=== PATIENT | female | born 1960 | race Caucasian/White ===

== ENCOUNTER → 2020-08-01 15:11 | Outpatient (BNVA) | payer OTHER, SELFPAY | PROVIDERS: PCP Internal Medicine; Visit Provider Internal Medicine Cardiovascular Disease | DX: I50.30 Unspecified diastolic (congestive) heart failure (principal); I48.0 Paroxysmal atrial fibrillation; I10 Essential (primary) hypertension | CPT/HCPCS: 93005 ==

== ENCOUNTER → 2021-01-30 15:12 | Outpatient (BNVA) | payer OTHER, SELFPAY | PROVIDERS: PCP Internal Medicine; Visit Provider Internal Medicine Cardiovascular Disease | DX: I50.30 Unspecified diastolic (congestive) heart failure (principal); I48.0 Paroxysmal atrial fibrillation; G47.30 Sleep apnea, unspecified; Z79.899 Other long term (current) drug therapy | CPT/HCPCS: 93005 ==

== ENCOUNTER → 2021-08-01 14:58 | Outpatient (REF) | payer OTHER, SELFPAY ==
--- NOTE | 2021-08-01 15:01 | CA_ITS ---
Transthoracic Echocardiogram Patient (Last, First, Middle): Maria Dolores Marin Gender: Female Date of : 1960 Age: 61 Procedure Date: 08/01/2021 Procedure Type: Transthoracic Echocardiogram Location: OP Height: 162.56 cm Weight: 88.91 kg BSA: 1.94 m2 Heart Rate: bpm BP: 116 / 60 mmHg Online Content Coordinator: Referring MD: Daryl Rich MD Warp Tier: Daryl Rich MD Symptoms: I50.30 - Unspecified diastolic (congestive) heart failure Study Quality: Fair ECG Rhythm: Sinus Conclusions: - 1. Normal LV systolic function with normal diastolic filling pattern 2. Moderately dilated left atrium 3. Mild mitral regurgitation 4. Normal RV systolic pressure 5. No pericardial effusion Findings Left Ventricle Normal left ventricular size, thickness, and systolic function. The visually estimated ejection fraction is between 60-65%. Spectral Doppler is indicative of a normal filling pattern. Right Ventricle Normal right ventricular cavity size and systolic function. Atria The left atrium is moderately dilated. There is lipomatous hypertrophy of the interatrial septum. There is no evidence of interatrial shunt. The right atrium is normal in size. Aortic Valve Normal aortic valve structure and function. There is no aortic valve stenosis. There is no aortic valve regurgitation. Mitral Valve Normal mitral valve structure and function. There is mild mitral annular calcification. There is mild mitral valve regurgitation. There is no mitral valve stenosis. Pulmonic Valve The pulmonic valve was not well visualized. Tricuspid Valve There is trace tricuspid valve regurgitation. The right ventricular systolic pressure is 29 mmHg. There is no evidence of pulmonary hypertension. Great Vessels All visible segments of the aorta are normal in size. The pulmonary artery was not well visualized. Venous The inferior vena cava is normal in size and collapses greater than 50% with inspiration. Pericardium/Pleural There is no evidence of pericardial effusion. Prior Study Comparison Changes noted compared to prior study dated: 02/18/2020. Left atrium is further enlarged Measurements 2D Linear Measurements IVSd: 1.09 0.6-0.9/0.6-1.0 cm LVIDd: 4.28 3.9-5.3/4.2-5.9 cm LVIDd Index: 2.21 2.4-3.2/2.2-3.1 cm/m2 LVIDs: 2.38 2.0-3.6 cm LVPWd: 1.06 0.7-1.1 cm Ao Root: 3.00 2.1-3.5 cm LA Diam: 4.20 2.7-3.8/3.0-4.0 cm LAIDs Index: 2.16 1.5-2.3 cm/m2 LV Mass: 194.94 67-162/88-224 g LV Mass Index: 100.49 43-95/49-115 g/m2 LVOT Diam: 1.90 3.0+(-)1.3 cm Mitral Valve MV Pk E: 0.81 MV PK A: 0.67 MV Decel Time: 147.00 E/A: 1.20 E'Lateral: 12.20 E'Medial: 8.59 E/E' Med: 9.40 E/E' Lat: 6.60 PHT: 43.00 MVA PHT: 5.12 Decel [place]: 5.49 Aortic Valve AoV Pk Dmitry: 1.84 AoV Mn Dmitry: 1.21 AoV VTI: 0.42 AoV Pk Grad: 14.00 Aov Mn Grad: 7.00 ALEX Cont.VTI: 1.88 LVOT LVOT Pk Mditry: 1.27 LVOT Mn Dmitry: 0.86 LVOT VTI: 0.28 LVOT Pk Grad: 6.00 LVOT Mn Grad: 3.00 LVOT Diam: 1.90 LVOT Area: 2.84 Diastolic Function MV Pk E: 0.81 MV Pk A: 0.67 E/A: 1.20 E'Medial: 8.59 E/E' Med: 9.40 E' Laterial: 12.20 E/E' Lat: 6.60 Right Ventricle TAPSE (mm): 35.00 Tricuspid Valve TR Pk Dmitry: 2.56 TR Pk Grad: 26.00 RA Press: 3.00 RVSP: 29.00 Great Vessels Aorta Ao Root-2D: 3.00 2.0-3.7 cm Pulmonary Valve PV Pk Dmitry: 1.00 Peak PV Grad: 4.00 Updated in Other Vendor System with Status of Final Daryl Rich MD electronically signed on 08/01/2021 4:23:22 PM with status of Final
== END ==
LOC: HO.CARD 14:58
PROVIDERS: PCP Internal Medicine; Visit Provider Internal Medicine Cardiovascular Disease
DX: I50.30 Unspecified diastolic (congestive) heart failure (principal)
CPT/HCPCS: 93306

== ENCOUNTER → 2021-08-28 14:39 | Outpatient (BNVA) | payer OTHER, SELFPAY | PROVIDERS: PCP Internal Medicine; Visit Provider Internal Medicine Cardiovascular Disease | DX: I48.0 Paroxysmal atrial fibrillation (principal); I50.30 Unspecified diastolic (congestive) heart failure; G47.33 Obstructive sleep apnea (adult) (pediatric) | CPT/HCPCS: 93005 ==

== ENCOUNTER → 2021-11-15 16:01 | Outpatient (REF) | payer OTHER, SELFPAY | LOC: HO.SL 16:01 | PROVIDERS: PCP Internal Medicine; Visit Provider Internal Medicine Cardiovascular Disease | DX: Z13.89 Encounter for screening for other disorder (principal) ==

== ENCOUNTER → 2022-03-06 08:45 | Outpatient (BNVA) | payer OTHER, SELFPAY | PROVIDERS: PCP Internal Medicine; Visit Provider Internal Medicine Cardiovascular Disease | DX: I48.0 Paroxysmal atrial fibrillation (principal); I50.30 Unspecified diastolic (congestive) heart failure | CPT/HCPCS: 93005 ==

== ENCOUNTER → 2022-08-02 15:16 | Outpatient (BNVA) | payer OTHER, SELFPAY | PROVIDERS: PCP Internal Medicine; Visit Provider Internal Medicine Cardiovascular Disease | DX: Z79.899 Other long term (current) drug therapy (principal) | CPT/HCPCS: 93005 ==

== ENCOUNTER 2022-09-14 11:11 | Outpatient (REF) | payer OTHER, SELFPAY ==
--- NOTE | ~2022-09-14 | XR_ITS ---
EXAMINATION: XR SHOULDER , RIGHT CLINICAL INFORMATION: Pain COMPARISON: None available at the time of this dictation. TECHNIQUE: AP external rotation, Grashey, scapular Y, and axillary views of the shoulder. FINDINGS: BONES: 2 metallic anchors in the right humeral head likely from rotator cuff repair.. There is no fracture or dislocation, no osteolytic or osteoblastic lesion. JOINTS: Soft tissue calcification around humeral head suggests possible calcific tendinosis. Glenohumeral joint is properly positioned. There is mild degenerative osteoarthritis of the acromioclavicular joint. SOFT TISSUE AND INCLUDED LUNG: Normal. XR/XR shoulder RT min 2V IMPRESSION: * Soft tissue calcification around humeral head suggests calcific tendinosis. * Mild DJD A.C. joint. * 2 metallic anchors in the humeral head likely from rotator cuff repair.
[2022-09-14 12:36] LABS: MANUAL DIFF FLAG NO
[2022-09-14 12:53] LABS: Basophils Absolute Auto 0.1 X10*3/uL (0.0-0.2); Basophils Percent Auto 0.7 % (0-2); Eosinophils Absolute Auto 0.2 X10*3/uL (0.0-0.4); Eosinophils Percent Auto 2.5 % (0-4); Hematocrit 38.5 % (37.0-47.0); Hemoglobin 12.1 g/dl (12.0-16.0); Imm Gran Abs Auto 0.02 X10*3/uL (0.00-0.03); Imm Gran Pct Auto 0.2 % (0.0-0.4); Lymphocytes Absolute Auto 1.3 X10*3/uL (1.2-4.9); Mean Corpuscular HGB Conc 31.4 g/dl (31.0-35.0); Mean Corpuscular Hemoglobin 27.3 pg (27.0-33.0); Mean Corpuscular Volume 86.9 fL (80.0-98.0); Mean Platelet Volume 9.8 fL (9.4-12.3); Monocytes Absolute Auto 0.8 X10*3/uL (0.1-1.2); Monocytes Percent Auto 9.7 % (2-11); Neutrophils Absolute Auto 5.8 x10*3/uL (2.0-8.3); Neutrophils Percent Auto 70.9 % (45-73); Platelet Count 428 X10*3/uL (160-400); Red Blood Count 4.43 X10*6/uL (4.20-5.50); Red Cell Distribution Width 13.8 % (11.0-16.0); White Blood Count 8.1 X10*3/uL (4.8-10.8)
[2022-09-14 13:29] LABS: Erythrocyte Sedimentation Rate 42 MM/HR (0-20)
[2022-09-14 14:19] LABS: Alanine Aminotransferase 16 U/L (0-31); Albumin Level 3.7 g/dL (3.5-5.0); Alkaline Phosphatase 124 U/L (39-117); Anion Gap 14 (12-20); Aspartate Amino Transferase 25 U/L (5-31); Bilirubin Total 0.3 mg/dL (0.0-1.0); Blood Urea Nitrogen 21 mg/dL (9-16); C Reactive Protein 0.73 mg/dL (< or = 0.50); Calcium 9.4 mg/dL (8.4-10.2); Carbon Dioxide 28 mmol/L (22-29); Chloride 99 mmol/L (96-108); Estimated Glomerular Filt Rate 60; Glucose Random 87 mg/dL (60-115); Iron 32 mcg/dL (30-160); Percent Iron Saturation 11 % (15-50); Potassium 4.8 mmol/L (3.3-5.1); Rheumatoid Factor < 13.0 IU/mL (<15.0); Sodium 136 mmol/L (135-145); Total Iron Binding Capacity 297 mcg/dL (228-428); Total Protein 5.7 g/dL (6.5-8.0); Unsaturated Iron Binding 265 ug/dL; Uric Acid 4.8 mg/dL (2.4-5.7)
[2022-09-14 14:28] LABS: Ferritin 14 ng/mL (10-250); TSH reflex Free T4 1.45 uIU/mL (0.32-4.0)
[2022-09-17 04:35] LABS: HBS Num1 3.36 mIU/mL (0-7.99); HBc Num1 0.05 S/CO (0.00-0.79); HBsAGNum1 0.25 S/CO (0.00-0.99); Hepatitis A Antibody IgM 0.31 Index (0-0.79); Hepatitis B Core Antibody Nonreactive (Nonreactive); Hepatitis B Surface Antigen Negative (Negative); ~HepC Num1 0.05 S/CO (0.00-0.79); ~Hepatitis A Antibody IgM Nonreactive (Nonreactive); ~Hepatitis B Surface Antibody NONREACTIVE (Nonreactive); ~Hepatitis C Antibody Nonreactive (Nonreactive)
[2022-09-17 13:23] LABS: Calcium (PTHI) 9.4 mg/dL (8.6-10.4); PTHI 133 pg/mL (16-77)
[2022-09-17 14:09] LABS: Prot Elec - Albumin 3.4 g/dL (3.8-4.8); Prot Elec - Alpha1 0.5 g/dL (0.2-0.3); Prot Elec - Beta 1 0.4 g/dL (0.4-0.6); Prot Elec - Beta 2 0.3 g/dL (0.2-0.5); Prot Elec - Gamma 0.4 g/dL (0.8-1.7); Prot Elec - Total Protein 5.8 g/dL (6.1-8.1)
[2022-09-17 17:03] LABS: Cyclic Citrullinated Peptide <16 UNITS
[2022-09-17 19:29] LABS: Transferrin 261 mg/dL (188-341)
[2022-09-19 15:38] LABS: IgA 79 mg/dL (70-320); IgG 336 mg/dL (600-1540); IgM 51 mg/dL (50-300)
== END 2022-09-14 11:12 | disposition home or self-care (01) ==
LOC: HO.XRAY 11:11
PROVIDERS: PCP Internal Medicine; Visit Provider Student in an Organized Health Care Education/Training Program
DX: L40.50 Arthropathic psoriasis, unspecified (principal); M06.9 Rheumatoid arthritis, unspecified; M25.511 Pain in right shoulder; M11.20 Other chondrocalcinosis, unspecified site; D64.9 Anemia, unspecified; M65.4 Radial styloid tenosynovitis [de Quervain]; M18.11 Unilateral primary osteoarthritis of first carpometacarpal joint, right hand; I48.91 Unspecified atrial fibrillation; Z11.59 Encounter for screening for other viral diseases; Z79.899 Other long term (current) drug therapy
CPT/HCPCS: 36415; 73030; 80053; 82728; 82784; 83540; 83970; 84165; 84443; 84466; 84550; 85025; 85652; 86140; 86200; 86334; 86431; 86704; 86706; 86709; 86803; 87340

== ENCOUNTER → 2022-11-27 08:13 | Outpatient (BNVA) | payer OTHER, SELFPAY | PROVIDERS: PCP Internal Medicine; Visit Provider Student in an Organized Health Care Education/Training Program | DX: Z13.89 Encounter for screening for other disorder (principal) ==

== ENCOUNTER → 2022-12-18 08:20 | Outpatient (REF) | payer OTHER, SELFPAY ==
--- NOTE | 2022-12-18 08:26 | HM_ITS ---
Conclusion: 1. Patient was monitored for total period of 2 days and 23 hours 2. Baseline was normal sinus rhythm with average heart of 81 beats per minute 3. No significant pauses or bradycardia noted 4. Frequent PACs noted with total burden of 3.2% without any episodes of atrial fibrillation 5. Frequent short burst of SVTs longest of 5 beats and fastest 154 beats per minute 6. No patient reported events MTDD
== END ==
LOC: HO.CARD 08:20
PROVIDERS: PCP Internal Medicine; Visit Provider Internal Medicine Cardiovascular Disease
DX: I48.0 Paroxysmal atrial fibrillation (principal)
CPT/HCPCS: 93242

== ENCOUNTER → 2023-02-20 07:57 | Outpatient (REF) | payer OTHER, SELFPAY | LOC: HO.CARD 07:57 | PROVIDERS: PCP Internal Medicine; Visit Provider Internal Medicine Cardiovascular Disease | DX: I50.30 Unspecified diastolic (congestive) heart failure (principal) | CPT/HCPCS: 93306; 93356 ==

== ENCOUNTER 2023-03-05 08:46 | Outpatient (AMB) | payer OTHER, SELFPAY ==
[2023-03-05 08:48] VITALS: BP 120/80; PULSE 160; BMI 32.5
--- NOTE | 2023-03-05 08:48 | MHC.OFFVIS ---
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: No Allergies cefazolin [From ANCEF] Allergy (Unknown, Verified 11/27/22 08:33) UNKNOWN erythromycin base [ERYTHROMYCIN BASE] Allergy (Unknown, Verified 11/27/22 08:33) UNKNOWN Cefazolin Sodium Allergy (Unknown, Uncoded 11/27/22 08:33) itching Erythromycin Allergy (Unknown, Uncoded 11/27/22 08:33) rash Medication List - Last Reconciled 03/05/23 by Daryl Rich MD apixaban 5 mg PO BID 90 days celecoxib 200 mg PO DAILY diltiazem HCl 240 mg PO DAILY flecainide 100 mg PO Q12H 30 days folic acid 1 mg PO DAILY furosemide 20 mg PO DAILY leflunomide 20 mg PO DAILY multivitamin 1 tab PO DAILY omeprazole 40 mg PO BID spironolactone 50 mg PO DAILY [thumb spica apply as much as possible throughout the day] tramadol 100 mg PO DAILY PRN HPI HPI Comments History of Present Illness Details MariaD olores comes for follow-up. She underwent shoulder replacement surgery in on February 13. She started oral anticoagulation on February 06. Had a hematoma and black and blue at the site of surgery postoperatively. Few days ago she started noticing swelling and wound that he since with discolored drainage. She has been started on antibiotic therapy. Since last however she has started noticing there were heart rate was rapid. She had complains of irregular heartbeat or fast heart rate. She took extra flecainide without any effect. She is complaining of lightheadedness and symptoms of exertional shortness of breath with minimal activity. She has been using flecainide religiously along with Cardizem therapy. She has also been on Eliquis and tomorrow will complete 4 weeks. She denies any syncopal episodes. Denies any clear orthopnea, PND. Uses CPAP. Has been losing weight. [facility] Medical History (HFpEF) heart failure with preserved ejection fraction HTN (hypertension) Obesity Obstructive sleep apnea Paroxysmal atrial fibrillation Psoriasis Surgical History History of intestinal surgery History of radiofrequency ablation (RFA) procedure for cardiac arrhythmia Hx of shoulder surgery Family History Father Heart failure Diabetes Mother Dementia HTN (hypertension) Stroke Social History Household Members Other:: Sister Alcohol intake: current Alcohol intake frequency: holidays/special occasions only Patient Tobacco Use Status: Never used Tobacco Review of Systems Const Denies chills, Denies fatigue, Denies fever(s), Denies frequent falls, Denies weakness, Denies weight gain and Denies weight loss ENT Denies dizziness Card Denies chest pain, Denies leg edema, Denies lightheadedness, Denies palpitations, Denies dyspnea, Denies dyspnea on exertion, Denies orthopnea and Denies other (loss of consciousness) Resp Denies cough, Denies dyspnea and Denies dyspnea on exertion GI Denies hematochezia and Denies change in stool character Musc Denies abnormal gait, Denies muscle weakness, Denies numbness, Denies radiating pain into limb and Denies tingling Neuro Denies abnormal gait, Denies dizziness, Denies frequent falls, Denies numbness, Denies tingling and Denies weakness Endo Denies fatigue and Denies palpitations Physical Exam Vital Signs: Last Vital Signs Pulse 160 H 03/05/23 08:48 BP 120/80 03/05/23 08:48 BMI result Body Mass Index 32.5 Const General: cooperative, comfortable, no acute distress, alert, awake and well groomed Nutritional Appearance: overweight Orientation/consciousness: patient oriented x3 Limitations: no limitations Neck Neck: Yes trachea midline, Yes supple and Yes no JVD Resp Effort & Inspection: normal respiratory effort Auscultation: clear to auscultation bilaterally Cardio Jugular venous distension: no JVD Palpation: normal PMI Rate: tachycardic Rhythm: abnormal rhythm irregularly irregular Heart sounds: S1 normal heart sound present, S2 normal heart sound present, no click, no gallops, no murmurs and no rubs GI Inspection: Yes obesity Auscultation: normal bowel sounds Skin General skin exam: no rashes or lesions noted Neuro General: patient oriented x3 and no focal motor deficits Extrem General: No clubbing, No cyanosis, Yes edema (Mild on the left lower extremity below-knee) and Yes other (Bilateral varicosities left greater than right) Psych Appearance: grossly normal Office Procedures EKG Details: EKG shows atrial fibrillation with rapid ventricular response with nonspecific ST T wave changes. [id number], Complete Assessment & Plan Assessment & Plan (1) Atrial fibrillation with rapid ventricular response: Code(s): I48.91 - Unspecified atrial fibrillation Plan: Patient recurrent atrial fibrillation rapid ventricular response, question triggered by the recent infection. Not resolved and symptomatic with symptoms of shortness of breath as well as lightheadedness. Rate is not adequately controlled. She has done very well on dronedarone therapy in the past. Will discontinue flecainide and start on Multaq 400 mg b.i.d. starting today. Continue Eliquis 5 mg b.i.d.. Tomorrow will be 4 weeks. Safe to perform synchronized cardioversion. Discussed with her about the risks, benefits, alternatives to the procedure. She understands and agrees. She has done very well with rhythm control approach in the past and will continue to pursue the same. Continue CPAP therapy. Blood pressure is well optimized. She is advised to seek emergency care if she has sudden worsening of her symptoms. (2) (HFpEF) heart failure with preserved ejection fraction: Code(s): I50.30 - Unspecified diastolic (congestive) heart failure Plan: Prior history of heart failure preserved ejection fraction, clinically euvolemic and well compensated today on low-dose diuretic therapy. Will pursue rhythm control approach as above which has helped her with heart failure symptoms in the past. Continue CPAP therapy. Continue aggressive blood pressure control therapy. Daily weight monitoring avoidance of salt loading was discussed. Will follow up in the clinic in 4 weeks time, sooner p.r.n.. Thank you for allowing me to partake in her care Medications: New dronedarone (Multaq) must administer with a meal/food 400 mg PO Q12H 60 tabs 1RF Discontinued flecainide Discontinued Reason: No Longer Medically Relevant 100 mg PO Q12H 30 days 60 tabs 5RF atrial fibrillation Coding Level of Care Code Est Pt Level 4 (59975) Diagnoses Atrial fibrillation with rapid ventricular response I48.91 (HFpEF) heart failure with preserved ejection fraction I50.30 CPT Codes EKG - CPT: 29717-[id number], Complete ([id number])
== END 2023-03-05 09:13 | disposition home or self-care (01) ==
PROVIDERS: Visit Provider Internal Medicine Cardiovascular Disease
DX: I48.91 Unspecified atrial fibrillation (principal); I50.30 Unspecified diastolic (congestive) heart failure
CPT/HCPCS: 93010; 99214

== ENCOUNTER → 2023-03-05 08:46 | Outpatient (BNVA) | payer OTHER, SELFPAY | PROVIDERS: Visit Provider Internal Medicine Cardiovascular Disease | DX: I48.91 Unspecified atrial fibrillation (principal); I50.30 Unspecified diastolic (congestive) heart failure; Z79.899 Other long term (current) drug therapy; Z79.01 Long term (current) use of anticoagulants | CPT/HCPCS: 93005 ==

== ENCOUNTER → 2023-03-06 13:14 | Day surgery (SDC) | payer OTHER, SELFPAY ==
--- NOTE | 2023-03-06 13:27 | ECG_ITS ---
Test Reason : preop Blood Pressure : / mmHG Vent. Rate : 084 BPM Atrial Rate : 084 BPM P-R Int : 168 ms QRS Dur : 074 ms QT Int : 398 ms P-R-T Axes : 040 054 099 degrees QTc Int : 470 ms Normal sinus rhythm Nonspecific ST and T wave abnormality Abnormal ECG No previous ECGs available Referred By: Daryl Rich Electronically Signed By:Christiano Cortez
[2023-03-06 13:29] VITALS: BMI 32.4
--- NOTE | 2023-03-06 13:45 | PC.NURSE ---
upon arrival patient stated I feel like I converted, I am feeling much better than yesterday . Heart monitor placed and appears NSR. Laurier connect to Dr. Rich, 12 lead EKG obtained, per Dr. Rich patient converted to NSR and cardioversion cancelled today.
== END ==
PROVIDERS: PCP Internal Medicine; Visit Provider Internal Medicine Cardiovascular Disease
DX: I48.0 Paroxysmal atrial fibrillation (principal); I11.0 Hypertensive heart disease with heart failure; I50.30 Unspecified diastolic (congestive) heart failure; Z79.01 Long term (current) use of anticoagulants; Z53.8 Procedure and treatment not carried out for other reasons
CPT/HCPCS: 93005

== ENCOUNTER → 2023-03-06 13:27 | Outpatient (BNV) | payer OTHER, SELFPAY | PROVIDERS: PCP Internal Medicine; Visit Provider Internal Medicine Cardiovascular Disease | DX: I48.91 Unspecified atrial fibrillation (principal) | CPT/HCPCS: 93010 ==

== ENCOUNTER 2023-03-12 13:44 | Outpatient (AMB) | payer OTHER, SELFPAY ==
[2023-03-12 13:54] VITALS: BP 120/82; PULSE 78; BMI 32.2
--- NOTE | 2023-03-12 13:54 | MHC.OFFVIS ---
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 Allergies cefazolin [From ANCEF] Allergy (Unknown, Verified 11/27/22 08:33) UNKNOWN erythromycin base [ERYTHROMYCIN BASE] Allergy (Unknown, Verified 11/27/22 08:33) UNKNOWN Medication List - Last Reconciled 03/12/23 by Daryl Rich MD apixaban 5 mg PO BID 90 days celecoxib 200 mg PO DAILY diltiazem HCl 240 mg PO DAILY dronedarone (Multaq) 400 mg PO Q12H folic acid 1 mg PO DAILY furosemide 20 mg PO DAILY leflunomide 20 mg PO DAILY multivitamin 1 tab PO DAILY omeprazole 40 mg PO BID spironolactone 50 mg PO DAILY [thumb spica apply as much as possible throughout the day] tramadol 100 mg PO DAILY PRN HPI HPI Comments History of Present Illness Details Maria Dolores comes for urgent visit today. Recently as you aware she had been to the office because of recurrent atrial fibrillation rapid ventricular response and we had started on Multaq and schedule her for synchronized cardioversion. However when she present it for cardioversion she was back in normal sinus rhythm. Following day she developed significant bilateral leg swelling and was more short of breath. She did not take extra Lasix of were worried that she could be in congestive heart failure. She comes today and says that her leg swelling is much improved and shortness of breath is improved. She has remained in sinus rhythm. She says she has been diuresing more in the last 2 days. She denies any clear orthopnea, PND. No lightheadedness, syncope. No bleeding issues or neurologic events [facility] Medical History (HFpEF) heart failure with preserved ejection fraction HTN (hypertension) Obesity Obstructive sleep apnea Paroxysmal atrial fibrillation Psoriasis Surgical History History of intestinal surgery History of radiofrequency ablation (RFA) procedure for cardiac arrhythmia Hx of shoulder surgery Family History Father Heart failure Diabetes Mother Dementia HTN (hypertension) Stroke Social History Household Members Other:: Sister Alcohol intake: current Alcohol intake frequency: holidays/special occasions only Patient Tobacco Use Status: Never used Tobacco Review of Systems Const Denies chills, Denies fatigue, Denies fever(s), Denies frequent falls, Denies weakness, Denies weight gain and Denies weight loss ENT Denies dizziness Card Denies chest pain, Denies leg edema, Denies lightheadedness, Denies palpitations, Denies dyspnea, Denies dyspnea on exertion, Denies orthopnea and Denies other (loss of consciousness) Resp Denies cough, Denies dyspnea and Denies dyspnea on exertion GI Denies hematochezia and Denies change in stool character Musc Denies abnormal gait, Denies muscle weakness, Denies numbness, Denies radiating pain into limb and Denies tingling Neuro Denies abnormal gait, Denies dizziness, Denies frequent falls, Denies numbness, Denies tingling and Denies weakness Endo Denies fatigue and Denies palpitations Physical Exam Vital Signs: Last Vital Signs Pulse 78 03/12/23 13:54 BP 120/82 03/12/23 13:54 BMI result Body Mass Index 32.2 Const General: cooperative, comfortable, no acute distress, alert, awake and well groomed Nutritional Appearance: overweight Orientation/consciousness: patient oriented x3 Limitations: no limitations Neck Neck: Yes trachea midline, Yes supple and Yes no JVD Resp Effort & Inspection: normal respiratory effort Auscultation: clear to auscultation bilaterally Cardio Jugular venous distension: no JVD Palpation: normal PMI Rate: regular rate Rhythm: regular rhythm Heart sounds: S1 normal heart sound present, S2 normal heart sound present, no click, no gallops, no murmurs and no rubs GI Inspection: Yes obesity Auscultation: normal bowel sounds Skin General skin exam: no rashes or lesions noted Neuro General: patient oriented x3 and no focal motor deficits Extrem General: No clubbing, No cyanosis, Yes edema (Mild on the left lower extremity below-knee) and Yes other (Bilateral varicosities left greater than right) Psych Appearance: grossly normal Office Procedures EKG Details: EKG shows normal sinus rhythm nonspecific ST T wave [place] [id number], Complete Assessment & Plan Assessment & Plan (1) (HFpEF) heart failure with preserved ejection fraction: Code(s): I50.30 - Unspecified diastolic (congestive) heart failure Plan: patient recent episode bilateral leg edema and shortness of breath which has now resolved. Clinically today appears to be euvolemic and well compensated. This could have been a self-limited episode of heart failure which resolved after she has been in sinus rhythm and could be induced by persistent atrial fibrillation as well as brief atrial stunning post cardioversion. He she is currently doing well from this perspective. Continue current diuretic regimen with Lasix 20 mg daily. Also continue spironolactone therapy. Continue CPAP therapy. Continue rhythm control approach. Advised to call me with worsening symptoms. Maintain activity level and weight loss Program. (2) Paroxysmal atrial fibrillation: Code(s): I48.0 - Paroxysmal atrial fibrillation Plan: Highly symptomatic paroxysmal atrial fibrillation is doing well from rhythm control approach. Converted with Multaq therapy. Has failed flecainide therapy. Continue aggressive rhythm control approach. If she failed rhythm control approach and/ or cannot tolerate Multaq therapy will consider redo ablation therapy. This was discussed with her. She understands and agrees. Continue rhythm control approach. Continue aggressively CPAP therapy. Continue aggressive blood pressure control which is well optimized continue full oral anticoagulation, currently on Eliquis 5 mg b.i.d.. Quarterly renal function test should be pursued. Will follow up in the clinic in 3 months for EKG in 6 months with me. Coding Level of Care Code Est Pt Level 4 (32744) Diagnoses (HFpEF) heart failure with preserved ejection fraction I50.30 Paroxysmal atrial fibrillation I48.0 CPT Codes EKG - CPT: 95837-[id number], Complete ([id number])
== END 2023-03-12 14:28 | disposition home or self-care (01) ==
PROVIDERS: PCP Internal Medicine; Visit Provider Internal Medicine Cardiovascular Disease
DX: R94.31 Abnormal electrocardiogram [ECG] [EKG] (principal)
CPT/HCPCS: 93010; 99214

== ENCOUNTER → 2023-03-12 13:44 | Outpatient (BNVA) | payer OTHER, SELFPAY | PROVIDERS: PCP Internal Medicine; Visit Provider Internal Medicine Cardiovascular Disease | DX: I50.30 Unspecified diastolic (congestive) heart failure (principal); I48.0 Paroxysmal atrial fibrillation; M79.89 Other specified soft tissue disorders | CPT/HCPCS: 93005 ==

== ENCOUNTER 2023-03-15 08:51 | Outpatient (REF) | payer OTHER, SELFPAY ==
[2023-03-15 09:04] LABS: MANUAL DIFF FLAG NO
[2023-03-15 09:45] LABS: Basophils Absolute Auto 0.1 X10*3/uL (0.0-0.2); Basophils Percent Auto 1.2 % (0-2); Eosinophils Absolute Auto 0.3 X10*3/uL (0.0-0.4); Eosinophils Percent Auto 3.3 % (0-4); Hematocrit 34.3 % (37.0-47.0); Hemoglobin 10.3 g/dl (12.0-16.0); Imm Gran Abs Auto 0.03 X10*3/uL (0.00-0.03); Imm Gran Pct Auto 0.4 % (0.0-0.4); Lymphocytes Absolute Auto 0.9 X10*3/uL (1.2-4.9); Lymphocytes Percent Auto 11.2 % (20-40); Mean Corpuscular Hemoglobin 26.5 pg (27.0-33.0); Mean Corpuscular Volume 88.4 fL (80.0-98.0); Mean Platelet Volume 9.9 fL (9.4-12.3); Monocytes Absolute Auto 0.7 X10*3/uL (0.1-1.2); Monocytes Percent Auto 9.5 % (2-11); Neutrophils Absolute Auto 5.7 x10*3/uL (2.0-8.3); Neutrophils Percent Auto 74.4 % (45-73); Platelet Count 401 X10*3/uL (160-400); Red Blood Count 3.88 X10*6/uL (4.20-5.50); Red Cell Distribution Width 14.3 % (11.0-16.0); White Blood Count 7.7 X10*3/uL (4.8-10.8)
[2023-03-15 10:23] LABS: Erythrocyte Sedimentation Rate 62 MM/HR (0-20)
[2023-03-15 10:28] LABS: Alanine Aminotransferase 12 U/L (0-31); Albumin Level 3.9 g/dL (3.5-5.0); Alkaline Phosphatase 97 U/L (39-117); Anion Gap 17 (12-20); Aspartate Amino Transferase 19 U/L (5-31); Bilirubin Total 0.6 mg/dL (0.0-1.0); Blood Urea Nitrogen 15 mg/dL (9-16); C Reactive Protein 2.38 mg/dL (< or = 0.50); Calcium 9.5 mg/dL (8.4-10.2); Carbon Dioxide 22 mmol/L (22-29); Chloride 102 mmol/L (96-108); Estimated Glomerular Filt Rate > 60; Glucose Random 98 mg/dL (60-115); Potassium 4.4 mmol/L (3.3-5.1); Sodium 137 mmol/L (135-145); Total Protein 6.5 g/dL (6.5-8.0)
== END 2023-03-15 08:52 | disposition home or self-care (01) ==
LOC: HO.LAB 08:51
PROVIDERS: Visit Provider Student in an Organized Health Care Education/Training Program
DX: L40.50 Arthropathic psoriasis, unspecified (principal)
CPT/HCPCS: 36415; 80053; 85025; 85652; 86140

== ENCOUNTER 2023-04-11 12:22 | Outpatient (AMB) | payer OTHER, SELFPAY ==
--- NOTE | 2023-04-11 12:59 | AM.OFFVISNUR ---
Intake Intake Visit Reasons: EKG Bacon Slicer Required: No Accompanied by: Self / Same As Patient Allergies cefazolin [From ANCEF] Allergy (Unknown, Verified 04/11/23 12:59) UNKNOWN erythromycin base [ERYTHROMYCIN BASE] Allergy (Unknown, Verified 04/11/23 12:59) UNKNOWN Nursing Note Pt was seen in office for EKG. She reported feeling like she was in a-fib. Pt c/o shortness of breath, fatigue, and left leg swelling. Today's EKG shows a- flutter w/ 2:1 conduction w/ heart rate of 147BPM. EKG reviewed by Dr. Rich and pt was sent to ED for possible cardioversion if IV medications do not break abnormal rhythm. Pt aware and alert she agreed with plan. Pt was placed in wheel chair and brought down to ED. Office Procedures EKG [id number], Complete Coding Diagnoses CPT Codes EKG - CPT: 71296-[id number], Complete ([id number])
== END 2023-04-11 12:55 | disposition home or self-care (01) ==
PROVIDERS: PCP Internal Medicine; Visit Provider Internal Medicine Cardiovascular Disease
DX: I48.92 Unspecified atrial flutter (principal)
CPT/HCPCS: 93010

== ENCOUNTER → 2023-04-11 12:22 | Outpatient (BNVA) | payer OTHER, SELFPAY | PROVIDERS: PCP Internal Medicine; Visit Provider Internal Medicine Cardiovascular Disease ==

== ENCOUNTER 2023-04-11 12:51 | Emergency (ER) | payer OTHER, SELFPAY ==
--- NOTE | 2023-04-11 12:54 | ED_ITS ---
HPI - General Adult General Chief complaint: Arrhythmia/Palpitations Stated complaint: afib Time Seen by Provider: 04/11/23 13:07 Source: patient Mode of arrival: ambulatory Limitations: no limitations History of Present Illness HPI narrative: Patient comes to the emergency room from Dr. Rich office. Patient states that she has previous history of atrial fibrillation. Patient had an ablation in 2019. Patient had been asymptomatic for several years. Recently, patient recently had a shoulder surgery. Since then, patient has been intermittently in and out of AFib. Today, patient started having palpitations, no chest pain, complaining of shortness of breath with exertion. Patient went to the cardiology office, patient was sent here to the emergency room for further evaluation and treatment. Related Data Home Medications Medication Instructions Recorded Confirmed folic acid 1 mg tablet 1 mg PO DAILY 08/01/20 03/12/23 omeprazole 40 mg capsule,delayed 40 mg PO BID 09/14/22 03/12/23 release tramadol 50 mg tablet 100 mg PO DAILY PRN pain 09/14/22 03/12/23 multivitamin 1 tab PO DAILY 03/05/23 03/12/23 Previous Rx's Medication Instructions Recorded diltiazem HCl 240 mg 240 mg PO DAILY #90 caps 06/19/22 capsule,extended release 24 hr thumb spica #1 ea 09/14/22 apixaban 5 mg tablet 5 mg PO BID 90 days #180 tabs 11/12/22 dronedarone 400 mg tablet (Multaq) 400 mg PO Q12H #60 tabs 03/05/23 celecoxib 200 mg capsule 200 mg PO DAILY #30 caps 03/12/23 furosemide 20 mg tablet 20 mg PO DAILY #90 tabs 03/20/23 spironolactone 50 mg tablet 50 mg PO DAILY #90 tabs 03/20/23 diltiazem HCl 300 mg 300 mg PO DAILY #30 caps 04/11/23 capsule,extended release 24 hr (Cardizem CD) leflunomide 20 mg tablet 20 mg PO DAILY #90 tabs 04/11/23 Allergies Allergy/AdvReac Type Severity Reaction Status Date / Time erythromycin base Allergy Unknown UNKNOWN Verified 04/11/23 13:05 [ERYTHROMYCIN BASE] Review of Systems Review of Systems: Constitutional : No Weight loss, No Fever, No Chills, No Night Sweats, No Fatigue, No Malaise ENT/Mouth : No Hearing loss, No Ear Pain, No Nasal Congestion, No Sinus Pain, No Hoarseness, No sore throat, No Rhinorrhea, No Swallowing Difficulty Eyes: No Eye Pain, No Swelling, No Redness, No Foreign Body, No Discharge, No Vision Changes Cardiovascular : No Chest Pain, No SOB, complaining of Dyspnea on Exertion, No Orthopnea, No Edema, complaining of Palpitations Respiratory : No Cough, No Sputum, No Wheezing, No Smoke Exposure, No Dyspnea Gastrointestinal : No Nausea, No Vomiting, No Diarrhea, No Constipation, No abdominal Pain, No Hematochezia, No Melena Genitourinary : no irregular bleeding, No Dysuria, No Urinary Frequency, No Hematuria, No Urinary Incontinence, No Urgency, No Flank Pain, No Urinary Flow Changes, No Hesitancy Musculoskeletal : No joint pain, No Myalgias, No Joint Swelling Skin : No Skin Lesions, No rash Neuro : No Weakness, No Numbness, No Paresthesias, No Loss of Consciousness, No Dizziness, No Headache Psych : No Anxiety/Panic, No Depression, No SI/HI/AH/VH, No Social Issues, Heme/Lymph: No Bruising, No Bleeding,No Lymphadenopathy Endocrine : No Polyuria, No Polydipsia, No Temperature Intolerance PMFSH Past Medical History Medical History (HFpEF) heart failure with preserved ejection fraction HTN (hypertension) Obesity Obstructive sleep apnea Paroxysmal atrial fibrillation Psoriasis Surgical History History of intestinal surgery History of radiofrequency ablation (RFA) procedure for cardiac arrhythmia Hx of shoulder surgery Family History Family History Father Heart failure Diabetes Mother Dementia HTN (hypertension) Stroke Social History Social History Household Members Other:: Sister Alcohol intake: current Alcohol intake frequency: holidays/special occasions only Patient Tobacco Use Status: Never used Tobacco Advance Directives: No Advance Directives Information Provided: Yes Physical Exam ED Vital Signs: Vital Signs - 24 hr 04/11/23 13:06 04/11/23 13:26 Temperature 98 F Pulse Rate 144 H 141 H Respiratory Rate 19 18 Blood Pressure 115/86 119/76 Pulse Oximetry 98 94 Oxygen Delivery Method Room Air Room Air BMI result Body Mass Index 30.8 Const Other: Appearance: Alert. Oriented X3. No acute distress. Eyes: Pupils equal, round and reactive to light. ENT: Pharynx normal. Neck: Normal inspection. Neck supple. No lymph nodes noted. No crepitus CVS: Irregularly regular heart rate in the 150s to 160s, Pulses normal. Normal S1 and S2 Respiratory: No respiratory distress. Breath sounds normal. No Wheezing. No rales Abdomen: Soft and nontender. No rigidity. No distention. Skin: Skin warm and dry. Normal skin color. Normal skin turgor. Extremities: No lower extremity edema. No Lacerations. No Rash Neuro: Oriented X 3. No motor deficit. No sensory deficit. Moving all extremities. No slurred speech. CN 2 through 12 grossly intact Psych: calm, cooperative, normal affect Course Course Course Narrative: RME- 62-year-old female with past medical history significant for atrial fibrillation maintained on Cardizem presents for evaluation from Cardiology office for palpitations. She was found to be in a flutter as high as 150. Plan for labs, EKG, likely IV antiarrhythmics. Patient will be given a room imm ediately Medications Administered Generic Name Dose Route Start Last Admin Trade Name Freq PRN Reason Stop Dose Admin Calcium Gluconate 2 gm in 100 mls @ 50 mls/hr 04/11/23 13:35 04/11/23 13:41 Calcium Gluconate IV 04/11/23 15:34 50 mls/hr ONCE ONE Administration Discontinued Medications Generic Name Dose Route Start Last Admin Trade Name Freq PRN Reason Stop Dose Admin Diltiazem HCl 10 mg 04/11/23 13:35 04/11/23 13:41 Diltiazem Hcl 50 Mg/10 Ml Vial IVPUSH 04/11/23 13:36 10 mg STAT STA Administration Medical Decision Making Medical Decision Making [facility] Narrative: -my interpretation of EKG: Atrial flutter versus atrial fibrillation versus SVT, heart rate 144, no ST segment depression elevation, no T-wave inversion, QTC 452 -on physical exam, patient's auscultation of the heart is irregularly irregular. Likely to be atrial fibrillation. Patient was given 10 mg of Cardizem IV. Also, since patient's blood pressure was on the softer side in case we need more, patient was given calcium gluconate. -my interpretation of labs: Hematology at baseline, chemistry within normal limits, troponin normal less than 2.7, BNP slightly bumped at 166, patient has no respiratory distress -after 10 mg of IV Cardizem, patient converted back into sinus rhythm with a heart rate of 82. Patient asymptomatic. -my interpretation of EKG 2.: Normal sinus rhythm, heart rate 82, no ST segment depression or elevation, no T-wave inversion, QTC 443 -I discussed the patient with Dr. Rich, patient's Cardizem home dose will be increased to 300 mg and then she can be discharged home. Differential Diagnosis Differential Diagnoses: The differential diagnosis associated with the presentation includes (Atrial fibrillation, atrial flutter, SVT) Admission/Observation Consideration of admission/observation: Escalation of care including admission/observation considered (Patient came in with a heart rate 160, symptomatic admission was considered.) Consult Healthcare Provider Management of the patient was discussed with: Router Operator Pin Lab Data MDM Lab Attestation statement: I reviewed the patient's lab results. 04/11/23 13:05 04/11/23 13:05 Labs: Lab Results 04/11/23 04/11/23 04/11/23 Range/Units 13:05 13:05 13:05 WBC 7.6 (4.8-10.8) X10*3/uL RBC 3.97 L (4.20-5.50) X10*6/uL Hgb 10.5 L (12.0-16.0) g/dl Hct 33.7 L (37.0-47.0) % MCV 84.9 (80.0-98.0) fL MCH 26.4 L (27.0-33.0) pg MCHC 31.2 (31.0-35.0) g/dl RDW 15.8 (11.0-16.0) % Plt Count 425 H (160-400) X10*3/uL MPV 10.0 (9.4-12.3) fL Immature Gran % (Auto) 0.3 (0.0-0.4) % Neut % (Auto) 72.3 (45-73) % Lymph % (Auto) 12.3 L (20-40) % Quay % (Auto) 11.5 H (2-11) % Eos % (Auto) 2.7 (0-4) % Baso % (Auto) 0.9 (0-2) % Lymph # (Auto) 0.9 L (1.2-4.9) X10*3/uL Quay # (Auto) 0.9 (0.1-1.2) X10*3/uL Eos # (Auto) 0.2 (0.0-0.4) X10*3/uL Baso # (Auto) 0.1 (0.0-0.2) X10*3/uL Abs Immat Gran (auto) 0.02 (0.00-0.03) X10*3/uL Absolute Neuts (auto) 5.5 (2.0-8.3) x10*3/uL Absolute Nucleated RBC 0.000 (0.0-0.012) X10*3/uL Nucleated RBC % (auto) 0.0 (0.0-0.2) /100WBC PT 14.2 H (11.1-13.3) SEC INR 1.2 H (0.9-1.1) APTT 44.8 H (26.0-36.4) SEC Sodium 136 (135-145) mmol/L Potassium 4.1 (3.3-5.1) mmol/L Chloride 102 (96-108) mmol/L Carbon Dioxide 27 (22-29) mmol/L Anion Gap 11 L (12-20) BUN 14 (9-16) mg/dL Creatinine 0.90 (0.5-1.4) mg/dL Estim Creat Clear Calc 69.4 Estimated GFR > 60 Random Glucose 86 (60-115) mg/dL Calcium 9.2 (8.4-10.2) mg/dL Total Bilirubin 0.3 (0.0-1.0) mg/dL AST 23 (5-31) U/L ALT 16 (0-31) U/L Alkaline Phosphatase 130 H (39-117) U/L Troponin I High Sens (<3.5-17.0) ng/L B-Natriuretic Peptide (<100) pg/mL Total Protein 6.0 L (6.5-8.0) g/dL Albumin 3.5 (3.5-5.0) g/dL Lipase 14 (8-78) U/L 08/24/23 08/24/23 Range/Units 13:05 13:05 WBC (4.8-10.8) X10*3/uL RBC (4.20-5.50) X10*6/uL Hgb (12.0-16.0) g/dl Hct (37.0-47.0) % MCV (80.0-98.0) fL MCH (27.0-33.0) pg MCHC (31.0-35.0) g/dl RDW (11.0-16.0) % Plt Count (160-400) X10*3/uL MPV (9.4-12.3) fL Immature Gran % (Auto) (0.0-0.4) % Neut % (Auto) (45-73) % Lymph % (Auto) (20-40) % Quay % (Auto) (2-11) % Eos % (Auto) (0-4) % Baso % (Auto) (0-2) % Lymph # (Auto) (1.2-4.9) X10*3/uL Quay # (Auto) (0.1-1.2) X10*3/uL Eos # (Auto) (0.0-0.4) X10*3/uL Baso # (Auto) (0.0-0.2) X10*3/uL Abs Immat Gran (auto) (0.00-0.03) X10*3/uL Absolute Neuts (auto) (2.0-8.3) x10*3/uL Absolute Nucleated RBC (0.0-0.012) X10*3/uL Nucleated RBC % (auto) (0.0-0.2) /100WBC PT (11.1-13.3) SEC INR (0.9-1.1) APTT (26.0-36.4) SEC Sodium (135-145) mmol/L Potassium (3.3-5.1) mmol/L Chloride (96-108) mmol/L Carbon Dioxide (22-29) mmol/L Anion Gap (12-20) BUN (9-16) mg/dL Creatinine (0.5-1.4) mg/dL Estim Creat Clear Calc Estimated GFR Random Glucose (60-115) mg/dL Calcium (8.4-10.2) mg/dL Total Bilirubin (0.0-1.0) mg/dL AST (5-31) U/L ALT (0-31) U/L Alkaline Phosphatase (39-117) U/L Troponin I High Sens < 2.7 (<3.5-17.0) ng/L B-Natriuretic Peptide 166 H (<100) pg/mL Total Protein (6.5-8.0) g/dL Albumin (3.5-5.0) g/dL Lipase (8-78) U/L Independent Interpretation I performed an independent interpretation of an: EKG External Record Review External record reviewed: Office record (From cardiology, Dr. Rich) Chronic Conditions Patient?s care impacted by: Other (Atrial fibrillation) Critical Care Time Critical Care Time Critical Care Time: Yes Total Critical Care Time: 60 Attestation: I have personally provided critical care time. Time includes review of lab data, radiology results, discussion with consultants, and monitoring for potential decompensation. Intervention performed as documented. Discharge Plan Discharge Clinical Impression: Atrial fibrillation with RVR Patient Disposition: Home, Self-Care Instructions: A-fib (Atrial Fibrillation) (ED) Additional Instructions: Please follow-up with your primary care physician tomorrow. If you have any worsening or new symptoms, please return to the emergency room or call 911 Prescriptions: New diltiazem HCl [Cardizem CD] 300 mg capsule,extended release 24hr 300 mg PO DAILY Qty: 30 0RF No Action diltiazem HCl 240 mg capsule,extended release 24hr 240 mg PO DAILY Qty: 90 3RF apixaban 5 mg tablet 5 mg PO BID 90 Days Qty: 180 3RF celecoxib 200 mg capsule 200 mg PO DAILY Qty: 30 0RF furosemide 20 mg tablet 20 mg PO DAILY Qty: 90 3RF spironolactone 50 mg tablet 50 mg PO DAILY Qty: 90 3RF leflunomide 20 mg tablet 20 mg PO DAILY Qty: 90 0RF folic acid 1 mg tablet 1 mg PO DAILY tramadol 50 mg tablet 100 mg PO DAILY PRN (Reason: pain) multivitamin Tablet 1 tab PO DAILY Multaq 400 mg tablet 400 mg PO Q12H Qty: 60 1RF Rx Instructions: must administer with a meal/food omeprazole 40 mg capsule,delayed release(DR/EC) 40 mg PO BID (DME) thumb spica See Rx Instructions .Route .MEDSUPPLY Qty: 1 0RF Rx Instructions: apply as much as possible throughout the day Referrals: Daryl Rich MD [Physician] - 04/15/23
--- NOTE | 2023-04-11 12:54 | ECG_ITS ---
Test Reason : PALPITATIONS Blood Pressure : / mmHG Vent. Rate : 144 BPM Atrial Rate : 000 BPM P-R Int : 000 ms QRS Dur : 062 ms QT Int : 292 ms P-R-T Axes : 000 039 050 degrees QTc Int : 452 ms Supraventricular tachycardia Low voltage QRS Nonspecific ST and T wave abnormality Abnormal ECG When compared with ECG of 06-MAR-2023 13:35, Vent. rate has increased BY 60 BPM Nonspecific T wave abnormality now evident in Inferior leads Referred By: Jeovany Triana Electronically Signed By:ALAN COLLINS
[2023-04-11 13:06] VITALS: BP 115/86; PULSE 144; RESP 19; TEMP 36.6; O2SAT 98; BMI 30.8
[2023-04-11 13:10] LABS: MANUAL DIFF FLAG NO
[2023-04-11 13:13] LABS: Basophils Absolute Auto 0.1 X10*3/uL (0.0-0.2); Basophils Percent Auto 0.9 % (0-2); Eosinophils Absolute Auto 0.2 X10*3/uL (0.0-0.4); Eosinophils Percent Auto 2.7 % (0-4); Hematocrit 33.7 % (37.0-47.0); Hemoglobin 10.5 g/dl (12.0-16.0); Imm Gran Abs Auto 0.02 X10*3/uL (0.00-0.03); Imm Gran Pct Auto 0.3 % (0.0-0.4); Lymphocytes Absolute Auto 0.9 X10*3/uL (1.2-4.9); Lymphocytes Percent Auto 12.3 % (20-40); Mean Corpuscular HGB Conc 31.2 g/dl (31.0-35.0); Mean Corpuscular Hemoglobin 26.4 pg (27.0-33.0); Mean Corpuscular Volume 84.9 fL (80.0-98.0); Monocytes Absolute Auto 0.9 X10*3/uL (0.1-1.2); Monocytes Percent Auto 11.5 % (2-11); Neutrophils Absolute Auto 5.5 x10*3/uL (2.0-8.3); Neutrophils Percent Auto 72.3 % (45-73); Platelet Count 425 X10*3/uL (160-400); Red Blood Count 3.97 X10*6/uL (4.20-5.50); Red Cell Distribution Width 15.8 % (11.0-16.0); White Blood Count 7.6 X10*3/uL (4.8-10.8)
[2023-04-11 13:22] LABS: INTERNATIONAL NORM RATIO 1.2 (0.9-1.1); Prothrombin Time 14.2 SEC (11.1-13.3)
[2023-04-11 13:25] LABS: Partial Thromboplastin Time 44.8 SEC (26.0-36.4)
[2023-04-11 13:26] VITALS: BP 119/76; PULSE 141; RESP 18; O2SAT 94
[2023-04-11 13:31] LABS: Alanine Aminotransferase 16 U/L (0-31); Albumin Level 3.5 g/dL (3.5-5.0); Alkaline Phosphatase 130 U/L (39-117); Anion Gap 11 (12-20); Aspartate Amino Transferase 23 U/L (5-31); Bilirubin Total 0.3 mg/dL (0.0-1.0); Blood Urea Nitrogen 14 mg/dL (9-16); Calcium 9.2 mg/dL (8.4-10.2); Carbon Dioxide 27 mmol/L (22-29); Chloride 102 mmol/L (96-108); Creatinine Clr Calc Pharmacy 69.4; Estimated Glomerular Filt Rate > 60; Glucose Random 86 mg/dL (60-115); Lipase 14 U/L (8-78); Potassium 4.1 mmol/L (3.3-5.1); Sodium 136 mmol/L (135-145)
[2023-04-11] MEDS: dilTIAZem HCL 50 MG/10 ML VIAL 10 MG IVPUSH (13:41)
[2023-04-11] MEDS: Calcium Gluconate/NaCl,Iso-Osm 2 GM/100 ML PLAST..BAG IV (13:41)
[2023-04-11 13:50] LABS: Troponin-I High Sensitivity < 2.7 ng/L (<3.5-17.0)
[2023-04-11 13:52] LABS: B Type Natriuretic Peptide 166 pg/mL (<100)
--- NOTE | 2023-04-11 13:53 | ECG_ITS ---
Test Reason : REPEAT Blood Pressure : / mmHG Vent. Rate : 082 BPM Atrial Rate : 082 BPM P-R Int : 152 ms QRS Dur : 070 ms QT Int : 380 ms P-R-T Axes : 070 043 060 degrees QTc Int : 443 ms Sinus rhythm with Premature atrial complexes Otherwise normal ECG When compared with ECG of 11-APR-2023 12:58, Premature atrial complexes are now Present Vent. rate has decreased BY 62 BPM Nonspecific T wave abnormality no longer evident in Inferior leads Referred By: Juliette Gonzalez Electronically Signed By:ALAN COLLINS
[2023-04-11 15:13] VITALS: BP 101/56; PULSE 83; RESP 14; O2SAT 99
== END 2023-04-11 15:21 | disposition home or self-care (01) ==
PROVIDERS: Physician Assistant; Emergency Provider Emergency Medicine; PCP Internal Medicine
DX: I48.0 Paroxysmal atrial fibrillation (principal); R06.02 Shortness of breath; I11.0 Hypertensive heart disease with heart failure; I50.30 Unspecified diastolic (congestive) heart failure; G47.33 Obstructive sleep apnea (adult) (pediatric); Z79.01 Long term (current) use of anticoagulants; Z79.899 Other long term (current) drug therapy
CPT/HCPCS: 36415; 80053; 83690; 83880; 84484; 85025; 85610; 85730; 93005; 96374; 96375; 99284; 99285; J0613

== ENCOUNTER 2023-04-16 09:52 | Outpatient (AMB) | payer OTHER, SELFPAY ==
--- NOTE | 2023-04-16 09:53 | MHC.OFFVIS ---
Intake Vital Signs 04/16/23 09:54 Height 5 ft 5 in Weight 187 lb 6.287 oz BMI 31.2 BP 126/82 Blood Pressure Location Lt brachial Position Sitting Pulse 72 Intake Visit Reasons: [facility] ed Intake Note: Follow-up ED for dx afib feeling better [employer] Required: No Allergies erythromycin base [ERYTHROMYCIN BASE] Allergy (Unknown, Verified 04/11/23 13:05) UNKNOWN Medication List - Last Reconciled 04/16/23 by Daryl Rich MD apixaban 5 mg PO BID 90 days celecoxib 200 mg PO DAILY PRN diltiazem HCl (Cardizem CD) 300 mg PO DAILY dronedarone (Multaq) 400 mg PO Q12H folic acid 1 mg PO DAILY furosemide 20 mg PO DAILY leflunomide 20 mg PO DAILY multivitamin 1 tab PO DAILY omeprazole 40 mg PO BID spironolactone 50 mg PO DAILY [thumb spica apply as much as possible throughout the day] tramadol 100 mg PO DAILY PRN HPI HPI Comments History of Present Illness Details Maria Dolores comes for follow-up after recent presentation to the ED with rapid atrial flutter. She converted after receiving IV Cardizem 10 mg. Since then her Cardizem dose was increased to 300 mg daily. Since then she has had no recurrent symptoms. EKG was suggestive left-sided atrial flutter. I had communicated with electrophysiology service regarding follow-up and consideration for ablation and there on the process of the same. Patient is tolerating medications well. No bleeding issues or neurologic events. she has had no recurrent symptoms since increasing her Cardizem [facility] Medical History (HFpEF) heart failure with preserved ejection fraction HTN (hypertension) Obesity Obstructive sleep apnea Paroxysmal atrial fibrillation Psoriasis Surgical History History of intestinal surgery History of radiofrequency ablation (RFA) procedure for cardiac arrhythmia Hx of shoulder surgery Family History Father Heart failure Diabetes Mother Dementia HTN (hypertension) Stroke Social History Household Members Other:: Sister Alcohol intake: current Alcohol intake frequency: holidays/special occasions only Patient Tobacco Use Status: Never used Tobacco Review of Systems Const Denies chills, Denies fatigue, Denies fever(s), Denies frequent falls, Denies weakness, Denies weight gain and Denies weight loss ENT Denies dizziness Card Denies chest pain, Denies leg edema, Denies lightheadedness, Denies palpitations, Denies dyspnea, Denies dyspnea on exertion, Denies orthopnea and Denies other (loss of consciousness) Resp Denies cough, Denies dyspnea and Denies dyspnea on exertion GI Denies hematochezia and Denies change in stool character Musc Denies abnormal gait, Denies muscle weakness, Denies numbness, Denies radiating pain into limb and Denies tingling Neuro Denies abnormal gait, Denies dizziness, Denies frequent falls, Denies numbness, Denies tingling and Denies weakness Endo Denies fatigue and Denies palpitations Physical Exam Vital Signs: Last Vital Signs Pulse 72 04/16/23 09:54 BP 126/82 04/16/23 09:54 BMI result Body Mass Index 31.2 Const General: cooperative, comfortable, no acute distress, alert, awake and well groomed Nutritional Appearance: overweight Orientation/consciousness: patient oriented x3 Limitations: no limitations Neck Neck: Yes trachea midline, Yes supple and Yes no JVD Resp Effort & Inspection: normal respiratory effort Auscultation: clear to auscultation bilaterally Cardio Jugular venous distension: no JVD Palpation: normal PMI Rate: regular rate Rhythm: regular rhythm Heart sounds: S1 normal heart sound present, S2 normal heart sound present, no click, no gallops, no murmurs and no rubs GI Inspection: Yes obesity Auscultation: normal bowel sounds Skin General skin exam: no rashes or lesions noted Neuro General: patient oriented x3 and no focal motor deficits Extrem General: No clubbing, No cyanosis, Yes edema (Mild on the left lower extremity below-knee) and Yes other (Bilateral varicosities left greater than right) Psych Appearance: grossly normal Office Procedures EKG Details: EKG shows normal sinus rhythm normal EKG [id number], Complete Assessment & Plan Assessment & Plan (1) Atrial flutter: Code(s): I48.92 - Unspecified atrial flutter Plan: patient having recurrent arrhythmias most suggestive of left-sided atrial flutter, most likely scar based since her prior ablations. The findings were discussed with electrophysiology service. She is on dual therapy with Multaq and Cardizem with increased dose of Cardizem recently. Advised to avoid stimulants. I think she require repeat ablated of therapy. This was discussed with her. She is not very excited about it but understands. This to be scheduled with EPS in near future. Have consulted Dr. Plaza who will reach out to the patient. Meanwhile continue current therapy. Continue full oral anticoagulation, currently on apixaban. Continue risk factor modification. She is having GI side effects related to Multaq therapy. Once ablation is completed would switch her back to flecainide therapy which she tolerated well and had good successful long-term with that. (2) (HFpEF) heart failure with preserved ejection fraction: Code(s): I50.30 - Unspecified diastolic (congestive) heart failure Plan: Patient prior history of heart failure preserved ejection fraction setting of atrial fibrillation. Clinically doing well. Continue aggressive rhythm control approach. Continue aggressive blood pressure control which is currently well optimized. Continue current low-dose diuretic therapy with Lasix. Daily weight monitoring avoidance of salt loading was discussed continue neurohormonal modulation with spironolactone. Semi annual renal function test should be pursued. Follow up in the clinic in 3 months for EKG in 6 months with me. Thank you for allowing me to partake in her care Coding Level of Care Code Est Pt Level 4 (15702) Diagnoses Atrial flutter I48.92 (HFpEF) heart failure with preserved ejection fraction I50.30 CPT Codes EKG - CPT: 06405-[id number], Complete ([id number])
[2023-04-16 09:54] VITALS: BP 126/82; PULSE 72; BMI 31.2
== END 2023-04-16 10:13 | disposition home or self-care (01) ==
PROVIDERS: PCP Internal Medicine; Visit Provider Internal Medicine Cardiovascular Disease
DX: I48.92 Unspecified atrial flutter (principal); I50.30 Unspecified diastolic (congestive) heart failure
CPT/HCPCS: 93010; 99214

== ENCOUNTER → 2023-04-16 09:52 | Outpatient (BNVA) | payer OTHER, SELFPAY | PROVIDERS: PCP Internal Medicine; Visit Provider Internal Medicine Cardiovascular Disease | DX: I48.92 Unspecified atrial flutter (principal); I50.30 Unspecified diastolic (congestive) heart failure; I10 Essential (primary) hypertension; Z98.890 Other specified postprocedural states | CPT/HCPCS: 93005 ==

== ENCOUNTER 2023-04-18 11:59 | Outpatient (AMB) | payer OTHER, SELFPAY ==
--- NOTE | 2023-04-18 12:11 | MHC.OFFVIS ---
Intake Vital Signs 04/18/23 12:12 Height 5 ft 4 in Weight 187 lb 6.287 oz BMI 32.2 BP 128/80 Blood Pressure Location Rt brachial Position Sitting Pulse 73 Pulse Source Pulse Oximeter Temp 97.3 F Temp Source Skin Pulse Oximetry (%) 97 Intake Visit Reasons: PsA Intake Note: Pt seen today for PsA follow up. Field Checker Required: No Accompanied by: Self / Same As Patient Allergies erythromycin base [ERYTHROMYCIN BASE] Allergy (Unknown, Verified 04/18/23 12:13) UNKNOWN Medication List - Last Reconciled 04/18/23 by Cierra Isbell MD apixaban 5 mg PO BID 90 days celecoxib 200 mg PO DAILY PRN diltiazem HCl (Cardizem CD) 300 mg PO DAILY dronedarone (Multaq) 400 mg PO Q12H folic acid 1 mg PO DAILY furosemide 20 mg PO DAILY leflunomide 20 mg PO DAILY multivitamin 1 tab PO DAILY omeprazole 40 mg PO BID spironolactone 50 mg PO DAILY [thumb spica apply as much as possible throughout the day] tramadol 100 mg PO DAILY PRN HPI HPI Comments History of Present Illness Details 62-year-old female with psoriatic arthritis returns for follow-up. Back in January patient had reversed total or right shoulder replacement. She is recovering well. Participating in physical therapy and has good range of motion of her right shoulder. Last month patient went to the emergency room with atrial flutter and was found to be in CHF. She was evaluated by her piano assembler and is being referred to an home appliance technician. Patient states that she feels about the same. Continues to have pain in her left toes. GetS intermittent burning pain in her right wrist. She tried tapering the Celebrex off but she could not. She continues to take Celebrex Twice daily. Initial history: This is a 62-year-old female with past medical history of HFpEF, AFib, psoriasis, psoriatic arthritis, who presents for evaluation of psoriatic arthritis. Patient stated she has had psoriasis since her 20s. She was on methotrexate at some point which did not help much, she eventually got laser treatment which cleared her psoriasis. 2013 she started having pain and swelling of her toes. She developed a sausage digit she was evaluated by a privacy officer and diagnosed with psoriatic arthritis. She believes she was on methotrexate briefly and was ineffective. She was then switched to leflunomide 10 mg daily which did not help then increase to 20 mg daily which controlled her symptoms. She has been on leflunomide 20 mg daily until now. She her ran out of leflunomide about 2 months ago. She states that for years she has had bilateral toe pain and morning stiffness lasting 2 hours. Over the last year she has had intermittent right shoulder pain. She has had multiple right shoulder steroid injections over the years without significant relief. She has history of right rotator cuff repair in 2015. Over the last couple of weeks she has developed significant right shoulder pain with any movement. She went to physical therapy without significant improvement. She has right thumb pain that is worse with grabbing objects. States that her psoriasis has not been a problem for many years. There is no history suggestive of uveitis or IBD [facility] Medical History (HFpEF) heart failure with preserved ejection fraction HTN (hypertension) Obesity Obstructive sleep apnea Paroxysmal atrial fibrillation Psoriasis Surgical History History of intestinal surgery History of radiofrequency ablation (RFA) procedure for cardiac arrhythmia Hx of shoulder surgery Family History Father Heart failure Diabetes Mother Dementia HTN (hypertension) Stroke Social History Household Members Other:: Sister Alcohol intake: current Alcohol intake frequency: holidays/special occasions only Patient Tobacco Use Status: Never used Tobacco Review of Systems [facility] [place] Reports arthralgias Physical Exam Vital Signs: Last Vital Signs Temp 97.3 F 04/18/23 12:12 Pulse 73 04/18/23 12:12 BP 128/80 04/18/23 12:12 Pulse Ox 97 04/18/23 12:12 BMI result Body Mass Index 32.2 Const General: cooperative, healthy appearing and comfortable Nutritional Appearance: obese Orientation/consciousness: patient oriented x3 Limitations: no limitations HEENT Head: Yes normocephalic and Yes atraumatic Mouth: moist mucous membranes Resp Effort & Inspection: normal respiratory effort and able to speak in complete sentences Auscultation: clear to auscultation bilaterally Cardio Rate: regular rate Rhythm: regular rhythm Heart sounds: S1 normal heart sound present and S2 normal heart sound present GI Inspection: No distended Palpation (GI): Soft to palpation and nontender Neuro General: patient oriented x3 Extrem Other: Almost normal range of motion of her right shoulder Mild swelling of both wrists and mild tenderness to palpation Left diffuse MTP tenderness Right 1st and 2nd MTP tenderness Results Reviewed Results Reviewed: Labs 12/2021? T spot negative Assessment & Plan Assessment & Plan (1) Psoriatic arthritis: Comment: Diagnosed 2013, initially had sausage toes Leflunomide 10 mg ineffective, advanced to 20 mg daily since 2013 effective Code(s): L40.50 - Arthropathic psoriasis, unspecified Plan: This is a 62-year-old female with seronegative arthritis who returns for follow-up. On leflunomide 20 mg daily. Continues to have pain in her left toes. She has bilateral wrist swelling and tenderness on exam. Recent labs showed high inflammatory markers but this was in the setting of rapid a flutter complicated by CHF. Patient is not interested in changing her DMARDs at this point. She would like to continue with her current medications and re-evaluate next visit. Advised patient that Celebrex should not be combined with Eliquis due to risk of bleeding. Will discontinue Eliquis for now and start prednisone 5 mg daily Labs before next visit in 3 months Plan I spent 30 minutes reviewing patient's chart, evaluating patient, ordering diagnostic workup, counseling patient and documenting in the chart Orders: Orders Complete Blood Count Auto Diff 3 Months L40.50 - Arthropathic psoriasis, unspecified Comprehensive Met. Panel 3 Months L40.50 - Arthropathic psoriasis, unspecified C Reactive Protein 3 Months L40.50 - Arthropathic psoriasis, unspecified Erythrocyte Sedimentation Rate 3 Months L40.50 - Arthropathic psoriasis, unspecified Ferritin 3 Months D64.9 - Anemia, unspecified IRON PROFILE 3 Months D64.9 - Anemia, unspecified Transferrin 3 Months D64.9 - Anemia, unspecified T Spot TB 3 Months Z11.7 - Encounter for testing for latent tuberculosis infection Medications: New prednisone 5 mg PO DAILY 30 tabs 2RF Discontinued celecoxib Discontinued Reason: Doctor's Order 200 mg PO DAILY PRN 30 caps 0RF pain L40.50 - Arthropathic psoriasis, unspecified Coding Level of Care Code Est Pt Level 4 (95411) Diagnoses Psoriatic arthritis L40.50
[2023-04-18 12:12] VITALS: BP 128/80; PULSE 73; TEMP 36.3; O2SAT 97; BMI 32.2
== END 2023-04-18 12:39 | disposition home or self-care (01) ==
PROVIDERS: PCP Internal Medicine; Visit Provider Student in an Organized Health Care Education/Training Program
DX: L40.50 Arthropathic psoriasis, unspecified (principal)
CPT/HCPCS: 99214

== ENCOUNTER → 2023-04-18 11:59 | Outpatient (BNVA) | payer OTHER, SELFPAY | PROVIDERS: PCP Internal Medicine; Visit Provider Student in an Organized Health Care Education/Training Program ==

== ENCOUNTER 2023-06-12 08:15 | Outpatient (AMB) | payer OTHER, SELFPAY ==
--- NOTE | 2023-06-12 08:52 | MHC.OFFVIS ---
Intake Intake Visit Reasons: ekg dx afib Allergies erythromycin base [ERYTHROMYCIN BASE] Allergy (Unknown, Verified 04/18/23 12:13) UNKNOWN PFS Medical History (HFpEF) heart failure with preserved ejection fraction HTN (hypertension) Obesity Obstructive sleep apnea Paroxysmal atrial fibrillation Psoriasis Surgical History History of intestinal surgery History of radiofrequency ablation (RFA) procedure for cardiac arrhythmia Hx of shoulder surgery Family History Father Heart failure Diabetes Mother Dementia HTN (hypertension) Stroke Social History Household Members Other:: Sister Alcohol intake: current Alcohol intake frequency: holidays/special occasions only Patient Tobacco Use Status: Never used Tobacco Assessment & Plan Assessment & Plan (1) Paroxysmal atrial fibrillation: Code(s): I48.0 - Paroxysmal atrial fibrillation Orders: Orders AMB EKG-In Office Today I48.0 - Paroxysmal atrial fibrillation Coding Level of Care Code Procedure Only Diagnoses Paroxysmal atrial fibrillation I48.0
--- NOTE | 2023-06-12 08:55 | AM.OFFVISNUR ---
Intake Intake Visit Reasons: ekg dx afib Intake Note: Ekg dx afib feeling good Allergies erythromycin base [ERYTHROMYCIN BASE] Allergy (Unknown, Verified 04/18/23 12:13) UNKNOWN Coding Assessment & Plan Assessment & Plan Orders: Orders AMB EKG-In Office Today I48.0 - Paroxysmal atrial fibrillation
== END 2023-06-12 08:55 | disposition home or self-care (01) ==
PROVIDERS: PCP Internal Medicine; Visit Provider Internal Medicine Cardiovascular Disease
DX: I49.1 Atrial premature depolarization (principal)
CPT/HCPCS: 93010

== ENCOUNTER → 2023-06-12 08:15 | Outpatient (BNVA) | payer OTHER, SELFPAY | PROVIDERS: PCP Internal Medicine; Visit Provider Internal Medicine Cardiovascular Disease | DX: I48.0 Paroxysmal atrial fibrillation (principal) | CPT/HCPCS: 93005 ==

== ENCOUNTER 2023-07-10 09:00 | Outpatient (REF) | payer OTHER, SELFPAY ==
[2023-07-10 09:13] LABS: MANUAL DIFF FLAG NO
[2023-07-10 09:24] LABS: Basophils Absolute Auto 0.1 X10*3/uL (0.0-0.2); Basophils Percent Auto 0.9 % (0-2); Eosinophils Absolute Auto 0.1 X10*3/uL (0.0-0.4); Eosinophils Percent Auto 0.9 % (0-4); Hematocrit 34.2 % (37.0-47.0); Hemoglobin 10.4 g/dl (12.0-16.0); Imm Gran Abs Auto 0.03 X10*3/uL (0.00-0.03); Imm Gran Pct Auto 0.4 % (0.0-0.4); Lymphocytes Absolute Auto 0.6 X10*3/uL (1.2-4.9); Lymphocytes Percent Auto 7.8 % (20-40); Mean Corpuscular HGB Conc 30.4 g/dl (31.0-35.0); Mean Corpuscular Hemoglobin 26.6 pg (27.0-33.0); Mean Corpuscular Volume 87.5 fL (80.0-98.0); Mean Platelet Volume 9.9 fL (9.4-12.3); Monocytes Absolute Auto 0.6 X10*3/uL (0.1-1.2); Monocytes Percent Auto 7.7 % (2-11); Neutrophils Absolute Auto 6.5 x10*3/uL (2.0-8.3); Neutrophils Percent Auto 82.3 % (45-73); Platelet Count 488 X10*3/uL (160-400); Red Blood Count 3.91 X10*6/uL (4.20-5.50); Red Cell Distribution Width 14.9 % (11.0-16.0); White Blood Count 7.8 X10*3/uL (4.8-10.8)
[2023-07-10 10:11] LABS: Erythrocyte Sedimentation Rate 23 MM/HR (0-20)
[2023-07-10 10:13] LABS: Alanine Aminotransferase 21 U/L (0-31); Albumin Level 3.9 g/dL (3.5-5.0); Alkaline Phosphatase 83 U/L (39-117); Anion Gap 13 (12-20); Aspartate Amino Transferase 23 U/L (5-31); Blood Urea Nitrogen 17 mg/dL (9-16); C Reactive Protein < 0.10 mg/dL (< or = 0.50); Calcium 9.7 mg/dL (8.4-10.2); Carbon Dioxide 30 mmol/L (22-29); Chloride 103 mmol/L (96-108); Estimated Glomerular Filt Rate > 60; Glucose Random 86 mg/dL (60-115); Iron 49 mcg/dL (30-160); Percent Iron Saturation 15 % (15-50); Potassium 5.2 mmol/L (3.3-5.1); Sodium 141 mmol/L (135-145); Total Iron Binding Capacity 327 mcg/dL (228-428); Total Protein 6.4 g/dL (6.5-8.0); Unsaturated Iron Binding 278 ug/dL
[2023-07-10 10:17] LABS: Bilirubin Total 0.6 mg/dL (0.0-1.0)
[2023-07-10 10:29] LABS: Ferritin 13 ng/mL (10-250)
[2023-07-12 12:53] LABS: Transferrin 303 mg/dL (188-341)
== END 2023-07-10 09:01 | disposition home or self-care (01) ==
LOC: HO.LAB 09:00
PROVIDERS: PCP Internal Medicine; Visit Provider Student in an Organized Health Care Education/Training Program
DX: L40.50 Arthropathic psoriasis, unspecified (principal); D64.9 Anemia, unspecified
CPT/HCPCS: 36415; 80053; 82728; 83540; 84466; 85025; 85652; 86140

== ENCOUNTER 2023-07-18 07:36 | Outpatient (AMB) | payer OTHER, SELFPAY ==
--- NOTE | 2023-07-18 07:39 | A.OFFVIS_ITS ---
Intake Vital Signs 07/18/23 07:41 Height 5 ft 4 in Weight 184 lb 1.376 oz BMI 31.6 BP 132/68 Blood Pressure Location Rt brachial Position Sitting Pulse 67 Pulse Source Pulse Oximeter Temp 96.8 F Temp Source Skin Pulse Oximetry (%) 95 Oxygen Delivery Method Room Air Intake Visit Reasons: PsA Intake Note: Pt last seen 04/18/23, presents today for follow up and test results. Leflunomide and prednisone. C/o increased pain Residential Carpet Installer Required: No Accompanied by: Self / Same As Patient Allergies erythromycin base [ERYTHROMYCIN BASE] Allergy (Unknown, Verified 07/18/23 07:48) UNKNOWN Medication List - Last Reconciled 07/18/23 by Cierra Isbell MD apixaban 5 mg PO BID 90 days diltiazem HCl (Cardizem CD) 300 mg PO DAILY dronedarone (Multaq) 400 mg PO Q12H folic acid 1 mg PO DAILY furosemide 20 mg PO DAILY leflunomide 20 mg PO DAILY multivitamin 1 tab PO DAILY omeprazole 40 mg PO BID prednisone 5 mg PO DAILY spironolactone 50 mg PO DAILY [thumb spica apply as much as possible throughout the day] tramadol 100 mg PO DAILY PRN HPI HPI Comments History of Present Illness Details 62-year-old female with psoriatic arthri tis returns for follow-up. She states that she is doing a little bit worse overall. She is having morning stiffness of her hands lasting 1 hour to 90 minutes. She believes that the prednisone 5 mg is not as effective as Celebrex. Last month she developed abrupt onset of right lower back/right buttock pain. She took Celebrex with good results. She states that she has pain at the bottom of her feet with walking especially after a long work day. She states that she was going for another ablation for her atrial flutter soon. Initial history: This is a 62-year-old female with past medical history of HFpEF, AFib, psoriasis, psoriatic arthritis, who presents for evaluation of psoriatic arthritis. Patient stated she has had psoriasis since her 20s. She was on methotrexate at some point which did not help much, she eventually got laser treatment which cleared her psoriasis. 2013 she started having pain and swellin g of her toes. She developed a sausage digit she was evaluated by a tanker truck driver and diagnosed with psoriatic arthritis. She believes she was on methotrexate briefly and was ineffective. She was then switched to leflunomide 10 mg daily which did not help then increase to 20 mg daily which controlled her symptoms. She has been on leflunomide 20 mg daily until now. She her ran out of leflunomide about 2 months ago. She states that for years she has had bilateral toe pain and morning stiffness lasting 2 hours. Over the last year she has had intermittent right shoulder pain. She has had multiple right shoulder steroid injections over the years without significant relief. She has history of right rotator cuff repair in 2015. Over the last couple of weeks she has developed significant right shoulder pain with any movement. She went to physical therapy without significant improvement. She has right thumb pain that is worse with grabbing objects. States that her psoriasis has not been a problem for many years. There is no history suggestive of uveitis or IBD [facility] Medical History Psoriasis (HFpEF) heart failure with preserved ejection fraction Paroxysmal atrial fibrillation HTN (hypertension) Obesity Obstructive sleep apnea Surgical History History of intestinal surgery History of radiofrequency ablation (RFA) procedure for cardiac arrhythmia Hx of shoulder surgery Family History Father Heart failure Diabetes Mother Dementia HTN (hypertension) Stroke Social History Household Members Other:: Sister Alcohol intake: current Alcohol intake frequency: holidays/special occasions only Patient Tobacco Use Status: Never used Tobacco Review of Systems [facility] [place] Reports back pain, Reports arthralgias and Reports stiffness Physical Exam Vital Signs: Last Vital Signs Temp 96.8 F 07/18/23 07:41 Pulse 67 07/18/23 07:41 BP 132/68 07/18/23 07:41 Pulse Ox 95 07/18/23 07:41 Oxygen Delivery Method Room Air 07/18/23 07:41 BMI result Body Mass Index 31.6 Const General: cooperative, healthy appearing and comfortable Nutritional Appearance: obese Orientation/consciousness: patient oriented x3 Limitations: no limitations HEENT Head: Yes normocephalic and Yes atraumatic Resp Effort & Inspection: normal respiratory effort and able to speak in complete sentences Neuro General: patient oriented x3 Extrem Other: Almost normal range of motion of her right shoulder Left wrist pain with full flexion No right wrist pain with range of motion Left diffuse MTP tenderness Right 1st and 2nd MTP tenderness Kennedi test 10-13 cm Negative straight leg raise test bilaterally Right buttock tenderness to palpation HANNAH test on the right produces right hip pain Results Reviewed Results Reviewed: Labs 12/2021? T spot negative Assessment & Plan Assessment & Plan (1) Psoriatic arthritis: Comment: Diagnosed 2013, initially had sausage toes Leflunomide 10 mg ineffective, advanced to 20 mg daily since 2013 effective Code(s): L40.50 - Arthropathic psoriasis, unspecified Plan: This is a 62-year-old female with seronegative arthritis who returns for follow- up. On leflunomide 20 mg daily and prednisone 5 mg daily Recently patient has been having right buttock/right hip pain. Improved with Celebrex. Will check SI joint and L-spine x-ray to evaluate for sacroiliitis and degenerative disc disease. She continues to have stiffness of her hands lasting 1 hour to 90 minutes. These symptoms are generally worse in the colder winter months. Her inflammatory markers are normal Advised patient not to combine Eliquis and Celebrex due to increased risk of bleeding. Continue leflunomide 20 mg daily and prednisone 5 mg daily Labs before next visit in 3 months (2) Anemia: Code(s): D64.9 - Anemia, unspecified Qualifiers: Anemia type: unspecified type Qualified Code(s): D64.9 - Anemia, unspecified Plan: Follow-up with PCP (3) Immunization counseling: Code(s): Z71.85 - Encounter for immunization safety counseling Plan: Patient is up-to-date on her flu shot for this season. She states that she will be getting the Shingrix vaccine soon (4) Encounter for monitoring leflunomide therapy: Code(s): Z51.81 - Encounter for therapeutic drug level monitoring; Z79.899 - Other retirement (current) drug therapy Plan: Monitor safety labs Plan I spent 30 minutes reviewing patient's chart, evaluating patient, ordering diagnostic workup, counseling patient and documenting in the chart Orders: Orders XR sacroiliac joint min 3V Today L40.50 - Arthropathic psoriasis, unspecified Complete Blood Count Auto Diff 3 Months L40.50 - Arthropathic psoriasis, unspecified Comprehensive Met. Panel 3 Months L40.50 - Arthropathic psoriasis, unspecified C Reactive Protein 3 Months L40.50 - Arthropathic psoriasis, unspecified XR lumbar spine 4V min Today L40.50 - Arthropathic psoriasis, unspecified Erythrocyte Sedimentation Rate 3 Months L40.50 - Arthropathic psoriasis, unspecified Coding Level of Care Code Est Pt Level 5 (62470) Diagnoses Psoriatic arthritis L40.50 Anemia, unspecified type D64.9 Anemia type: unspecified type Immunization counseling Z71.85 Encounter for monitoring leflunomide therapy Z51.81; Z79.899
[2023-07-18 07:41] VITALS: BP 132/68; PULSE 67; TEMP 36; O2SAT 95; BMI 31.6
== END 2023-07-18 08:10 | disposition home or self-care (01) ==
PROVIDERS: PCP Internal Medicine; Visit Provider Student in an Organized Health Care Education/Training Program
DX: L40.50 Arthropathic psoriasis, unspecified (principal); D64.9 Anemia, unspecified; Z71.85 Encounter for immunization safety counseling; Z51.81 Encounter for therapeutic drug level monitoring; Z79.899 Other long term (current) drug therapy
CPT/HCPCS: 99214

== ENCOUNTER 2023-07-18 07:36 | Outpatient (REF) | payer OTHER, SELFPAY ==
--- NOTE | ~2023-07-18 | XR_ITS ---
EXAMINATION: XR SACROILIAC JOINTS XR LUMBAR SPINE CLINICAL INFORMATION: Arthropathic psoriasis, unspecified. COMPARISON: None available. TECHNIQUE: Three views of the sacroiliac joints. Six views of the lumbosacral spine including obliques. FINDINGS: SACROILIAC JOINTS: The joints appear normal without arthrosis. No erosions. Partially visualized pelvis unremarkable. LUMBOSACRAL SPINE: Multilevel spondylosis throughout the lumbosacral spine with degenerative disc change manifested by endplate osteophytes and varying degrees of disc space narrowing. Disc space narrowing most evident at the L4-L5 level, overall moderate. Additional multilevel facet arthrosis, most prominent from L3-L4 through L5-S1. There is grade 1 anterolisthesis at L5-S1 and retrolisthesis at L2-L3, likely degenerative in etiology. There is no fracture or bone lesion. Multiple metallic coil-shaped devices overlying the abdomen likely related to prior surgery. XR/XR lumbar spine 4V min IMPRESSION: 1. Normal sacroiliac joints. 2. Multilevel spondylosis of the lumbar sacral spine. No specific radiographic evidence for inflammatory arthropathy.
--- NOTE | ~2023-07-18 | XR_ITS ---
EXAMINATION: XR SACROILIAC JOINTS XR LUMBAR SPINE CLINICAL INFORMATION: Arthropathic psoriasis, unspecified. COMPARISON: None available. TECHNIQUE: Three views of the sacroiliac joints. Six views of the lumbosacral spine including obliques. FINDINGS: SACROILIAC JOINTS: The joints appear normal without arthrosis. No erosions. Partially visualized pelvis unremarkable. LUMBOSACRAL SPINE: Multilevel spondylosis throughout the lumbosacral spine with degenerative disc change manifested by endplate osteophytes and varying degrees of disc space narrowing. Disc space narrowing most evident at the L4-L5 level, overall moderate. Additional multilevel facet arthrosis, most prominent from L3-L4 through L5-S1. There is grade 1 anterolisthesis at L5-S1 and retrolisthesis at L2-L3, likely degenerative in etiology. There is no fracture or bone lesion. Multiple metallic coil-shaped devices overlying the abdomen likely related to prior surgery. XR/XR sacroiliac joint min 3V IMPRESSION: 1. Normal sacroiliac joints. 2. Multilevel spondylosis of the lumbar sacral spine. No specific radiographic evidence for inflammatory arthropathy.
== END 2023-07-18 07:37 | disposition home or self-care (01) ==
LOC: HO.XRAY 07:36
PROVIDERS: PCP Internal Medicine; Visit Provider Student in an Organized Health Care Education/Training Program
DX: L40.50 Arthropathic psoriasis, unspecified (principal); D64.9 Anemia, unspecified; Z79.899 Other long term (current) drug therapy
CPT/HCPCS: 72110; 72202

== ENCOUNTER 2023-09-12 10:16 | Outpatient (AMB) | payer OTHER, SELFPAY ==
[2023-09-12 10:19] VITALS: BP 120/82; PULSE 75; BMI 30.3
--- NOTE | 2023-09-12 10:19 | MHC.OFFVIS ---
Intake Vital Signs 09/12/23 10:19 Height 5 ft 4 in Weight 176 lb 5.917 oz BMI 30.3 BP 120/82 Blood Pressure Location Lt brachial Position Sitting Pulse 75 Intake Visit Reasons: 6 mth f/up Intake Note: 6 month follow-up with ekg feeling ok Underwriting Operations Manager Required: No Allergies erythromycin base [ERYTHROMYCIN BASE] Allergy (Unknown, Verified 07/18/23 07:48) UNKNOWN Medication List - Last Reconciled 09/12/23 by Daryl Rich MD apixaban 5 mg PO BID 90 days diltiazem HCl (Cardizem CD) 300 mg PO DAILY dronedarone (Multaq) 400 mg PO Q12H folic acid 1 mg PO DAILY furosemide 20 mg PO DAILY leflunomide 20 mg PO DAILY multivitamin 1 tab PO DAILY omeprazole 40 mg PO BID spironolactone 50 mg PO DAILY [thumb spica apply as much as possible throughout the day] tramadol 100 mg PO DAILY PRN HPI HPI Comments History of Present Illness Details Maria Dolores comes for follow-up. She had ablation done and during the ablation after waking up she had constant chest pressure/sharp pain. That lasted for about 2 days. She had pain preceding the procedure as well. They did a bedside echocardiogram and there was no abnormalities. Since then she has had no recurrent chest pain including exertion. She also said that they held her Lasix for few days and she gained 10 lb with leg edema. Since then she is started taking Lasix 20 mg every day and is been doing well but today notice that she has weight gain of 4 lb compared to her baseline at 173 lb and notices bilateral leg swelling more on the left. She also says that she has venous insufficiency on the left side. She denies any shortness of breath with exertion and denies any resting shortness of breath, orthopnea, PND. No palpitations. Doing well from that perspective. No bleeding issues or neurologic events. [facility] Medical History Psoriasis (HFpEF) heart failure with preserved ejection fraction Paroxysmal atrial fibrillation HTN (hypertension) Obesity Obstructive sleep apnea Surgical History History of intestinal surgery History of radiofrequency ablation (RFA) procedure for cardiac arrhythmia Hx of shoulder surgery Family History Father Heart failure Diabetes Mother Dementia HTN (hypertension) Stroke Social History Household Members Other:: Sister Alcohol intake: current Alcohol intake frequency: holidays/special occasions only Patient Tobacco Use Status: Never used Tobacco Review of Systems Const Denies chills, Denies fatigue, Denies fever(s), Denies frequent falls, Denies weakness, Denies weight gain and Denies weight loss ENT Denies dizziness Card Denies chest pain, Denies leg edema, Denies lightheadedness, Denies palpitations, Denies dyspnea, Denies dyspnea on exertion, Denies orthopnea and Denies other (loss of consciousness) Resp Denies cough, Denies dyspnea and Denies dyspnea on exertion GI Denies hematochezia and Denies change in stool character Musc Denies abnormal gait, Denies muscle weakness, Denies numbness, Denies radiating pain into limb and Denies tingling Neuro Denies abnormal gait, Denies dizziness, Denies frequent falls, Denies numbness, Denies tingling and Denies weakness Endo Denies fatigue and Denies palpitations Physical Exam Vital Signs: Last Vital Signs Pulse 75 09/12/23 10:19 BP 120/82 09/12/23 10:19 BMI result Body Mass Index 30.3 Const General: cooperative, comfortable, no acute distress, alert, awake and well groomed Nutritional Appearance: overweight Orientation/consciousness: patient oriented x3 Limitations: no limitations Neck Neck: Yes trachea midline, Yes supple and Yes no JVD (+ AJR) Resp Effort & Inspection: normal respiratory effort Auscultation: clear to auscultation bilaterally Cardio Jugular venous distension: no JVD Palpation: normal PMI Rate: regular rate Rhythm: regular rhythm Heart sounds: S1 normal heart sound present, S2 normal heart sound present, no click, no gallops, no murmurs and no rubs GI Inspection: Yes obesity Auscultation: normal bowel sounds Skin General skin exam: no rashes or lesions noted Neuro General: patient oriented x3 and no focal motor deficits Extrem General: No clubbing, No cyanosis, Yes edema (Bilateral, greater on the left lower extremity below-knee) and Yes other (Bilateral varicosities left greater than right) Psych Appearance: grossly normal Office Procedures EKG Details: EKG shows normal sinus rhythm with PACs [place] [id number], Complete Assessment & Plan Assessment & Plan (1) (HFpEF) heart failure with preserved ejection fraction: Code(s): I50.30 - Unspecified diastolic (congestive) heart failure Plan: Heart failure preserved ejection fraction, with mild fluid overload on today's exam. Will suggest BNP and BMP today. Advised to increase her furosemide to 40 mg when she is weight gain and increased leg swelling and target her baseline weight of 173 lb. Continue spironolactone therapy. Will add Jardiance 10 mg daily for neurohormonal modulation as well as to avoid hospitalization. Management of heart failure was discussed in details. Continue aggressively to pursue rhythm which has helped her. Continue aggressive blood pressure control. Continue CPAP therapy if she is still participating in it. Continue daily weight monitoring avoidance of salt loading. Follow-up echocardiogram in 6 months time. (2) Paroxysmal atrial fibrillation: Code(s): I48.0 - Paroxysmal atrial fibrillation Plan: Difficult to control atrial fibrillation status post ablation more recently as well. She would episode of chest pain around the time of ablation question related to ablation and/or acid reflux disease. She does not have any recurrent chest pain since then. Advised to call me with recurrent chest pain may require ischemic workup. Continue Multaq therapy. Rhythm control as helped her significantly will continue pursue aggressive rhythm control approach. Continue risk factor modification with aggressive control blood pressure as well as sleep apnea. Continue full oral anticoagulation, currently on Eliquis 5 mg b.i.d.. At least semi annual renal function test should be pursued. Will follow up in the clinic in 3 months for EKG in 6 months with me. Thank you for allowing me to partake in her care Orders: Orders CA echo transthoracic complete 6 Months I50.30 - Unspecified diastolic (congestive) heart failure Basic Metabolic Panel Today I50.30 - Unspecified diastolic (congestive) heart failure B Type Natriuretic Peptide Today I50.30 - Unspecified diastolic (congestive) heart failure Medications: New empagliflozin (Jardiance) 10 mg PO DAILY 30 tabs 5RF I50.30 - Unspecified diastolic (congestive) heart failure Coding Level of Care Code Est Pt Level 4 (87065) Diagnoses (HFpEF) heart failure with preserved ejection fraction I50.30 Paroxysmal atrial fibrillation I48.0 CPT Codes EKG - CPT: 55584-[id number], Complete ([id number])
== END 2023-09-12 10:53 | disposition home or self-care (01) ==
PROVIDERS: PCP Internal Medicine; Visit Provider Internal Medicine Cardiovascular Disease
DX: I50.30 Unspecified diastolic (congestive) heart failure (principal); I48.0 Paroxysmal atrial fibrillation
CPT/HCPCS: 93010; 99214

== ENCOUNTER 2023-09-12 10:16 | Outpatient (REF) | payer OTHER, SELFPAY ==
[2023-09-12 12:34] LABS: Anion Gap 14 (12-20); Blood Urea Nitrogen 21 mg/dL (9-16); Calcium 9.5 mg/dL (8.4-10.2); Carbon Dioxide 27 mmol/L (22-29); Chloride 99 mmol/L (96-108); Estimated Glomerular Filt Rate 52; Glucose Random 86 mg/dL (60-115); Sodium 135 mmol/L (135-145)
[2023-09-12 12:35] LABS: B Type Natriuretic Peptide 97 pg/mL (<100)
== END 2023-09-12 10:17 | disposition home or self-care (01) ==
LOC: HO.LAB 10:16
PROVIDERS: PCP Internal Medicine; Visit Provider Internal Medicine Cardiovascular Disease
DX: I50.30 Unspecified diastolic (congestive) heart failure (principal); I48.0 Paroxysmal atrial fibrillation
CPT/HCPCS: 36415; 80048; 83880; 93005

== ENCOUNTER 2023-10-21 08:34 | Outpatient (REF) | payer OTHER, SELFPAY ==
[2023-10-21 08:50] LABS: MANUAL DIFF FLAG NO
[2023-10-21 09:23] LABS: Basophils Absolute Auto 0.1 X10*3/uL (0.0-0.2); Basophils Percent Auto 1.1 % (0-2); Eosinophils Absolute Auto 0.2 X10*3/uL (0.0-0.4); Eosinophils Percent Auto 3.5 % (0-4); Hematocrit 37.9 % (37.0-47.0); Hemoglobin 11.9 g/dl (12.0-16.0); Imm Gran Abs Auto 0.03 X10*3/uL (0.00-0.03); Imm Gran Pct Auto 0.5 % (0.0-0.4); Lymphocytes Absolute Auto 0.9 X10*3/uL (1.2-4.9); Lymphocytes Percent Auto 14.4 % (20-40); Mean Corpuscular HGB Conc 31.4 g/dl (31.0-35.0); Mean Corpuscular Hemoglobin 27.3 pg (27.0-33.0); Mean Corpuscular Volume 86.9 fL (80.0-98.0); Mean Platelet Volume 10.5 fL (9.4-12.3); Monocytes Absolute Auto 0.6 X10*3/uL (0.1-1.2); Monocytes Percent Auto 9.7 % (2-11); Neutrophils Absolute Auto 4.5 x10*3/uL (2.0-8.3); Neutrophils Percent Auto 70.8 % (45-73); Platelet Count 397 X10*3/uL (160-400); Red Blood Count 4.36 X10*6/uL (4.20-5.50); Red Cell Distribution Width 20.3 % (11.0-16.0); White Blood Count 6.4 X10*3/uL (4.8-10.8)
[2023-10-21 10:03] LABS: Alanine Aminotransferase 16 U/L (0-31); Alkaline Phosphatase 101 U/L (39-117); Anion Gap 11 (12-20); Aspartate Amino Transferase 23 U/L (5-31); Bilirubin Total 0.6 mg/dL (0.0-1.0); Blood Urea Nitrogen 16 mg/dL (9-16); C Reactive Protein 0.74 mg/dL (< or = 0.50); Calcium 9.7 mg/dL (8.4-10.2); Carbon Dioxide 30 mmol/L (22-29); Chloride 102 mmol/L (96-108); Estimated Glomerular Filt Rate > 60; Glucose Random 76 mg/dL (60-115); Potassium 3.9 mmol/L (3.3-5.1); Sodium 139 mmol/L (135-145); Total Protein 6.5 g/dL (6.5-8.0)
[2023-10-21 10:18] LABS: Erythrocyte Sedimentation Rate 43 MM/HR (0-20)
== END 2023-10-21 08:35 | disposition home or self-care (01) ==
LOC: HO.LAB 08:34
PROVIDERS: PCP Internal Medicine; Visit Provider Student in an Organized Health Care Education/Training Program
DX: L40.50 Arthropathic psoriasis, unspecified (principal)
CPT/HCPCS: 36415; 80053; 85025; 85652; 86140

== ENCOUNTER 2023-10-23 07:51 | Outpatient (AMB) | payer OTHER, SELFPAY ==
[2023-10-23 07:58] VITALS: BP 114/64; PULSE 72; O2SAT 94; BMI 30.7
--- NOTE | 2023-10-23 07:58 | MHC.OFFVIS ---
Intake Vital Signs 10/23/23 07:58 Height 5 ft 4 in Weight 179 lb 0.246 oz BMI 30.7 BP 114/64 Blood Pressure Location Lt brachial Position Sitting Pulse 72 Pulse Source Pulse Oximeter Pulse Oximetry (%) 94 Oxygen Delivery Method Room Air Intake Visit Reasons: PsA Intake Note: Patient last seen 07/18/23 presents today for follow up and test results. Casting Director Required: No Accompanied by: Self / Same As Patient Allergies erythromycin base [ERYTHROMYCIN BASE] Allergy (Unknown, Verified 10/23/23 08:00) UNKNOWN Medication List - Last Reconciled 10/23/23 by Cierra Isbell MD apixaban 5 mg PO BID 90 days diltiazem HCl (Cardizem CD) 300 mg PO DAILY empagliflozin (Jardiance) 10 mg PO DAILY folic acid 1 mg PO DAILY furosemide 40 mg (2 x 20 mg) PO DIRECTED MDD 40mg leflunomide 20 mg PO DAILY multivitamin 1 tab PO DAILY omeprazole 40 mg PO BID spironolactone 50 mg PO DAILY [thumb spica apply as much as possible throughout the day] tramadol 100 mg PO DAILY PRN HPI HPI Comments History of Present Illness Details 63-year-old female with psoriatic arthritis returns for follow-up. She states that last month while she was not physical therapy she had an episode when she had chills GI upset and vomiting associated with chest pain. She was taken to the emergency room and EKG, troponins BNP were unremarkable. She was evaluated by her chicken catcher and coronary angiogram was ordered. She states that she had a similar episode 1 or 2 months prior without the chest pain. She has not had any fevers. She has been having some stomach upset and pain. She was evaluated by her sterilizer machine operator. She states that tested positive for bacterial overgrowth and she had an endoscopy yesterday which according to her sterilizer machine operator was unremarkable but biopsies are pending. She held her leflunomide yesterday. She continues to take Eliquis. She states that she has been having pain in her hands and feet. Has not changed. Continues to have morning stiffness and swelling of her fingers continues to have right buttock pain that radiates down her right lower extremity. She states that she had varicose veins procedure recently and has been wearing compression stockings. Initial history: This is a 62-year-old female with past medical history of HFpEF, AFib, psoriasis, psoriatic arthritis, who presents for evaluation of psoriatic arthritis. Patient stated she has had psoriasis since her 20s. She was on methotrexate at some point which did not help much, she eventually got laser treatment which cleared her psoriasis. 2013 she started having pain and swelling of her toes. She developed a sausage digit she was evaluated by a airport skilled maintenance supervisor and diagnosed with psoriatic arthritis. She believes she was on methotrexate briefly and was ineffective. She was then switched to leflunomide 10 mg daily which did not help then increase to 20 mg daily which controlled her symptoms. She has been on leflunomide 20 mg daily until now. She her ran out of leflunomide about 2 months ago. She states that for years she has had bilateral toe pain and morning stiffness lasting 2 hours. Over the last year she has had intermittent right shoulder pain. She has had multiple right shoulder steroid injections over the years without significant relief. She has history of right rotator cuff repair in 2014. Over the last couple of weeks she has developed significant right shoulder pain with any movement. She went to physical therapy without significant improvement. She has right thumb pain that is worse with grabbing objects. States that her psoriasis has not been a problem for many years. There is no history suggestive of uveitis or IBD [facility] Medical History Psoriasis (HFpEF) heart failure with preserved ejection fraction Paroxysmal atrial fibrillation HTN (hypertension) Obesity Obstructive sleep apnea Surgical History History of intestinal surgery History of radiofrequency ablation (RFA) procedure for cardiac arrhythmia Hx of shoulder surgery Family History Father Heart failure Diabetes Mother Dementia HTN (hypertension) Stroke Social History Household Members Other:: Sister Alcohol intake: current Alcohol intake frequency: holidays/special occasions only Patient Tobacco Use Status: Never used Tobacco Review of Systems GI Reports abdominal pain and Reports change in bowel habits Musc Reports back pain, Reports arthralgias, Reports joint swelling and Reports stiffness Physical Exam Vital Signs: Last Vital Signs Pulse 72 10/23/23 07:58 BP 114/64 10/23/23 07:58 Pulse Ox 94 10/23/23 07:58 Oxygen Delivery Method Room Air 10/23/23 07:58 BMI result Body Mass Index 30.7 Const General: cooperative, healthy appearing and comfortable Nutritional Appearance: obese Orientation/consciousness: patient oriented x3 Limitations: no limitations HEENT Head: Yes normocephalic and Yes atraumatic Resp Effort & Inspection: normal respiratory effort and able to speak in complete sentences Neuro General: patient oriented x3 Extrem Other: Almost normal range of motion of her right shoulder Left wrist pain with full flexion, mild swelling and tenderness to palpation No right wrist pain with range of motion Multiple tender MCPs and PIPs bilaterally Bilateral diffuse MTP tenderness Right buttock tenderness to palpation HANNAH test on the right produces right hip pain Results Reviewed Results Reviewed: Labs 12/2021? T spot negative Assessment & Plan Assessment & Plan (1) Psoriatic arthritis: Comment: Diagnosed 2013, initially had sausage toes Leflunomide 10 mg ineffective, advanced to 20 mg daily since 2013 effective Code(s): L40.50 - Arthropathic psoriasis, unspecified Plan: This is a 63-year-old female with psoriatic arthritis who returns for follow-up. On leflunomide 20 mg daily She continues to have multiple tender joints, few swollen joints on exam, high inflammatory markers. Will need to add DMARDs. Discussed risks and benefits of sulfasalazine. Start sulfasalazine 500 mg Twice daily and uptitrated to 1 g Twice daily. Advised patient not to combine Eliquis and Celebrex due to increased risk of bleeding. Continue leflunomide 20 mg daily Labs before next visit in 2 months (2) Encounter for monitoring leflunomide therapy: Code(s): Z51.81 - Encounter for therapeutic drug level monitoring; Z79.899 - Other remote computer terminal operator (current) drug therapy Plan: Monitor safety labs for sulfasalazine and leflunomide Discussed potential side effects of sulfasalazine such as GI upset, neutropenia, elevated LFTs. Advised patient to call the office if she develops any side effects such as stomach upset fevers or infections. 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 I suggested evaluation by pain management. Patient would like to hold off at this time Plan I spent 30 minutes reviewing patient's chart, evaluating patient, ordering diagnostic workup, counseling patient and documenting in the chart Orders: Orders Complete Blood Count Auto Diff 2 Months L40.50 - Arthropathic psoriasis, unspecified, Z51.81 - Encounter for therapeutic drug level monitoring, Z79.899 - Other remote computer terminal operator (current) drug therapy Comprehensive Met. Panel 2 Months L40.50 - Arthropathic psoriasis, unspecified, Z51.81 - Encounter for therapeutic drug level monitoring, Z79.899 - Other nursing home (current) drug therapy C Reactive Protein 2 Months L40.50 - Arthropathic psoriasis, unspecified, Z51.81 - Encounter for therapeutic drug level monitoring, Z79.899 - Other remote computer terminal operator (current) drug therapy T Spot TB 2 Months Z11.7 - Encounter for testing for latent tuberculosis infection Erythrocyte Sedimentation Rate 2 Months L40.50 - Arthropathic psoriasis, unspecified, Z51.81 - Encounter for therapeutic drug level monitoring, Z79.899 - Other nursing home (current) drug therapy Medications: New sulfasalazine give with food (meal/snack) Take 1 tab twice daily for 1 week then 2 tabs with breakfast 1 tab with dinner for 1 week then 2 tabs Twice daily 240 tabs 0RF Coding Level of Care Code Est Pt Level 4 (29162) Diagnoses Psoriatic arthritis L40.50 Encounter for monitoring leflunomide therapy Z51.81; Z79.899 Sciatica of right side M54.31
== END 2023-10-23 08:27 | disposition home or self-care (01) ==
PROVIDERS: PCP Internal Medicine; Visit Provider Student in an Organized Health Care Education/Training Program
DX: L40.50 Arthropathic psoriasis, unspecified (principal); Z51.81 Encounter for therapeutic drug level monitoring; Z79.899 Other long term (current) drug therapy; M54.31 Sciatica, right side
CPT/HCPCS: 99214

== ENCOUNTER → 2023-10-23 07:51 | Outpatient (BNVA) | payer OTHER, SELFPAY | PROVIDERS: PCP Internal Medicine; Visit Provider Student in an Organized Health Care Education/Training Program ==

== ENCOUNTER → 2023-11-25 08:13 | Outpatient (BNVA) | payer OTHER, SELFPAY | PROVIDERS: PCP Internal Medicine; Visit Provider Internal Medicine Cardiovascular Disease ==

== ENCOUNTER 2023-12-16 10:36 | Outpatient (REF) | payer OTHER, SELFPAY ==
[2023-12-16 10:50] LABS: MANUAL DIFF FLAG NO
[2023-12-16 11:10] LABS: Basophils Absolute Auto 0.1 X10*3/uL (0.0-0.2); Basophils Percent Auto 1.4 % (0-2); Eosinophils Absolute Auto 0.2 X10*3/uL (0.0-0.4); Hematocrit 37.9 % (37.0-47.0); Imm Gran Abs Auto 0.03 X10*3/uL (0.00-0.03); Imm Gran Pct Auto 0.5 % (0.0-0.4); Lymphocytes Absolute Auto 0.8 X10*3/uL (1.2-4.9); Mean Corpuscular HGB Conc 31.7 g/dl (31.0-35.0); Mean Corpuscular Hemoglobin 30.1 pg (27.0-33.0); Mean Platelet Volume 9.5 fL (9.4-12.3); Monocytes Absolute Auto 0.6 X10*3/uL (0.1-1.2); Monocytes Percent Auto 9.6 % (2-11); Neutrophils Absolute Auto 4.3 x10*3/uL (2.0-8.3); Neutrophils Percent Auto 72.5 % (45-73); Platelet Count 332 X10*3/uL (160-400); Red Blood Count 3.99 X10*6/uL (4.20-5.50); Red Cell Distribution Width 13.2 % (11.0-16.0); White Blood Count 5.9 X10*3/uL (4.8-10.8)
[2023-12-16 11:44] LABS: Erythrocyte Sedimentation Rate 33 MM/HR (0-20)
[2023-12-16 11:49] LABS: Anion Gap 13 (12-20)
[2023-12-16 11:55] LABS: Alanine Aminotransferase 14 U/L (0-31); Alkaline Phosphatase 85 U/L (39-117); Aspartate Amino Transferase 24 U/L (5-31); Bilirubin Total 0.4 mg/dL (0.0-1.0); Blood Urea Nitrogen 14 mg/dL (9-16); C Reactive Protein 1.01 mg/dL (< or = 0.50); Calcium 9.5 mg/dL (8.4-10.2); Carbon Dioxide 26 mmol/L (22-29); Chloride 101 mmol/L (96-108); Estimated Glomerular Filt Rate > 60; Glucose Random 120 mg/dL (60-115); Potassium 4.1 mmol/L (3.3-5.1); Sodium 136 mmol/L (135-145); Total Protein 6.4 g/dL (6.5-8.0)
[2023-12-19 08:58] LABS: TS Negative Control Passed; TS Panel A 1; TS Panel B 0; TS Positive Control Passed; TSpotTB Negative (Negative)
== END 2023-12-16 10:37 | disposition home or self-care (01) ==
LOC: HO.LAB 10:36
PROVIDERS: PCP Internal Medicine; Visit Provider Student in an Organized Health Care Education/Training Program
DX: L40.50 Arthropathic psoriasis, unspecified (principal); Z51.81 Encounter for therapeutic drug level monitoring; Z79.899 Other long term (current) drug therapy; Z11.7 Encounter for testing for latent tuberculosis infection
CPT/HCPCS: 36415; 80053; 85025; 85652; 86140; 86481

== ENCOUNTER 2024-01-27 10:57 | Outpatient (AMB) | payer OTHER, SELFPAY ==
[2024-01-27 10:59] VITALS: BP 128/66; PULSE 75; O2SAT 95; BMI 31.2
--- NOTE | 2024-01-27 10:59 | A.OFFVIS_ITS ---
Vital Signs 01/27/24 10:59 Height 5 ft 4 in Weight 181 lb 10.574 oz BMI 31.2 BP 128/66 Blood Pressure Location Rt brachial Position Sitting Pulse 75 Pulse Source Pulse Oximeter Pulse Oximetry (%) 95 Oxygen Delivery Method Room Air Intake Visit Reasons: PSA/lvm Intake Note: Pt presents today for follow up. Reports she was seen at [facility] ED for bowel blockage. Bag Maker Required: No Accompanied by: Self / Same As Patient Allergies erythromycin base [ERYTHROMYCIN BASE] Allergy (Unknown, Verified 01/27/24 11:07) UNKNOWN Medication List - Last Reconciled 01/27/24 by Cierra Isbell MD apixaban (Eliquis) 5 mg PO BID diltiazem HCl CD (Cardizem CD) 300 mg PO DAILY empagliflozin (Jardiance) 10 mg PO DAILY furosemide 40 mg (2 x 20 mg) PO DIRECTED MDD 40mg leflunomide 20 mg PO DAILY multivitamin 1 tab PO DAILY omeprazole 40 mg PO BID spironolactone 50 mg PO DAILY [thumb spica apply as much as possible throughout the day] tramadol 100 mg PO DAILY PRN HPI Comments Details: 63-year-old female with psoriatic arthritis returns for follow-up. Last week she was admitted to the hospital with small-bowel obstruction, she had an NG tube placed. She was discharged in 3-4 days. She does not believe that the sulfasalazine helped her much. She is getting nausea with the night dose. She continues to have multiple joint pain especially both feet, worse on the left. She has been having significant right hip pain as well as a creaking sounds. She wonders whether she broke something. Initial history: This is a 62-year-old female with past medical history of HFpEF, AFib, psoriasis, psoriatic arthritis, who presents for evaluation of psoriatic arthritis. Patient stated she has had psoriasis since her 20s. She was on methotrexate at some point which did not help much, she eventually got laser treatment which cleared her psoriasis. 2013 she started having pain and swelling of her toes. She developed a sausage digit she was evaluated by a cafe or restaurant manager and diagnosed with psoriatic arthritis. She believes she was on methotrexate briefly and was ineffective. She was then switched to leflunomide 10 mg daily which did not help then increase to 20 mg daily which controlled her symptoms. She has been on leflunomide 20 mg daily until now. She her ran out of leflunomide about 2 months ago. She states that for years she has had bilateral toe pain and morning stiffness lasting 2 hours. Over the last year she has had intermittent right shoulder pain. She has had multiple right shoulder steroid injections over the years without significant relief. She has history of right rotator cuff repair in 2015. Over the last couple of weeks she has developed significant right shoulder pain with any movement. She went to physical therapy without significant improvement. She has right thumb pain that is worse with grabbing objects. States that her psoriasis has not been a problem for many years. There is no history suggestive of uveitis or IBD [facility] Medical History (Updated 01/27/24 @ 11:35 by Cierra Isbell MD) Sciatica of right side Psoriasis (HFpEF) heart failure with preserved ejection fraction Paroxysmal atrial fibrillation HTN (hypertension) Obesity Obstructive sleep apnea Surgical History History of intestinal surgery History of radiofrequency ablation (RFA) procedure for cardiac arrhythmia Hx of shoulder surgery Family History Father Heart failure Diabetes Mother Dementia HTN (hypertension) Stroke Social History Household Members Other:: Sister Alcohol intake: current Alcohol intake frequency: holidays/special occasions only Patient Tobacco Use Status: Never used Tobacco Review of Systems [facility] Reports back pain, Reports arthralgias, Reports joint swelling and Reports stiffness Physical Exam Vital Signs: Last Vital Signs Pulse 75 01/27/24 10:59 BP 128/66 01/27/24 10:59 Pulse Ox 95 01/27/24 10:59 Oxygen Delivery Method Room Air 01/27/24 10:59 BMI result Body Mass Index 31.2 Const General: cooperative, healthy appearing and comfortable Nutritional Appearance: obese Orientation/consciousness: patient oriented x3 Limitations: no limitations HEENT Head: Yes normocephalic and Yes atraumatic Resp Effort & Inspection: normal respiratory effort and able to speak in complete sentences Neuro General: patient oriented x3 Extrem Other: 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 T spot negative Assessment & Plan Assessment & Plan (1) Psoriatic arthritis: Comment: Diagnosed 2013, initially had sausage toes Leflunomide 10 mg ineffective, advanced to 20 mg daily since 2013 effective SSZ 10/2023 DC 01/2024 ineffective & caused nausea with night dose Code(s): L40.50 - Arthropathic psoriasis, unspecified Category: Medical Plan: This is a 63-year-old female with psoriatic arthritis who returns for follow-up. On leflunomide 20 mg daily. Sulfasalazine was added last visit. It was not effective. Caused nausea with the night dose. On exam patient continues to have multiple tender joints. Inflammatory markers remain elevated. Will need to add DMARDs. Will avoid TNF inhibitors due to patient's history of heart failure. Test risks and benefits of TNF inhibitors. Patient agreed to proceed. Will start prior authorization for Taltz Continue leflunomide 20 mg daily Labs before next visit in 3 months (2) Encounter for monitoring leflunomide therapy: Code(s): Z51.81 - Encounter for therapeutic drug level monitoring; Z79.899 - Other assisted (current) drug therapy Category: Medical Plan: Monitor safety labs (3) Right buttock pain: Code(s): M79.18 - Myalgia, other site Category: Medical Plan: Likely gluteus tendonitis, patient not interested in PT. will check x-rays to rule out any bony changes. Plan I spent 30 minutes reviewing patient's chart, evaluating patient, ordering diagnostic workup, counseling patient and documenting in the chart Orders: Orders Complete Blood Count Auto Diff 3 Months L40.50 - Arthropathic psoriasis, unspecified, Z51.81 - Encounter for therapeutic drug level monitoring, Z79.899 - Other assisted (current) drug therapy Comprehensive Met. Panel 3 Months L40.50 - Arthropathic psoriasis, unspecified, Z51.81 - Encounter for therapeutic drug level monitoring, Z79.899 - Other assisted (current) drug therapy XR hip LT min 2V Today M54.31 - Sciatica, right side XR hip RT min 2V Today M54.31 - Sciatica, right side C Reactive Protein 3 Months L40.50 - Arthropathic psoriasis, unspecified, Z51.81 - Encounter for therapeutic drug level monitoring, Z79.899 - Other assisted (current) drug therapy Erythrocyte Sedimentation Rate 3 Months L40.50 - Arthropathic psoriasis, unspecified, Z51.81 - Encounter for therapeutic drug level monitoring, Z79.899 - Other intermediate designer (current) drug therapy XR lumbar spine 4V min Today M54.31 - Sciatica, right side Coding Level of Care Code Est Pt Level 4 (20131) Complex EM visit Add On G2211 Diagnoses Psoriatic arthritis L40.50 Encounter for monitoring leflunomide therapy Z51.81; Z79.899 Right buttock pain M79.18
== END 2024-01-27 11:32 | disposition home or self-care (01) ==
PROVIDERS: PCP Internal Medicine; Visit Provider Student in an Organized Health Care Education/Training Program
DX: L40.50 Arthropathic psoriasis, unspecified (principal); Z51.81 Encounter for therapeutic drug level monitoring; Z79.899 Other long term (current) drug therapy; M79.18 Myalgia, other site
CPT/HCPCS: 99214; G2211

== ENCOUNTER → 2024-01-27 10:57 | Outpatient (BNVA) | payer OTHER, SELFPAY | PROVIDERS: PCP Internal Medicine; Visit Provider Student in an Organized Health Care Education/Training Program ==

== ENCOUNTER → 2024-02-18 07:52 | Outpatient (REF) | payer OTHER, SELFPAY ==
--- NOTE | 2024-02-18 07:54 | CA_ITS ---
Transthoracic Echocardiogram Patient (Last, First, Middle): Maria Dolores Marin Gender: Female Date of : 1960 Age: 63 Procedure Date: 02/18/2024 Procedure Type: Transthoracic Echocardiogram Location: OP Height: 165.1 cm Weight: 78.47 kg BSA: 1.86 m2 Heart Rate: bpm BP: 118 / 76 mmHg Bank Credit Card Collection Clerk: TO Referring MD: Daryl Rich MD Symptoms: I50.30 - Unspecified diastolic (congestive) heart failure Study Quality: Adequate ECG Rhythm: Sinus Conclusions: - There is normal left ventricular wall thickness. The left ventricular systolic function is low normal. The visually estimated ejection fraction is between 50-55%. - The inferolateral wall and basal inferior segment are hypokinetic. - The left atrium is moderately dilated. - No obvious valvular pathology seen on this study. Findings Left Ventricle Normal left ventricular cavity size. There is normal left ventricular wall thickness. The left ventricular systolic function is low normal. The visually estimated ejection fraction is between 50-55%. Diastolic function is normal for age. LV peak GLS -17.1%. Wall Motion Rest Echo Findings The inferolateral wall and basal inferior segment are hypokinetic. Right Ventricle Normal right ventricular cavity size and systolic function. Atria The left atrium is moderately dilated. The right atrium is normal in size. Aortic Valve There is a normal trileaflet aortic valve. There is no aortic valve stenosis. There is no aortic valve regurgitation. Mitral Valve There is mild mitral annular calcification. There is mild mitral valve regurgitation. There is no mitral valve stenosis. Pulmonic Valve The pulmonic valve is likely normal. Tricuspid Valve There is trace tricuspid valve regurgitation. There is no evidence of pulmonary hypertension. Great Vessels The asc aorta and aortic arch are normal in size. Venous The inferior vena cava is normal in size and collapses greater than 50% with inspiration. Pericardium/Pleural There is no evidence of pericardial effusion. Prior Study Comparison Changes noted compared to prior study dated: 02/20/2023. see comment on wall motion. Recommendations, Care & Conclusions No obvious valvular pathology seen on this study. Measurements 2D Linear Measurements IVSd: 0.92 0.6-0.9/0.6-1.0 cm LVIDd: 5.34 3.9-5.3/4.2-5.9 cm LVIDd Index: 2.87 2.4-3.2/2.2-3.1 cm/m2 LVIDs: 4.01 2.0-3.6 cm LVPWd: 0.79 0.7-1.1 cm LA Diam: 4.00 2.7-3.8/3.0-4.0 cm LAIDs Index: 2.15 1.5-2.3 cm/m2 LV Mass: 206.68 67-162/88-224 g LV Mass Index: 111.12 43-95/49-115 g/m2 LVOT Diam: 2.00 3.0+(-)1.3 cm 2D Systolic Function EF 4C: 52.00 >55% EF 2C: 55.40 >55% EF BiP: 54.60 >55% Mitral Valve MV VTI: 0.25 MV Pk Dmitry: 0.90 MV Mn Dmitry: 0.63 MV Pk Grad: 3.00 MV Mn Grad: 2.00 MV Pk E: 0.79 MV PK A: 0.48 MV Decel Time: 184.00 E/A: 1.70 E'Lateral: 10.80 E'Medial: 7.62 E/E' Med: 10.30 E/E' Lat: 7.30 PHT: 54.00 MVA PHT: 4.07 MVA Continuity: 3.16 Decel Galax: 4.29 Aortic Valve AoV Pk Dmitry: 1.52 AoV Mn Dmitry: 1.05 AoV VTI: 0.34 AoV Pk Grad: 9.00 Aov Mn Grad: 5.00 ALEX Cont.VTI: 2.35 LVOT LVOT Pk Dmitry: 1.17 LVOT Mn Dmitry: 0.86 LVOT VTI: 0.25 LVOT Pk Grad: 5.00 LVOT Mn Grad: 3.00 LVOT Diam: 2.00 LVOT Area: 3.14 Diastolic Function MV Pk E: 0.79 MV Pk A: 0.48 E/A: 1.70 E'Medial: 7.62 E/E' Med: 10.30 E' Laterial: 10.80 E/E' Lat: 7.30 Right Ventricle TAPSE (mm): 29.20 TVS' Dmitry: 13.50 Tricuspid Valve TR Pk Dmitry: 2.22 TR Pk Grad: 20.00 RA Press: 3.00 RVSP: 23.00 Great Vessels Aorta Sinus of Valsalva: 3.23 2.0-3.[address] Ridge: 2.51 1.7-3.4 cm Ao Asc: 3.30 2.1-3.4 cm Ao Arch: 2.90 Updated in Other Vendor System with Status of Final Rich Jimenez MD electronically signed on 02/19/2024 12:04:11 PM with status of Final
== END ==
LOC: HO.CARD 07:52
PROVIDERS: PCP Internal Medicine; Visit Provider Internal Medicine Cardiovascular Disease
DX: I50.30 Unspecified diastolic (congestive) heart failure (principal)
CPT/HCPCS: 93306; 93356

== ENCOUNTER → 2024-02-18 07:54 | Outpatient (BNV) | payer OTHER, SELFPAY | PROVIDERS: PCP Internal Medicine; Visit Provider Internal Medicine | DX: I34.81 Nonrheumatic mitral (valve) annulus calcification (principal); I50.30 Unspecified diastolic (congestive) heart failure | CPT/HCPCS: 93306; 93356 ==

== ENCOUNTER 2024-02-26 08:16 | Outpatient (AMB) | payer OTHER, SELFPAY ==
[2024-02-26 08:37] VITALS: BP 120/76; PULSE 74; BMI 29.9
--- NOTE | 2024-02-26 08:37 | MHC.OFFVIS ---
Vital Signs 02/26/24 08:37 Height 5 ft 4 in Weight 174 lb 2.643 oz BMI 29.9 BP 120/76 Blood Pressure Location Lt brachial Position Sitting Pulse 74 Intake Visit Reasons: 6 month fu Intake Note: 6 month follow-up with ekg [employer] Required: No Allergies erythromycin base [ERYTHROMYCIN BASE] Allergy (Unknown, Verified 01/27/24 11:07) UNKNOWN HPI Comments Details: Maria Dolores comes for follow-up. She underwent a coronary CTA in November although unfortunately I do not have the copy of the report, this was done at [facility]. Patient was admitted in January at [facility] again with bowel obstruction related to her abdominal adhesions. This was treated nonsurgically. At that time she was given a lot of IV fluids and following hospital discharge she had developed significant fluid overload and leg edema. She had to take Lasix double the dose for 5 days with response. She has not had any worsening orthopnea, PND, leg edema, no worsening exertional shortness of breath. No prolonged palpitation irregular heartbeat. Denies any lightheadedness, syncope [facility] Medical History Sciatica of right side Psoriasis (HFpEF) heart failure with preserved ejection fraction Paroxysmal atrial fibrillation HTN (hypertension) Obesity Obstructive sleep apnea Surgical History History of intestinal surgery History of radiofrequency ablation (RFA) procedure for cardiac arrhythmia Hx of shoulder surgery Family History Father Heart failure Diabetes Mother Dementia HTN (hypertension) Stroke Social History Household Members Other:: Sister Alcohol intake: current Alcohol intake frequency: holidays/special occasions only Patient Tobacco Use Status: Never used Tobacco Review of Systems Const Denies chills, Denies fatigue, Denies fever(s), Denies frequent falls, Denies weakness, Denies weight gain and Denies weight loss ENT Denies dizziness Card Denies chest pain, Denies leg edema, Denies lightheadedness, Denies palpitations, Denies dyspnea, Denies dyspnea on exertion, Denies orthopnea and Denies other (loss of consciousness) Resp Denies cough, Denies dyspnea and Denies dyspnea on exertion GI Denies hematochezia and Denies change in stool character Musc Denies abnormal gait, Denies muscle weakness, Denies numbness, Denies radiating pain into limb and Denies tingling Neuro Denies abnormal gait, Denies dizziness, Denies frequent falls, Denies numbness, Denies tingling and Denies weakness Endo Denies fatigue and Denies palpitations Physical Exam Vital Signs: Last Vital Signs Pulse 74 02/26/24 08:37 BP 120/76 02/26/24 08:37 BMI result Body Mass Index 29.9 Const General: cooperative, comfortable, no acute distress, alert, awake and well groomed Nutritional Appearance: overweight Orientation/consciousness: patient oriented x3 Limitations: no limitations Neck Neck: Yes trachea midline, Yes supple and Yes no JVD (+ AJR) Resp Effort & Inspection: normal respiratory effort Auscultation: clear to auscultation bilaterally Cardio Jugular venous distension: no JVD Palpation: normal PMI Rate: regular rate Rhythm: regular rhythm Heart sounds: S1 normal heart sound present, S2 normal heart sound present, no click, no gallops, no murmurs and no rubs GI Inspection: Yes obesity Auscultation: normal bowel sounds Skin General skin exam: no rashes or lesions noted Neuro General: patient oriented x3 and no focal motor deficits Extrem General: No clubbing, No cyanosis, Yes edema (Bilateral, greater on the left lower extremity below-knee) and Yes other (Bilateral varicosities left greater than right) Psych Appearance: grossly normal Office Procedures EKG Details: EKG shows normal sinus rhythm normal EKG [id number], Complete Assessment & Plan Assessment & Plan (1) (HFpEF) heart failure with preserved ejection fraction: Code(s): I50.30 - Unspecified diastolic (congestive) heart failure Category: Medical Plan: Heart failure preserved ejection fraction, clinically euvolemic and well compensated current diuretic dose. She is on low-dose furosemide at this point time she understands management of heart failure very well. Continue current spironolactone and Jardiance therapy as neurohormonal modulator as well as blood pressure control. Daily weight monitoring avoidance of salt loading was discussed. She understands need for additional diuretic dose as needed. Continue rhythm control approach. Will need to follow with coronary CTA result as this may impact her future workup especially given that she had significant chest pain in September which was negative for HI at that time but subsequent echocardiogram shows wall motion abnormality. Further treatment based on the findings of coronary CTA. May need invasive angiogram she is significant coronary stenosis. (2) Paroxysmal atrial fibrillation: Code(s): I48.0 - Paroxysmal atrial fibrillation Category: Medical Plan: Paroxysmal atrial fibrillation, has been suppressed since ablation therapy. Continue Cardizem therapy. Continue full oral anticoagulation, currently on Eliquis 5 mg b.i.d.. No indication for antiarrhythmic drug therapy at this point time. Continue aggressive risk factor modification including treatment of blood pressure has sleep apnea. Continue participate in regular physical activity. Will follow up in the clinic in 6 months time, sooner p.r.n.. Thank you for allowing me to partake in her care Coding Level of Care Code Est Pt Level 4 (57611) Diagnoses (HFpEF) heart failure with preserved ejection fraction I50.30 Paroxysmal atrial fibrillation I48.0 CPT Codes EKG - CPT: 22746-[id number], Complete ([id number])
== END 2024-02-26 09:10 | disposition home or self-care (01) ==
PROVIDERS: PCP Internal Medicine; Visit Provider Internal Medicine Cardiovascular Disease
DX: I50.30 Unspecified diastolic (congestive) heart failure (principal); I48.0 Paroxysmal atrial fibrillation
CPT/HCPCS: 93010; 99214

== ENCOUNTER → 2024-02-26 08:16 | Outpatient (BNVA) | payer OTHER, SELFPAY | PROVIDERS: PCP Internal Medicine; Visit Provider Internal Medicine Cardiovascular Disease | DX: I50.30 Unspecified diastolic (congestive) heart failure (principal); I48.0 Paroxysmal atrial fibrillation; Z79.01 Long term (current) use of anticoagulants; Z79.899 Other long term (current) drug therapy | CPT/HCPCS: 93005 ==

== ENCOUNTER 2024-04-23 07:47 | Outpatient (REF) | payer OTHER, SELFPAY ==
--- NOTE | ~2024-04-23 | XR_ITS ---
EXAMINATION: XR LUMBAR SPINE XR HIP, RIGHT XR HIP, LEFT CLINICAL INFORMATION: Pain. Sciatica. COMPARISON: Lumbar spine and sacroiliac joint radiographs dated 07/18/2023. TECHNIQUE: AP, lateral, coned-down, and bilateral oblique views of the lumbar spine. AP and frog-leg lateral views of the right and left hip. FINDINGS: Lumbar spine: Mild levocurvature of the lumbar spine, unchanged. The lumbar lordosis is maintained. No acute fracture or subluxation. No loss of vertebral body height. Multilevel loss of intervertebral disc with endplate osteophytes and facet arthropathy, similar when compared to the prior examination. No concerning lytic or blastic osseous lesion. Right hip: No fracture or dislocation. No significant joint space narrowing. Small marginal osteophytes. No osseous erosion. No evidence of avascular necrosis. Phleboliths within the pelvis. Left hip: No fracture or dislocation. No significant joint space narrowing. Small marginal osteophytes. No osseous erosion. No evidence of avascular necrosis. Surgical suture is partially visualized within the pelvis. XR/XR hip LT min 2V IMPRESSION: LUMBAR SPINE: Multilevel degenerative disc disease and facet arthropathy, unchanged. RIGHT HIP: Mild right hip osteoarthritis. LEFT HIP: Mild left hip osteoarthritis. Electronically signed by: Errol Smith MD 04/29/2024 12:13 PM EDT
--- NOTE | ~2024-04-23 | XR_ITS ---
EXAMINATION: XR LUMBAR SPINE XR HIP, RIGHT XR HIP, LEFT CLINICAL INFORMATION: Pain. Sciatica. COMPARISON: Lumbar spine and sacroiliac joint radiographs dated 07/18/2023. TECHNIQUE: AP, lateral, coned-down, and bilateral oblique views of the lumbar spine. AP and frog-leg lateral views of the right and left hip. FINDINGS: Lumbar spine: Mild levocurvature of the lumbar spine, unchanged. The lumbar lordosis is maintained. No acute fracture or subluxation. No loss of vertebral body height. Multilevel loss of intervertebral disc with endplate osteophytes and facet arthropathy, similar when compared to the prior examination. No concerning lytic or blastic osseous lesion. Right hip: No fracture or dislocation. No significant joint space narrowing. Small marginal osteophytes. No osseous erosion. No evidence of avascular necrosis. Phleboliths within the pelvis. Left hip: No fracture or dislocation. No significant joint space narrowing. Small marginal osteophytes. No osseous erosion. No evidence of avascular necrosis. Surgical suture is partially visualized within the pelvis. XR/XR hip RT min 2V IMPRESSION: LUMBAR SPINE: Multilevel degenerative disc disease and facet arthropathy, unchanged. RIGHT HIP: Mild right hip osteoarthritis. LEFT HIP: Mild left hip osteoarthritis. Electronically signed by: Errol Smith MD 04/29/2024 12:13 PM EDT
--- NOTE | ~2024-04-23 | XR_ITS ---
EXAMINATION: XR LUMBAR SPINE XR HIP, RIGHT XR HIP, LEFT CLINICAL INFORMATION: Pain. Sciatica. COMPARISON: Lumbar spine and sacroiliac joint radiographs dated 07/18/2023. TECHNIQUE: AP, lateral, coned-down, and bilateral oblique views of the lumbar spine. AP and frog-leg lateral views of the right and left hip. FINDINGS: Lumbar spine: Mild levocurvature of the lumbar spine, unchanged. The lumbar lordosis is maintained. No acute fracture or subluxation. No loss of vertebral body height. Multilevel loss of intervertebral disc with endplate osteophytes and facet arthropathy, similar when compared to the prior examination. No concerning lytic or blastic osseous lesion. Right hip: No fracture or dislocation. No significant joint space narrowing. Small marginal osteophytes. No osseous erosion. No evidence of avascular necrosis. Phleboliths within the pelvis. Left hip: No fracture or dislocation. No significant joint space narrowing. Small marginal osteophytes. No osseous erosion. No evidence of avascular necrosis. Surgical suture is partially visualized within the pelvis. XR/XR lumbar spine 4V min IMPRESSION: LUMBAR SPINE: Multilevel degenerative disc disease and facet arthropathy, unchanged. RIGHT HIP: Mild right hip osteoarthritis. LEFT HIP: Mild left hip osteoarthritis. Electronically signed by: Errol Smith MD 04/29/2024 12:13 PM EDT
[2024-04-23 07:57] LABS: MANUAL DIFF FLAG NO
[2024-04-23 08:24] LABS: Basophils Absolute Auto 0.1 X10*3/uL (0.0-0.2); Basophils Percent Auto 1.2 % (0-2); Eosinophils Absolute Auto 0.2 X10*3/uL (0.0-0.4); Hematocrit 39.4 % (37.0-47.0); Hemoglobin 12.2 g/dl (12.0-16.0); Imm Gran Abs Auto 0.02 X10*3/uL (0.00-0.03); Imm Gran Pct Auto 0.3 % (0.0-0.4); Lymphocytes Absolute Auto 0.8 X10*3/uL (1.2-4.9); Lymphocytes Percent Auto 12.9 % (20-40); Mean Corpuscular Hemoglobin 28.2 pg (27.0-33.0); Mean Corpuscular Volume 91.2 fL (80.0-98.0); Mean Platelet Volume 10.2 fL (9.4-12.3); Monocytes Absolute Auto 0.7 X10*3/uL (0.1-1.2); Monocytes Percent Auto 10.7 % (2-11); Neutrophils Absolute Auto 4.3 x10*3/uL (2.0-8.3); Neutrophils Percent Auto 70.9 % (45-73); Platelet Count 334 X10*3/uL (160-400); Red Blood Count 4.32 X10*6/uL (4.20-5.50); Red Cell Distribution Width 14.3 % (11.0-16.0); White Blood Count 6.1 X10*3/uL (4.8-10.8)
[2024-04-23 08:52] LABS: Alanine Aminotransferase 17 U/L (0-31); Albumin Level 4.3 g/dL (3.5-5.0); Alkaline Phosphatase 102 U/L (39-117); Anion Gap 12 (12-20); Aspartate Amino Transferase 26 U/L (5-31); Bilirubin Total 0.6 mg/dL (0.0-1.0); Blood Urea Nitrogen 16 mg/dL (9-16); C Reactive Protein 0.42 mg/dL (< or = 0.50); Calcium 9.8 mg/dL (8.4-10.2); Carbon Dioxide 29 mmol/L (22-29); Chloride 102 mmol/L (96-108); Estimated Glomerular Filt Rate > 60; Glucose Random 78 mg/dL (60-115); Potassium 4.5 mmol/L (3.3-5.1); Sodium 138 mmol/L (135-145); Total Protein 6.7 g/dL (6.5-8.0)
[2024-04-23 09:12] LABS: Erythrocyte Sedimentation Rate 34 MM/HR (0-20)
== END 2024-04-23 07:48 | disposition home or self-care (01) ==
LOC: HO.LAB 07:47
PROVIDERS: PCP Internal Medicine; Visit Provider Student in an Organized Health Care Education/Training Program
DX: M54.31 Sciatica, right side (principal); L40.50 Arthropathic psoriasis, unspecified; Z79.899 Other long term (current) drug therapy; Z51.81 Encounter for therapeutic drug level monitoring
CPT/HCPCS: 36415; 72110; 73502; 80053; 85025; 85652; 86140

== ENCOUNTER 2024-04-29 07:39 | Outpatient (AMB) | payer OTHER, SELFPAY ==
--- NOTE | 2024-04-29 07:41 | A.OFFVIS_ITS ---
Vital Signs 04/29/24 07:46 Height 5 ft 4 in Weight 182 lb 12.211 oz BMI 31.4 BP 120/70 Blood Pressure Location Rt brachial Position Sitting Pulse 76 Pulse Source Pulse Oximeter Pulse Oximetry (%) 100 Oxygen Delivery Method Room Air Intake Visit Reasons: PsA Intake Note: Patient presents for PsA. Allergies erythromycin base [ERYTHROMYCIN BASE] Allergy (Unknown, Verified 04/29/24 07:45) UNKNOWN Medication List - Last Reconciled 04/29/24 by Cierra Isbell MD apixaban (Eliquis) 5 mg PO BID atorvastatin 20 mg PO DAILY diltiazem HCl CD (Cardizem CD) 300 mg PO DAILY empagliflozin (Jardiance) 10 mg PO DAILY furosemide 20 mg PO ONCE leflunomide 20 mg PO DAILY multivitamin 1 tab PO DAILY omeprazole 40 mg PO BID spironolactone 50 mg PO DAILY [thumb spica apply as much as possible throughout the day] tramadol 100 mg PO DAILY PRN Tremfya (guselkumab) 100 mg at weeks 0, 4, and then every 8 weeks thereafter; NS HPI Comments Details: 63-year-old female with psoriatic arthritis returns for follow-up. She has been using the Tremfya for about 10 weeks now. She remains on leflunomide 20 mg daily. She states that after the 2nd dose she felt significant relief of the pain in her feet. Improvement lasted 5-6 weeks then the pain returned. She is not due for her next shot for 2 more weeks. She is quite stress as her father has been going in and outside of the hospital due to GI bleed. Initial history: This is a 62-year-old female with past medical history of HFpEF, AFib, psoriasis, psoriatic arthritis, who presents for evaluation of psoriatic arthritis. Patient stated she has had psoriasis since her 20s. She was on methotrexate at some point which did not help much, she eventually got laser treatment which cleared her psoriasis. 2013 she started having pain and swelling of her toes. She developed a sausage digit she was evaluated by a repairer kiln car and diagnosed with psoriatic arthritis. She believes she was on methotrexate briefly and was ineffective. She was then switched to leflunomide 10 mg daily which did not help then increase to 20 mg daily which controlled her symptoms. She has been on leflunomide 20 mg daily until now. She her ran out of leflunomide about 2 months ago. She states that for years she has had bilateral toe pain and morning stiffness lasting 2 hours. Over the last year she has had intermittent right shoulder pain. She has had multiple right shoulder steroid injections over the years without significant relief. She has history of right rotator cuff repair in 2015. Over the last couple of weeks she has developed significant right shoulder pain with any movement. She went to physical therapy without significant improvement. She has right thumb pain that is worse with grabbing objects. States that her psoriasis has not been a problem for many years. There is no history suggestive of uveitis or IBD [facility] Medical History Sciatica of right side Psoriasis (HFpEF) heart failure with preserved ejection fraction Paroxysmal atrial fibrillation HTN (hypertension) Obesity Obstructive sleep apnea Surgical History History of intestinal surgery History of radiofrequency ablation (RFA) procedure for cardiac arrhythmia Hx of shoulder surgery Family History Father Heart failure Diabetes Mother Dementia HTN (hypertension) Stroke Social History Household Members Other:: Sister Alcohol intake: current Alcohol intake frequency: holidays/special occasions only Patient Tobacco Use Status: Never used Tobacco Female Reproductive History Menstrual Total pregnancies: 0 Review of Systems [facility] [place] Reports back pain, Reports arthralgias, Reports joint swelling and Reports stiffness Physical Exam Vital Signs: Last Vital Signs Pulse 76 04/29/24 07:46 BP 120/70 04/29/24 07:46 Pulse Ox 100 04/29/24 07:46 Oxygen Delivery Method Room Air 04/29/24 07:46 BMI result Body Mass Index 31.4 Const General: cooperative, healthy appearing and comfortable Nutritional Appearance: obese Orientation/consciousness: patient oriented x3 Limitations: no limitations HEENT Head: Yes normocephalic and Yes atraumatic Resp Effort & Inspection: normal respiratory effort and able to speak in complete sentences Auscultation: clear to auscultation bilaterally Cardio Rhythm: abnormal rhythm (Mostly regular, has either dropped or ectopic beats) Skin General skin exam: no rashes or lesions noted Neuro General: patient oriented x3 Extrem Other: 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 No tenderness to palpation Right 1st , 2nd and 3rd MTP tenderness towards the plantar side Left 3rd 4th and 5th MTP tenderness. No swelling noted negative straight leg raise test bilaterally No trochanteric bursa area tenderness with negative Jaja's test Assessment & Plan Assessment & Plan (1) Psoriatic arthritis: Comment: Diagnosed 2013, initially had sausage toes Leflunomide 10 mg ineffective, advanced to 20 mg daily since 2013 effective SSZ added 10/2023 DC 01/2024 ineffective & caused nausea with night dose Tremfya added Code(s): L40.50 - Arthropathic psoriasis, unspecified Category: Medical Plan: This is a 63-year-old female with psoriatic arthritis who returns for follow-up. On leflunomide 20 mg daily. Tremfya was added last visit. Patient states that it provides her good relief for about 5-6 weeks relief then the pain in her feet returns. Inflammatory markers improving Continue leflunomide 10 mg daily and Tremfya 100 mg subcutaneously every 8 weeks Labs before next visit in 3 months (2) Encounter for monitoring leflunomide therapy: Code(s): Z51.81 - Encounter for therapeutic drug level monitoring; Z79.899 - Other snf (current) drug therapy Category: Medical Plan: Monitor safety labs Plan I spent 25 minutes reviewing patient's chart, evaluating patient, ordering diagnostic workup, counseling patient and documenting in the chart Orders: Orders Comprehensive Met. Panel 3 Months L40.50 - Arthropathic psoriasis, unspecified, Z51.81 - Encounter for therapeutic drug level monitoring, Z79.899 - Other snf (current) drug therapy Erythrocyte Sedimentation Rate 3 Months L40.50 - Arthropathic psoriasis, unspecified, Z51.81 - Encounter for therapeutic drug level monitoring, Z79.899 - Other petroleum terminal plant operator (current) drug therapy Complete Blood Count Auto Diff 3 Months L40.50 - Arthropathic psoriasis, unspecified, Z51.81 - Encounter for therapeutic drug level monitoring, Z79.899 - Other snf (current) drug therapy C Reactive Protein 3 Months L40.50 - Arthropathic psoriasis, unspecified, Z51.81 - Encounter for therapeutic drug level monitoring, Z79.899 - Other petroleum terminal plant operator (current) drug therapy Coding Level of Care Code Est Pt Level 4 (60140) Diagnoses Psoriatic arthritis L40.50 Encounter for monitoring leflunomide therapy Z51.81; Z79.899
[2024-04-29 07:46] VITALS: BP 120/70; PULSE 76; O2SAT 100; BMI 31.4
== END 2024-04-29 08:10 | disposition home or self-care (01) ==
PROVIDERS: PCP Internal Medicine; Visit Provider Student in an Organized Health Care Education/Training Program
DX: L40.50 Arthropathic psoriasis, unspecified (principal); Z51.81 Encounter for therapeutic drug level monitoring; Z79.899 Other long term (current) drug therapy
CPT/HCPCS: 99214

== ENCOUNTER → 2024-04-29 07:39 | Outpatient (BNVA) | payer OTHER, SELFPAY | PROVIDERS: PCP Internal Medicine; Visit Provider Student in an Organized Health Care Education/Training Program ==

== ENCOUNTER 2024-08-05 07:46 | Outpatient (REF) | payer OTHER, SELFPAY ==
[2024-08-05 07:59] LABS: MANUAL DIFF FLAG NO
[2024-08-05 08:29] LABS: Basophils Absolute Auto 0.1 X10*3/uL (0.0-0.2); Basophils Percent Auto 1.2 % (0-2); Eosinophils Absolute Auto 0.2 X10*3/uL (0.0-0.4); Eosinophils Percent Auto 3.3 % (0-4); Hematocrit 36.1 % (37.0-47.0); Imm Gran Abs Auto 0.01 X10*3/uL (0.00-0.03); Imm Gran Pct Auto 0.2 % (0.0-0.4); Lymphocytes Absolute Auto 0.9 X10*3/uL (1.2-4.9); Lymphocytes Percent Auto 14.1 % (20-40); Mean Corpuscular HGB Conc 30.5 g/dl (31.0-35.0); Mean Corpuscular Hemoglobin 25.8 pg (27.0-33.0); Mean Corpuscular Volume 84.7 fL (80.0-98.0); Mean Platelet Volume 10.4 fL (9.4-12.3); Monocytes Absolute Auto 0.9 X10*3/uL (0.1-1.2); Monocytes Percent Auto 14.1 % (2-11); Neutrophils Absolute Auto 4.1 x10*3/uL (2.0-8.3); Neutrophils Percent Auto 67.1 % (45-73); Platelet Count 345 X10*3/uL (160-400); Red Blood Count 4.26 X10*6/uL (4.20-5.50); Red Cell Distribution Width 15.5 % (11.0-16.0); White Blood Count 6.1 X10*3/uL (4.8-10.8)
[2024-08-05 08:41] LABS: Alanine Aminotransferase 27 U/L (0-31); Albumin Level 4.2 g/dL (3.5-5.0); Alkaline Phosphatase 107 U/L (39-117); Anion Gap 10 (12-20); Aspartate Amino Transferase 35 U/L (5-31); Bilirubin Total 0.5 mg/dL (0.0-1.0); Blood Urea Nitrogen 15 mg/dL (9-16); C Reactive Protein 0.16 mg/dL (< or = 0.50); Calcium 8.9 mg/dL (8.4-10.2); Carbon Dioxide 30 mmol/L (22-29); Chloride 103 mmol/L (96-108); Estimated Glomerular Filt Rate > 60; Glucose Random 87 mg/dL (60-115); Potassium 4.5 mmol/L (3.3-5.1); Sodium 138 mmol/L (135-145); Total Protein 6.5 g/dL (6.5-8.0)
[2024-08-05 09:08] LABS: Erythrocyte Sedimentation Rate 21 MM/HR (0-20)
== END 2024-08-05 07:47 | disposition home or self-care (01) ==
LOC: HO.LAB 07:46
PROVIDERS: PCP Internal Medicine; Visit Provider Student in an Organized Health Care Education/Training Program
DX: L40.50 Arthropathic psoriasis, unspecified (principal); Z79.899 Other long term (current) drug therapy
CPT/HCPCS: 36415; 80053; 85025; 85652; 86140

== ENCOUNTER 2024-08-06 07:45 | Outpatient (AMB) | payer OTHER, SELFPAY ==
--- NOTE | 2024-08-06 07:46 | MHC.OFFVIS ---
Vital Signs 08/06/24 07:52 Height 5 ft 4 in Weight 191 lb 5.78 oz BMI 32.8 BP 120/70 Blood Pressure Location Rt brachial Position Sitting Pulse 71 Pulse Source Pulse Oximeter Pulse Oximetry (%) 98 Oxygen Delivery Method Room Air Intake Visit Reasons: pSA Intake Note: Patient presents for PsA. Allergies erythromycin base [ERYTHROMYCIN BASE] Allergy (Unknown, Verified 08/06/24 07:50) UNKNOWN Medication List - Last Reconciled 08/06/24 by Cierra Isbell MD apixaban (Eliquis) 5 mg PO BID atorvastatin 20 mg PO DAILY diltiazem HCl CD (Cardizem CD) 300 mg PO DAILY empagliflozin (Jardiance) 10 mg PO DAILY furosemide 20 mg PO ONCE leflunomide 20 mg PO DAILY multivitamin 1 tab PO DAILY omeprazole 40 mg PO BID spironolactone 50 mg PO DAILY [thumb spica apply as much as possible throughout the day] tramadol 100 mg PO DAILY PRN HPI Comments Details: 64-year-old female with psoriatic arthritis returns for follow-up. She remains on leflunomide 20 mg daily. She did not get her Tremfya refills in June as she has a co-pay of 300 dollars. She decided not to take it. Last dose was in April. She stated that in May start June she was having repeated flare-ups, she takes the leflunomide, upset her Tylenol and takes 1 tramadol at night which provides some relief. Her main complaint is her right lower back, right buttock/hip area. She was evaluated by spine surgeon and surgery was suggested but patient did not want to proceed. She does acupuncture about every other week which does provide good relief. Initial history: This is a 62-year-old female with past medical history of HFpEF, AFib, psoriasis, psoriatic arthritis, who presents for evaluation of psoriatic arthritis. Patient stated she has had psoriasis since her 20s. She was on methotrexate at some point which did not help much, she eventually got laser treatment which cleared her psoriasis. 2013 she started having pain and swelling of her toes. She developed a sausage digit she was evaluated by a accounts receivable executive and diagnosed with psoriatic arthritis. She believes she was on methotrexate briefly and was ineffective. She was then switched to leflunomide 10 mg daily which did not help then increase to 20 mg daily which controlled her symptoms. She has been on leflunomide 20 mg daily until now. She her ran out of leflunomide about 2 months ago. She states that for years she has had bilateral toe pain and morning stiffness lasting 2 hours. Over the last year she has had intermittent right shoulder pain. She has had multiple right shoulder steroid injections over the years without significant relief. She has history of right rotator cuff repair in 2015. Over the last couple of weeks she has developed significant right shoulder pain with any movement. She went to physical therapy without significant improvement. She has right thumb pain that is worse with grabbing objects. States that her psoriasis has not been a problem for many years. There is no history suggestive of uveitis or IBD [facility] Medical History Sciatica of right side Psoriasis (HFpEF) heart failure with preserved ejection fraction Paroxysmal atrial fibrillation HTN (hypertension) Obesity Obstructive sleep apnea Surgical History History of intestinal surgery History of radiofrequency ablation (RFA) procedure for cardiac arrhythmia Hx of shoulder surgery Family History Father Heart failure Diabetes Mother Dementia HTN (hypertension) Stroke Social History Household Members Other:: Sister Alcohol intake: current Alcohol intake frequency: holidays/special occasions only Patient Tobacco Use Status: Never used Tobacco Female Reproductive History Menstrual Total pregnancies: 0 Review of Systems [facility] [place] Reports back pain and Reports arthralgias Physical Exam Vital Signs: Last Vital Signs Pulse 71 08/06/24 07:52 BP 120/70 08/06/24 07:52 Pulse Ox 98 08/06/24 07:52 Oxygen Delivery Method Room Air 08/06/24 07:52 BMI result Body Mass Index 32.8 Const General: cooperative, healthy appearing and comfortable Nutritional Appearance: obese Orientation/consciousness: patient oriented x3 Limitations: no limitations HEENT Head: Yes normocephalic and Yes atraumatic Resp Effort & Inspection: normal respiratory effort and able to speak in complete sentences Auscultation: clear to auscultation bilaterally Neuro General: patient oriented x3 Extrem Other: 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 Subtle left wrist swelling but no tenderness or pain with full flexion-extension Mildly tender 2nd through 5th flexor tendons left hand Normal pain-free range of motion of elbows and shoulders negative straight leg raise test bilaterally No trochanteric bursa area tenderness with negative Jaja's test Assessment & Plan Assessment & Plan (1) Psoriatic arthritis: Comment: Diagnosed 2013, initially had sausage toes Leflunomide 10 mg ineffective, advanced to 20 mg daily since 2013 effective SSZ added 10/2023 DC 01/2024 ineffective & caused nausea with night dose Tremfya added 01/2024 not particularly effective per patient and had a high co-pay, DC 06/2024 Code(s): L40.50 - Arthropathic psoriasis, unspecified Category: Medical Plan: This is a 64-year-old female with psoriatic arthritis who returns for follow-up. On leflunomide 20 mg daily. She discontinued Tremfya as she had a very high co-pay. Today she is doing reasonably well, there is no active synovitis. Inflammatory markers are normal. Continue leflunomide 20 mg daily Labs before next visit in 4 months (2) Encounter for monitoring leflunomide therapy: Code(s): Z51.81 - Encounter for therapeutic drug level monitoring; Z79.899 - Other long term care phlebotomist (current) drug therapy Category: Medical Plan: Minimal AST elevation, no recent alcohol use, she states that she has been having GI discomfort with intermittent diarrhea recently. Will continue to monitor her LFTs, if they remain elevated, will consider reducing leflunomide dose Plan I spent 25 minutes reviewing patient's chart, evaluating patient, ordering diagnostic workup, counseling patient and documenting in the chart Orders: Orders Complete Blood Count Auto Diff 4 Months L40.50 - Arthropathic psoriasis, unspecified, Z51.81 - Encounter for therapeutic drug level monitoring, Z79.899 - Other skilled nursing (current) drug therapy Comprehensive Met. Panel 4 Months L40.50 - Arthropathic psoriasis, unspecified, Z51.81 - Encounter for therapeutic drug level monitoring, Z79.899 - Other skilled nursing (current) drug therapy Erythrocyte Sedimentation Rate 4 Months L40.50 - Arthropathic psoriasis, unspecified, Z51.81 - Encounter for therapeutic drug level monitoring, Z79.899 - Other long term care phlebotomist (current) drug therapy C Reactive Protein 4 Months L40.50 - Arthropathic psoriasis, unspecified, Z51.81 - Encounter for therapeutic drug level monitoring, Z79.899 - Other long term care phlebotomist (current) drug therapy Medications: Discontinued Tremfya (guselkumab) Discontinued Reason: Doctor's Order 100 mg at weeks 0, 4, and then every 8 weeks thereafter; 2 mL 2RF NS Coding Level of Care Code Est Pt Level 4 (33341) Diagnoses Psoriatic arthritis L40.50 Encounter for monitoring leflunomide therapy Z51.81; Z79.891
[2024-08-06 07:52] VITALS: BP 120/70; PULSE 71; O2SAT 98; BMI 32.8
== END 2024-08-06 08:16 | disposition home or self-care (01) ==
PROVIDERS: PCP Internal Medicine; Visit Provider Student in an Organized Health Care Education/Training Program
DX: L40.50 Arthropathic psoriasis, unspecified (principal); Z51.81 Encounter for therapeutic drug level monitoring; Z79.899 Other long term (current) drug therapy
CPT/HCPCS: 99214

== ENCOUNTER → 2024-08-06 07:45 | Outpatient (BNVA) | payer OTHER, SELFPAY | PROVIDERS: PCP Internal Medicine; Visit Provider Student in an Organized Health Care Education/Training Program ==

== ENCOUNTER 2024-09-03 08:14 | Outpatient (AMB) | payer OTHER, SELFPAY ==
--- OUTSIDE RECORDS SUMMARY | 2024-09-03 08:17 | XMS_ITS | Continuity of Care Document ---
Author Organization [facility] Address [address] [place] [id number] Phone Care Team Providers Care Demand Planner Name Role Phone Kit ZAVALETA, RVT, RPVI, Joaquin Unavailable U navailable Allergies, Adverse Reactions, Alerts Substance Reaction Status Criticality No Known Allergies Active No Inform ation Medications Medication Instructions Dosage Effective Dates (start - stop) Status Comments ELIQUIS (unknown strength) Not Available - Active MULTAQ (unknown strength) Not Available - Active LASIX (unknown strength) Not Available - A ctive SPIRONOLACTONE (unknown strength) Not Available - Active CELEBREX (unknown strength) Not Available - Active FOLIC ACID (unknown strength) Not Available - Active OMEPRAZOLE (unknown strength) Not Available - Active MAGNESIUM (unknown strength) Not Available - Active MULTIVITAMINS (unknown strength) Not Available - Active Procedures Procedure Date Office/Outpt E&M Established 15 Mins Oct Duplex Scan-extrem Veins; Duplex Scan-extrem Veins; / Inj Scleros Solut; Mx Veins 1 4 Ultrason Guidan Needle Bx-rad 4 Duplex Scan-extrem Veins; / Office/Outpt E&M Established 10 Mins Jun Inj Scleros Solut; Mx Veins 1 3 Ultrason Guidan Needle Bx-rad 3 Duplex Scan-extrem Veins; Endovenous Laser, 1st Vein Offic/outpt E&m Estab 5 Min Trial - Tele medicine Duplex Scan-extrem Veins; Comp Offic Cons New/estab Mod 40 Mi Advance Directives Directive Yes / No Effective Date File Name No Information Encounters Encounter Description Practice Location Reason(s) For Visit Diagnoses Date Provider Providers Copied on Encounter Office/Outpt E&M Established 15 Mins [facility], [address] [place] [address] [address], [id number], [place] tel:[phone] [facility] [place] Localized edemaEssenti al (primary) hypertension Varicose veins of left lower extremity with other complication s 4 Kit ZAVALETA, CHAO, NEEL Nuñez. [address] [place] [address], [place], [place], [id number], [place]. tel:[phone] Referring Provider: Thomas Mtz, [address] [place] [address] Suite [facility], [place], [address]. tel:[phone] [facility], [address] [place] [address] [address]M[place], [id number], [place] tel:[phone] [facility] - [place] Pain in left leg 4 Kit ZAVALETA RVT, NEEL Nuñez. [address] [place] [address], [place], [place], [id number], [place]. tel:[phone] Referring Provider: Thomas Mtz, [address] [place] [address] Suite [facility], [place], [address]. tel:[phone] [facility], [address] [place] [address] Dr Anders [address], [id number], [place] tel:[phone] [facility] [place] Varicose veins of left lower extremity with pain 4 Kit ZAVALETA RVT, NEEL Nuñez. [address] [place] [address], [facility] [place], [id number], [place]. tel:[phone] Referring Provider: Thomas Mtz, [facility] Suite [facility], [place], [address]. tel:[phone] [facility], [address] [place] [address] [address]M[place], [id number], [place] tel:[phone] [facility] [place] Varicose veins of left lower extremity with other complication s 4 Arias Cueto. [address] [place] [address], [address], [place], [place], [id number], [place]. tel:[phone] Referring Provider: Thomas Mtz, [address] [place] [address] Suite [facility], [place], [address]. tel:[phone] [facility], [address] [place] [address] [place] [address], [id number], [place] tel:[phone] [facility] [place] Encounter for follow-up examination after completed treatment for conditions other than malignant neoplasmVari cose veins of left lower extremity with pain 3 Faustino ZAVALETA FACS EMILEET NEEL Ballesteros. [address] [place] [address], [facility] [place], [address], [place]. tel:[phone] Referring Provider: Thomas Mtz, [address] [place] [address] Suite [facility], [place], [address]. tel:[phone] Office/Outpt E&M Established 10 Mins [facility], [address] [place] [address] [facility] [address]M[place], [id number], [place] tel:[phone] [facility] [place] Varicose veins of left lower extremity with other complication sEssential (primary) hypertension Localized edema 3 Faustino ZAVALETA FACS RVT NEEL Ballesteros. [address] [place] [address], [facility] 302, [facility] [place], [address], [place]. tel:[phone] Referring Provider: Thomas Mtz, [address] [place] [address] Suite [facility], [place], [address]. tel:[phone] [facility], [address] [place] [address] [address], [place], [id number], [place] tel:[phone] CVR - [facility] Varicose veins of left lower extremity with other complication s May- 3 Kit ZAVALETA, RVT, NEEL Nuñez. [address] [place] [address], [place], [place], [id number], [place]. tel:[phone] Referring Provider: Thomas Mtz, [address] [place] [address] Suite [facility], [place], [address]. tel:[phone] [place] [facility], [address] [place] [address] Dr Anders [address], [id number], [place] tel:[phone] [facility] Encounter for follow-up examination after completed treatment for conditions other than malignant nePain in left leg May- 3 Faustino ZAVALETA FACS RVT NEEL Ballesteros. [address] [place] [address], [place], [address], [place]. tel:[phone] Referring Provider: Thomas Mtz, [address] [place] [address] Suite [facility], [place], [address]. tel:[phone] [place] [facility], [address] [place] [address] [address], [id number], [place] tel:[phone] [facility] Varicose veins of left lower extremity with other complication s May- 3 Faustino ZAVALETA FACS RVT NEEL Ballesteros. [address] [place] [address], [place], [address], [place]. tel:[phone] Referring Provider: Thomas Mtz, [address] [place] [address] Suite [facility], [place], [address]. tel:[phone] Offic/outpt E&m Estab 5 Min Trial - Telemedicine [facility], [address] [place] [address] Dr Anders [address], [id number], [place] tel:[phone] CVR [facility] Chronic venous hypertension w oth comp of l low extrem Sep-2 6-202 3 Kit ZAVALETA, RVT, NEEL Nuñez. [address] [place] [address], [facility] [place] [place] [id number], [place]. tel:[phone] Referring Provider: Thomas Mtz, [address] [place] [address] Suite [facility], [place], [address]. tel:[phone] [place] [facility], [address] [place] [address] [facility] [address], [place], [id number], [place] tel:[phone] CVR - [facility] Chronic venous htn w oth comp of bilateral low extrm 3 Faustino ZAVALETA FACS RVT NEEL Ballesteros. [address] [place] [address], [place], [address], [place]. tel:[phone] Referring Provider: Thomas Mtz, [address] [place] [address], [place], [address]. tel:[phone] Offic Cons New/estab Mod 40 Mi [facility], [address] [place] [address] [address], [place], [id number], [place] tel:[phone] CVR [facility] Varicose veins of bi low extrem w oth complication Luis Alberto in right lower legPain in left lower legPain in left legRestless legs syndromeEsse ntial (primary) hypertension Pruritus, unspecifiedC ramp and spasmLocaliz ed edema 3 Faustino ZAVALETA FACS T NEEL Ballesteros. [address] [place] [address], [facility] [place], [address], [place]. tel:[phone] Referring Provider: Thomas Mtz, [address] [place] [address] Suite [facility], [place], [address]. tel:[phone] Family History Family Member Type Diagnosis Age At Onset No Information Payers Payer name Insurance type Covered democrat ID Authoranabel cannon(s) [facility] CI [id number] Social History Type Description Quantity Date Captured Comments Alcohol Use Details Unknown Caffeine Use Details Unknown Tobacco Use Status Smoking Status Smoker, current stat us unknown Non-Smoking Tobacco Use Details : No Details Available : No Details Available Sex Female Vital Signs Date / Time: Height Weight BMI Pulse Rate Blood Pressure Temperature Respiratory Rate Body Surface Area Head Circumference Head Circ. Percentile Wt./Charlie. Percentile BMI percentile Pulse Ox Inhaled Ox 82.550 kg (182.00 lbs) 31.3 0 kg/m eter (2) 130/82 mm[Hg] Chief Complaint And Reason For Visit No Information Reason For Referral Reason For Referral No Information Plan Of Treatment Date Type Action Status Goal Diet education completed Goal Tobacco cessation counseling completed Goal Diet education completed Goal Tobacco cessation counseling completed Goal Tobacco cessation counseling completed Goal [...] nt Illness No Information Functional Status Date Functional Assessmen t No Information Instructions Date Instruction Antonino Infor rancho Diet education Related to Body mass index (BMI) 31.0-31.9, adult Giving Encouragement to exercise Related to Body mass index (BMI) 31.0-31.9, adult Lifestyle education Related to B janeen mass index (BMI) 31.0-31.9, adult Compression stocking usage as conservative measure Related to Localized edema Patient education booklet given Related to Localized edema Diet education Related to Body mass index (BMI) 31.0-31.9, adult Giving Encouragement to exercise Related to Body mass index (BMI) 31.0-31.9, adult Lifestyle education Related to B janeen mass index (BMI) 31.0-31.9, adult Patient education booklet given Related to Localized edema Patient education booklet given Related to Chrn [...] complications Assessments Type Assessment Date No Information Patient Care Teams Name Effective Dates (start - stop) Status Members No Information
--- OUTSIDE RECORDS SUMMARY | 2024-09-03 08:17 | XMS_ITS ---
[facility] Name [facility] History of Medication Use Medication Directions Dispensed Refills Start Date End Date Stat iohexol (OMNIPAQUE) 350 mg/mL injection 80 mL 80 mL, Intravenous, Once in imaging, contrast, Starting on Sat12/11/23 at 0855, For 1 dose, Radiology Appointment 12/14/2023 completed Problems Problem Status Onset Date Problem Type Date of Resoluti on Source PAF (paroxysmal atrial fibrillation) (HCC) active EncounterDiagnosisAct [facility] Shortness of breath active EncounterDiagnosisAc t [facility] Chronic diastolic congestive heart failure (HCC) active EncounterDiagnosisAct [facility] Essential hypertension active EncounterDiagnosisAct [facility] Chest pain, unspecified type active EncounterDiagnosisAct HH CCT
[2024-09-03 08:20] VITALS: BP 120/80; PULSE 88; BMI 33.3
--- NOTE | 2024-09-03 08:20 | A.OFFVIS_ITS ---
Vital Signs 09/03/24 08:20 Height 5 ft 4 in Weight 194 lb 0.108 oz BMI 33.3 BP 120/80 Blood Pressure Location Lt brachial Position Sitting Pulse 88 Intake Visit Reasons: 6 mth f/up Intake Note: 6 month follow-up feeling good Occupational Analyst Required: No Allergies erythromycin base [ERYTHROMYCIN BASE] Allergy (Unknown, Verified 08/06/24 07:50) UNKNOWN Medication List - Last Reconciled 09/03/24 by Daryl Rich MD apixaban (Eliquis) 5 mg PO BID atorvastatin 20 mg PO DAILY diltiazem HCl CD (Cardizem CD) 300 mg PO DAILY empagliflozin (Jardiance) 10 mg PO DAILY furosemide 20 mg PO ONCE leflunomide 20 mg PO DAILY multivitamin 1 tab PO DAILY omeprazole 40 mg PO BID spironolactone 50 mg PO DAILY [thumb spica apply as much as possible throughout the day] tramadol 100 mg PO DAILY PRN HPI Comments Details: Maria Dolores comes for follow-up. She has been doing very well in the last 6 months. She has had no recurrent episodes of atrial fibrillation. She has no symptoms of heart failure. Denies orthopnea, PND, leg edema except for in the left lower extremity where she said had a failed vein procedure. She does not use compression stockings. Denies any bleeding issues or neurologic events. Blood pressures been well controlled. No lightheadedness, syncope. No exertional chest pain. [facility] Medical History Sciatica of right side Psoriasis (HFpEF) heart failure with preserved ejection fraction Paroxysmal atrial fibrillation HTN (hypertension) Obesity Obstructive sleep apnea Surgical History History of intestinal surgery History of radiofrequency ablation (RFA) procedure for cardiac arrhythmia Hx of shoulder surgery Family History Father Heart failure Diabetes Mother Dementia HTN (hypertension) Stroke Social History Household Members Other:: Sister Alcohol intake: current Alcohol intake frequency: holidays/special occasions only Patient Tobacco Use Status: Never used Tobacco Review of Systems Const Denies chills, Denies fatigue, Denies fever(s), Denies frequent falls, Denies weakness, Denies weight gain and Denies weight loss ENT Denies dizziness Card Denies chest pain, Denies leg edema, Denies lightheadedness, Denies palpitations, Denies dyspnea, Denies dyspnea on exertion, Denies orthopnea and Denies other (loss of consciousness) Resp Denies cough, Denies dyspnea and Denies dyspnea on exertion GI Denies hematochezia and Denies change in stool character Musc Denies abnormal gait, Denies muscle weakness, Denies numbness, Denies radiating pain into limb and Denies tingling Neuro Denies abnormal gait, Denies dizziness, Denies frequent falls, Denies numbness, Denies tingling and Denies weakness Endo Denies fatigue and Denies palpitations Physical Exam Vital Signs: Last Vital Signs Pulse 88 09/03/24 08:20 BP 120/80 09/03/24 08:20 BMI result Body Mass Index 33.3 Const General: cooperative, comfortable, no acute distress, alert, awake and well groomed Nutritional Appearance: overweight Orientation/consciousness: patient oriented x3 Limitations: no limitations Neck Neck: Yes trachea midline, Yes supple and Yes no JVD (+ AJR) Resp Effort & Inspection: normal respiratory effort Auscultation: clear to auscultation bilaterally Cardio Jugular venous distension: no JVD Palpation: normal PMI Rate: regular rate Rhythm: regular rhythm Heart sounds: S1 normal heart sound present, S2 normal heart sound present, no click, no gallops, no murmurs and no rubs GI Inspection: Yes obesity Auscultation: normal bowel sounds Skin General skin exam: no rashes or lesions noted Neuro General: patient oriented x3 and no focal motor deficits Extrem General: No clubbing, No cyanosis, Yes edema (Bilateral, greater on the left lower extremity below-knee) and Yes other (Bilateral varicosities left greater than right) Psych Appearance: grossly normal Assessment & Plan Assessment & Plan (1) (HFpEF) heart failure with preserved ejection fraction: Code(s): I50.30 - Unspecified diastolic (congestive) heart failure Category: Medical Plan: Heart failure with preserved ejection fraction, clinically euvolemic and well compensated. Continue current low-dose diuretic dose. Continue neurohormonal modulation with spironolactone as well as Jardiance. She is tolerating both therapy well. Semi annual renal function test should be pursued. Continue treatment of blood pressure which is currently well optimized. Most importance of continue rhythm control approach which remained stable at this point time. Continue CPAP therapy. She is encouraged to continue to participate in physical activity and weight loss program. She understands agrees. Advised to call me with any new symptoms. Daily weight monitoring avoidance of salt loading was discussed. (2) Paroxysmal atrial fibrillation: Code(s): I48.0 - Paroxysmal atrial fibrillation Category: Medical Plan: Paroxysmal atrial fibrillation status post ablation. Currently maintaining rhythm without any antiarrhythmic drugs. Continue monitor the same. Currently on Cardizem therapy and this will be continued. Avoidance of stimulants was discussed. Continue participate in weight loss program. Continue aggressive blood pressure control as her risk factor modification. She is encouraged to participate in regular physical activity. Advised to call me with any new symptoms. Continue full oral anticoagulation given her left atrial enlargement with CHADS-VASc score of at least 3. Will follow with her in 1 year's time, sooner p.r.n.. Thank you for allowing me to partake in his care Coding Level of Care Code Est Pt Level 4 (00497) Complex EM visit Add On G2211 Diagnoses (HFpEF) heart failure with preserved ejection fraction I50.30 Paroxysmal atrial fibrillation I48.0
== END 2024-09-03 08:44 | disposition home or self-care (01) ==
PROVIDERS: PCP Internal Medicine; Visit Provider Internal Medicine Cardiovascular Disease
DX: I50.30 Unspecified diastolic (congestive) heart failure (principal); I48.0 Paroxysmal atrial fibrillation
CPT/HCPCS: 99214

== ENCOUNTER → 2024-09-03 08:14 | Outpatient (BNVA) | payer OTHER, SELFPAY | PROVIDERS: PCP Internal Medicine; Visit Provider Internal Medicine Cardiovascular Disease ==

== ENCOUNTER 2024-12-17 07:36 | Outpatient (AMB) | payer OTHER, SELFPAY ==
[2024-12-17 07:37] VITALS: BP 122/70; PULSE 79; O2SAT 97; BMI 32.4
--- NOTE | 2024-12-17 07:37 | MHC.OFFVIS ---
Vital Signs 12/17/24 07:37 Height 5 ft 4 in Weight 188 lb 7.924 oz BMI 32.4 BP 122/70 Blood Pressure Location Lt brachial Position Sitting Pulse 79 Pulse Source Pulse Oximeter Pulse Oximetry (%) 97 Oxygen Delivery Method Room Air Intake Visit Reasons: PsA Intake Note: Patient presents for follow up on PSA and lab review. She was last seen in the office on 07/20/[address] Isbell. Allergies erythromycin base [ERYTHROMYCIN BASE] Allergy (Unknown, Verified 12/17/24 07:40) UNKNOWN Medication List - Last Reconciled 12/17/24 by Josephine Nava MD apixaban (Eliquis) 5 mg PO BID atorvastatin 20 mg PO DAILY diltiazem HCl CD (Cardizem CD) 300 mg PO DAILY empagliflozin (Jardiance) 10 mg PO DAILY furosemide 20 mg PO ONCE leflunomide 20 mg PO DAILY multivitamin 1 tab PO DAILY omeprazole 40 mg PO BID spironolactone 50 mg PO DAILY [thumb spica apply as much as possible throughout the day] tramadol 100 mg PO DAILY PRN HPI Comments Details: Patient is a 64 y.o. female with AYAZ, HLD, Atrial flutter/Afib on AC, HTN c/b HFpEF, polyarticular OA, and PsA here today for follow up Interval History: Patient last seen 08/06/[address] Isbell. At that time she was on leflunomide monotherapy due to high co-pay with Tremfya. She continued to have intermittent flare-ups as well as right lower back pain for which she is delaying any spinal intervention. Despite not being on Tremfya she did not have any evidence of active synovitis and the plan was to continue leflunomide monotherapy Today she states that her PsA pain has been in well controlled with leflunomide monotherapy Her main complaints is her known significant lumbar degenerative disease with radiculopathy. SHe has seen several spinal surgeons and was recommended surgery but since there is a long recovery time (atleast 6 months) and no guarantee of improved pain she prefers to do conservative measures with acupuncture and medications She also complains of right hip pain (known bilateral hip OA) Rheumatologic History: Diagnosed 2013, initially had sausage toes Leflunomide 10 mg ineffective, advanced to 20 mg daily since 2013 effective SSZ added 10/2023 DC 01/2024 ineffective & caused nausea with night dose Tremfya added 01/2024 not particularly effective per patient and had a high co-pay, DC 06/2024 Initial history: This is a 62-year-old female with past medical history of HFpEF, AFib, psoriasis, psoriatic arthritis, who presents for evaluation of psoriatic arthritis. Patient stated she has had psoriasis since her 20s. She was on methotrexate at some point which did not help much, she eventually got laser treatment which cleared her psoriasis. 2013 she started having pain and swelling of her toes. She developed a sausage digit she was evaluated by a [facility] hospitalist and diagnosed with psoriatic arthritis. She believes she was on methotrexate briefly and was ineffective. She was then switched to leflunomide 10 mg daily which did not help then increase to 20 mg daily which controlled her symptoms. She has been on leflunomide 20 mg daily until now. She her ran out of leflunomide about 2 months ago. She states that for years she has had bilateral toe pain and morning stiffness lasting 2 hours. Over the last year she has had intermittent right shoulder pain. She has had multiple right shoulder steroid injections over the years without significant relief. She has history of right rotator cuff repair in 2014. Over the last couple of weeks she has developed significant right shoulder pain with any movement. She went to physical therapy without significant improvement. She has right thumb pain that is worse with grabbing objects. States that her psoriasis has not been a problem for many years. There is no history suggestive of uveitis or IBD Current Rheumatology Medication(s): Leflunomide 20mg daily [facility] Medical History Sciatica of right side Psoriasis (HFpEF) heart failure with preserved ejection fraction Paroxysmal atrial fibrillation HTN (hypertension) Obesity Obstructive sleep apnea Surgical History History of intestinal surgery History of radiofrequency ablation (RFA) procedure for cardiac arrhythmia Hx of shoulder surgery Family History Father Heart failure Diabetes Mother Dementia HTN (hypertension) Stroke Social History Household Members Other:: Sister Alcohol intake: current Alcohol intake frequency: holidays/special occasions only Patient Tobacco Use Status: Never used Tobacco Review of Systems Const Details: Review of Systems Constitutional: Denies fever, chills, weight loss ENT: Denies vision changes, eye pain or eye redness, dental caries, dry mouth GI: Denies nausea, vomiting, diarrhea, abdominal pain, change in BM Pulm: Denies SOB, FRANKLIN, hemoptysis, wheezing Cards: Denies chest pain, palpitations Skin: Denies Raynaud's, rash, nail changes, photosensitivity, SAMPLE CARRIER: Denies headaches, weakness, paresthesias, recurrent falls MSK: as per HPI All other systems reviewed and are unremarkable except noted above Physical Exam Vital Signs: BMI result Body Mass Index 32.4 Vital signs reviewed Physical Examination CONSTITUITIONAL Patient alert and cooperative. Well appearing and in no apparent painful distress HEENT Conjunctiva and sclera clear. ?Pupils equal round and reactive to light. ?No lymphadenopathy. ? CHEST/RESPIRATORY SYSTEM Normal respiratory effort and able to speak in complete sentences. ?Clear to auscultation bilaterally. ?No crackles, rales, rhonchi, wheezes heard. CARDIAC SYSTEM Regular rate and rhythm. ?S1 and S2 heard no murmurs. ?Radial pulses intact bilaterally MSK Hands: ?Able to make a fist. No synovitis noted to the MCPs, PIPs or DIPs. ?No tenderness to palpation of these joints. No deformities noted. ? Wrists: ?Full range of motion at the wrists without pain. ?No tenderness to palpation or synovitis noted to the wrists. Elbows: Full range of motion without pain. No tenderness, weakness, swelling, increased warmth or erythema. Shoulders: Decreased ROM To the right shoulder (s/p recent rotator cuff revision surgeon) Hips: Unable to examine hip as patient in chair Knees: ?Full range of motion. ?No tenderness, swelling, increased warmth or erythema. Bilateral crepitations Ankles: Full range of motion. ?No tenderness, swelling, increased warmth or erythema.? Feet: ?Negative squeeze test. ?No tenderness to palpation or swelling of the MTPs. Has allodynia to the lateral aspect of her bilateral feet Tender points:?No tenderness to palpation of the bilateral trapezius, supraspinatus, greater trochanters, anterior costochondral junctions, bilateral gluteal areas, bilateral suboccipital muscle insertions SKIN Skin intact without rashes. Results Reviewed Results Reviewed: Laboratory Tests 04/23/24 08/05/24 12/11/24 07:55 07:56 [facility] WBC 6.1 6.3 RBC 4.26 4.2 Hgb 11.0 L 10.0 Hct 36.1 L 34.5 Plt Count 345 389 ESR 34 H 21 H 39 H Sodium 138 136 Potassium 4.5 4.8 Chloride 103 103 Carbon Dioxide 30 H 26 BUN 15 16 Creatinine 0.77 0.80 Total Bilirubin 0.5 0.5 AST 35 H 25 ALT 27 24 Alkaline Phosphatase 107 114 C-Reactive Protein 0.42 0.16 Total Protein 6.5 Albumin 4.2 Immunology Labs 09/14/22 12:35 Rheumatoid Factor < 13.0 Cycl Citrul Peptide IgG <16 Infectious serologies 09/14/22 12/16/23 12/11/24 12:35 10:49 [facility] Hepatitis A IgM Ab Nonreactive NR Hep Bs Antigen Negative Neg Hep Bs Antibody NONREACTIVE NR Hep B Core Total Ab Nonreactive NR Hepatitis C Ab (EIA) Nonreactive NR XR Bilateral Hip and L spine 04/2024 FINDINGS: Lumbar spine: Mild levocurvature of the lumbar spine, unchanged. The lumbar lordosis is maintained. No acute fracture or subluxation. No loss of vertebral body height. Multilevel loss of intervertebral disc with endplate osteophytes and facet arthropathy, similar when compared to the prior examination. No concerning lytic or blastic osseous lesion. Right hip: No fracture or dislocation. No significant joint space narrowing. Small marginal osteophytes. No osseous erosion. No evidence of avascular necrosis. Phleboliths within the pelvis. Left hip: No fracture or dislocation. No significant joint space narrowing. Small marginal osteophytes. No osseous erosion. No evidence of avascular necrosis. Surgical suture is partially visualized within the pelvis. Assessment & Plan Assessment & Plan (1) Psoriatic arthritis: Comment: Diagnosed 2013, initially had sausage toes Leflunomide 10 mg ineffective, advanced to 20 mg daily since 2013 effective SSZ added 10/2023 DC 01/2024 ineffective & caused nausea with night dose Tremfya added 01/2024 not particularly effective per patient and had a high co-pay, DC 06/2024 Code(s): L40.50 - Arthropathic psoriasis, unspecified Category: Medical Plan: #PsA Patient is a 64 y.o. female with PsA here today for follow up. Currently in remission. Plan - Leflunomide 20mg daily - RTC 4 months - Labs before visit: CBC, CMP, ESR, CRP (2) Neuropathy: Code(s): G62.9 - Polyneuropathy, unspecified Plan: #Neuropathy and RLS Patient with significant lumbar degenerative disc disease with radiculopathy and associated neuropathy. Did not tolerate gabapentin. We will try low dose pregabalin and alpha lipoic acid Plan - Pregabalin 75mg nightly - Alpha lipoic acid 600mg daily (3) Encounter for monitoring leflunomide therapy: Code(s): Z51.81 - Encounter for therapeutic drug level monitoring; Z79.899 - Other intermediate manager (current) drug therapy Category: Medical Plan: #Long-term leflunomide Discussed with patient the benefits and risks of leflunomide for managing the rheumatic condition Benefits include: - Reduced pain, maintenance of remission and reduction of flares Risks include: - GI upset especially diarrhea, skin rash, cytopenias, hepatotoxicity, weight loss, neuropathy Leflunomide is highly teratogenic. ?Has a very long half-life. ?Needs cholestyramine washout if there is desire for Initiation: ?CBC, BMP, LFTs, hepatitis-B and C serologies every 2-4 weeks for 3 months Monitoring: ?CBC, BMP, LFTs, hepatitis B and C serologies Plan I spent 34 minutes reviewing the record and labs, taking a history, examining the patient, discussing the treatment plan, ordering diagnostic work up and documenting in the medical record Orders: Orders Erythrocyte Sedimentation Rate 4 Months L40.50 - Arthropathic psoriasis, unspecified Complete Blood Count Auto Diff 4 Months L40.50 - Arthropathic psoriasis, unspecified Comprehensive Met. Panel 4 Months L40.50 - Arthropathic psoriasis, unspecified C Reactive Protein 4 Months L40.50 - Arthropathic psoriasis, unspecified Medications: New pregabalin (Lyrica) 25 mg PO BEDTIME 90 caps 1RF G25.81 - Restless legs syndrome alpha lipoic acid 600 mg PO DAILY 90 caps 1RF G62.9 - Polyneuropathy, unspecified Refilled leflunomide 20 mg PO DAILY 90 tabs 1RF L40.50 - Arthropathic psoriasis, unspecified Coding Level of Care Code Est Pt Level 4 (10152) Complex EM visit Add On G2211 Diagnoses Psoriatic arthritis L40.50 Neuropathy G62.9 Encounter for monitoring leflunomide therapy Z51.81; Z79.899
--- OUTSIDE RECORDS SUMMARY | 2024-12-17 07:38 | XMS_ITS | Clinical Summary ---
Author Organization [facility] Address [address] [place] [address] Care Team Providers Care Literacy Coordinator Name Role Phone Thomas Espinoza MD Primary Care Provider [phone] Allergies Active Allergy Reactions Criticality Noted Date Comments Erythromycin 08/20/2023 Medications Medication Sig Dispensed Refills Start Date End Date Status apixaban (ELIQUIS) 5 MG TABS tablet Take by mouth every 12 (twelve) hours. 0 Active celecoxib (CeleBREX) 200 MG capsule Take 1 capsule (200 mg total) by mouth daily. 0 Active dilTIAZem (CARDIZEM CD) 300 MG 24 hr capsule Take 1 capsule (300 mg total) by mouth daily. 0 Active flecainide (TAMBOCOR) 50 MG tablet Take 1 tablet (50 mg total) by mouth 2 (two) times a day. 0 Active folic acid (FOLVITE) tablet 1 mg Take 1 tablet (1 mg total) by mouth daily. 0 Active furosemide (LASIX) 20 MG tablet Take 1 tablet (20 mg total) by mouth 2 (two) times a day. 0 Active leflunomide (ARAVA) 20 MG tablet Take 1 tablet (20 mg total) by mouth daily. 0 Active omeprazole (PriLOSEC) 40 MG capsule Take 1 capsule (40 mg total) by mouth daily. 0 Active spironolactone (ALDACTONE) tablet 50 mg Take 1 tablet (50 mg total) by mouth daily. 0 Active traMADol (ULTRAM) 50 MG tablet Take 50 mg by mouth every 6 (six) hours as needed for pain. 0 Active Active Problems Problem Noted Date Diagnosed Date Other specified anemias 08/20/2023 Social History Tobacco Use Types Packs/Day Years Used Date Smoking Tobacco: Former Cigarettes Smokeless Tobacco: Never Tobacco Cessation:Counseling Given: Not Answered Alcohol Use Standard Drinks/Week Comments Never 0 (1 standard drink = 0.6 oz pur e alcohol) Sex and Gender Information Value Date Recorded Sex Assigned at Female 08/20/2023 11:51 AM EST Gender Identity Not on file Sexual Orientation Not on file Job Start Date Occupation Industry Not on file Not on file Not on file Last Filed Vital Signs Vital Sign Reading Time Taken Comments Blood Pressure 134/64 08/26/2023 2:49 PM EST Pulse 74 08/26/2023 2:49 PM EST Temperature 36.6 ??C (97.9 ??F) 08/26/2023 2:49 PM ES T Respiratory Rate 18 08/26/2023 2:49 PM EST Oxygen Saturation 99% 08/26/2023 2:49 PM EST ROOM AIR Inhaled Oxygen Concentration - - Weight - - Height - - Body Mass Index - - Plan of Treatment Health Maintenance Due Date Last Done Comments Hepatitis C Screening 1960 COVID-19 Vaccine (#1) 01/19/1961 Depression Screening 1972 Preventative Health Evaluation 1978 DTap / Tdap / Td (1 - Tdap) 1979 Cervical Cancer Screening (Pap Smear) 1981 Colon Cancer Screening (Colonoscopy) 2005 Breast Cancer Screening (Mammogram) 2010 Shingrix-Zoster Vaccine (1 o f 2) 2010 Influenza Vaccine (#1) 2024 Pneumococcal Vaccine (2 of 2 - PCV) 2025 10/03/2007 RSV Adult > 60+ Yrs or (1 - 1-dose 75+ series) 2035 Pneumococcal Vaccine Aged Out 10/03/2007 No long er eligible based on patient's age to complete this topic Hepatitis B Vaccines Completed 11/02/2008, 05/20/2008, 04/21/2008 RSV Ped < 20 months Aged Out No longe r eligible based on patient's age to complete this topic Care Teams Literacy Coordinator Relationship Specialty Start Date End Date Thomas Espinoza MD [address] [place] [id number] PCP - General Internal Medicine 08/20/23
--- OUTSIDE RECORDS SUMMARY | 2024-12-17 07:38 | XMS_ITS ---
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 Physical Medications Medication SIG (Take, Route, Fr equency, Duration) Notes Start Date End Date Status Spironolactone 50 MG 1 tablet Orally Once a day Active Leflunomide 20 MG 1 tablet Orally Once a day for 30 day(s) Active traMADol HCl 50 MG 1 tablet as needed O rally Once a day 2 QHS Active Magnesium 300 MG 1 capsule with a mark l Orally Once a day Active Jardiance 10 MG 1 tablet Orally Once a day Active Multivitamins 1 ORAL daily for -3 [facility] 01/30/2012 Active Omeprazole 40 MG Oral for 30 Days Active Eliquis 5 MG 1 tablet Orally Twice a day Active Vitamin D3 1000 IU ORAL daily for -3 [facility] 01/30/2012 Active dilTIAZem HCl 240 320 MG Ac tive Lasix 20 MG 1 tablet Orally Once a day Active Social History Tobacco Use: Social History Observation Description Date Details (start date - stop date) Former Smoker NA - NA Tobacco Use/Smoking Question Answer Notes Are you a former smoker How long has it been since y ou last smoked? > 10 years Additional Findings: Tobacco Non-User Ex -moderate cigarette smoker (10-19/day) Alcohol Screen (Audit-C) Question Answer Notes Did you have a drink contain ing alcohol in the past year? Yes How often did you have a dri nk containing alcohol in the past year? Monthly or less (1 point) How many drinks did you have on a typical day when you were drinking in the past year? 1 or 2 drinks (0 point) How often did you have 6 or more drinks on one occasion in the past year? Never (0 point) Points 1 Interpretation Negative Tobacco use other than smoking: Question Answer Notes Are you an other tobacco user? No Vital Signs Temperature 98.6 degrees Fahrenheit 11/04/19 25 Blood pressure systolic 132 mm Hg 11/04/19 25 Blood pressure diastolic 78 mm Hg 025 Height 65 in 11/03/2024 Weight 184 lbs 11/03/2024 BMI 30.62 kg/m2 11/03/2024 Encounters Encounter Location Date Provider Diagnosis [address] [address] 11/03/2024 MICHELLE BETANCURS Encounter for gynecological examination (general) (routine) without abnormal findings Z01.419 and Encounter for screening mammogram for malignant neoplasm of breast Z12.31 Assessments Encounter Date Diagnosis (ICD Code) Assessment Notes Treatment Notes Treatment Clinical Notes Section Notes 11/03/2024 Encounter for gynecological examination (general) (routine) without abnormal findings (ICD-10 - Z01.419) During the visit, the following areas of concern were addressed: Discussed cervical cancer screening with either cytology alone every 3 years or high risk HPV co-testing every 5 years as per ASCCP guidelines. Advised continued annual pelvic exams. Patient encouraged to increase her level of exercise. SBE technique encouraged/tau ght. Patient reminded when annual mammogram is due. Patient encouraged to keep colon screening up to date. 11/03/2024 Encounter for screening mammogram for malignant neoplasm of breast (ICD-10 - Z12.31) Plan Of Treatment Treatment Notes Assessment Notes Encounter for gynecological examination (general) (routine) without abnormal findings During the visit, the following areas of concern were addressed: Discussed cervical cancer screening with either cytology alone every 3 years or high risk HPV co-testing every 5 years as per ASCCP guidelines. Advised continued annual pelvic exams. Patient encouraged to increase her level of exercise. SBE technique encouraged/taught. Patient reminded when annual mammogram is due. Patient encouraged to keep colon screening up to date. Pending Test Test Name Order Date MM Digital Screening Mammogram 3D 2024 Next Appt Details Follow Up: 1 Year, Reason: Y early Trigonometry Tutor Exam Provider Name:MICHELLE Nogueira, 11/11/2025 08:00:00 AM, [address] [place] [address], [address], [place], [address], Progress Notes * SARIAH LEAVITTOB:1959 (64 yo F)Acc No.[id number]:11/03/2024 PROGRESS NOTES Patient:?ROBERTA LEAVITT Provider:?MICHELLE MUKHERJEE MD :1960???Age:64 Y???Sex:Female D ate:11/03/2024 Address:[address] [place] [address] , [facility] Pcp:Thomas Espinoza MD Subjective: * Chief Complaints: * ???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 ? She has been in state of good health since her last exam. She has the following concerns: none ? She has received the GIGAS Covid-19 vaccine and booster. ? Relationship status: single. She is not sexually active. Sexual partner(s): male. She does not wish to have STI testing. ? She does not report vaginal dryness. She does not have hot flashes/night sweats. ? The patient has never had an abnormal pap smear. Her most recent pap smear was 2013 - NIL. Paps are no longer indicated. ? She has not been diagnosed with breast cancer. She does have a family history of breast cancer - maternal aunt. Her last mammogram was 01/21/23. She plans to schedule. ? She does have a family history of colon cancer - PGM. She a has had a colonoscopy. The last colonoscopy was 10/2022 at [facility]. She is due back in 3 yrs. ? The patient does exercise. She exercises x 3-4 days/week by chair yoga. She had a rough year - her Dad kept having bleeding while on blood thinners, and she almost lost him in January 2024. He is now off blood thinners and doing better. Mom has dementia and is in assisted living at the [facility]. 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 * Medical History:? * Trigonometry Tutor History:?/ Para?0/0.?Sexual activity?not currently sexually active.?Last Pap Smear:?PAPS NO LONGER INDICATED, 01/30 NIL.?Mammogram:?01/21/23 < 50% density, ,01/10/2022 Breast Tissue is Almost Entirely Fatty, 03/26/20 < 50% density, 09/26/2018,09/2017 WNL, scattered density.?Abnormal Pap Smear:?None.?LMP and menses?Hyst.?History of STD's:?None.?Hysterectomy:?Yes because of severely precancerous colonic polyp adjacent to uterus.?Colonoscopy?APPT 11/05/2022, 2019, 11/03/14 Q 5 years.?Bone Density:?2015 or so, states was WNL.?FLARE WORKER HISTORY MISC.?[place] multi panel neg.? * OB History:?Total pregnancies?.? * Surgical History:?hysterecto my, ovaries remain, with partial colectomy 2006gastric bypass with cholecystectomy 2005small bowel resection for obstruction 2008lysis of adhesions, laparoscopic 2007ovarian cystectomies 1980sLeft thumb bone spur 06/2017cardiac ablation for a fib 06/12/19Sm Bowel Resection For Obstruction 1Lt Knee ight shoulder surgery 01/2023 * Hospitalization/Major Diagno stic Procedure:?See Surgical Hx Partial SBO 07/2022 * Family History:?Mother: esa whittington 87 yrs, arthritis. Apocrine cancer, dementia (assisted living at [facility]).?Father: alive 94 yrs, type II diabetes. obesity, non melanoma skin ca, heart disease, was bleeding on blood thinners, so stopped.?Paternal Grand Mother: COLON CA DX age 35.?Maternal Grand Mother: OVARIAN CA DX age 81.?Maternal uncle: uncle Dmitry: prostate ca age 54 other uncle: bladder ca age 50.?Maternal aunt: BREAST CA AGE 53.?M GREAT UNCLE: , panceratic ca. ?colon ca?.? 3 brother(s) 3 sister(s) 2 brother with arrhythmia Brother - Fidel - from prostate cancer at age 62, had arrhythmia as well. * Social History:?Tobacco Use:?Tobacco Use/Smoking?Are you a?former smoker ?How long has it been since you last smoked??> 10 years ?Additional Findings: Tobacco Non-User?Ex-moderate cigarette smoker (10-19/day) ?Tobacco use other than smoking?Are you an other tobacco user??No ???Drugs/Alcohol:?Drugs?Have you used drugs other than those for medical reasons in the past 12 months??No ?Alcohol Screen (Audit-C)?Did you have a drink containing alcohol in the past year??Yes ?How often did you have a drink containing alcohol in the past year??Monthly or less (1 point) ?How many drinks did you have on a typical day when you were drinking in the past year??1 or 2 drinks (0 point) ?How often did you have 6 or more drinks on one occasion in the past year??Never (0 point) ?Points?1 ?Interpretation?Negative ???Miscellaneous:?Children: no. ?Domestic violence: no. ?Exercise: yes, regular weight lifting / resistance exercise, regular cardio. ?Home smoke detector use: yes, smoke detectors, carbon monoxide detector. ?Housing: renting. ?Living with: sister - Rosina. ?Marital status: single. ?Natural support system: yes. 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 ?Pets: dogs: 1 dionna. ?Sexual abuse: no. ?Verbal abuse: no. * Medications:?TakingJardiance 10 MG Tablet 1 tablet Orally Once a day Magnesium 300 MG Capsule 1 capsule with a meal Orally Once a day traMADol HCl 50 MG Tablet 1 tablet as needed Orally Once a day , Notes to Pharmacist: 2 QHSLeflunomide 20 MG Tablet 1 tablet Orally Once a day Spironolactone 50 MG Tablet 1 tablet Orally Once a day Lasix 20 MG Tablet 1 tablet Orally Once a day dilTIAZem HCl 240 mg , Notes to Pharmacist: 320 MGMultivitamins 30 1 ORAL daily , Notes to Pharmacist: Dmoinick-MJVitamin D3 1000 IU 30 ORAL daily , Notes to Pharmacist: Dominick-MJEliquis 5 MG Tablet 1 tablet Orally Twice a day Omeprazole 40 MG Capsule Delayed Release Oral Taking Jardiance 10 MG Tablet 1 tablet Orally Once a day Taking Magnesium 300 MG Capsule 1 capsule with a meal Orally Once a day Taking traMADol HCl 50 MG Tablet 1 tablet as needed Orally Once a day , Notes to Pharmacist: 2 QHSTaking Leflunomide 20 MG Tablet 1 tablet Orally Once a day Taking Spironolactone 50 MG Tablet 1 tablet Orally Once a day Taking Lasix 20 MG Tablet 1 tablet Orally Once a day Taking dilTIAZem HCl 240 mg , Notes to Pharmacist: 320 MGTaking Multivitamins 30 1 ORAL daily , Notes to Pharmacist: Asiya Vitamin D3 1000 IU 30 ORAL daily , Notes to Pharmacist: Asiya Eliquis 5 MG Tablet 1 tablet Orally Twice a day Taking Omeprazole 40 MG Capsule Delayed Release Oral DiscontinuedsulfaSALAzine 500 MG Tablet Oral Medication List reviewed and reconciled with the patientDiscontinued sulfaSALAzine 500 MG Tablet Oral Medication List reviewed and reconciled with the patient * Allergies:?ERYTHROMYCIN: Len sea/Vomiting/Diarrhea - Side Effectsno[Allergies Verified] Objective: * Vitals:?Ht: 65 in, Wt:184lbs , BMI:30.62Index, BP:132/78mm Hg, Temp:98.6F. * Examination: ???General Examination: ?GENERAL APPEARANCE:?in no acute distress, well developed, well nourished, government relations manager present in room.?HEAD:?normocephalic, atraumatic.?NECK/THYROID:?neck supple, full range of motion, thyroid normal.?LYMPH NODES:?no axillary or supraclavicular adenopathy.?SKIN:? normal, good turgor, no rashes, no suspicious lesions.?BREASTS:? normal, no dimpling, no discharge, no drainage, no masses palpable bilaterally, nontender.?ABDOMEN:? soft, non-tender, non distended without masses or hepatosplenomegay.?RECTAL:? normal tone, no masses palpable.?BACK:? no costovertebral angle tenderness.?FEMALE GENITOURINARY:?Vulva without lesions or masses, vagina pink without abnormal discharge, lesions or masses, cervix and uterus are surgically absent, ovaries are not palpable.?NEUROLOGIC:? alert and oriented, gait normal.?PSYCH:? alert, oriented, cognitive function intact, cooperative with exam, good eye contact, mood/affect full range, speech clear.? Assessment: * Assessment: 1.?Encounter for gynecologic al examination (general) (routine) without abnormal findings - Z01.419 (Primary)???2.?Encounter for screening mammogram for malignant neoplasm of breast - Z12.31??? Plan: * Treatment: 2.?Encounter for screening m ammogram for malignant neoplasm of breast?Imaging: MM Digital Screening Mammogram 3D * Procedure Codes:? * Follow Up:?1 Year (Reason: Y early Trigonometry Tutor Exam) * Images: Billing Information: * Visit Code:? 81400 Preventive Care Est Pt. Age 40-64. * Procedure Codes:? 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 She has been in state of good health since her last exam. She has the following concerns: none She has received the GIGAS Covid-19 vaccine and booster. Relationship status: single. She is not sexually active. Sexual partner(s): male. She does not wish to have STI testing. She does not report vaginal dryness. She does not have hot flashes/night sweats. The patient has never had an abnormal pap smear. Her most recent pap smear was 2013 - NIL. Paps are no longer indicated. She has not been diagnosed with breast cancer. She does have a family history of breast cancer - maternal aunt. Her last mammogram was 01/21/23. She plans to schedule. She does have a family history of colon cancer - PGM. She a has had a colonoscopy. The last colonoscopy was 10/2022 at [facility]. She is due back in 3 yrs. The patient does exercise. She exercises x 3-4 days/week by chair yoga. She had a rough year - her Dad kept having bleeding while on blood thinners, and she almost lost him in January 2024. He is now off blood thinners and doing better. Mom has dementia and is in assisted living at the [facility]. Examination Category Sub-Category Detail Notes Category Not es General Examination GENERAL APPEARANCE: in no ac jackson distress, well developed, well nourished, government relations manager present in room HEAD: normocephalic, atrau matic NECK/THYROID: neck supple, full ra nge of motion, thyroid normal ABDOMEN: soft, non-tender, no n distended without masses or hepatosplenomegay NEUROLOGIC: alert and oriented, gait normal SKIN: normal, good turgor, no rashes, no suspicious lesions BACK: no costovertebral an gle tenderness BREASTS: normal, no dimpling, no discharge, no drainage, no masses palpable bilaterally, nontender LYMPH NODES: no axillary or supra clavicular adenopathy RECTAL: normal tone, no mass es palpable PSYCH: alert, oriented, cog nitive function intact, cooperative with exam, good eye contact, mood/affect full range, speech clear FEMALE GENITOURINARY: Vulva without lesi ons or masses, vagina pink without abnormal discharge, lesions or masses, cervix and uterus are surgically absent, ovaries are not palpable
--- OUTSIDE RECORDS SUMMARY | 2024-12-17 07:38 | XMS_ITS | Data Portability ---
Author Organization [facility] Address [address] [place] [address] Care Team Providers Care Contract Graphic Designer Name Role Phone CHRISSY VACA Primary Care Provider Assessment No assessment recorded. Plan of Treatment Reminders Order Date Submit Date Provider Last Modified By Organization Details Last Modified Time Details Appointments None recorded. Lab SARS CoV 2 (COVID-19) Ag, QL, [place], upper respiratory specimen 2022 [email or web address], [address] [place], [address], 17:47:07 Referral None recorded. Procedures None recorded. Surgeries None recorded. Imaging None recorded. Medication Orders None recorded. Patient TargetsNo targets recorded. Patient Instructions Encounter Date Encounter Id Patient Instructions Last Modified By Organization Details Last Modified Time 04/23/2023 [id number] coronavirus (covid-19): care instructions Not available 04/23/2023 17:47:05 Coronavirus (COVID-19) in Children: Care Instructions Not available 04/23/2023 17:47:05 Reason for Referral None Reported. Results Created Date Observation Date Name Description Value Unit Range Abnormal Flag Note LastModifiedBy Organization Detail LastModifiedTime 04/23/2004/23/2023 SARS CoV 2 (COVI D-19) Ag, QL, [place], upper respi rator y speci men Unknown Analyte positi ve Not Available ie [email or web address] [place], [address], 04/23/2023 17:35:49 04/23/20 23 04/23/2023 SARS CoV 2 (COVI D-19) Ag, QL, IA, upper respi rator y speci men Unknown Analyte negati ve Not Available _[email or web address] [place], [address], 04/23/2023 17:35:49 04/23/20 23 04/23/2023 SARS CoV 2 (COVI D-19) Ag, QL, IA, upper respi rator y speci men Unknown Analyte yes Not Available _ [email or web address] [place], [address], 04/23/2023 17:35:49 Result Notes None recorded. Problems Name Problem SNOMED Code Status Onset Date Resolution Date Notes Provider Name and Address Organization Details Recorded Time Psoriatic arthritis 339020286 Active HAM NEWSOME-RIVE RA null, [place] - [facility] 17:21:20 Atrial fibrillation 58601727 Active HAM NEWSOME-RIVE RA null, PA - [facility] 17:21:27 Hypertensive disorder 33402427 Active HAM NEWSOME-RIVE RA null, PA - [facility] 17:21:44 Problem Notes None recorded. Procedures Surgical History Date Name Laterality Status Provider Name and Address Organization Details Recorded Time catheter ablation of arrhythmogenic focus completed HAM NEWSOME-CONLEY PA - [facility] 04/23/2023 17:22:25 procedure on shoulder completed HAM NEWSOME-CONLEY PA - [facility] 04/23/2023 17:22:34 procedure on knee completed HAM NEWSOME-CONLEY PA - [facility] 04/23/2023 17:22:50 Imaging Results None recorded. Procedure Notes None recorded. Medical Equipment None Reported. Allergies Allergen ID Allergen Name Allergen Category Reaction Reaction Severity Criticality Documentation Date Start Date Code Code System Note Provider Name and Address Organization Details Recorded Time 775178 erythromy alessandro medicatio n chest pain Not available Not available 04/23/2023 4053 RxNorm HAM NEWSOME-RIVE RA null, PA - [facility] 17:19:52 Medications Name Sig Start Date Stop Date Status Note LastModified by Organization Details LastModified Time celecoxib 200 mg capsule TAKE 1 CAPSULE BY MOUTH DAILY NEEDED FOR PAIN 04/23 completed Not Available Not Available Not Available amoxicillin 500 mg capsule TAKE 4 CAPSULES BY MOUTH 1 HOUR BEFORE PROCEDURE 04/23 completed Not Available Not Available Not Available prednisone 10 mg tablet TAKE 3 TABLETS BY MOUTH EVERY DAY X 1 WEEK THEN 2 TABLETS DAILY X 1 WEEK THEN 1 TABLET DAILY X 1 WEEK THEN STOP active Not Available Not Available No t Available diltiazem CD 240 mg capsule,ext ended release 24 hr TAKE 1 CAPSULE BY MOUTH DAILY 04/23 completed Not Available Not Available Not Available prednisone 5 mg tablet TAKE 1 TABLET BY MOUTH DAILY active Not Available Not Available No t Available omeprazole 40 mg capsule,del ayed release TAKE 1 CAPSULE BY MOUTH TWICE DAILY active Not Available Not Available No t Available leflunomide 20 mg tablet TAKE 1 TABLET BY MOUTH DAILY active Not Available Not Available No t Available tramadol 50 mg tablet TAKE 1 TABLET BY MOUTH THREE TIMES DAILY active Not Available Not Available No t Available acetaminoph en 500 mg tablet TAKE 2 TABLETS BY MOUTH EVERY 8 HOURS AROUND THE CLOCK FOR PAIN 04/23 completed Not Available Not Available Not Available diltiazem CD 300 mg capsule,ext ended release 24 hr TAKE 1 CAPSULE BY MOUTH DAILY active Not Available Not Available No t Available cephalexin 500 mg capsule 04/23 completed Not Available Not Available Not Available flecainide 50 mg tablet TAKE 1 TABLET BY MOUTH EVERY 12 HOURS FOR ATRIAL FIBRILLAT ION 04/23 completed Not Available Not Available Not Available flecainide 100 mg tablet TAKE 1 TABLET BY MOUTH EVERY 12 HOURS FOR ATRIAL FIBRILLAT ION 04/23 completed Not Available Not Available Not Available docusate sodium 100 mg capsule TAKE 1 CAPSULE BY MOUTH UP TO TWICE DAILY NEEDED FOR CONSTIPAT ION WHILE TAKING NARCOTIC MEDICATIO NS 04/23 completed Not Available Not Available Not Available omeprazole 20 mg capsule,del ayed release TAKE 1 CAPSULE BY MOUTH TWICE DAILY 04/23 completed Not Available Not Available Not Available folic acid 1 mg tablet TAKE 1 TABLET BY MOUTH EVERY DAY active Not Available Not Available No t Available furosemide 20 mg tablet TAKE 1 TABLET BY MOUTH DAILY active Not Available Not Available No t Available lorazepam 1 mg tablet TAKE 1 TABLET BY MOUTH BEFORE PROCEDURE . MAY REPEAT X1 NEEDED 04/23 completed Not Available Not Available Not Available spironolact one 50 mg tablet TAKE 1 TABLET BY MOUTH DAILY active Not Available Not Available No t Available oxycodone 5 mg tablet TAKE 1 TABLET BY MOUTH EVERY 4 HOURS NEEDED FOR PAIN DO NOT DRIVE WHILE ON THIS MED 04/23 completed Not Available Not Available Not Available GaviLyte-G 236 gram-22.74 gram-6.74 gram-5.86 gram oral solution TAKE 8 OUNCES BY MOUTH DIRECTED 04/23 completed Not Available Not Available Not Available Multaq 400 mg tablet TAKE 1 TABLET BY MOUTH EVERY 12 HOURS. MUST ADMINISTE R WITH A MEAL OR FOOD active Not Available Not Available No t Available Eliquis 5 mg tablet TAKE 1 TABLET BY MOUTH TWICE DAILY active Not Available Not Available No t Available BinaxNOW COVID-19 Ag Self Test kit FOLLOW PACKGE DIRECTION S 04/23 completed Not Available Not Available Not Available Vitals Date Recorded Body height Body mass index (BMI) Body weight Respiratory rate Pain severity - 0-10 verbal numeric rating [Score] - Reported Oxygen saturation Oxygen saturation in Arterial blood by Pulse oximetry Heart rate Body temperature Systolic blood pressure Diastolic blood pressure Provider Name and Address Organization Details Last Updated DateTime 162.56 cm 31.4 kg/m2 68228.4 g 18 /min 7 96 % 96 % 90 /min 100.5 [degF] 117 mm[Hg] 70 mm[Hg] HAM NESS RA PA - [facility] 17:26:07 Social History Question Answer Notes LastModified by Organizat ion Details LastModified Time Tobacco Smoking Status Former Smoker HAM kimbrough PA - [facility] 04/23/2023 17:23:20 What Is Your Level Of Alcohol Consumption? None Information not available 04/23/2023 When Did You Quit Smoking? 16+yearssin [place] Information not available 04/23/2023 Do You Use Any Illicit Or Recreational Drugs? No Information not available 04/23/2023 Have You Recently Traveled Abroad? No Information not available 04/23/2023 Do You Or Have You Ever Used Any Other Forms Of Tobacco Or Nicotine? No Information not available 04/23/2023 Sex: Unknown Functional Status None recorded. Mental Status None recorded. Family History Relationship Description Onset Age of this Age Resolved Age Notes LastModified by Organization Details LastModified Time Father Diabetes mellitus Not available 12/2022 17:23:04 Mother Hypertensive disorder Not available 12/2022 17:23:09 Medical History No medical history recorded. Gynecological History Statement/Question Response LMP N/A Obstetrics History GPAL:G 0 P 0 0 0 0 Immunizations Vaccine Type Date Status Note Provider Nam e and Address Organization Details Recorded Time Influenza, split virus, quadrivalent, preservative 9 completed HAM NEWSOME-CONLEY null, PA - [facility] 04/23/2023 17:19:42 Influenza, split virus, quadrivalent, preservative 8 completed HAM NEWSOME-CONLEY null, PA - [facility] 04/23/2023 17:19:42 Influenza, split virus, quadrivalent, preservative 6 completed HAM NEWSOME-CONLEY null, PA - [facility] 04/23/2023 17:19:42 Influenza, MDCK, quadrivalent, preservative 1 completed HAM NEWSOME-CONLEY null, PA - [facility] 04/23/2023 17:19:42 COVID-19, mRNA, LNP-S, PF, 30 mcg/0.3 mL dose 1 completed HAM NEWSOME-CONLEY null, PA - [facility] 04/23/2023 17:19:42 COVID-19, mRNA, LNP-S, PF, 30 mcg/0.3 mL dose 1 completed HAM NEWSOME-CONLEY null, PA - [facility] 04/23/2023 17:19:42 COVID-19, mRNA, LNP-S, PF, 30 mcg/0.3 mL dose 0 completed HAM NEWSOME-CONLEY null, PA - [facility] 04/23/2023 17:19:42 pneumococcal polysaccharide PPV23 8 completed HAM NEWSOME-CONLEY null, PA - [facility] 04/23/2023 17:19:42 pneumococcal polysaccharide PPV23 3 completed HAM NEWSOME-CONLEY null, PA - [facility] 04/23/2023 17:19:42 tetanus toxoid, unspecified formulation 7 completed HAM NEWSOME-CONLEY null, PA - [facility] 04/23/2023 17:19:42 Tdap 3 completed HAM NEWSOME-CONLEY null, PA - [facility] 04/23/2023 17:19:42 Tdap 7 completed HAM NEWSOME-CONLEY null, PA - [facility] 04/23/2023 17:19:42 Hep B, unspecified formulation 9 completed HAM NEWSOME-CONLEY null, PA - [facility] 04/23/2023 17:19:42 Hep B, unspecified formulation 8 completed HAM NEWSOME-CONLEY null, PA - [facility] 04/23/2023 17:19:42 Hep B, unspecified formulation 8 completed HAM NEWSOME-CONLEY null, PA - [facility] 04/23/2023 17:19:42 Influenza, split virus, trivalent, PF 4 completed HAM NEWSOME-CONLEY null, PA - [facility] 04/23/2023 17:19:42 Influenza, split virus, trivalent, PF 5 completed HAM NEWSOME-CONLEY null, PA - [facility] 04/23/2023 17:19:42 influenza, whole 9 completed HAM NEWSOME-CONLEY null, PA - [facility] 04/23/2023 17:19:42 influenza, whole 9 completed HAM NEWSOME-CONLEY null, PA - [facility] 04/23/2023 17:19:42 Td (adult), 2 Lf tetanus toxoid, preservative free, adsorbed 3 completed HAM NEWSOME-CONLEY null, PA - [facility] 04/23/2023 17:19:42 Past Encounters Encounter ID Performer Location Encounter Start Date Encounter Closed Date Diagnosis/Indication Diagnosis SNOMED-CT Code Diagnosis ICD10 Code Diagnosis Note [id number] [facility] [facility] [address] [place] [address] 11/15/2017 11:10:08 11/15/2017 12:30:54 [id number] Trinidad Bates, LEAD MANUFACTURING TECHNICIAN [address] [address] 04/23/2023 16:04:01 04/23/2023 17:48:13 COVID-19 [id number] U07.1 Based on your Presentati on, Exam, and Lab Testing you are being diagnosed with Upper respirator y track infection Your covid test was positive Covid is caused by a virus that is highly contagious . If you have any family member that have been exposed they typically will start to show symptoms in 48-72 hours. You are considered contagious for 5 Days after the start of the fever. You should isolate and not go to work, sports, events during this quarantine period. The following are my recommenda tions to help with your symptoms while your body fights this infection: 1. Take Ibuprofen or Tylenol if you do not have any allergies to these medication s. If you take a blood thinner you should not take NSAIDS like Ibuprofen. These medication will help with the inflammati on in your respirator y tract which should help the cough.2. Do not take any decongesta nts at this time because this will dry out that tract too much. If you have a lot of nasal congestion you can try nasal decongesta nts, but I would not take them more than 5 days.3. Use a humidifier or add a cup of water by your bed. Sometimes if our sleeping environmen t is too dry this can lead to cough4. Salt Water Gargles5. Saline nasal spray is helpful.6. Would recommend taking a antihistam ine to help with the congestion .7. Clean Surfaces regularly and try to stay isolated from family members. I would go immediatel y to the Emergency Room if you develop:1. Chest Pain2. Severe Shortness of breath3. Coughing up Blood. I would be seen again if you develop any of the following symptoms.1 . Fever > 101.02. Stiff neck - where you can't turn your neck3. Trouble swallowing your saliva - drooling4. Swelling of a lymph node in your throat that is painful to touch5. Difficulty breathing6 . Severe Headache Thank you for using [facility] today, please feel free to contact our office if you have any questions or concerns. Health Concerns Section Related Observation LastModified by Organization Detai ls LastModified Time None Recorded Concern Status LastModified by Organization Details LastModified Time None Recorded Advance Directives Directive None Recorded Payers Encounter Date Sequence Insurance Name Policy Number Policy Maynard Covered Member ID Maynard Member ID Guarantor Name 11/15/2017 1 [facility] [id number] Mariellen Counter [id number] Mariellen Counter 04/23/2023 1 [facility] [place] [id number] Mariellen Counter [id number] Mariellen Counter Notes Date Note Type Note Provider Name and Address Organization Details Recorded Time 04/23/2023 text/html COVID-19 SymptomsReported bypatient.COVID-19 Signs and Symptomscough improving/resolved;mus dariela pain worsening Contacts and Exposureclose proximity with person with COVID-19 Severity:moderate Associated Symptoms:no sputum production; no wheezing;runny nose Prior Labs and ImagingCOVID-19 nasopharyngeal swab Suitability of residential settingpatient does have separate bedroom and bathroom for patient Patient presents with nasal congestion, body aches, chest congestion x 2-3 days.. was exposed to covid. did a rapid covid test at home and was negative. Trinidad Bates NP [address] [facility] [place], [address], [place] - [facility] 04/25/2023 17:49:59 OBGyn Episode No OBEpisode recorded.
--- OUTSIDE RECORDS SUMMARY | 2024-12-17 07:38 | XMS_ITS | Encounter Summary ---
Author Organization [facility] Address [address] [place] [address] Care Team Providers Care Vice President Of Talent Acquisition Name Role Phone Daryl Rich Primary Care Provider [phone] Encounter Details Date Type Department Care Team (Late st Contact Info) Description 12/10/2023 Scanned Document [address] [place] [phone] Radiology, Scan Social History Tobacco Use Types Packs/Day Years Used Date Smoking Tobacco: Never Assessed Comments Unknown Sex and Gender Information Value Date Recorded Sex Assigned at Female 12/11/2023 7:09 AM EDT Legal Sex Female 3:49 PM EDT Gender Identity Female 12/11/2023 7:09 AM EDT Sexual Orientation Heterosexual (straight) 12/10 7:09 AM EDT documented as of this encounter Plan of Treatment Not on file documented as of this encounter Procedures Procedure Name Priority Date/Time Associated Diagnosis Comments LAB RESULT 12/11/2023 LAB RESULT 12/10/2023 documented in this encounter Results * LAB RESULT (12/11/2023) us Scan Radiology HX AMB PROCEDURES Final Result * LAB RESULT (12/10/2023) us Scan Radiology HX AMB PROCEDURES Final Result documented in this encounter Visit Diagnoses Not on filedocumented in this encounter Care Teams Vice President Of Talent Acquisition Relationship Specialty Start Date End Date Daryl Rich [address] [place] [address] PCP - General 11/14/23 documented as of this encounter
--- OUTSIDE RECORDS SUMMARY | 2024-12-17 07:38 | XMS_ITS | Clinical Summary ---
Author Organization [facility] Address [address] [place] [address] Care Team Providers Care Appeals Officer Name Role Phone Daryl Rich Primary Care Provider Allergies Active Allergy Reactions Criticality Noted Date Comments Erythromycin GI Intolerance/Nausea/Vomiting Low Social History Tobacco Use Types Packs/Day Years Used Date Smoking Tobacco: Never Assessed Comments Unknown Sex and Gender Information Value Date Recorded Sex Assigned at Female 12/11/2023 7:09 AM EDT Legal Sex Female 3:49 PM EDT Gender Identity Female 12/11/2023 7:09 AM EDT Sexual Orientation Heterosexual (straight) 12/10 7:09 AM EDT Last Filed Vital Signs Vital Sign Reading Time Taken Comments Blood Pressure 114/68 12/11/2023 8:38 AM EDT Pulse 68 12/11/2023 8:38 AM EDT Temperature 36.1 ??C (97 ??F) 12/11/2023 7:25 AM EDT Respiratory Rate 15 12/11/2023 8:38 AM EDT Oxygen Saturation 96% 12/11/2023 8:38 AM EDT Inhaled Oxygen Concentration - - Weight 80.3 kg (177 lb) 12/11/2023 7:25 AM EDT Height 165.1 cm (5' 5 ) 12/11/2023 7:25 AM EDT Body Mass Index 29.45 12/11/2023 7:25 AM EDT Plan of Treatment Health Maintenance Due Date Last Done Comments Hepatitis C Virus Screening 1960 HIV Screening 1973 DTaP/Tdap/Td Vaccines (1 - Tdap) 1979 Pap Smear (Ages 21-65) 1981 Mammogram 2000 Colonoscopy 2005 Pneumococcal Vaccines 50+ (1 of 1 - PCV) 2010 Zoster (Shingles) Vaccine (1 of 2) 2010 Influenza Vaccine 03/19/2024 04/19/2019, , 05/16/2016, Additional history exists COVID-19 Vaccine ( season) 2024 05/26/2021, 09/05/2020, 08/15/2020 RSV Vaccine 60 years and older and Patients (1 - 1-dose 75+ series) 2035 Hepatitis B Vaccines Aged Out No long er eligible based on patient's age to complete this topic Insurance [facility] Care Teams Appeals Officer Relationship Specialty Start Date End Date Daryl Rich [address] [place] [address] [address] [place] [address] PCP - General 11/14/23
--- OUTSIDE RECORDS SUMMARY | 2024-12-17 07:38 | XMS_ITS ---
Author Organization 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 Encounter Location Date Provider Diagnosis [facility] [address] [address] 10/15/2023 MICHELLE MUKHERJEE Encounter for gynecological examination (general) (routine) without abnormal findings Z01.419 ; Encounter for screening mammogram for malignant neoplasm of breast Z12.31 and Encounter for screening for infections with a predominantly sexual mode of transmission Z11.3 Assessments Encounter Date Diagnosis (ICD Code) Assessment Notes Treatment Notes Treatment Clinical Notes Section Notes 10/15/2023 Encounter for gynecological examination (general) (routine) without [...] to keep colon screening up to date. 10/15/2023 Encounter for screening mammogram for malignant neoplasm of breast (ICD-10 - Z12.31) 10/15/2023 Encounter for screening for infections with a predominantly sexual mode of transmission (ICD-10 - Z11.3) Plan Of Treatment Treatment Notes Assessment Notes [...] Order Date MM Digital Screening Mammogram 3D 2023 Next Appt Details Follow Up: 1 Year, Reason: Y early Computer Typesetter Exam Provider Name:MICHELLE Nogueira, 11/11/2025 08:00:00 AM, [employer], [address], [place], [address], Progress Notes * SARIAH LEAVITTOB:1959 (64 yo F)Acc No.[id number]:10/15/2023 PROGRESS NOTES Patient:?ROBERTA LEAVITT Provider:?MICHELLE MUKHERJEE MD :1960???Age:63 Y???Sex:Female D ate:10/15/2023 Address:[address] [place] [address] , [id number] Pcp:Thomas Espinoza MD Subjective: * Chief Complaints: * ???1. 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 * HPI: ???Constitutional:? Roberta is a 63yo G0 s/p hysterectomy who presents for her yearly rn gyn exam. She has been in state of good health since her last exam. She has the following concerns: She had left shoulder arthroscopy in 01/2023 for recurrent rotator cuff tear. She has received the X2IMPACT Covid-19 vaccine and booster. Relationship status: *single. She is not sexually active. Sexual partner(s): male. She does not wish to have STI testing. She does *not report vaginal dryness. She does not have hot flashes/night sweats. The patient has never had an abnormal pap smear. Her most recent pap smear was 2013 - NIL. Paps are no longer indicated. She has not been diagnosed with breast cancer. She does have a family history of breast cancer - maternal aunt. Her last mammogram was 01/21/23. She does have a family history of colon cancer - PGM. She a has had a colonoscopy. The last colonoscopy was 2019. *She had one booked in 10/2022. The patient does* exercise. She exercises x 6-7 days/week by walking. * ROS:?Annual Computer Typesetter Exam ROS:?Bowel habit changes?denies.?Bladder symptoms?denies.?Vaginal discharge, unusual?denies.?Vaginal itch or odor?denies.?weight or appetite changes?denies.?Chest pains, SOB?denies.?depression?denies.?Breast:?Denies?Breast lump.?Denies?Nipple discharge.?Hematology:?Denies?Swollen glands.?Skin:?Patient denies?changing moles.?Psychiatric:?Denies?Anxiety.? * Medical History:? Objective: * Vitals:? * Examination: ???General Examination: ?GENERAL APPEARANCE:?in no acute distress, well developed, well nourished, dinkey operator slate present in room.?HEAD:?normocephalic, atraumatic.?NECK/THYROID:?neck supple, full range [...] without abnormal discharge, lesions or masses, cervix appears normal and is not tender to palpation, uterus is normal size, mobile, nontender and anteverted, ovaries are not palpable.?NEUROLOGIC:? alert and oriented, gait normal.?PSYCH:? alert, oriented, cognitive function intact, cooperative with exam, good eye contact, mood/affect full range, speech clear.? Assessment: * Assessment: 1.?Encounter for gynecologic al examination (general) (routine) without abnormal findings - Z01.419 (Primary)???2.?Encounter for screening mammogram for malignant neoplasm of breast - Z12.31???3.?Encounter for screening for infections with a predominantly sexual mode of transmission - Z11.3??? Plan: * Treatment: 2.?Encounter for screening m ammogram for malignant neoplasm of breast?Imaging: MM Digital Screening Mammogram 3D * Follow Up:?1 Year (Reason: Y early Computer Typesetter Exam) * Images: Billing Information: * Visit Code:? 88367 Preventive Care Est Pt. Age 40-64. * Procedure Codes:? * Electronic signature of MICHELLE MUKHERJEE MD on 12/17/2024 at 07:37 AM EDT Sign off status: Pending * Provider:?MICHELLE MUKHERJEE MD Date:?2023 Generated for Judd akins/Natasha/Andrewitting on:?12/17/2024 07:37 AM EDT History and Physical Notes * HPI (History of Present Illness) Category Sub-Category Detail Notes Category Not es Constitutional Roberta is a 63yo G0 s/p hysterectomy who presents for her yearly rn gyn exam. She has been in state of good health since her last exam. She has the following concerns: She had left shoulder arthroscopy in 01/2023 for recurrent rotator cuff tear. She has received the Pfizer Covid-19 vaccine and booster. Relationship status: *single. She is not sexually active. Sexual partner(s): male. She does not wish to have STI testing. She does *not report vaginal dryness. She does not have hot flashes/night sweats. The patient has never had an abnormal pap smear. Her most recent pap smear was 2013 - NIL. Paps are no longer indicated. She has not been diagnosed with breast cancer. She does have a family history of breast cancer - maternal aunt. Her last mammogram was 01/21/23. She does have a family history of colon cancer - PGM. She a has had a colonoscopy. The last colonoscopy was 2019. *She had one booked in 10/2022. The patient does* exercise. She exercises x 6-7 days/week by walking. Examination Category Sub-Category Detail Notes Category Not es General Examination GENERAL APPEARANCE: in no ac [place] distress, well developed, well nourished, dinkey operator slate present in room HEAD: normocephalic, atrau matic [...] without abnormal discharge, lesions or masses, cervix appears normal and is not tender to palpation, uterus is normal size, mobile, nontender and anteverted, ovaries are not palpable
--- OUTSIDE RECORDS SUMMARY | 2024-12-17 07:38 | XMS_ITS | Clinical Summary ---
Author Organization [facility] Address [address] [place] [address] Phone Care Team Providers Care Cafe Aide Name Role Phone Thomas Espinoza MD Primary Care Provider [phone] Surgical History Surgery Date Site/Laterality Comments CHOLECYSTECTOMY PROCEDURE: CA LAPAROSCOPY SURG CHOLECYSTECTOMY OTHER SURGICAL HISTORY PROCEDURE: CA UNLISTED PX MECKEL'S DIVERTICULUM & MESENTERY TOTAL KNEE ARTHROPLASTY PROCEDURE: CA ARTHRP KNE CONDYLE&PLATU MEDIAL&LAT COMPARTMENTS Medical History Medical History Date Comments Essential hypertension DX:Essent ial hypertension A-fib ([facility] V24, [facility] V28) DX:A-fib ([facility]) Psoriatic arthritis ([facility] V24, [facility] V28) DX:Psoriatic arthritis ([facility]) Social History Tobacco Use Types Packs/Day Years Used Date Smoking Tobacco: Former Smokeless Tobacco: Never Alcohol Use Standard Drinks/Week Comments Never 0 (1 standard drink = 0.6 oz pur e alcohol) Comments Unknown Sex and Gender Information Value Date Recorded Sex Assigned at Not on file Legal Sex Female 2:19 PM EST Gender Identity Not on file Sexual Orientation Not on file Obstetrics History Last Filed Vital Signs Vital Sign Reading Time Taken Comments Blood Pressure 139/75 08/20/2023 1:17 PM EST Sitting Right arm Pulse 89 08/20/2023 1:17 PM EST Temperature - - Respiratory Rate - - Oxygen Saturation - - Inhaled Oxygen Concentration - - Weight 87.5 kg (193 lb) 08/29/2022 2:44 PM EST Height 162.6 cm (5' 4 ) 08/29/2022 2:44 PM EST Body Mass Index 33.13 08/29/2022 2:44 PM EST Plan of Treatment Upcoming Encounters Date Type Department Care Team (Late st Contact Info) Description 12/18/2024 8:00 AM EDT Office Visit Gastroenterology - [address] [place] [id number] Nichol Terry, CERTIFIED MEDICAL CODER [address] [place] [address] Health Maintenance Due Date Last Done Comments Cervical Cancer Screening: Pap Smear 1981 Pneumococcal Vaccine: 50+ Years (2 of 2 - PCV) 02/10/2014 02/10/2013, 10/03/2007 RSV Immunization Adult Patients (1 - Risk 60-74 years 1-dose series) 2020 Cholesterol Screening (Lipid Panel) 07/18/2022 Colorectal Cancer Screening: Colonoscopy 07/18/2022 Depression Screening 07/18/2022 HIV Screening 07/18/2022 Social Influencers of Health Screening 07/18/2022 Breast Cancer Screening 02/08/2023 02/08/2021 Zoster Vaccines (2 of 2) 01/11/2024 11/16/2023 COVID-19 Vaccine ( - season) 2024 05/26/2021, 09/05/2020, 08/15/2020 Influenza Vaccine (Season Ended) 2025 05/05/2021, 04/19/2019, 05/09/2018, Additional history exists Hypertension/CHF/CAD Annual BMP Blood Test 12/11/2025 12/11/2024 DTaP,Tdap,and Td Vaccines (4 - Td or Tdap) 03/21/2033 03/21/2023, 09/07/2012, 04/25/2007 Osteoporosis Screening (Bone Density Screening) 08/10/2034 08/10/2024, 07/19/2015 Hepatitis B Vaccines Completed 11/02/2008, 05/20/2008, 04/21/2008 Pneumococcal Vaccine: Pediatrics (0 to 5 Years) and At-Risk Patients (6 to 64 Years) Aged Out 02/10/2013, 10/03/2007 No longer eligibl e based on patient's age to complete this topic Hepatitis C Screening Completed 12/11/2024 HIB Vaccines Aged Out No longer eligi ble based on patient's age to complete this topic HPV Vaccines Aged Out No longer eligi ble based on patient's age to complete this topic Hepatitis A Vaccines Aged Out No long er eligible based on patient's age to complete this topic IPV Vaccines Aged Out No longer eligi ble based on patient's age to complete this topic MMR Vaccines Aged Out No longer eligi ble based on patient's age to complete this topic Meningococcal ACWY Vaccine Aged Out N o longer eligible based on patient's age to complete this topic Meningococcal B Vaccine Aged Out No l onger eligible based on patient's age to complete this topic RSV Immunization Patients Under 20 months Aged Out No longer eligible based on patient's age to complete this topic Varicella Vaccines Aged Out No longer eligible based on patient's age to complete this topic Procedures Procedure Name Priority Date/Time Associated Diagnosis Comments INTERFERON GAMMA INTERPRETATION Routine 12/11/2024 8:14 AM EDT Psoriatic arthropathy ([facility] V24, [facility] V28) INTERFERON GAMMA ANTIGEN 2 Routine 12/11/2024 8:14 AM EDT Psoriatic arthropathy ([facility] V24, [facility] V28) INTERFERON GAMMA ANTIGEN 1 Routine 12/11/2024 8:14 AM EDT Psoriatic arthropathy ([facility] V24, [facility] V28) INTERFERON GAMMA MITOGEN Routine 12/11/2024 8:14 AM EDT Psoriatic arthropathy ([facility] V24, [facility] V28) INTERFERON GAMMA NIL Routine 12/11/2024 8:14 AM EDT Psoriatic arthropathy ([facility] V24, [facility] V28) INTERFERON GAMMA FOR TB, QUALITATIVE Routine 12/11/2024 8:14 AM EDT Psoriatic arthropathy ([facility] V24, [facility] V28) HEPATITIS PANEL, ACUTE WITH REFLEX TO CONFIRMATION Routine 12/11/2024 8:14 AM EDT Psoriatic arthropathy ([facility] V24, [facility] V28) SEDIMENTATION RATE Routine 12/11/2024 8: 14 AM EDT Psoriatic arthropathy ([facility] V24, [facility] V28) COMPREHENSIVE METABOLIC PANEL Routine 12/11/2024 8:14 AM EDT Psoriatic arthropathy ([facility] V24, [facility] V28) COMPLETE BLOOD COUNT Routine 12/11/2024 8:14 AM EDT Psoriatic arthropathy ([facility] V24, [facility] V28) C REACTIVE PROTEIN, HIGH SENSITIVITY Routine 12/11/2024 8:14 AM EDT Psoriatic arthropathy ([facility] V24, [facility] V28) BD BONE DENSITY DXA AXIAL SKELETON Routine 08/10/2024 7:49 AM EST Other specified disorders of bone density and structure, multiple sites from Last 3 Months or Most Recently Relevant to Health Maintenance Results * Interferon gamma interpretation (12/11/2024 8:14 AM EDT) [facility] Signature Quantiferon Plus Interpretation Negative Negative LAB CHEMISTRY METHOD 12/12/2024 1:02 PM EDT [facility] Blood Venous blood specimen / Unknown Venipuncture / Unknown 12/11/2024 8:14 AM EDT 12/11/2024 11:21 AM EDT Ashli Bailey MD LAB BLOOD ORDERABLES Final R esult [facility] [address] [place] [address], [place] [phone] * Interferon gamma antigen 2 (12/11/2024 8:14 AM EDT) Blood Venous blood specimen / Unknown Venipuncture / Unknown 12/11/2024 8:14 AM EDT 12/11/2024 11:21 AM EDT Ashli Bailey MD LAB BLOOD ORDERABLES Final R esult [facility] [address] [place] [address], [place] [phone] * Inteferon gamma antigen 1 (12/11/2024 8:14 AM EDT) Blood Venous blood specimen / Unknown Venipuncture / Unknown 12/11/2024 8:14 AM EDT 12/11/2024 11:20 AM EDT Ashli Bailey MD LAB BLOOD ORDERABLES Final R esult Performing Organization Address City/[facility]/ZIP Co de Phone Number [facility] [address] [place] [address], [place] [phone] * Interferon gamma mitogen (12/11/2024 8:14 AM EDT) Blood Venous blood specimen / Unknown Venipuncture / Unknown 12/11/2024 8:14 AM EDT 12/11/2024 11:21 AM EDT Ashli Bailey MD LAB BLOOD ORDERABLES Final R esult Performing Organization Address City/[facility]/ZIP Co de Phone Number [facility] [address] [place] [address], [place] [phone] * Interferon gamma NIL (12/11/2024 8:14 AM EDT) Blood Venous blood specimen / Unknown Venipuncture / Unknown 12/11/2024 8:14 AM EDT 12/11/2024 11:21 AM EDT Ashli Bailey MD LAB BLOOD ORDERABLES Final R esult Performing Organization Address City/[facility]/ZIP Co de Phone Number [facility] [address] [place] [address], [place] [phone] * Hepatitis panel, acute with reflex to confirmation (12/11/2024 8:14 AM EDT) Hepatitis B Surface Ag Negative Negative LAB CHEMISTRY METHOD 12/11/2024 2:31 PM EDT [facility] Hepatitis A Antibody IgM Negative Negative LAB CHEMISTRY METHOD 12/11/2024 2:31 PM EDT [facility] Hep B Core IgM Negative Negative LAB CHEMISTRY METHOD 12/11/2024 2:31 PM EDT [facility] Hepatitis C Antibody Negative Negative LAB CHEMISTRY METHOD 12/11/2024 2:31 PM EDT [facility] Blood Venous blood specimen / Unknown Venipuncture / Unknown 12/11/2024 8:14 AM EDT 12/11/2024 11:21 AM EDT us Ashli Bailey MD LAB BLOOD ORDERABLES Final R esult Performing Organization Address [facility]/ZIP Co de Phone Number [facility] [address] [place] [address], [place] [phone] * (ABNORMAL) Sedimentation rate (12/11/2024 8:14 AM EDT) Sed Rate 39(H) 0 - 30 mm/hr LAB HEMETOLOGY METHOD 12/11/2024 11:37 AM EDT [facility] Blood Venous blood specimen / Unknown Venipuncture / Unknown 12/11/2024 8:14 AM EDT 12/11/2024 11:21 AM EDT us Ashli Bailey MD LAB BLOOD ORDERABLES Final R esult [facility] [address] [place] [address], [place] [phone] * (ABNORMAL) Complete blood count (12/11/2024 8:14 AM EDT) WBC 6.3 4.8 - 10.8 K/mcL LAB HEMETOLOGY METHOD 12/11/2024 11:29 AM EDT [facility] RBC 4.20 3.80 - 4.80 M/mcL LAB HEMETOLOGY METHOD 12/11/2024 11:[address] [facility] Hemoglobin 10.0(L) 11.5 - 16.0 g/dL LAB HEMETOLOGY METHOD 12/11/2024 11:[address] [facility] Hematocrit 34.5(L) 35.0 - 47.0 % LAB HEMETOLOGY METHOD 12/11/2024 11:[address] [facility] MCV 81.4 79.0 - 98.0 FL LAB HEMETOLOGY METHOD 12/11/2024 11:[address] [facility] MCH 23.6(L) 27.0 - 32.0 pcg LAB HEMETOLOGY METHOD 12/11/2024 11:[address] [facility] MCHC 29.0(L) 32.0 - 37.0 g/dL LAB HEMETOLOGY METHOD 12/11/2024 11:[address] [facility] RDW 17.4(H) 11.0 - 15.0 % LAB HEMETOLOGY METHOD 12/11/2024 11:[address] [facility] Platelets 389 130 - 400 K/mcL LAB HEMETOLOGY METHOD 12/11/2024 11:[address] [facility] MPV 10.8 7.0 - 11.0 FL LAB HEMETOLOGY METHOD 12/11/2024 11:[address] [facility] NRBC 0.0 <1.0 % LAB HEMETOLOGY METHOD 12/11/2024 11:[address] [facility] NRBC Absolute 0.00 <0.10 K/mcL LAB HEMETOLOGY METHOD 12/11/2024 11:[address] [facility] Blood Venous blood specimen / Unknown Venipuncture / Unknown 12/11/2024 8:14 AM EDT 12/11/2024 11:21 AM EDT us Ashli Bailey MD LAB BLOOD ORDERABLES Final R esult Performing Organization Address [facility]/ZIP Co de Phone Number [facility] [address] [place] [address], [place] [phone] * C reactive protein, high sensitivity (12/11/2024 8:14 AM EDT) [facility] CRP, High Sensitivity 7.78 mg/L LAB CHEMISTRY METHOD 12/11/2024 12:40 PM EDT [facility] Comment: Cardio CRP Relative Risk Categories ?? Low ? <1.0 mg/L ?? Average ?? 1.0 - 3.0 mg/L ?? High ?>3.0 mg/L Levels >10.0 mg/L should be ignored and repeated when the patient is stable and infection or inflammation is ruled out. HRT (estrogens) consistently increase cardio CRP levels. Risk estimates for women on HRT may need to be calibrated downward. Blood Venous blood specimen / Unknown Venipuncture / Unknown 12/11/2024 8:14 AM EDT 12/11/2024 11:21 AM EDT Ashli Bailey MD LAB BLOOD ORDERABLES Final R esult Performing Organization Address City/[facility]/ZIP Co de Phone Number [facility] [address] [place] [address], [place] [phone] * (ABNORMAL) Comprehensive metabolic panel (12/11/2024 8:14 AM EDT) [facility] Sodium 136 133 - 145 mmol/L LAB CHEMISTRY METHOD 12/11/2024 12:40 PM EDT [facility] Potassium 4.8 3.5 - 5.5 mmol/L LAB CHEMISTRY METHOD 12/11/2024 12:40 PM EDT [facility] Chloride 103 96 - 110 mmol/L LAB CHEMISTRY METHOD 12/11/2024 12:[address] [facility] CO2 26 21 - 32 mmol/L LAB CHEMISTRY METHOD 12/11/2024 12:[address] [facility] Anion Gap 7 3 - 11 LAB CHEMISTRY METHOD 12/11/2024 12:[address] [facility] Glucose 131(H) 70 - 100 mg/dL LAB CHEMISTRY METHOD 12/11/2024 12:[address] [facility] BUN 16 5 - 25 mg/dL LAB CHEMISTRY METHOD 12/11/2024 12:[address] [facility] Creatinine 0.80 0.50 - 1.10 mg/dL LAB CHEMISTRY METHOD 12/11/2024 12:[address] [facility] eGFR 82 >=60 mL/min/1. 73m2 LAB CHEMISTRY METHOD 12/11/2024 12:[address] [facility] Comment:Calculation based on the??Chronic Kidney Disease Epidemiology Collaboration (CKD-EPI) equation refit??without adjustment for race. BUN/Creatinine Ratio 20.0 LAB CHEMISTRY METHOD 12/11/2024 12:[address] [facility] Calcium 9.1 8.5 - 10.5 mg/dL LAB CHEMISTRY METHOD 12/11/2024 12:[address] [facility] AST (SGOT) 25 10 - 42 unit/L LAB CHEMISTRY METHOD 12/11/2024 12:[address] [facility] ALT (SGPT) 24 10 - 60 unit/L LAB CHEMISTRY METHOD 12/11/2024 12:[address] [facility] Alkaline Phosphatase 114 42 - 121 unit/L LAB CHEMISTRY METHOD 12/11/2024 12:[address] [facility] Total Protein 6.3 6.0 - 8.0 g/dL LAB CHEMISTRY METHOD 12/11/2024 12:[address] [facility] Albumin 3.4 3.2 - 5.0 g/dL LAB CHEMISTRY METHOD 12/11/2024 12:40 PM EDT [facility] Total Bilirubin 0.5 0.0 - 1.4 mg/dL LAB CHEMISTRY METHOD 12/11/2024 12:40 PM EDT [facility] Blood Venous blood specimen / Unknown Venipuncture / Unknown 12/11/2024 8:14 AM EDT 12/11/2024 11:21 AM EDT us Ashli Bailey MD LAB BLOOD ORDERABLES Final R esult [facility] [address] [place] [address], [place] [phone] * BD Bone Density DXA Axial Skeleton (08/10/2024 7:49 AM EST) Anatomical Region Laterality Modality Wrist, Hip, L-spine Bone Densito metry 08/10/2024 9:09 AM EST Impressions 08/10/2024 9:11 AM EST 1. Osteoporosis. ??There has been a decrease of 10.6% in bone mineral density in the lumbar spine since the prior examination of 07/19/2015. ??There has been a decrease of 33.7% in bone mineral density in the right femur and a decrease of 25.1% in bone mineral density in the left femur. 2. FRAX analysis yields a 10-year probability of major osteoporotic fracture of 21.2% and a 10-year probability of hip fracture of 4.7%. Code 43355 -------- FINAL REPORT -------- Dictated By: Morris Rouse Dictated Date: 08/10/2024 09:09 ET Assigned Physician: Morris Rouse Reviewed and Electronically Signed By: Morris Rouse Signed Date: 08/10/2024 09:11 ET Workstation ID: [id number] Transcribed By: Self Edit Transcribed Date: 08/10/2024 09:09 ET Narrative 08/10/2024 9:11 AM EST HISTORY: ??The patient is a 64-year-old postmenopausal female with clinical concern for metabolic bone disease. FINDINGS: ??Dual energy x-ray absorptiometry of the lumbar spine and femurs is performed. The mean bone mineral density at L1-2 is 1.041 gm/cm2 which is 87% of that of young normals and 94% of that of age matched controls. This yields a T-score of -1.3 and a Z-score of -0.5 which is diagnostic of osteopenia. The mean bone mineral density of the femurs bilaterally is 0.769 gm/cm2 which is 76% of that of young normals and 82% of that of age matched controls. ??This yields a T-score of -1.9 and a Z-score of -1.3 which is diagnostic of osteopenia. However, the T-score of the right femoral neck is -2.6 which is diagnostic of osteoporosis. Procedure Note Morris Rouse MD - 08/10/2024 HISTORY: The patient is a 64-year-old postmenopausal female with clinicalconcern for metabolic bone disease. FINDINGS: Dual energy x-ray absorptiometry of the lumbar spine and femursis performed. The mean bone mineral density at L1-2 is 1.041 gm/cm2 whichis 87% of that of young normals and 94% of that of age matched controls.This yields a T-score of -1.3 and a Z-score of -0.5 which is diagnostic ofosteopenia. The mean bone mineral density of the femurs bilaterally is 0.769 gm/zi0sjyju is 76% of that of young normals and 82% of that of age matchedcontrols. This yields a T-score of -1.9 and a Z-score of -1.3 which isdiagnostic of osteopenia. However, the T-score of the right femoral neckis -2.6 which is diagnostic of osteoporosis. IMPRESSION: 1. Osteoporosis. There has been a decrease of 10.6% in bone mineraldensity in the lumbar spine since the prior examination of 07/19/2015.There has been a decrease of 33.7% in bone mineral density in the rightfemur and a decrease of 25.1% in bone mineral density in the left femur. 2. FRAX analysis yields a 10-year probability of major osteoporoticfracture of 21.2% and a 10-year probability of hip fracture of 4.7%. Code 78586 -------- FINAL REPORT -------- Dictated By: Morris Rouse Dictated Date: 08/10/2024 09:09 ET Assigned Physician: Morris Rouse Reviewed and Electronically Signed By: Morris Rouse Signed Date: 08/10/2024 09:11 ET Workstation ID: [id number] Transcribed By: Self Edit Transcribed Date: 08/10/2024 09:09 ET us Thomas Espinoza MD IMG DXA PROCEDURES Final Re sult from Last 3 Months or Most Recently Relevant to Health Maintenance Insurance [facility] Advance Directives Documents on File Type Date Recorded Patient Waste Picker Expl anation Health Care Decision (hx) 06/10/2021 AD ASHBY DIRECTIVE Health Care Decision (hx) 06/10/2021 AD ASHBY DIRECTIVE Health Care Decision (hx) 06/10/2021 AD ASHBY DIRECTIVE Health Care Decision (hx) 06/10/2021 AD ASHBY DIRECTIVE Health Care Decision (hx) 06/10/2021 AD ASHBY DIRECTIVE Health Care Decision (hx) 06/10/2021 AD ASHBY DIRECTIVE Health Care Decision (hx) 06/10/2021 AD ASHBY DIRECTIVE Health Care Decision (hx) 06/10/2021 AD ASHBY DIRECTIVE Health Care Decision (hx) 06/10/2021 AD ASHBY DIRECTIVE Health Care Decision (hx) 06/10/2021 AD ASHBY DIRECTIVE Health Care Decision (hx) 06/10/2021 AD ASHBY DIRECTIVE Health Care Decision (hx) 06/10/2021 AD ASHBY DIRECTIVE Health Care Decision (hx) 06/10/2021 AD ASHBY DIRECTIVE Health Care Decision (hx) 06/10/2021 AD ASHBY DIRECTIVE Health Care Decision (hx) 06/10/2021 AD ASHBY DIRECTIVE Health Care Decision (hx) 06/10/2021 AD ASHBY DIRECTIVE Health Care Decision (hx) 06/10/2021 AD ASHBY DIRECTIVE Health Care Decision (hx) 06/10/2021 AD ASHBY DIRECTIVE Health Care Decision (hx) 07/05/2015 AD ASHBY DIRECTIVE Health Care Decision (hx) 07/05/2015 AD ASHBY DIRECTIVE Health Care Decision (hx) 07/05/2015 AD ASHBY DIRECTIVE Health Care Decision (hx) 07/05/2015 AD ASHBY DIRECTIVE Health Care Decision (hx) 07/05/2015 AD ASHBY DIRECTIVE Health Care Decision (hx) 07/05/2015 AD ASHBY DIRECTIVE Health Care Decision (hx) 07/05/2015 AD ASHBY DIRECTIVE Health Care Decision (hx) 07/05/2015 AD ASHBY DIRECTIVE Health Care Decision (hx) 07/05/2015 AD ASHBY DIRECTIVE Health Care Decision (hx) 07/05/2015 AD ASHBY DIRECTIVE Health Care Decision (hx) 07/05/2015 AD ASHBY DIRECTIVE Health Care Decision (hx) 07/05/2015 AD ASHBY DIRECTIVE Health Care Decision (hx) 07/05/2015 AD ASHBY DIRECTIVE Health Care Decision (hx) 07/05/2015 AD ASHBY DIRECTIVE Health Care Decision (hx) 07/05/2015 AD ASHBY DIRECTIVE Health Care Decision (hx) 07/05/2015 AD ASHBY DIRECTIVE Health Care Decision (hx) 07/05/2015 AD ASHBY DIRECTIVE Health Care Decision (hx) 07/05/2015 AD ASHBY DIRECTIVE Health Care Decision (hx) 07/05/2015 AD ASHBY DIRECTIVE Health Care Decision (hx) 07/05/2015 AD ASHBY DIRECTIVE Health Care Decision (hx) 07/05/2015 AD ASHBY DIRECTIVE Health Care Decision (hx) 07/05/2015 AD ASHBY DIRECTIVE Health Care Decision (hx) 07/05/2015 AD ASHBY DIRECTIVE Health Care Decision (hx) 07/05/2015 AD ASHBY DIRECTIVE Health Care Decision (hx) 07/05/2015 AD ASHBY DIRECTIVE Health Care Decision (hx) 07/05/2015 AD ASHBY DIRECTIVE Health Care Decision (hx) 07/05/2015 AD ASHBY DIRECTIVE Health Care Decision (hx) 07/05/2015 AD ASHBY DIRECTIVE Health Care Decision (hx) 07/05/2015 AD ASHBY DIRECTIVE Health Care Decision (hx) 07/05/2015 AD ASHBY DIRECTIVE Care Teams Cafe Aide Relationship Specialty Start Date End Date Thomas Espinoza MD [address] [address] PCP - General 08/20/23
--- OUTSIDE RECORDS SUMMARY | 2024-12-17 07:39 | XMS_ITS | Patient Health Record ---
Author Organization [facility] Address [address] [place] [address] Care Team Providers Care Apparatus Engineering Technologist Name Role Phone Alexis ZAVALETA, Thomas Primary Care Provider Unav MICHELLE Olsen Unavailable [phone] Allergies Allergen (clinical drug ingredient) Drug/Non Drug Allergy documented on EMR Reaction Allergy Type Onset Date Status erythromycin ERYTHROMYCIN Nausea/Vomiting /Diarrhea Drug Allergy Active Reason For Referral No Information Medications Medication SIG (Take, Route, Fr equency, Duration) Notes Start Date End Date Status Multivitamins 1 ORAL daily for -3 [facility] [place]- 01/30/2012 Active dilTIAZem HCl 240 320 MG Ac tive Lasix 20 MG 1 tablet Orally Once a day Active Spironolactone 50 MG 1 tablet Orally Once a day Active Leflunomide 20 MG 1 tablet Orally Once a day for 30 day(s) Active traMADol HCl 50 MG 1 tablet as needed O rally Once a day 2 QHS Active Magnesium 300 MG 1 capsule with a mark l Orally Once a day Active Jardiance 10 MG 1 tablet Orally Once a day Active Omeprazole 40 MG Oral for 30 Days Active Eliquis 5 MG 1 tablet Orally Twice a day Active Vitamin D3 1000 IU ORAL daily for -3 [facility] [place]- 01/30/2012 Active Social History Tobacco Use: Social History [...] Are you an other tobacco user? 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 [employer] Nutrition: good diet Exercise: regular weight lifting / resistance exercise, regular cardio Sexual activity: regular condom use, careful partner selection Marital status: single 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 [employer] Nutrition: good diet Exercise: regular weight lifting / resistance exercise, regular cardio Sexual activity: regular condom use, careful partner selection Marital status: single 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 [employer] Nutrition: good diet Exercise: regular weight lifting / resistance exercise, regular cardio Sexual activity: regular condom use, careful partner selection Problems Problem Type SNOMED Code ICD Code Onset Dates Problem Status W/U Status Risk Notes Problem Atrial fibrillation (57317009) Atrial fibrillation (427.31) Active confirmed Problem Essential hypertension (29631495) Essential (primary) hypertension (I10) Active confirmed Problem Atrial fibrillation (05143459) Unspecified atrial fibrillation (I48.91) Active confirmed Problem Heart failure (01721018) Heart failure, unspecified (I50.9) Active confirmed Problem Psoriasis (4062964) Psoriasis, unspecified (L40.9) Active confirmed Problem Obesity (248967609) Obesity, unspecified (278.00) Active confirmed Major Problem Benign essential hypertension (1151215) Essential hypertension, benign (401.1) Active confirmed Major Problem Esophageal reflux (192154639) Esophageal reflux (530.81) Active confirmed Major Problem Menopausal symptom (51198569) Symptomatic menopausal or female climacteric states (627.2) Active confirmed Diag Problem Family history of malignant neoplasm of breast (194140951) Family history of malignant neoplasm of breast (V16.3) Active confirmed Diag Vital Signs Temperature 98.6 degrees Fahrenheit 11/03/2024 Blood pressure diastolic 78 mm Hg 11/03/2024 Height 65 in 11/03/2024 Blood pressure systolic 132 mm Hg 11/03/2024 Weight 184 lbs 11/03/2024 BMI 30.62 kg/m2 11/03/2024 Encounters Encounter Location Date Provider Diagnosis [facility] [address] [place] [address] 11/03/2024 MICHELLE MUKHERJEE Encounter for gynecological examination (general) [...] breast (ICD-10 - Z12.31) Plan Of Treatment Pending Test Test Name Order Date MAMMOGRAM, SCREENING 02/03/2015 Ultrasound : Pelvic 07/25/2016 Ultrasound : Pelvic 08/09/2017 MM Digital Mammo Screening 08/13/2018 MM Digital Mammo Screening 08/09/2017 MM Digital Mammo Screening 07/25/2016 MM Digital Screening Mammogram 3D 2021 MM Digital Screening Mammogram 3D 2022 MM Digital Screening Mammogram 3D 2023 MM Digital Screening Mammogram 3D 2024 Next Appt Details Provider Name:MICHELLE BETANCUR Jero, 11/11/2025 08:00:00 AM, [address], [address], [place], [address], Insurance Providers Payer Name Payer Address Payer Phone Subscriber Number Group Number Insured Name Patient Relationship to Insured Coverage Start Date Coverage End Date [facility] [address] [place] [address] [phone] [id number] COUNTER, SHANTAJAMISON Self - patient is the insured Medical (General) History Medical History History ICD Code Family history of malignant neoplasm of breast Symptomatic menopausal or female climact len states Esophageal reflux Obesity, unspecified precancerous colonic polyps Psoriasis, unspecified Unspecified atrial fibrillation I48.91 Essential (primary) hypertension I10 Surgical History Surgery Date(Month/Year) hysterectomy, ovaries remain, with parti al colectomy 2005 gastric bypass with cholecystectomy 2004 small bowel resection for obstruction 20 08 lysis of adhesions, laparoscopic 2006 ovarian cystectomies 1980s Left thumb bone spur 06/2017 cardiac ablation for a fib 06/12/19 Sm Bowel Resection For Obstruction 06/09 Lt Knee 09/2020 Right shoulder surgery 01/2023 Hospitalization History Reason Date(Month/Year) Partial SBO 07/2022 See Surgical Hx
--- OUTSIDE RECORDS SUMMARY | 2024-12-17 07:39 | XMS_ITS ---
current mgmt. [id number] Chrissy Espinoza MD Main Office [address] [facility] [address] [facility] [place] [address] 08/08/2022 15:41:35 08/08/2022 16:41:18 Essential hypertension 08295401 I10 good control; continue current mgmt. Atrial fibrillation 4943 [address]004 I48.[address] Razo May 2019. Still on eliquis. Had an episode 2 weeks ago and was very symptomati c so her cardiologi st, Dr Calabrese put her on a regular dose of flecainide whereas before she was taking it prn. Pain of hip region 44254 002 M25.552 This is probably bursitis/t endinitis. She has an appointmen t next month with a new rheumatolo gist. [id number] Chrissy [facility]za MD [facility] [address] [address] [place] [address] 09/27/2022 12:51:00 09/27/2022 12:52:00 Pain of shoulder region 06253348 M25.511 she will call [facility] to make her own appointmen t. She understand s that they may refer her to a general surgeon to have this removed since it is an issue which may not be involving her joint. Neck pain 64732508 M54.2 Pain of ri ght shoulder joint [id number] M25.511 She will call [facility] or [facility] for an appointmen t and possible injection. [id number] Chrissy Espinoza MD Main Office [address] [place] [address] 01/29/2023 08:20:05 01/29/2023 09:11:44 Pre-surgery evaluation 226196341 Z01.818 According to [facility] Karen-opera tive Risk Assessment , based on patient's age, creatinine , ASA class and surgical procedure, patient has a 0.6 % risk of karen-opera tive myocardial infarction or cardiac arrest. EKG NSR, labs pending. Given known informatio n patient is low cardiac risk for surgery, may proceed as scheduled. Osteoarthr itis of joint of right shoulder region [id number] 92650 M19.011 Havign right reverse total shoulder replacemen t on 02/05/[address] Plata. Atrial fibrillation 4943 6004 I48.91 Paroxysmal , followed by Dr. Case. Having work-up and f/u appt Essential hypertension 44679833 I10 BP well controlled . Iron defic iency anemia 46108847 D50.9 Psoriatic arthritis 1563 86614 L40.50 Anticoagulant therapy 18 2852782 Z79.01 Urinary tr act infectious disease 61993113 N39.0 Hyperlipidemia 36359274 E78.5 [id number] Chrissy Espinoza MD Main Office [address] [facility] [place] [address] 03/21/2023 09:41:12 03/21/2023 10:55:29 Adult health examination 638525352 Z00.00 UTD with colonoscop y done October 2022 and due again in 2027. UTD with immunizati ons (including COVID) except shingles. She will get a shingles vaccine at the pharmacy. Requires a tetanus booster 190492488 Z23 Essential hypertension 82314838 I10 good control; continue current mgmt. Hyperlipidemia 68606516 E78.5 On meds and LDL at goal. Iron defic iency anemia 84619465 D50.9 She has had problems in the past because of malabsorpt ion secondary to her prior gastric bypass surgery. Atrial fibrillation 4943 6004 I48.[address] Razo May 2019. Still on eliquis. Dr Calabrese changed her flecanide to multaq which she is tolerating better. She rarely feels that she goes into afib. [id number] Chrissy Espinoza MD Main Office [address] [facility] [place] [address] 09/24/2023 15:39:10 09/24/2023 16:26:24 Atrial fibrillation 40902741 I48.[address] Razo May 2019. Still on eliquis. She is followed by cardiology . Her anti-arrhy thmics were just stopped and she continues on anticoagul ation which will be lifelong. She rarely feels that she goes into afib. Essential hypertension 65855501 I10 good control; continue current mgmt. Iron defic iency anemia 56255529 D50.9 She has had problems in the past because of malabsorpt ion secondary to her prior gastric bypass surgery. She recently received IV iron infusion because of symptomati c anemia. [id number] Chrissy Espinoza MD Main Office [address] [facility] [address] [place] [address] 01/27/2024 10:29:07 01/29/2024 10:03:38 [id number] Chrissy Espinoza MD Main Office [address] [facility] [address] [place] [address] 01/29/2024 08:30:52 01/29/2024 08:52:03 Transition of care 7496057941 105 Z75.8 reviewed hospital documentat ion Small yue l obstruction 043837379 K56.609 was evaluated at [facility] for SBO-sympto ms improved conservati vely with g-tube, IV fluids-sig nificant improvemen ts since discharge- has been able to pass stools and gas-has a f/u appt with gen surgery Atrial fibrillation 4943 6004 I48.91 -currently on eliquis-fo llows with cardiology Essential hypertension 70166155 I10 in office bp of 124/82-sta ble on current regimen Preventive dental procedure 70866409 Z01.20 Leukopenia 55594767 D72. 819 mild leukopenia was admitted at [facility]-will repeat CBC w/diff Edema of l ower extremity 256967270 R60.0 onset x2 days ago; currently taking 40mg QD-was advised by cardiology to double her current dosage of furosemide -discussed to wear compressio n stockings and elevate legs-pt notes she typically gets lower extremity edema after a SBO flare up-pt will cotact cardiology if no improvemen ts [id number] Chrissy Espinoza MD Main Office [address] [facility] [address] [place] [address] 03/25/2024 09:10:00 03/25/2024 10:05:02 Adult health examination 427657318 Z00.00 UTD with colonoscop y done October 2022 and due again in 2027. UTD with immunizati ons (including COVID). She had her first shingles vaccine and will be returning to the pharmacy to get her second vaccine. Bone density finding 385 076033 M85.89 She will make her own appointmen t. Atrial fibrillation 4943 6004 I48.[address] Razo May 2019 then back in afib in 2022. Had a repeat ablation last year and back in sinus rhythm. Still on eliquis. She is followed by cardiology . Her anti-arrhy thmics were stopped and she continues on anticoagul ation which will be lifelong. Essential hypertension 30050915 I10 good control; continue current mgmt. Hyperlipidemia 26657235 E78.5 On meds and LDL at goal. Psoriatic arthritis 1563 39469 L40.50 On meds and followed by denisha jolly, Dr Lucero. Heart fail ure with normal ejection fraction 321220442 I50.32 Followed by cardiology . She was prescribed a statin but has not yet started it because she is nervous about muscle pains which are already present with her psoriatic arthritis. She will try it and monitor any changes. [id number] Chrissy Espinoza MD Main Office [address] [facility] [address] [facility] [place] [address] 09/22/2024 08:53:23 09/22/2024 09:28:17 Atrial fibrillation 82279594 I48.[address] Razo May 2019 then back in afib in 2022. Had a repeat ablation last year and back in sinus rhythm. Still on eliquis. She is followed by cardiology . Her anti-arrhy thmics were stopped and she continues on anticoagul ation which will be lifelong. Hyperlipidemia 93257346 E78.5 On meds and LDL at goal. Iron defic iency anemia 72276488 D50.9 She has had problems in the past because of malabsorpt ion secondary to her prior gastric bypass surgery. She recently received IV iron infusion because of symptomati c anemia. Osteoporosis 73857263 M8 1.0 She will discuss treatment with her denisha rivera. Health Concerns Section Related Observation LastModified by Organization Detai ls LastModified Time None Recorded Concern Status LastModified by Organization Details LastModified Time None Recorded Advance Directives Directive N: Payers Encounter Date Sequence Insurance Name Policy Number Policy Maynard Covered Member ID Maynard Member ID Guarantor Name 09/24/2023 1 [employer] LOWELL ([facility]) [id number] Mariellen Counter [id number] Mariellen Counter 01/27/2024 1 [facility] ([facility]) [id number] Mariellen Counter [id number] Mariellen Counter 01/29/2024 1 [facility] ([facility]) [id number] Mariellen Counter [id number] Mariellen Counter 03/25/2024 1 [facility] ([facility]) [id number] Mariellen Counter [id number] Mariellen Counter 09/22/2024 1 [facility] ([facility]) [id number] Mariellen Counter [id number] Mariellen Counter Notes Date Note Type Note Provider Name and Address Organization Details Recorded Time 4 text/html Atrial FibrillationReported bypatient.Notes:Had an episode of afib on 07/25/22 that lasted for hours. She was dizzy and SOB during this episode. On meds and followed by cardiology.Continues with anti-coagulation which will be lifelong.Hypertension F/UReported bypatient.Associated Symptoms:no dizziness; no lightheadedness; no chest pain; no shortness of breath; no palpitations; no edema; no calf pain with exertion Lifestyle:limiting/avoidi ng salt;not exercising regularly Medications:taking medications as directed; no side effects from medication Chrissy Espinoza MD [address], [address], [facility] 09/24/2023 17:23:10 4 text/html Hospitalization Contact RecordReported bypatient.[facility]; admit date: (Please enter in format 'MM/DD/YYYY') (01/21/2024); date of discharge: (Please enter in format 'MM/DD/YYYY') (01/24/2024); date of contact: (Please enter in format 'MM/DD/YYYY') (01/27/2024)Notes:Medicar e covered inpatient stay? no JAKE with in 48 working hours? yes HCP on file? no MOLST on file? no Discharge Summary available? yes 63 year old female with recurrent Small bowel obstructions presented to [facility] on 01/21/2024 complaining of abdominal pain, associated with nausea and vomiting. Scan was completed showing small bowel obstruction with object transition point in the mid anterior abdomen. Patient was admitted G- tube was placed, kept NPO , with IV fluids . Upon 01/23/2024 patient symptoms improved GI tube was removed , patient able to pass bowel movement , clear liquid diet then slowly advance in diet. Vital sign stable monitor for additional 24 hours . Stable for discharge on 01/24/2024 on low fiber diet. Contract Officer JAKE call to patient states doing well, Denies any further abdominal pain , appetite is fair , pushing fluids . Denies fever, nausea, vomiting, chest pain, shortness of breath . Patient denies any issues voiding or passing bowel. Patient complaint with low fiber diet . Reviewed and discuss discharge medications , compliant no questions or concerns. Discussed the importance needs to meño gastro regarding admission and to schedule follow up. Scheduled follow up with Betzy on 01/29/2024 at 8:45 am. PCP Heads UP ; Recheck CBC SHAQUILLE RASHEED [address] [address], [place], [address], [facility] 01/29/2024 10:03:37 4 text/html Hospitalization Contact RecordFor follow up, patient reports hospital: [facility], admit date: (01/21/2024), date of discharge: (01/24/2024), and date of contact: (01/27/2024).Medicare covered inpatient stay? noTOC with in 48 working hours? yes HCP on file? noMOLST on file? noDischarge Summary available? yes 63 year old female with recurrent Small bowel obstructions presented to [facility] on 01/21/2024 complaining of abdominal pain, associated with nausea and vomiting. Scan was completed showing small bowel obstruction with object transition point in the mid anterior abdomen. Patient was admitted G- tube was placed, kept NPO , with IV fluids . Upon 01/23/2024 patient symptoms improved GI tube was removed , patient able to pass bowel movement , clear liquid diet then slowly advance in diet. Vital sign stable monitor for additional 24 hours . Stable for discharge on 01/24/2024 on low fiber diet. Contract Officer JAKE call to patient states doing well, Denies any further abdominal pain , appetite is fair , pushing fluids . Denies fever, nausea, vomiting, chest pain, shortness of breath . Patient denies any issues voiding or passing bowel. Patient complaint with low fiber diet . Reviewed and discuss discharge medications , compliant no questions or concerns. Discussed the importance needs to meño gastro regarding admission and to schedule follow up. Scheduled follow up with Betzy on 01/29/2024 at 8:45 am. PCP Heads UP ; Recheck CBC Laurence kimbrough [facility] 02/07/2024 12:44:05 4 text/html Generic HPI TemplateReported bypatient.Notes:UTD with colonoscopy done by Dr Gaston in 2022 and due again in 2027.Had one shingles vaccine and will return to her pharmacy for the second vaccine.Had the initial COVID vaccines and 1 booster.UTD with mammogram and due for a bone density.UTD with tetanus and encouraged to get a flu vaccine in the next few months. Chrissy Espinoza MD [address], [address], [facility] 03/25/2024 12:33:51 5 text/html Atrial FibrillationReported bypatient.Notes:Had a second ablation in 2023 and has been in sinus rhythm since that time. Her rhythm meds were stopped but she continues on eliquis which will be for life. Followed by cardiology.Hyperlipidemia Reported bypatient.Notes:On meds and LDL at goal.Hypertension F/UReported bypatient.Associated Symptoms:no dizziness; no lightheadedness; no chest pain; no shortness of breath; no palpitations; no edema; no calf pain with exertion Lifestyle:limiting/avoidi ng salt;not exercising regularly Medications:taking medications as directed; no side effects from medication She continues to have pain in her right hip and has an appointment with a new cloth feeder. Takes celebrex which helps. She has been having more fatigue lately. She has a h/o fe-def anemia because of her gastric bypass requiring IV iron infusions. Chrissy Espinoza MD [address], [address], [facility] 09/22/2024 09:32:31 OBGyn Episode No OBEpisode recorded. Data Portability Created on: December 17, 2024 Maria Dolores Marin .[id number] : 1960 Sex: Female Author Organization [facility], Main Office Address [address] [facility] [address] [place] [address] Care Team Providers Care Lift Supervisor Name Role Phone CHRISSY ESPINOZA Primary Care Provider LUIZA GASTON Correspondence Review Clerk PEACE BAEZA Chiropractor [facility] Core Oven Tender HASEEB CALABRESE Internal Medicine [phone] EVELIA BONILLA Internal Medicine [facility] Rehabilitation Coordinator ARAMIS SOTO Referring Provider [phone] ROLAND JEONG Referring Provider [phone] ANISH PERES Security Assessor [phone] Assessment Encounter Date Assessment Date Assessment LastModified by Organization Details LastModified Time 01/29/2024 01/29/2024 Discussed with patient the signs/symptom s warranted for a return to office visit and/or an ER visit. Patient understood and agreed with the plan. [email or web address] Not available 01/28/2024 21:12:38 Plan of Treatment Reminders Order Date Submit Date Provider Last Modified By Organization Details Last Modified Time Details Appointments PE EST 2024 03:45P M Chrissy beltran MD Not available Not available Not available Lab CBC w/ auto diff 2024 025 ES [facility] (Centralized Electronic Ordering - All Locations), Patient Can Go To The Location Of Their Choice, 09/23/2024 06:08:22 ferrit in, serum or plasma 2024 025 ES [facility] (Centralized Electronic Ordering - All Locations), Patient Can Go To The Location Of Their Choice, 09/23/2024 06:08:24 iron + total iron-b inding capaci ty (TIBC) , serum 2024 025 ES [facility] (Centralized Electronic Ordering - All Locations), Patient Can Go To The Location Of Their Choice, 09/23/2024 06:08:23 lipid panel, serum 2023 024 ES [facility] (Centralized Electronic Ordering - All Locations), Patient Can Go To The Location Of Their Choice, 08/09/2024 08:06:36 CMP, serum or plasma 2023 024 ES [facility] (Centralized Electronic Ordering - All Locations), Patient Can Go To The Location Of Their Choice, 08/09/2024 08:06:36 CBC w/ auto diff 2023 024 [email or web address], [address] [facility], [facility] [address], [place], [address], 08/26/2024 09:21:[address] referr al - Psoria tic arthri tis and osteop orosis 2024 025 [facility], [address] [place] [address] Dr, [facility] [address], [place], [address], 09/22/2024 16:40:43 Procedures None record ed. Surgeries None record ed. Imaging bone densit y 2023 024 [email or web address] In-Office Order, Internal Use Only DO Not Attach Compendium DO Not Attach Compendium, Do Not Delete/merge, [id number] 06/23/2024 08:16:07 Medication Orders amoxic illin 500 mg capsul e 2023 024 ES Not available 01/29/2024 08:49:08 Patient TargetsNo targets recorded. Patient Instructions Encounter Date Encounter Id Patient Instructions Last Modified By Organization Details Last Modified Time 09/24/2023 [id number] high blood pressure: care instructions [email or web address] Not available 09/24/2023 17:19:19 learning about high blood pressure [email or web address] Not available 09/24/2023 17:19:19 atrial fibrillation: care instructions [email or web address] Not available 09/24/2023 17:19:19 iron deficiency anemia: care instructions [email or web address] Not available 09/24/2023 17:19:19 01/29/2024 [id number] At [facility] follow up visit, all current and discharge medications (OTC, herbal therapies, supplements) reviewed and reconciled with patient and or caregiver, including potential side effects, drug interactions, instructions, and the consequences of not taking medication. Reviewed potential barriers to medication adherence, such as side effects from medication or cost of medication. Not available 01/29/2024 08:36:23 03/25/2024 [id number] high blood pressure: care instructions acennerazzo Not available 03/25/2024 10:02:06 learning about high blood pressure acennerazzo Not available 03/25/2024 10:02:07 high cholesterol: care instructions [email or web address] Not available 03/25/2024 10:02:06 09/22/2024 [id number] osteoporosis: care instructions [email or web address] Not available 09/22/2024 09:22:54 atrial fibrillation: care instructions acennerazzo Not available 09/22/2024 09:13:41 high cholesterol: care instructions acennerazzo Not available 09/22/2024 09:13:41 iron deficiency anemia: care instructions [email or web address] Not available 09/22/2024 09:13:41 Reason for Referral Crushing Foreman Referral for Osteoporosis Psoriatic arthritis and osteoporosis Referring Physician: Chrissy Espinoza, Family Medicine, Encounter Date: 09/22/2024 Results Created Date Observation Date Name Description Value Unit Range Abnormal Flag Note LastModifiedBy Organization Detail LastModifiedTime 08/08/20 24 08/09/2024 COMP. METAB OLIC PANEL (14) glucose 81 mg/dL 70-99 normal Not Available [facility] ([facility]) [address] [place], [address], 08/09/2024 08:06:36 08/08/20 24 08/09/2024 COMP. METAB OLIC PANEL (14) BUN 17 mg/dL 8-27 normal Not Available [facility] ([facility]) [address] [place], [address], 08/09/2024 08:06:36 08/08/20 24 08/09/2024 COMP. METAB OLIC PANEL (14) creatinine 0.83 mg/dL 0.57-1 .00 normal Not Available [facility] ([facility]) [address] [place], [address], 08/09/2024 08:06:36 08/08/20 24 08/09/2024 COMP. METAB OLIC PANEL (14) eGFR 79 mL/mi n/1.7 3 >59 normal Not Available [facility] ([facility]) [address], [place], [address], 08/09/2024 08:06:36 08/08/20 24 08/09/2024 COMP. METAB OLIC PANEL (14) BUN/creatini ne ratio 20 12-28 normal Not Available [facility] ([facility]) [address] [place], [address], 08/09/2024 08:06:36 08/08/20 24 08/09/2024 COMP. METAB OLIC PANEL (14) sodium 139 mmol/ L 134-14 4 normal Not Available [facility] ([facility]) [address] [place], [address], 08/09/2024 08:06:36 08/08/20 24 08/09/2024 COMP. METAB OLIC PANEL (14) potassium 4.7 mmol/ L 3.5-5. 2 normal Not Available [facility] ([facility]) [address] [place], [address], 08/09/2024 08:06:36 08/08/20 24 08/09/2024 COMP. METAB OLIC PANEL (14) chloride 100 mmol/ L 96-106 normal Not Available [facility] ([facility]) [address] [place], [address], 08/09/2024 08:06:36 08/08/20 24 08/09/2024 COMP. METAB OLIC PANEL (14) carbon dioxide, total 25 mmol/ L 20-29 normal Not Available [facility] ([facility]) [address] [place], [address], 08/09/2024 08:06:36 08/08/20 24 08/09/2024 COMP. METAB OLIC PANEL (14) calcium 9.1 mg/dL 8.7-10 .3 normal Not Available [facility] ([facility]) [address] [place], [address], 08/09/2024 08:06:36 08/08/20 24 08/09/2024 COMP. METAB OLIC PANEL (14) protein, total 6.0 g/dL 6.0-8. 5 normal Not Available [facility] ([facility]) [address] [place], [address], 08/09/2024 08:06:36 08/08/20 24 08/09/2024 COMP. METAB OLIC PANEL (14) albumin 4.2 g/dL 3.9-4. 9 normal Not Available [facility] ([facility]) [address] [place], [address], 08/09/2024 08:06:36 08/08/20 24 08/09/2024 COMP. METAB OLIC PANEL (14) globulin, total 1.8 g/dL 1.5-4. 5 Not Available [facility] ([facility]) [address] [place], [address], 08/09/2024 08:06:36 08/08/20 24 08/09/2024 COMP. METAB OLIC PANEL (14) bilirubin, total 0.5 mg/dL 0.0-1. 2 normal Not Available [facility] ([facility]) [address] [place], [address], 08/09/2024 08:06:36 08/08/20 24 08/09/2024 COMP. METAB OLIC PANEL (14) alkaline phosphatase 123 IU/L 44-121 above high normal Not Available [facility] ([facility]) [address] [place], [address], 08/09/2024 08:06:36 08/08/20 24 08/09/2024 COMP. METAB OLIC PANEL (14) AST (SGOT) 33 IU/L 0-40 normal Not Available [facility] ([facility]) [address] [place], [address], 08/09/2024 08:06:36 08/08/20 24 08/09/2024 COMP. METAB OLIC PANEL (14) ALT (SGPT) 22 IU/L 0-32 normal Not Available [facility] ([facility]) [address] [place], [address], 08/09/2024 08:06:36 08/08/20 24 08/09/2024 LIPID PANEL cholesterol, total 115 mg/dL 100-19 9 normal Not Available [facility] ([facility]) [address] [place], [address], 08/09/2024 08:06:36 08/08/20 24 08/09/2024 LIPID PANEL triglyceride s 84 mg/dL 0-149 normal Not Available [facility] ([facility]) [address] [place], [address], 08/09/2024 08:06:36 08/08/20 24 08/09/2024 LIPID PANEL HDL cholesterol 57 mg/dL >39 normal Not Available [facility] ([facility]) [address], [place], [address], 08/09/2024 08:06:36 08/08/20 24 08/09/2024 LIPID PANEL VLDL cholesterol meño 16 mg/dL 5-40 Not Available [facility] ([facility]) [address] [place], [address], 08/09/2024 08:06:36 08/08/20 24 08/09/2024 LIPID PANEL LDL chol calc ([facility]) 42 mg/dL 0-99 Not Available [facility] ([facility]) [address], [place], [address], 08/09/2024 08:06:36 08/08/20 24 08/09/2024 LIPID PANEL LDL calc comment: PRINCIPAL ARCHITECT Not Available [facility] ([facility]) [address], [place], [address], 08/09/2024 08:06:36 09/22/19 25 09/22/2024 CBC WITH DIFFE RENTI AL/PL ATELE T WBC 6.5 x10e3 /uL 3.4-10 .8 normal Not Available [facility] ([facility]) [address], [place], [address], 09/23/2024 06:08:22 09/22/19 25 09/22/2024 CBC WITH DIFFE RENTI AL/PL ATELE T RBC 4.69 x10e6 /uL 3.77-5 .28 normal Not Available [facility] ([facility]) [address] [place], [address], 09/23/2024 06:08:22 09/22/19 25 09/22/2024 CBC WITH DIFFE RENTI AL/PL ATELE T hemoglobin 11.2 g/dL 11.1-1 5.9 normal Not Available [facility] ([facility]) [address] [place], [address], 09/23/2024 06:08:22 09/22/19 25 09/22/2024 CBC WITH DIFFE RENTI AL/PL ATELE T hematocrit 37.7 % 34.0-4 6.6 normal Not Available [facility] ([facility]) [address] [place], [address], 09/23/2024 06:08:22 09/22/19 25 09/22/2024 CBC WITH DIFFE RENTI AL/PL ATELE T MCV 80 fL 79-97 normal Not Available [facility] ([facility]) [address] [place], [address], 09/23/2024 06:08:22 09/22/19 25 09/22/2024 CBC WITH DIFFE RENTI AL/PL ATELE T MCH 23.9 pg 26.6-3 3.0 below low normal Not Available [facility] ([facility]) [address] [place], [address], 09/23/2024 06:08:22 09/22/19 25 09/22/2024 CBC WITH DIFFE RENTI AL/PL ATELE T MCHC 29.7 g/dL 31.5-3 5.7 below low normal Not Available [facility] ([facility]) [address] [place], [address], 09/23/2024 06:08:22 09/22/19 25 09/22/2024 CBC WITH DIFFE RENTI AL/PL ATELE T RDW 14.4 % 11.7-1 5.4 Not Available [facility] ([facility]) [address] [place], [address], 09/23/2024 06:08:22 09/22/19 25 09/22/2024 CBC WITH DIFFE RENTI AL/PL ATELE T platelets 398 x10e3 /uL 150-45 0 normal Not Available [facility] ([facility]) [address] [place], [address], 09/23/2024 06:08:22 09/22/19 25 09/22/2024 CBC WITH DIFFE RENTI AL/PL ATELE T neutrophils 70 % not estab. normal Not Available [facility] ([facility]) [address], [place], [address], 09/23/2024 06:08:22 09/22/19 25 09/22/2024 CBC WITH DIFFE RENTI AL/PL ATELE T lymphs 13 % not estab. normal Not Available [facility] ([facility]) [address], [place], [address], 09/23/2024 06:08:22 09/22/19 25 09/22/2024 CBC WITH DIFFE RENTI AL/PL ATELE T monocytes 12 % not estab. normal Not Available [facility] ([facility]) [address] [place], [address], 09/23/2024 06:08:22 09/22/19 25 09/22/2024 CBC WITH DIFFE RENTI AL/PL ATELE T eos 3 % not estab. normal Not Available [facility] ([facility]) [address] [place], [address], 09/23/2024 06:08:22 09/22/19 25 09/22/2024 CBC WITH DIFFE RENTI AL/PL ATELE T basos 1 % not estab. normal Not Available [facility] ([facility]) [address], [place], [address], 09/23/2024 06:08:22 09/22/19 25 09/22/2024 CBC WITH DIFFE RENTI AL/PL ATELE T immature cells PRINCIPAL ARCHITECT Not Available [facility] ([facility]) [address] [place], [address], 09/23/2024 06:08:22 09/22/19 25 09/22/2024 CBC WITH DIFFE RENTI AL/PL ATELE T neutrophils (absolute) 4.6 x10e3 /uL 1.4-7. 0 normal Not Available [facility] ([facility]) [address] [place], [address], 09/23/2024 06:08:22 09/22/19 25 09/22/2024 CBC WITH DIFFE RENTI AL/PL ATELE T lymphs (absolute) 0.8 x10e3 /uL 0.7-3. 1 normal Not Available [facility] ([facility]) [address] [place], [address], 09/23/2024 06:08:22 09/22/19 25 09/22/2024 CBC WITH DIFFE RENTI AL/PL ATELE T monocytes(ab solute) 0.8 x10e3 /uL 0.1-0. 9 normal Not Available [facility] ([facility]) [address] [place], [address], 09/23/2024 06:08:22 09/22/19 25 09/22/2024 CBC WITH DIFFE RENTI AL/PL ATELE T eos (absolute) 0.2 x10e3 /uL 0.0-0. 4 normal Not Available [facility] ([facility]) [address] [place], [address], 09/23/2024 06:08:22 09/22/19 25 09/22/2024 CBC WITH DIFFE RENTI AL/PL ATELE T baso (absolute) 0.1 x10e3 /uL 0.0-0. 2 normal Not Available [facility] ([facility]) [address] [place], [address], 09/23/2024 06:08:22 09/22/19 25 09/22/2024 CBC WITH DIFFE RENTI AL/PL ATELE T immature granulocytes 1 % not estab. Not Available [facility] ([facility]) [address] [place], [address], 09/23/2024 06:08:22 09/22/19 25 09/22/2024 CBC WITH DIFFE RENTI AL/PL ATELE T immature grans (abs) 0.0 x10e3 /uL 0.0-0. 1 Not Available [facility] ([facility]) [address], [place], [address], 09/23/2024 06:08:22 09/22/19 25 09/22/2024 CBC WITH DIFFE RENTI AL/PL ATELE T NRBC PRINCIPAL ARCHITECT Not Available [facility] ([facility]) [address], [place], [address], 09/23/2024 06:08:22 09/22/19 25 09/22/2024 CBC WITH DIFFE RENTI AL/PL ATELE T hematology comments: PRINCIPAL ARCHITECT Not Available [facility] ([facility]) [address], [place], [address], 09/23/2024 06:08:22 09/22/19 25 09/23/2024 IRON AND TIBC iron bind.cap.(TI BC) 383 ug/dL 250-45 0 normal Not Available [facility] ([facility]) [address] [place], [address], 09/23/2024 06:08:23 09/22/19 25 09/23/2024 IRON AND TIBC UIBC 351 ug/dL 118-36 9 normal Not Available [facility] ([facility]) [address] [place], [address], 09/23/2024 06:08:23 09/22/19 25 09/23/2024 IRON AND TIBC iron 32 ug/dL 27-139 normal Not Available [facility] ([facility]) [address] [place], [address], 09/23/2024 06:08:23 09/22/19 25 09/23/2024 IRON AND TIBC iron saturation 8 % 15-55 alert low Not Available [facility] ([facility]) [address], [place], [address], 09/23/2024 06:08:23 09/22/1909/23/2024 EDNA TIN ferritin 12 NG/mL 15-150 below low normal Not Available [facility] ([facility]) [address], [place], [address], 09/23/2024 06:08:23 12/12/1912/11/2024 COMPL ETE BLOOD COUNT WBC 6.3 K/mcL 4.8-10 .8 Not Available [address], [address], 12/11/2024 11:32:14 12/12/19 25 12/11/2024 COMPL ETE BLOOD COUNT RBC 4.20 M/mcL 3.80-4 .80 Not Available [address], [address], 12/11/2024 11:32:14 12/12/19 25 12/11/2024 COMPL ETE BLOOD COUNT hemoglobin 10.0 g/dL 11.5-1 6.0 low Not Available [address], [address], 12/11/2024 11:32:14 12/12/19 25 12/11/2024 COMPL ETE BLOOD COUNT hematocrit 34.5 % 35.0-4 7.0 low Not Available [address], [address], 12/11/2024 11:32:14 12/12/19 25 12/11/2024 COMPL ETE BLOOD COUNT MCV 81.4 fL 79.0-9 8.0 Not Available [address], [address], 12/11/2024 11:32:14 12/12/19 25 12/11/2024 COMPL ETE BLOOD COUNT MCH 23.6 pcg 27.0-3 2.0 low Not Available [address], [address], 12/11/2024 11:32:14 12/12/1912/11/2024 COMPL ETE BLOOD COUNT MCHC 29.0 g/dL 32.0-3 7.0 low Not Available [address], [address], 12/11/2024 11:32:14 12/12/19 25 12/11/2024 COMPL ETE BLOOD COUNT RDW 17.4 % 11.0-1 5.0 high Not Available [address], [address], 12/11/2024 11:32:14 12/12/1912/11/2024 COMPL ETE BLOOD COUNT platelets 389 K/mcL 130-40 0 Not Available [address], [address], 12/11/2024 11:32:14 12/12/1912/11/2024 COMPL ETE BLOOD COUNT MPV 10.8 fL 7.0-11 .0 Not Available [address], [address], 12/11/2024 11:32:14 12/12/1912/11/2024 COMPL ETE BLOOD COUNT NRBC 0.0 % <1.0 Not Available [address], [address], 12/11/2024 11:32:14 12/12/1912/11/2024 COMPL ETE BLOOD COUNT NRBC absolute 0.00 K/mcL <0.10 Not Available [address], [address], 12/11/2024 11:32:14 12/12/19 25 12/11/2024 COMPL ETE BLOOD COUNT note See Report [facility], [address] [facility], [place], [place] [address] Not Available [address], [address], 12/11/2024 11:32:14 12/12/1912/11/2024 SEDIM ENTAT ION RATE sed rate 39 mm/HR 0-30 high Not Available [address], [address], 12/11/2024 11:40:00 12/12/1912/11/2024 SEDIM ENTAT ION RATE note See Report high [facility], [address] [facility], [place], [place] Alejandra [facility] [place] [address] Not Available [address], [address], 12/11/2024 11:40:00 12/12/19 25 12/11/2024 C REACT KANDIS PROTE IN, HIGH SENSI TIVIT Y CRP, high sensitivity 7.78 mg/L Cardi o CRP Relat kandis Risk Categ ories Low <1.0 mg/L [place] ge 1.0 - 3.0 mg/L High >3.0 mg/L Level s >10.0 mg/L shoul d be ignor ed and repea otoniel when the patie nt is stabl e and infec tion or infla mmati on is ruled out. HRT (estr ogens ) consi stent ly incre ase cardi o CRP level s. Risk estim ates for women on HRT may need to be calib rated downw carolyn. Not Available [address], [address], 12/11/2024 12:42:55 12/12/1912/11/2024 C REACT KANDIS PROTE IN, HIGH SENSI TIVIT Y note See Report [facility], [address] [facility], [place], [place] [address] Not Available [address], [address], 12/11/2024 12:42:55 12/12/1912/11/2024 COMPR EHENS KANDIS METAB OLIC PANEL sodium 136 mmol/ L 133-14 5 Not Available [address], [address], 12/11/2024 12:43:05 12/12/1912/11/2024 COMPR EHENS KANDIS METAB OLIC PANEL potassium 4.8 mmol/ L 3.5-5. 5 Not Available [address], [address], 12/11/2024 12:43:05 12/12/1912/11/2024 COMPR EHENS KANDIS METAB OLIC PANEL chloride 103 mmol/ L 96-110 Not Available [address], [address], 12/11/2024 12:43:05 12/12/1912/11/2024 COMPR EHENS KANDIS METAB OLIC PANEL CO2 26 mmol/ L 21-32 Not Available [address], [address], 12/11/2024 12:43:05 12/12/1912/11/2024 COMPR EHENS KANDIS METAB OLIC PANEL anion gap 7 3-11 Not Available [address], [address], 12/11/2024 12:43:05 12/12/1912/11/2024 COMPR EHENS KANDIS METAB OLIC PANEL glucose 131 mg/dL 70-100 high Not Available [address], [address], 12/11/2024 12:43:05 12/12/1912/11/2024 COMPR EHENS KANDIS METAB OLIC PANEL BUN 16 mg/dL 5-25 Not Available [address], [address], 12/11/2024 12:43:05 12/12/1912/11/2024 COMPR EHENS KANDIS METAB OLIC PANEL creatinine 0.80 mg/dL 0.50-1 .10 Not Available [address], [address], 12/11/2024 12:43:05 12/12/1912/11/2024 COMPR EHENS KANDIS METAB OLIC PANEL eGFR 82 mL/mi n/1.7 3m2 >=60 Calcu latio n based on the?C hroni c Kidne y Disea se Epide miolo gy Colla borat ion (CKD- EPI) equat ion refit ?with out adjus tment for race. Not Available [address], [address], 12/11/2024 12:43:05 12/12/1912/11/2024 COMPR EHENS KANDIS METAB OLIC PANEL BUN/creatini ne ratio 20.0 Not Available [address], [address], 12/11/2024 12:43:05 12/12/1912/11/2024 COMPR EHENS KANDIS METAB OLIC PANEL calcium 9.1 mg/dL 8.5-10 .5 Not Available [address], [address], 12/11/2024 12:43:05 12/12/1912/11/2024 COMPR EHENS KANDIS METAB OLIC PANEL AST (SGOT) 25 unit/ L 10-42 Not Available [address], [address], 12/11/2024 12:43:05 12/12/1912/11/2024 COMPR EHENS KANDIS METAB OLIC PANEL ALT (SGPT) 24 unit/ L 10-60 Not Available [address], [address], 12/11/2024 12:43:05 12/12/19 25 12/11/2024 COMPR EHENS KANDIS METAB OLIC PANEL alkaline phosphatase 114 unit/ L 42-121 Not Available [address], [address], 12/11/2024 12:43:05 12/12/19 25 12/11/2024 COMPR EHENS KANDIS METAB OLIC PANEL total protein 6.3 g/dL 6.0-8. 0 Not Available [address], [address], 12/11/2024 12:43:05 12/12/1912/11/2024 COMPR EHENS KANDIS METAB OLIC PANEL albumin 3.4 g/dL 3.2-5. 0 Not Available [address], [address], 12/11/2024 12:43:05 12/12/19 25 12/11/2024 COMPR EHENS KANDIS METAB OLIC PANEL total bilirubin 0.5 mg/dL 0.0-1. 4 Not Available [address], [address], 12/11/2024 12:43:05 12/12/19 25 12/11/2024 COMPR EHENS KANDIS METAB OLIC PANEL note See Report [facility], [address] [facility] [address], [place], [facility] [place] [address] Not Available [address], [address], 12/11/2024 12:43:05 12/12/19 25 12/11/2024 HEPAT ITIS PANEL , ACUTE WITH REFLE X TO CONFI RMATI ON hepatitis B surface Ag Negati ve negati ve Not Available [address], [address], 12/11/2024 14:36:21 12/12/19 25 12/11/2024 HEPAT ITIS PANEL , ACUTE WITH REFLE X TO CONFI RMATI ON hepatitis A antibody IgM Negati ve negati ve Not Available [address], [address], 12/11/2024 14:36:21 12/12/19 25 12/11/2024 HEPAT ITIS PANEL , ACUTE WITH REFLE X TO CONFI RMATI ON hep B core IgM Negati ve negati ve Not Available [address], [address], 12/11/2024 14:36:21 12/12/19 25 12/11/2024 HEPAT ITIS PANEL , ACUTE WITH REFLE X TO CONFI RMATI ON hepatitis C antibody Negati ve negati ve Not Available [address], [address], 12/11/2024 14:36:21 12/12/19 25 12/11/2024 HEPAT ITIS PANEL , ACUTE WITH REFLE X TO CONFI RMATI ON note See Report [facility], [address] [facility], [place], [facility] [place] [address] Not Available [address], [address], 12/11/2024 14:36:21 12/12/19 25 12/11/2024 INTER FERON GAMMA INTER PRETA TION quantiferon plus interpretati on Negati ve negati ve Not Available [address], [address], 12/12/2024 13:03:51 12/12/19 25 12/11/2024 INTER FERON GAMMA INTER PRETA TION note See Report [facility], [address] [facility], [place], [facility] tts [address] Not Available [address], [address], 12/12/2024 13:03:51 11/06/19 24 11/05/2023 US, duple x, venou s, extre mity, compl ete No observ ation record ed. [facility] [address] [address], [place], [address], 11/06/2023 16:46:59 01/21/20 24 01/21/2024 XR, chest No observ ation record ed. [address] [facility] [address] [place] [address], [address], 01/22/2024 08:18:21 01/21/20 24 01/21/2024 CT, abdom en + pelvi s, w/ contr ast No observ ation record ed. [address] [facility] [address] [place] [address], [address], 01/22/2024 08:18:28 01/21/20 24 01/21/2024 XR, abdom en + pelvi s No observ ation record ed. [address] [facility] [address] [place] [address], [address], 01/22/2024 08:18:54 01/22/20 24 01/22/2024 XR, abdom en No observ ation record ed. [facility] [address] [place] [address], [address], 01/22/2024 17:19:11 01/23/20 24 01/23/2024 XR, abdom en + pelvi s No observ ation record ed. [address] [facility] [address] [place] [address], [address], 01/23/2024 09:06:52 01/23/20 24 01/22/2024 imagi ng inter preta tion No observ ation record ed. [address] [facility] [address] [place] [address], [address], 01/23/2024 09:07:08 01/23/20 24 01/23/2024 XR, abdom en No observ ation record ed. [facility] [address], [place], [address], 01/23/2024 09:03:21 04/29/20 24 04/23/2024 XR, hip, unila teral , 2 or 3 view No observ ation record ed. [address] (Medical Records) [address] [place] [address], [address], 04/29/2024 13:07:35 04/29/20 24 04/23/2024 XR, lumba r spine No observ ation record ed. [address] (Medical Records) [address] [place] [address], [address], 04/29/2024 13:07:47 04/29/20 24 04/23/2024 XR, hip, unila teral No observ ation record ed. [address] (Medical Records) [address] [place] [address], [address], 04/29/2024 13:07:59 08/10/20 24 08/10/2024 bd bone densi ty dxa axial skele ton See Note [facility] , a member of [employer] [facility] [employer] Vibha epstein Name: SARABJIT Schofield Date of : 1959 Reason for Exam: SPECIF IED DISORD ERS OF BONE OF BONE DENSIT Y&STUC TURE Exam Date: 2023 [id number] EST Report Status : Final Orderi ng Provid er: HCRISSY FLORES PCP: CHRISSY FLORES HISTOR Y: The patikatie epstein is a 64-yea r-old postme nopaus al female with clinic al concer n for metabo lic bone diseas e. FINDIN GS: Dual energy x-ray absorp tiomet ry of the lumbar spine and femurs is perfor med. The mean bone minera l densit y at L1-2 is 1.041 gm/cm2 which is 87% of that of young normal s and 94% of that of age matche d contro ls. This yields a T-scor e of -1.3 and a Z-scor e of -0.5 which is diagno stic of osteop enia. The mean bone minera l densit y of the femurs bilate rally is 0.769 gm/cm2 which is 76% of that of young normal s and 82% of that of age matche d contro ls. This yields a T-scor e of -1.9 and a Z-scor e of -1.3 which is diagno stic of osteop enia. Howeve r, the T-scor e of the right femora l neck is -2.6 which is diagno stic of osteop orosis . IMPRES ALLISON: 1. Osteop orosis . There has been a decrea se of 10.6% in bone minera l densit y in the lumbar spine since the prior examin ation of 015. There has been a decrea se of 33.7% in bone minera l densit y in the right femur and a decrea se of 25.1% in bone minera l densit y in the left femur. 2. FRAX analys is yields a 10-yea r probab ility of major osteop orotic fractu re of 21.2% and a 10-yea r probab ility of hip fractu re of 4.7%. Code 63508 ------ -- FINAL REPORT ------ -- Dictat ed By: Morris Springer Dictat ed Date: 2023 09:09 ET Assign ed Physic ignacio: Morris Springer Review ed and Electr onical ly Signed By: Morris Springer Signed Date: 2023 09:11 ET Workst ation ID[id number] Transc ribed By: Self Edit Transc ribed Date: 2023 09:09 ET [address], [address], 08/10/2024 17:05:21 Result Notes None recorded. Problems Name Problem SNOMED Code Status Onset Date Resolution Date Notes Provider Name and Address Organization Details Recorded Time Abdomina l pain 95943173 Completed 201203/02/2014 IMPRESSI ON: MED HELPS W/BACTER IAL OVERGROW TH; RECORDED 10/13/19 13 12:59PM BY VIRGILIO RAYMUNDO MA, ANNOTATI ON/ADDEN DUM AZAEL Garza, [facility] 9 14:10:09 Acute sinusiti s [id number] Completed 201303/02/2014 RECORDED 08/27/19 14 9:38AM BY LESA RAMSAY I, CELYATI ON/ADDEN DUM AZAEL Garza, [facility] 9 14:10:26 Allergic rhinitis [id number] Completed 201103/02/2014 RECORDED 03/19/20 12 4:07PM BY PEMA KIRK MA, CELYATI ON/ADDEN DUM Alma Marcos, [facility] [address] [facility], [place], [address] , [facility] 6 15:50:23 Tobacco user [id number] Completed 201304/16/2014 RECORDED 02/17/20 14 3:27PM BY AZAEL NEWSOME, OFFICE VISIT Alma Marcos, [facility] [address] [facility], [place], [address] , [facility] 6 15:50:23 History of clinical finding in subject [id number] Completed 201204/16/2014 RECORDED 05/18/20 13 3:16PM BY LESA RAMSAY I, CELYATI ON/ADDEN DUM Alma Marcos, [facility] [address] [facility], [place], [address] , [facility] 6 15:50:23 Backache [id number] Completed 201103/02/2014 IMPRESSI ON: L UPPER BACK PAIN, WITH HX OF SURGERY TO C7 IN 2008, ? RELATED. PLAIN FILMS PENDING. WILL ALSO GET LABS FOR FURTHER EVAL. WILL PHONE PT WITH RESULTS WHEN AVAIL AND FEEL SHE WILL PROBABLY NEED TO CONSULT WITH NEUROSUR TERESA.; RECORDED 03/19/20 12 4:08PM BY PEMA KIRK MA, LIZANDRO ON/ADDEN DUM Alma Marcos, [facility] [address], [place], [address] , [facility] 6 15:50:23 Pain in thoracic spine [id number] Completed 201103/02/2014 IMPRESSI ON: ? C7 RADICULO TERRI VS. MUSCLE SPASM, WILL TX WITH MUSCLE RELAXER AND ORAL STEROID, PATIENT TO CALL DR. JEAN(NEURO SURGEON) IF SYMPTOMS PERSIST OR WORSEN; RECORDED 03/19/20 12 4:08PM BY PEMA KIRK MA, ANNOTATI ON/ADDEN DUM Alma Marcos, [facility] [address], [place], [address] , [facility] 6 15:50:23 Screenin g for malignan t neoplasm of breast Completed 201303/02/2014 RECORDED 12/05/19 14 10:03AM BY ROCIO BATES MA, CELYATI ON/ADDEN DUM Alma Marcos, [facility] [address] [facility], [place], [address] , [facility] 6 15:50:23 Conjunct ivitis [id number] Completed 201303/02/2014 RECORDED 12/05/19 14 10:03AM BY ROCIO BATES MA, CELYATI ON/ADDEN DUM Virgilio wells [facility] 9 14:10:21 Contact dermatit is [id number] Completed 201203/02/2014 RECORDED 10/13/19 13 12:59PM BY VIRGILIO RAYMUNDO MA, LIZANDRO ON/ADDEN DUM Alma Marcos, [facility] [address] [facility] [address], [place], [address] , [facility] 6 15:50:23 Dizzines s and giddines s [id number] Completed 11/12/2018 AZAEL Garza, [facility] 9 14:10:06 Edema [id number] Completed 201103/02/2014 RECORDED 03/19/20 12 4:07PM BY PEMA KIRK MA, CELYATI ON/ADDEN DUM Alma Marcos, [facility] [address] [facility] [address], [place], [address] , [facility] 6 15:50:23 Essentia l hyperten allison [id number] Active Hermelinda Manriquez luis e, [facility] 0 16:20:05 Malaise and fatigue 587460205 Completed 201303/02/2014 RECORDED 12/05/19 14 10:03AM BY ROCIO BATES MA, ANNOTATI ON/ADDEN DUM Alma Marcos, [facility] [address] [facility] [address], [place], [address] , [facility] 6 15:50:23 Tobacco user [id number] Completed 201203/02/2014 RECORDED 05/18/20 13 3:16PM BY LESA RAMSAY I, ANNOTATI ON/ADDEN DUM Alma Marcos, [facility] [address] [address], [place], [address] , [facility] 6 15:50:23 Knee pain Completed 201203/02/2014 IMPRESSI ON: PT WITH ONGOING R KNEE PAIN AND SWELLING , PAINFUL ROM X WEEKS. INITIALL Y STARTED POSTERIO RLY, MINOR FALL FEW WEEKS AGO, SINCE HAS BEEN HAVING MORE ANTERIOR PAIN. HX OF PSORIATI C ARTHRITI S, COMBINED WITH RECENT TRAUMA. ALSO WITH POSTERIO R PAIN WE ? BAKERS CYST. START WITH XRAY OF KNEE, WILL LIKELY NEED F/U WITH ATC AND/OR ORTHO. WILL CONTACT PT WITH RESULTS WHEN AVAIL. FOR TIME BEING SHE WILL CONTINUE WITH CURRENT CARE DURING DAY, PAIN MED FOR NIGHT TIME. AWARE OF SEDATING AND GI S/E.; RECORDED 10/13/19 13 12:59PM BY VIRGILIO RAYMUNDO MA, LIZANDRO ON/JACKIE Marcos, [facility] [address] [facility] [address], [place], [address] , [facility] 6 15:50:23 Laborato ry procedur e performe d [id number] Completed 201304/16/2014 RECORDED 02/17/20 14 3:27PM BY AZAEL NEWSOME, OFFICE VISIT Alma Marcos, MARY [address] [facility] [address], [place], [address] , [facility] 6 15:50:23 Nausea and vomiting [id number] Completed 201103/02/2014 IMPRESSI ON: INTERMIT TENT NIGHT SWEATS AND PERSISTE NT UPPER BACK PAIN WITH SOME MILD CHEST DISCOMFO RT OVER THE PAST WEEK, WHICH IS NOT CURRENTL Y PRESENT. UNCLEAR ETIOLOGY , ALTHOUGH ECG TODAY IS NORMAL AND PT IS IN NO DISTRESS AND HAS NORMAL CARDIAC AND LUNG EXAMS TODAY. PT TO CALL IF SXS WORSEN OR RECUR.; RECORDED 03/19/20 12 4:08PM BY PEMA KIRK MA, LIZANDRO ON/JACKIE Marcos, [facility] [address] [facility] [address], [place], [address] , [facility] 6 15:50:23 Active or passive immuniza tion Completed 201203/02/2014 RECORDED 05/18/20 13 3:15PM BY LIZANDRO CABRERA ON/JACKIE Marcos, [facility] [address] [facility] [address], [place], [address] , [facility] 6 15:50:23 Influenz a vaccine needed [id number] 06 Completed 201103/02/2014 RECORDED 08/21/19 12 4:00PM BY LESA RAMSAY I OFFICE VISIT Alma Marcos, [facility] [address] [facility] [address], [place], [address] , [facility] 6 15:50:23 Infectiv e hepatiti s immuniza tion Completed 200903/02/2014 RECORDED 07/06/20 10 9:41AM BY ELLEN MANRIQUEZ, HISTORIC AL SUMMARY Madhavford Marcos, [facility] [address] [facility] [address], [place], [address] , [facility] 6 15:50:23 Administ ration of tetanus vaccine Completed 201103/02/2014 RECORDED 03/19/20 12 4:07PM BY PEMA KIRK MA, ANNOTATI ON/ADDEN DUM Alma Marcos, [facility] [address] [address], [place], [address] , [facility] 6 15:50:23 Obesity [id number] Active Hermelinda Manriquez null, [facility] 0 16:20:05 Palpitat ions 21843661 Active Hermelindalu Manriquez null, [facility] 0 16:20:05 Psoriasi s [id number] Completed 09/12/2015 Chrissy Espinoza MD [address] [address], [place], [address] , [facility] 2 09:26:06 Psoriasi s with arthropa thy Active 2013 Stable on tremfya. Followed by Dr Akilah Buchanan. Chrissy Espinoza MD [address] [address], [place], [address] , [facility] 4 08:29:49 Eruption [id number] Completed 201103/02/2014 RECORDED 03/19/20 12 4:07PM BY PEMA KIRK MA, ANNOTATI ON/JACKIE Marcos, [facility] [address] [address], [place], [address] , [facility] 6 15:50:23 Aphthous ulcer of mouth [id number] Completed 201203/02/2014 IMPRESSI ON: NO CLEAR ETIOLOGY FOR HER RECURREN T ULCERS BUT WILL CHECK IRON LEVELS AND REPLETE IF THESE ARE RUNNING LOW. SHE WILL TRY THE XIFAXAN BUT UNDERSTA NDS THAT THIS MAY NOT HAVE ACTUALLY BEEN HELPING. SHE WILL MAKE AN ENT APPT IF THE PROBLEM PERSISTS .; RECORDED 06/16/20 13 1:11PM BY LIZANDRO CABRERA ON/JACKIE Marcos, [facility] [address] [address], [place], [address] , [facility] 6 15:50:23 Shoulder joint pain [id number] Completed 201203/02/2014 RECORDED 08/27/19 13 4:03PM BY LIZANDRO CABRERA ON/JACKIE Marcos, [facility] [address] [address], [place], [address] , [facility] 6 15:50:23 Adult health examinat ion Completed 201303/02/2014 RECORDED 12/05/19 14 10:03AM BY ROCIO BATES MA, LIZANDRO ON/JACKIE Marcos, [facility] [address] [address], [place], [address] , [facility] 6 15:50:23 Morbid obesity 246975320 Completed 201303/02/2014 RECORDED 12/05/19 14 10:03AM BY ROCIO BATES MA, LIZANDRO ON/JACKIE Marcos, [facility] [address] [address], [place], [address] , [facility] 6 15:50:23 Screenin g for malignan t neoplasm of colon Completed 201103/02/2014 RECORDED 03/19/20 12 4:08PM BY PEMA KIRK MA, ANNOTATI ON/ADDEN DUM Alma Marcos, [facility] [address] [facility], [place], [address] , [facility] 6 15:50:23 Pain in limb 01518064 Completed 201103/02/2014 RECORDED 03/19/20 12 4:08PM BY PEMA KIRK MA, ANNOTATI ON/ADDEN DUM Alma Marcos, [facility] [address] [address], [place], [address] , [facility] 6 15:50:23 Acute upper respirat ory infectio n [id number] Completed 201203/02/2014 IMPRESSI ON: ENCOURAG E REST AND HYDRATIO N. RTC/CALL BACK IF PERSISTE NT OR WORSENIN G SYMPTOMS .; RECORDED 02/11/20 13 4:32PM BY PEMA KIRK MA, ANNOTATI ON/ADD DUM Alma Marcos, [facility] [address] [address], [place], [address] , [facility] 6 15:50:23 Vitamin B deficien cy 18447543 Completed 201303/02/2014 RECORDED 12/05/19 14 10:03AM BY ROCIO BATES MA, ANNOTATI ON/ADDEN DUM Alma Marcos, [facility] [address] [address], [place], [address] , [facility] 6 15:50:22 Abdomina l pain [id number] Completed 201203/25/2014 IMPRESSI ON: MED HELPS W/BACTER IAL OVERGROW TH; RECORDED 10/13/19 13 12:59PM BY VIRGILIO RAYMUNDO MA, ANNOTATI ON/ADDEN DUM Virgilio wells MA null, [facility] 9 14:10:09 Acute sinusiti s 38576307 Completed 201303/25/2014 RECORDED 08/27/19 14 9:38AM BY CELY CABRERAATI ON/ADDEN DUM [facility] 9 14:10:26 Allergic rhinitis 58729496 Completed 201103/25/2014 RECORDED 03/19/20 12 4:07PM BY PEMA KIRK MA, CELYATI ON/ADDEN DUM Alma Marcos, [facility] [address], [place], [address] , [facility] 6 15:50:23 Backache 710626135 Completed 201103/25/2014 IMPRESSI ON: L UPPER BACK PAIN, WITH HX OF SURGERY TO C7 IN 2008, ? RELATED. PLAIN FILMS PENDING. WILL ALSO GET LABS FOR FURTHER EVAL. WILL PHONE PT WITH RESULTS WHEN AVAIL AND FEEL SHE WILL PROBABLY NEED TO CONSULT WITH NEUROSUR TERESA.; RECORDED 03/19/20 12 4:08PM BY PEMA KIRK MA, LIZANDRO ON/JACKIE DUM Alma Marcos, [facility] [address], [place], [address] , [facility] 6 15:50:23 Pain in thoracic spine [id number] Completed 201103/25/2014 IMPRESSI ON: ? C7 RADICULO TERRI VS. MUSCLE SPASM, WILL TX WITH MUSCLE RELAXER AND ORAL STEROID, PATIENT TO CALL DR. JEAN(NEURO SURGEON) IF SYMPTOMS PERSIST OR WORSEN; RECORDED 03/19/20 12 4:08PM BY PEMA KIRK MA, LIZANDRO ON/JACKIE Marcos, [facility] [address], [place], [address] , [facility] 6 15:50:23 Screenin g for malignan t neoplasm of breast Completed 201303/25/2014 RECORDED 12/05/19 14 10:03AM BY ROCIO BATES MA, ANNOTATI ON/ADDEN DUM Alma Marcos, [facility] [address] [address], [place], [address] , [facility] 6 15:50:23 Conjunct ivitis 4144314 Completed 201303/25/2014 RECORDED 12/05/19 14 10:03AM BY ROCIO BATES MA, ANNOTATI ON/ADDEN DUM Virgilio wells [facility] null[facility] 9 14:10:21 Contact dermatit is [id number] Completed 201203/25/2014 RECORDED 10/13/19 13 12:59PM BY VIRGILIO RAYMUNDO MA, ANNOTATI ON/ADDEN DUM Alma Marcos, [facility] [address] [address], [place], [address] , [facility] 6 15:50:23 Edema 053714541 Completed 201103/25/2014 RECORDED 03/19/20 12 4:07PM BY PEMA KIRK MA, ANNOTATI ON/ADDEN DUM Alma Marcos, [facility] [address] [address], [place], [address] , [facility] 6 15:50:23 Malaise and fatigue 738448859 Completed 201303/25/2014 RECORDED 12/05/19 14 10:03AM BY ROCIO BATES MA, ANNOTATI ON/ADDEN DUM Alma Marcos, [facility] [address]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 hr Take 1 capsule every day by oral route as directed for 30 days. 09/29 completed Not Available Not Available Not Available citalopra m 10 mg tablet Take 2 tablets every day by oral route. 05/14 completed Not Available Not Available Not Available hydrocodo ne 5 mg-acetam inophen 325 mg tablet Take 1 {tbl} by oral route. 11/11 completed Not Available Not Available Not Available diltiazem CD 240 mg capsule,e xtended release 24 hr TAKE 1 CAPSULE BY MOUTH DAILY 09/24 completed Increase d to 300mg 04/11/23 after new episode a=fib Not Available Not Available Not Available sucralfat e 1 gram tablet TAKE 1 TABLET BY MOUTH FOUR TIMES DAILY NEEDED active Not Available Not Available No t Available spironola ctone 25 mg-hydroc hlorothia zide 25 mg tablet Take 1 1 by oral route. 02/01 completed Not Available Not Available Not Available prednison e 20 mg tablet Take 1 tablet twice a day by oral route for 10 days. 02/01 completed Not Available Not Available Not Available estradiol 0.05 mg/24 hr weekly transderm al patch WEEKLY active Not Available Not Available Not Available betametha sone, augmented 0.05 % topical cream active Not Available Not Available Not Available prednison e 5 mg tablet TAKE 1 TABLET BY MOUTH DAILY 09/24 completed Not Available Not Available Not Available Anucort-H C 25 mg supposito ry 10/31 completed Not Available Not Available Not Available atenolol 25 mg tablet active Not Available Not Available Not Available clobetaso l 0.05 % topical cream APPLY TWICE DAILY TP PSORIASI S ON ELBOWS UP TO 2 WEEKS THEN 1 WEEK OFF AND REPEAT NEEDED 10/18 completed Not Available Not Available Not Available Zithromax Z-Sonido 250 mg tablet TAKE 2 TABLETS (500 MG) BY ORAL ROUTE ONCE DAILY FOR 1 DAY THEN 1 TABLET (250 MG) BY ORAL ROUTE ONCE DAILY FOR 4 DAYS 05/15 completed Not Available Not Available Not Available Protonix 20 mg tablet,de layed release Take 20 mg by oral route. 10/18 completed Not Available Not Available Not Available leflunomi de 10 mg tablet DAILY active Not Available Not Available Not Available morphine ER 30 mg tablet,ex tended release active Not Available Not Available Not Available omeprazol e 40 mg capsule,d elayed release TAKE 1 CAPSULE BY MOUTH TWICE DAILY active Not Available Not Available No t Available aspirin 81 mg tablet,de layed release Take 1 tablet every day by oral route as directed for 30 days. 05/14 completed Not Available Not Available Not Available leflunomi de 20 mg tablet TAKE 1 TABLET BY MOUTH DAILY active Not Available Not Available No t Available tramadol 50 mg tablet Take 1 tablet 3 times a day by oral route for 30 days. 2024 active Not Available Not Available Not Avai lable acetamino phen 500 mg tablet TAKE 2 TABLETS BY MOUTH EVERY 8 HOURS AROUND THE CLOCK FOR PAIN active Not Available Not Available No t Available Medrol 4 mg tablet DAILY 07/03 completed RECORDED 07/17/20 11 8:03AM BY NAKIA BENOIT PA-C, MEDICATI ON AUTO-TERA CTIVATIO N; DIRECTED ON PACKAGE Not Available Not Available Not Available oxycodone -acetamin ophen 5 mg-325 mg tablet Take 1 tablet every 8 hours by oral route as needed for 7 days. 11/11 completed Not Available Not Available Not Available Fluticaso ne Propionat e (Inhal) 50 mcg/BLIST inhl powd EACH NOSTRIL DAILY 06/27 completed RECORDED 06/27/20 11 9:06AM BY LUCA HARMAN MA, OFFICE VISIT; Not Available Not Available Not Available amoxicill in 875 mg tablet TWO TIMES DAILY 04/28 completed Not Available Not Available Not Available citalopra m 20 mg tablet Take 20 mg by oral route. 05/14 completed Not Available Not Available Not Available diltiazem 120 mg tablet Take 1 tablet every day by oral route for 30 days. 04/12 completed Not Available Not Available Not Available lorazepam 0.5 mg tablet Take 1 tablet every day by oral route as needed for 4 days. active Not Available Not Available No t Available methotrex ate sodium 2.5 mg tablet WEEKLY active RECORDED 02/17/20 14 3:56PM BY CHRISSY HOOPER MD, ANNOTATI ON/ADDKATIE DUM; Not Available Not Available Not Available diltiazem CD 300 mg capsule,e xtended release 24 hr TAKE 1 CAPSULE BY MOUTH DAILY active Not Available Not Available No t Available benzonata te 100 mg capsule 12/17 completed Not Available Not Available Not Available prednison e 2.5 mg tablet TAKE 1 TABLET BY MOUTH EVERY DAY 07/31 completed Not Available Not Available Not Available cephalexi n 500 mg capsule Take by oral route for 7 days. 03/21 completed Not Available Not Available Not Available pantopraz ole 40 mg tablet,de layed release TAKE 1 TABLET BY MOUTH TWICE DAILY 10/18 completed Not Available Not Available Not Available tazaroten e 0.1 % topical cream 11/11 completed Not Available Not Available Not Available cyanocoba agapito (vit B-12) 1,000 mcg/mL injection solution Inject 1 mL every month by intramus cular route as directed for 30 days. 11/12 completed Not Available Not Available Not Available neomycin- polymyxin -dexameth 3.5 mg/mL-10, 000 unit/mL-0 .1% eye drops INSTILL 1 DROP INTO AFFECTED EYE(S) BY OPHTHALM IC ROUTE EVERY 3-4 HOURS for 1 week. active Not Available Not Available No t Available triamcino lone acetonide 0.1 % topical ointment active Not Available Not Available Not Available calcipotr iene 0.005 % topical cream 2 TIMES A DAY FOR PLAQUE PSORIASI S 11/11 completed Not Available Not Available Not Available halobetas ol propionat e 0.05 % topical ointment 11/11 completed Not Available Not Available Not Available polymyxin B sulfate 10,000 unit-trim ethoprim 1 mg/mL eye drops FOUR TIMES DAILY active Not Available Not Available No t Available flecainid e 50 mg tablet TAKE 1 TABLET BY MOUTH EVERY 12 HOURS FOR ATRIAL FIBRILLA TION 01/29 completed Not Available Not Available Not Available flecainid e 100 mg tablet TAKE 1 TABLET BY MOUTH EVERY 12 HOURS FOR ATRIAL FIBRILLA TION 03/21 completed Not Available Not Available Not Available metoprolo l tartrate 50 mg tablet 01/28 completed Not Available Not Available Not Available docusate sodium 100 mg capsule TAKE 1 CAPSULE BY MOUTH UP TO TWICE DAILY NEEDED FOR CONSTIPA TION WHILE TAKING NARCOTIC MEDICATI ONS 03/21 completed Not Available Not Available Not Available gabapenti n 300 mg capsule TAKE 1 CAPSULE BY MOUTH THREE TIMES DAILY active Not Available Not Available No t Available omeprazol e 20 mg capsule,d elayed release TAKE 1 CAPSULE BY MOUTH TWICE DAILY 08/08 completed Not Available Not Available Not Available aspirin 81 mg chewable tablet Chew 81 mg by oral route. 11/11 completed Not Available Not Available Not Available Protopic 0.03 % topical ointment active Not Available Not Available Not Available folic acid 1 mg tablet TAKE 1 TABLET BY MOUTH EVERY DAY 09/24 completed Not Available Not Available Not Available mupirocin 2 % topical ointment 02/07 completed Not Available Not Available Not Available furosemid e 20 mg tablet TAKE 1 TABLET BY MOUTH EVERY DAY. TAKE ADDITION AL 1 TABLET FOR WEIGHT GAIN DIRECTED TO REACH BASELINE WEIGHT OF 173 LBS active Not Available Not Available No t Available gabapenti n 100 mg capsule Take 3 capsules 3 times a day by oral route for 30 days. 04/28 completed Not Available Not Available Not Available clobetaso l 0.05 % topical ointment 11/11 completed Not Available Not Available Not Available lorazepam 1 mg tablet TAKE 1 TABLET BY MOUTH BEFORE PROCEDUR E. MAY REPEAT X1 NEEDED active Not Available Not Available No t Available doxycycli ne hyclate 100 mg tablet Take 1 tablet twice a day by oral route for 10 days. 09/03 completed Not Available Not Available Not Available spironola ctone 50 mg tablet TAKE 1 TABLET BY MOUTH DAILY active Not Available Not Available No t Available mometason e 0.1 % topical cream TWO TIMES DAILY 02/10 completed RECORDED 02/11/20 13 4:34PM BY PEMA KIRK MA, OFFICE VISIT; Not Available Not Available Not Available amoxicill in 875 mg-potass ium clavulana te 125 mg tablet TWO TIMES DAILY 04/14 completed RECORDED 05/09/20 11 9:55AM BY PRIETO CORBIN MD, MEDICATI ON AUTO-TERA CTIVATIO N;MAY TAKE EVEN THOUGH SHE HAS A PRIOR HISTORY OF CEPHALOS PORIN ALLERGIE S. Not Available Not Available Not Available oxycodone 5 mg tablet TAKE 1 TABLET BY MOUTH EVERY 4 HOURS NEEDED FOR PAIN DO NOT DRIVE WHILE ON THIS MED 03/21 completed Not Available Not Available Not Available diltiazem 90 mg tablet Take 180 mg by oral route. 11/11 completed Not Available Not Available Not Available metaxalon e 800 mg tablet Take 1 tablet 3 times a day by oral route as directed for 30 days. 11/11 completed Not Available Not Available Not Available estradiol 0.0375 mg/24 hr weekly transderm al patch active Not Available Not Available Not Available Calcium + D DAILY active RECORDED 12/05/19 14 10:03AM BY ROCIO BATES MA, OFFICE VISIT; Not Available Not Available Not Available Multivita mins 1 tablet daily by mouth active Not Available Not Available No t Available calcipotr iene-beta methasone 0.005 %-0.064 % topical ointment Apply 2 applicat ions every day by topical route for 30 days. 03/21 completed for psoriasi s Not Available Not Available Not Available magnesium gluconate 27 mg magnesium (500 mg) tablet Take 1 tablet twice a day by oral route. 2013 active Not Available Not Available Not Avai lable fluocinol one acetonide oil 0.01 % ear drops 11/11 completed Not Available Not Available Not Available MoviPrep 100 gram-7.5 gram-2.69 1 gram oral powder packet active Not Available Not Available Not Available cholecalc iferol (vitamin D3) 25 mcg (1,000 unit) tablet Take 1 tablet every day by oral route. 07/31 completed Not Available Not Available Not Available calcium 600 mg (as carbonate )-vitamin D3 10 mcg (400 unit) tablet Take 1 tablet twice a day by oral route as directed for 30 days. active Not Available Not Available No t Available Clobetaso l E TWO TIMES DAILY 03/19 completed RECORDED 03/19/20 12 4:09PM BY PEMA KIRK MA, ANNOTATI ON/ADDEN DUM; Not Available Not Available Not Available GaviLyte- G 236 gram-22.7 4 gram-6.74 gram-5.86 gram oral solution TAKE 8 OUNCES BY MOUTH DIRECTED 08/08 completed Not Available Not Available Not Available Multaq 400 mg tablet TAKE 1 TABLET BY MOUTH EVERY 12 HOURS 03/25 completed Not Available Not Available Not Available rifaximin 550 mg tablet THREE TIMES DAILY 06/01 completed RECORDED 06/16/20 13 1:11PM BY CHRISSY HOOPER MD, MEDICATI ON AUTO-TERA CTIVATIO N; Not Available Not Available Not Available desoximet asone 0.05 % topical ointment 11/11 completed Not Available Not Available Not Available Eliquis 5 mg tablet TAKE 1 TABLET BY MOUTH TWICE DAILY active Not Available Not Available No t Available Stimulant Laxative Plus 8.6 mg-50 mg tablet 02/07 completed Not Available Not Available Not Available Jardiance 10 mg tablet TAKE 1 TABLET BY MOUTH DAILY active Not Available Not Available No t Available Tremfya 100 mg/mL subcutane ous auto-inje ctor 09/22 completed Not Available Not Available Not Available prednison e 25 mg tablet Take 1 tablet every day by oral route for 90 days. 07/31 completed ADALBERTO JIMÉNEZ ON 03/23 CONSULT NOTE PRESCRIB E MED WITH NO REFILL Not Available Not Available Not Available Vitals Date Recorded Body height Body mass index (BMI) Body weight Heart rate Oxygen saturation Oxygen saturation in Arterial blood by Pulse oximetry Body temperature Systolic blood pressure Diastolic blood pressure Provider Name and Address Organization Details Last Updated DateTime 4 165.1 cm 30.3 kg/m2 01765.8 1 g 85 /min 96 % 96 % 98.2 [degF] 120 mm[Hg] 70 mm[Hg] Leyla Stauffer MA [facility] 4 15:50:17 Date Recorded Body height Body mass index (BMI) Body weight Heart rate Oxygen saturation Oxygen saturation in Arterial blood by Pulse oximetry Body temperature Systolic blood pressure Diastolic blood pressure Provider Name and Address Organization Details Last Updated DateTime 4 165.1 cm 29.8 kg/m2 62259.0 3 g 79 /min 97 % 97 % 98.6 [degF] 124 mm[Hg] 82 mm[Hg] Leyla Stauffer MA [facility] 4 08:40:49 Date Recorded Body height Body mass index (BMI) Body weight Heart rate Oxygen saturation Oxygen saturation in Arterial blood by Pulse oximetry Body temperature Systolic blood pressure Diastolic blood pressure Provider Name and Address Organization Details Last Updated DateTime 4 165.1 cm 29.3 kg/m2 72418.2 6 g 88 /min 95 % 95 % 98.3 [degF] 108 mm[Hg] 64 mm[Hg] Leyla Stauffer MA [facility] 4 09:22:19 Date Recorded Body height Body mass index (BMI) Body weight Heart rate Oxygen saturation Oxygen saturation in Arterial blood by Pulse oximetry Body temperature Systolic blood pressure Diastolic blood pressure Provider Name and Address Organization Details Last Updated DateTime 5 165.1 cm 31.8 kg/m2 65806.1 4 g 91 /min 98 % 98 % 98.3 [degF] 125 mm[Hg] 77 mm[Hg] Leyla Stauffer MA [facility] 5 08:59:21 Social History Question Answer Notes LastModified by Organizat ion Details LastModified Time Tobacco Smoking Status Former Smoker quit in 2004 Not Available [facility] 06/21/2020 03:36:36 Do You Have An Advance Directive? No [id number] Information not available 06/21/2020 What Is Your Level Of Alcohol Consumption? Occasional [id number] Information not available 06/21/2020 Is Blood Transfusion Acceptable In An Emergency? Yes [id number] Information not available 06/21/2020 What Is Your Level Of Caffeine Consumption? Moderate 4 Cups Of Coffee Daily [id number] Information not available 06/21/2020 How Much Tobacco Do You Chew? None [id number] Information not available 06/21/2020 Are You Currently Employed? Yes [id number] Information not available 06/21/2020 What Type Of Diet Are You Following? REGULAR [id number] Information not available 06/21/2020 Which Illicit Or Recreational Drugs Have You Used? None [id number] Information not available 06/21/2020 Do You Or Have You Ever Used E-cigarettes Or Vape? 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 16+yearssincel selena Information not available 03/21/2023 Are There Any Guns Present In Your Home? No [id number] Information not available 06/21/2020 Live Alone Or With Others? With Others Sister (Bakari [email or web address] Information not available 03/21/2023 Do You Take Precautions To Prevent Distracted Driving? Yes Information not available 09/12/2015 How Often Do You Need To Have Someone Help You When You Read Instructions, Pamphlets, Or Other Written Material From Your Doctor Or Pharmacy? Never Information not available 09/12/2015 Have You Served In The ? No Information not available 11/08/2016 Have You Or Anyone In Your Household Had Any Of The Following Symptoms In The Last 14 Days: Sore Throat, Cough, Chills, Body Aches For Unknown Reasons, Shortness Of Breath For Unknown Reasons, Loss Of Smell, Loss Of Taste, Fever At Or Greater Than 100 Degrees Fahrenheit? No [email or web address] Information not available 07/28/2020 Are You Or Anyone In Your Household A Health Care Provider Or Emergency Responder? No [email or web address] Information not available 07/28/2020 To The Best Of Your Knowledge Have You Been In Close Proximity To Any Individual Who Tested Positive For COVID-19? No Information not available 07/28/2020 Have You Recently Traveled To A COVID-19 High Risk Area Or Gathering In The Last 10 Days? No [email or web address] Information not available 02/07/2021 What Was The Date Of Your Most Recent Tobacco Screening? 03/25/2024 Information not available 03/25/2024 How Many Children Do You Have? 0 [id number] Information not available 06/21/2020 Seat Belts Used Routinely Yes Information not available 09/12/2015 Are You Sexually Active? No [id number] Information not available 06/21/2020 Smoke Alarm In Home Yes Information not available 09/12/2015 Are You Passively Exposed To Smoke? No Information not available 11/08/2016 Do You Or Have You Ever Used Smokeless Tobacco? Never Used Smokeless Tobacco [id number] Information not available 06/21/2020 Do You Use Any Illicit Or Recreational Drugs? No Information not available 02/08/2022 Do You Use Sunscreen Routinely? Yes [id number] Information not available 06/21/2020 Do You Or Have You Ever Used Any Other Forms Of Tobacco Or Nicotine? No Information not available 02/08/2022 Sex: Unknown Functional Status Question Answer Note LastModified by Organizat ion Details LastModified Time Are you able to walk? YESWOREST Information not available 02/08/2022 Are you able to care for yourself? Yes [id number] Information not available 06/21/2020 What is your exercise level? Moderate stair climber and treadmill at home [id number] Information not available 06/21/2020 Mental Status None recorded. Family History Relationship Description Onset Age of this Age Resolved Age Notes LastModified by Organization Details LastModified Time Mother Rheumatoid arthritis [email or web address] Not available 11/11 15:22:34 Mother Depressive disorder abolcun Not available 2015 15:08:45 Mother Arthritis 45 abolcun Not available 03/02/2016 15:08:45 Mother Transient cerebral ischemia [email or web address] Not available 01/17 16:17:43 Mother Hypothyroidi sm acennerazzo Not available 01/17 16:18:07 Mother Alzheimer's disease [email or web address] Not available 01/18 16:25:43 Father Coronary arterioscler osis ksherrera Not available 11/11 15:22:34 Father Diabetes mellitus abolcun Not available 2015 15:08:45 Brother Malignant neoplasm of prostate 62 [email or web address] Not available 02/2024 09:52:52 Notes:3 brother and 3 sister s (1 brother prostate cancer) Medical History Condition Response Other N Gout N Kidney Stones N Blood Diseases N Hyperthyroidism N Breast Cancer N Hypothyroidism N Lung Disease N COPD N Depression N Defects or Inherited Disease N Anesthesia Complications N Headaches/Migraines N Varicose Veins N Anxiety Disorder N Obesity Y Vision or Eye Problems N Arthritis Y Head Injury/Concussion N Infertility N Polyps N Congenital Anomalies N Acid Reflux (GERD) N Cancer N Stroke N ADHD N Endometriosis N High Cholesterol N Liver Disease N Fibromyalgia N Kidney Disease N Heart Problems Y Ear or Hearing Problems N Hospitalizations N Thyroid Problems N GI Problems Y Acne N Eating Disorder N Skin Problems Y Anemia N Constipation N Bladder Problems N Mental Illness N Ovarian Cancer N Diabetes N Blood Transfusions N Seizures/Epilepsy N Tuberculosis N AIDS/HIV N Congestive Heart Failure (CHF) N Eczema N Diverticulitis N Abuse/Domestic Violence N Asthma N Allergies N Reflux/GERD N Hepatitis N Pulmonary Embolism N Hypertension N Chicken Pox N Autism Spectrum Disorder (ASD) N Osteoporosis Y Gynecological History Statement/Question Response Duration of Flow (days) 0 Most Recent Mammogram 01/21/2023 Current Control Method Hysterectom y Age at Menarche 13 Age at First Child 0 Date of Last Colonoscopy 11/05/2022 Most Recent Bone Density 07/19/2015 Menses Monthly N Date of Last Pap Smear 02/03/2014 LMP Unknown Desired Control Method Hysterectom y Obstetrics History GPAL:G 0 P 0 0 0 0 Type Value Living 0 Total 0 Immunizations Vaccine Type Date Status Note Provider Nam e and Address Organization Details Recorded Time Influenza, split virus, trivalent, PF 4 completed Chrissy Espinoza MD [address], [address], [facility] 07/31/2021 16:03:54 Influenza, split virus, trivalent, PF 5 completed Chrissy Espinoza MD [address], [address], [facility] 07/31/2021 16:03:54 Influenza, split virus, quadrivalent, preservative 6 completed Chrissy Espinoza MD [address], [address], [facility] 07/31/2021 16:03:54 Tdap 3 completed Chrissy Epsinoza MD [address], [address], [facility] 07/31/2021 16:03:54 Influenza, split virus, quadrivalent, preservative 8 completed Chrissy Espinoza MD [address], [address], [facility] 07/31/2021 16:03:54 Influenza, split virus, quadrivalent, preservative 9 completed Chrissy Espinoza MD [address] [facility] [address], [place], [address], [facility] 07/31/2021 16:03:54 influenza, whole 9 completed Hermelinda Manriquez null, [facility] 11/18/2019 14:50:27 Hep B, unspecified formulation 8 completed Hermelinda Manriquez null, [facility] 11/18/2019 14:50:27 influenza, whole 9 completed Hermelinda Manriquez null, [facility] 11/18/2019 14:50:27 Hep B, unspecified formulation 8 completed Hermelinda Manriquez null, [facility] 11/18/2019 14:50:27 tetanus toxoid, unspecified formulation 7 completed Hermelinda Manriquez null, [facility] 11/18/2019 14:50:27 Hep B, unspecified formulation 9 completed Hermelinda Manriquez null, [facility] 11/18/2019 14:50:27 COVID-19, mRNA, LNP-S, PF, 30 mcg/0.3 mL dose 0 completed Sigrid Fall MA null, [facility] 10/18/2021 12:48:03 COVID-19, mRNA, LNP-S, PF, 30 mcg/0.3 mL dose 1 completed Sigrid Fall MA null, [facility] 10/18/2021 12:48:03 COVID-19, mRNA, LNP-S, PF, 30 mcg/0.3 mL dose 1 completed Sigrid Fall MA null, [facility] 10/18/2021 12:48:03 Influenza, MDCK, quadrivalent, preservative 1 completed Virgilio Main MA null, [facility] 09/27/2022 12:52:49 zoster recombinant 4 completed Leyla Stauffer MA null, [facility] 09/22/2024 08:59:41 pneumococcal polysaccharide PPV23 8 completed Virgilio Main MA null, [facility] 09/27/2022 12:52:49 Hep B, adult 8 completed Not Available [facility] 09/24/2023 15:41:03 Hep B, adult 8 completed Not Available [facility] 09/24/2023 15:41:03 Hep B, adult 9 completed Not Available [facility] 09/24/2023 15:41:03 Tdap 7 completed Chrissy Espinoza MD [address], [address], [facility] 07/31/2021 16:03:54 pneumococcal polysaccharide PPV23 3 completed Chrissy Espinoza MD [address] [address], [place], [address], [facility] 07/31/2021 16:03:54 Td (adult), 2 Lf tetanus toxoid, preservative free, adsorbed 3 completed Chrissy Espinoza MD [address], [address], [facility] 03/21/2023 19:20:02 Past Encounters Encounter ID Performer Location Encounter Start Date Encounter Closed Date Diagnosis/Indication Diagnosis SNOMED-CT Code Diagnosis ICD10 Code Diagnosis Note [id number] auto[facility]Comm erce [address] [facility] [place] [address] 07/17/2010 00:00:00 [id number] autoEComm erce [address] [facility] [address] [place] [address] 10/16/2010 00:00:00 [id number] autoEComm erce [address] [facility], [address] [place] [address] 01/18/2011 00:00:00 [id number] [address] [place] [address] 04/04/2011 00:00:00 [id number] auto[facility]Comm erce [address] [place] [address] 06/27/2011 00:00:00 [id number] auto[facility]Comm erce [address] [place] [address] 07/24/2011 00:00:00 [id number] auto[employer]Comm erce [address] [place] [address] 08/21/2011 00:00:00 [id number] auto[facility]Comm erce [address] [place] [address] 03/19/2012 00:00:00 [id number] autoEComm erce [address] [facility] [address] [place] [address] 08/27/2012 00:00:00 [id number] autoEComm erce [address] [facility] [address] [place] [address] 10/03/2012 00:00:00 [id number] autoEComm erce [address] [facility] [address] [place] [address] 10/13/2012 00:00:00 [id number] autoEComm erce [address] [place] [address] 02/10/2013 00:00:00 [id number] autoEComm erce [address] [place] [address] 05/18/2013 00:00:00 [id number] autoEComm erce [address] [place] [address] 06/16/2013 00:00:00 [id number] autoEComm erce [address] [place] [address] 08/27/2013 00:00:00 [id number] autoEComm erce [address] [place], [place] [address] 12/04/2013 00:00:00 [id number] autoEComm erce [address] [facility] [place] [address] 02/16/2014 00:00:00 [id number] Chrissy Espinoza MD Main Office [address] [address] [place] [address] 04/16/2014 13:09:50 04/16/2014 14:05:44 Abdominal pain 68622213 concern for obstructio n given her history; also must consider diverticul itis. Will check labs and get imaging and given a script for pain meds. [id number] Chrissy Espinoza MD Main Office [address] [address] [place] [address] 08/30/2014 10:01:53 08/30/2014 11:12:36 Adult health examination [id number] Atrial fibrillation 76251725 followed by Dr Maria. Has low CHADS score therefore only on aspirin instead of coumadin Menopausal syndrome [id number] followed by Dr. Jamil Psoriasis with arthropathy 95637564 followed by Lakhwinder Muñiz and Dr Jiménez. Conjunctivitis 7653064 [id number] Kari davila MD Main Office [address] [address] [place] [address] 11/12/2014 11:00:00 11/12/2014 11:33:19 Spasm of back muscles 099660745 new problem, will add soma to meds for spasm, pt to use heat, massage, no concern for disc and not related to colonoscop y Atrial fibrillation 76984805 new dx no complaints today Arthritis 5635022 alread y on celebvrex with helps and ultram, can use ultram more often, only taking once at nightmore often for this pain [id number] Chrissy Espinoza MD Main Office [address] [address] [place] [address] 12/20/2014 16:14:15 12/20/2014 16:54:22 Cobalamin deficiency 886156050 Pain of sh oulder region 16292858 she will call [facility] to make her own appointmen t. She understand s that they may refer her to a general surgeon to have this removed since it is an issue which may not be involving her joint. [id number] Chrissy Espinoza MD Main Office [address] [place] [address] 02/17/2015 12:41:35 02/17/2015 13:17:21 Pain in thumb 328350636 possible injury to tendon. [id number] Chrissy Espinoza MD Main Office [address] [place] [address] 03/01/2015 16:13:25 03/01/2015 16:40:43 Essential hypertension 78310409 she will follow her BP at home and will call if her diastolic remains >90 Atrial fibrillation 84007114 followed by Dr Maria. Has low CHADS score therefore only on aspirin instead of coumadin Anemia 579376177 She is taking vitamin B12 injections because of absorption problems with B12 after gastric surgery. She may also have some iron deficiency again because of absorption problems. [id number] Chrissy Espinoza MD Main Office [address] [address] 09/12/2015 15:41:49 09/12/2015 16:45:21 Adult health examination 741601776 Z00.00 Atrial fibrillation [address] Maria. Has low CHADS score therefore only on aspirin instead of coumadin Cobalamin deficiency 190 926711 E53.8 Pain of hip region 52300 002 M25.552 This is probably bursitis/t endinitis. She will call Dr Jimnéez's office to get her November [facility] t moved up. [id number] MARY Patton Main Office [address] [place] [address] 11/01/2015 09:50:44 11/01/2015 10:38:27 Intervertebral disc prolapse 89837379 M51.9 Needs MRI in order to see Dr. Jean again, MRI ordered, patient does need something to help her through the MRI and prefers open MRI. Thoracic back pain 25381 5338 M54.6 Heat 4 times daily, continue celebrex, take skelaxin as needed, gentle stretching as tolerated, massage may be helpful. Neck pain 98580040 M54.2 Heat 4 times daily, continue celebrex, take skelaxin as needed, gentle stretching as tolerated, massage may be helpful. Pain of oulder region 91737652 M25.512 Heat 4 times daily, continue celebrex, take skelaxin as needed, gentle stretching as tolerated, massage may be helpful. [id number] MARY Patton Main Office [address] [address] 03/02/2016 14:54:00 03/02/2016 15:40:03 Pre-surgery evaluation 776998874 Z01.818 According to [facility] Karen-opera tive Risk Assessment , based on patient's age, creatinine , ASA class and surgical procedure, patient has a 0.39% risk of karen-opera tive myocardial infarction or cardiac arrest, EKG was done by Dr. Maria- cardiology 02/16/2016, labs pending, no further work-up necessary, should proceed with scheduled surgery. Anemia 961638569 D64.9 Taking iron daily, will recheck labs Atrial fibrillation 4943 6004 I48.91 Paroxysmal , followed by Dr. Maria, no episodes in a long time. Cobalamin deficiency 190 470570 E53.8 Vitamin D deficiency 347 30038 E55.9 Essential hypertension 28671483 I10 Fair control on current meds, Dr. Maria recently increased her diltiazem to 180mg, continue as prescribed . [id number] Chrissy Espinoza MD Main Office [address] [address] 04/12/2016 13:24:24 04/12/2016 14:12:08 Intervertebral disc prolapse 40747687 M51.9 Essential hypertension 55642145 I10 Good control with increased dose of diltiazem. Anxiety 09254023 F41.9 Psoriasis with arthropathy 38173922 M06.9 followed by Lakhwinder Muñiz and Dr Jiménez. [id number] Fidel bergman MD Main Office [address] [place] [address] 04/21/2016 10:47:32 04/21/2016 11:53:33 Low back pain 313656810 M54.5 [id number] Chrissy Espinoza MD Main Office [address] [address] [place] [address] 05/03/2016 11:21:09 05/09/2016 15:59:30 [id number] Chrissy Espinoza MD Main Office [address] [facility] [address] [place] [address] 05/30/2016 10:08:28 05/30/2016 10:47:25 Atrial fibrillation 31847906 I48.[address] Maria. Has low CHADS score of 1 therefore only on aspirin instead of coumadin [id number] Chrissy Espinoza MD Main Office [address] [facility] [address] [place], [place] [address] 08/28/2016 15:14:56 08/28/2016 15:45:07 [id number] Chrissy Espinoza MD Main Office [address] [address] [place], [place] [address] 08/29/2016 11:00:45 08/29/2016 13:10:53 Sciatica 78636834 M54.32 [id number] Sulaiman Lee PA-C Main Office [address] [address] [place] [address] 11/08/2016 15:32:34 11/08/2016 16:53:22 Adult health examination 594018616 Z00.00 ? pap/hpv utd - ?missing hpv 2016 - advised pt to f/u c [facility] Cobalamin deficiency 190 211066 E53.8 cont b12 shots q month Atrial fibrillation 4943 6004 I48.0 cont f/u c Dr. Maria - next 12/03 Psoriasis with arthropathy 56170246 L40.50 cont f/u c ATC Backache w ith radiating pain 269243268 M54.9 cont f/u c neurosurge on, has pending eval c [facility] pain on 3.28 Essential hypertension 29301956 I10 fairly stable, cont meds as dir Vitamin D deficiency 347 19326 E55.9 Iron defic iency anemia 93734711 D50.9 h/o gastric bypass / iron def Varicose v eins of lower extremity 34589169 I83.893 Aphthous u lcer of mouth 488602918 K12.0 Congestion of nasal sinus 22583240 R09.81 [id number] Chrissy Espinoza MD Main Office [address] [address] [place] [address] 02/28/2017 14:23:15 02/28/2017 15:59:10 Sprain of knee 55017337 S83.92XA She was given exercises to do at home. She will call in a few weeks if the pain persists and we will get imaging studies at that time. [id number] Chrissy Espinoza MD Main Office [address] [address] [place] [address] 05/10/2017 15:45:56 05/10/2017 16:44:59 Atrial fibrillation 05156563 I48.[address] Maria. Has low CHADS score of 1 therefore only on aspirin instead of coumadin Low back pain 886009922 M54.5 chronic and stable; no changes in mgmt. Essential hypertension 29541903 I10 good control; continue current mgmt. [id number] Ayana Lee PA-C Main Office [address] [address] [place] [address] 06/07/2017 16:00:56 06/07/2017 16:27:09 Dizziness 338595825 R42 ? electrolyt e abnormalit y ( pt. is on diuretics , anemia, low magnesium . ? weather symptoms related to chemical imbalance/ anxiety. Pt. is seeing cardiologi and [facility] for f[facility]u in June. Fatigue 28222175 R53.83 [id number] Chrissy Espinoza MD Main Office [address] [address] [place] [address] 11/11/2017 15:06:29 11/11/2017 16:20:23 Adult health examination 638390622 Z00.00 UTD with colonoscop y and due again in 2021. UTD with immunizati ons. Also UTD with [employer] care and mammogram. Atrial fibrillation 4943 6004 I48.91 Followed by cardiology . Psoriasis with arthropathy 29276054 L40.50 followed by Lakhwinder Muñiz and Dr Jiménez. Fear of flying 872752331 F40.243 Essential hypertension 20427998 I10 good control; continue current mgmt. [id number] Chrissy Espinoza MD Main Office [address] [address] [place] [address] 12/11/2017 10:28:42 12/11/2017 11:36:55 [id number] Chrissy Espinoza MD Main Office [address] [address] [place] [address] 12/17/2017 09:23:09 12/17/2017 10:08:48 Atrial fibrillation 72383852 I48.91 Continue with CCB and aspirin. She has not yet started the eliquis and will wait until she sees cardiology (Dr Calabrese) next week. [id number] Chrissy Espinoza MD Main Office [address] [address] [place] [address] 05/14/2018 17:07:16 05/14/2018 17:28:21 Essential hypertension 83959042 I10 good control; continue current mgmt. Atrial fibrillation 4943 6004 I48.91 Continue with CCB and eliquis and flecainide Acute sinusitis 57299557 J01.90 [id number] Kari davila MD Main Office [address] [address] [place] [address] 09/03/2018 10:41:53 09/03/2018 11:37:49 Spinal stenosis of lumbar region 12764212 M48.061 marked stenosis and risk for nerve comporessi on on MRI from 2017 today no weakness or sugical emergency, paresthesi as from underlying stenosis, pt to hold on chiropract ic manipulati on, treat with gabapentin on slow taper, if any weakness or worsening or incontinen ce pt knows to see DR Urban in eval Paresthesia 95329892 R20 .2 see above alos lateral left hand, nl UE strenth, has hx of cervical surgery treat as above [id number] Chrissy Espinoza MD Main Office [address] [address] [place] [address] 11/12/2018 14:08:36 11/12/2018 15:12:04 Adult health examination 037573347 Z00.00 UTD with colonoscop y and due again in 2020. UTD with immunizati ons. Also UTD with [employer] care and mammogram. Essential hypertension 72455345 I10 good control; continue current mgmt. Psoriasis with arthropathy 26565844 L40.50 followed by Lakhwinder Muñiz and Dr Jiménez. Atrial fibrillation 4943 6004 I48.91 Continue with CCB and eliquis and flecainide [id number] Chrissy Espinoza MD Main Office [address] [place] [address] 04/28/2019 16:09:20 04/28/2019 16:45:54 Essential hypertension 95267172 I10 good control; continue current mgmt. Obstructiv e sleep apnea syndrome 57384407 G47.33 Does not notice any difference in her fatigue/en ergy level so doesn't use it all the time. Atrial fibrillation 4943 6004 I48.91 Scheduled for an ablation next month with Dr Razo. [id number] Chrissy Espinoza MD Main Office [address] [place] [address] 09/29/2019 13:30:36 09/29/2019 14:15:27 Low back pain 173302517 M54.5 chronic and stable; no changes in mgmt. [place] nosis of lumbar region 82683791 M48.061 MRI shows worsening stenosis with nerve compressio n. [id number] Chrissy Espinoza MD Main Office [address] [place] [address] 11/18/2019 11:50:05 11/18/2019 16:51:56 Spinal stenosis of lumbar region 31715135 M48.061 MRI shows worsening stenosis with nerve compressio n. Sciatica 27044362 M54.32 Pain of ri ght shoulder joint 1024069473 5256424 M25.511 She will call [facility] or [facility] for an appointmen t and possible injection. [id number] Chrissy Espinoza MD Main Office [address] [place] [address] 02/02/2020 15:45:21 02/03/2020 08:42:32 Adult health examination 136498142 Z00.00 UTD with colonoscop y done Sep 2019 (return in 3 years). UTD with immunizati ons. Also UTD with [employer] care and mammogram. She will get a shingles vaccine at the pharmacy. Atrial fibrillation 4943 [address] I48[address] Razo May 2019. Still on eliquis. Psoriasis with arthropathy 92059015 L40.50 followed by Lakhwinder Muñiz and Dr Jiménez. Essential hypertension 18419420 I10 good control; continue current mgmt. [id number] Chrissy Espinoza MD Main Office [address] [facility] [address] [facility] [address] 07/28/2020 15:15:40 07/28/2020 16:09:52 Essential hypertension 54257369 I10 good control; continue current mgmt. Atrial fibrillation 4943 [address] I48[address] Razo May 2019. Still on eliquis. Multinodular goiter 2375 53900 E04.2 Her last U/S was 2 years ago. We will repeat it next year. [id number] Chrissy Espinoza MD Main Office [address] [facility] [place] [address] 02/07/2021 15:43:15 02/07/2021 16:34:10 Screening for malignant neoplasm of breast 018493906 Z12.39 She will make her own appointmen t. Adult heal th examination 382137117 Z00.00 UTD with colonoscop y done Sep 2019 (return in 3 years). UTD with immunizati ons (including COVID) except shingles. She will get a shingles vaccine at the pharmacy. Fatigue 98621224 R53.83 She has had problems with anemia in the past because of poor absorption since her gastric bypass surgery in 2004. Hyperlipidemia 91640426 E78.5 Anemia 199537744 D64.9 She was taking vitamin B12 injections because of absorption problems with B12 after gastric surgery. These were stopped a while ago because of unclear reasons. She has also had problems with iron absorption in the past and has needed infusions but hasn't had one in a number of years. Essential hypertension 25002335 I10 good control; continue current mgmt. Atrial fibrillation 4943 6[address] I48[address] Razo May 2019. Still on eliquis. Psoriasis with arthropathy 66063601 L40.50 followed by Lakhwinder Muñiz and Dr Jiménez. Multinodular goiter 2375 83488 E04.2 Her last U/S was 3 years ago. We will repeat. [id number] Chrissy Espinoza MD Main Office [address] [facility] [address] [place] [address] 06/13/2021 08:48:26 06/13/2021 10:34:23 [id number] Chrissy Espinoza MD Main Office [address] [facility] [address] [place] [address] 07/31/2021 15:36:25 07/31/2021 16:17:10 Essential hypertension 59420547 I10 good control; continue current mgmt. Atrial fibrillation 4943 6[address] I48[address] Razo May 2019. Still on eliquis. Scheduled for an ECHO tomorrow and seeing Dr Calabrese. Anemia 660073004 D64.9 She was taking vitamin B12 injections because of absorption problems with B12 after gastric surgery. These were stopped a while ago because of unclear reasons. She has also had problems with iron absorption in the past and has needed infusions but hasn't had one in a number of years. Last H/H 6 months ago was normal. We will check it again in 6 months. Small yue l obstruction 084382824 K56.609 Admitted for lysis of adhesions. in May at [facility]. [id number] Chrissy Espinoza MD Main Office [address] [facility] [address] [place] [address] 10/18/2021 12:41:07 10/18/2021 13:34:42 Pain of right thigh 5536295998 21838 M79.651 Possible nerve entrapment . Will treat conservati vely for now and will consider an imaging study if this persists. Pain of ri t shoulder joint 9861966869 8284788 M25.511 She will call [facility] or [facility] for an appointmen t and possible injection. [id number] Chrissy Espinoza MD Main Office [address] [facility] [address] [place] [address] 02/08/2022 10:58:10 02/08/2022 11:46:45 Adult health examination 248770879 Z00.00 UTD with colonoscop y done Sep 2019 (return in 3 years). UTD with immunizati ons (including COVID) except shingles. She will get a shingles vaccine at the pharmacy. Atrial fibrillation [id number] I48.[address] Razo May 2019. Still on eliquis. Has flecainide to take if she has symptoms but hasn't needed it. Psoriasis with arthropathy [id number] L40.50 followed by Lakhwinder Muñiz and Dr Jiménez. This has been stable on leflunomid e. Essential hypertension [id number] I10 good control; continue
== END 2024-12-17 08:20 | disposition home or self-care (01) ==
LOC: HO.RHE 07:36
PROVIDERS: PCP Internal Medicine; Visit Provider Student in an Organized Health Care Education/Training Program
DX: L40.50 Arthropathic psoriasis, unspecified (principal); G62.9 Polyneuropathy, unspecified; Z51.81 Encounter for therapeutic drug level monitoring; Z79.899 Other long term (current) drug therapy
CPT/HCPCS: 99214

== ENCOUNTER → 2024-12-17 07:36 | Outpatient (BNVA) | payer OTHER, SELFPAY | PROVIDERS: PCP Internal Medicine; Visit Provider Student in an Organized Health Care Education/Training Program ==

== ENCOUNTER 2025-05-17 09:01 | Outpatient (REF) | payer OTHER, SELFPAY ==
[2025-05-17 09:10] LABS: MANUAL DIFF FLAG NO
--- OUTSIDE RECORDS SUMMARY | 2025-05-17 09:35 | XMS_ITS | Clinical Summary ---
Author Organization [facility] Address [address] [place] [address] Care Team Providers Care Vegetable Canner Name Role Phone Thomas Espinoza MD Primary Care Provider [phone] Allergies Active Allergy Reactions Criticality Noted Date [...] 74 08/26/2023 2:49 PM EST Temperature 36.6 C (97.9 F) 08/26/2023 2:49 PM EST Respiratory Rate 18 08/26/2023 2:49 PM EST [...] o f 2) 2010 Influenza Vaccine (#1) 2025 Pneumococcal Vaccine (2 of 2 - PCV) [...] age to complete this topic Care Teams Vegetable Canner Relationship Specialty Start Date End Date Thomas Espinoza MD [address] [place] [id number] PCP - General Internal Medicine 08/20/23
--- OUTSIDE RECORDS SUMMARY | 2025-05-17 09:35 | XMS_ITS | Clinical Summary ---
Author Organization [facility] Address [address] [place] [address] Phone Care Team Providers Care Electric Organ Assembler Name Role Phone Thomas Espinoza MD Primary Care Provider Allergies Active Allergy Reactions Criticality Noted Date Comments Erythromycin GI intolerance Medium 12/18/2024 Medications famotidine (PEPCID) 40 mg tabletIndication s:Gastroesophage al reflux disease, unspecified whether esophagitis present Take 1 tablet (40 mg total) by mouth 2 (two) times a day. 180 each 3 5 12/19/19 26 Active omeprazole OTC (PriLOSEC OTC) 20 mg EC tabletIndication s:Gastroesophage al reflux disease, unspecified whether esophagitis present Take 1 tablet (20 mg total) by mouth 1 (one) time each day. Do not crush, chew, or split. 30 tablet 11 5 12/19/19 26 Active Additional Information Patient not taking.Reported on 12/28/2024 dilTIAZem CD (Cardizem CD) 300 mg 24 hr capsule Active Jardiance 10 mg tablet 5 Active spironolactone (ALDACTONE) 50 mg tablet Take 1 tablet (50 mg total) by mouth 1 (one) time each day. Active pregabalin (LYRICA) 25 mg capsule 5 Active Eliquis 5 mg tablet Take 1 tablet (5 mg total) by mouth 2 (two) times a day. 8 Active furosemide (LASIX) 20 mg tablet TAKE 1 TABLET BY MOUTH EVERY DAY. TAKE ADDITIONAL 1 TABLET FOR WEIGHT GAIN DIRECTED TO REACH BASELINE WEIGHT OF 173 LBS 3 Active traMADoL (ULTRAM) 50 mg tablet Take 1 tablet (50 mg total) by mouth 3 (three) times a day. 7 Active multivit-min/zina chanelle fumarate (MULTI VITAMIN ORAL) Take by mouth. 4 Active leflunomide (ARAVA) 20 mg tablet Take 1 tablet (20 mg total) by mouth 1 (one) time each day. 7 Active Active Problems Problem Noted Date Diagnosed Date Iron deficiency anemia 12/18/2024 Encounters Date Type Department Care Team Description 03/01/2025 1:48 PM EDT - 03/01/2025 11:59 PM EDT Hospital Encounter [facility] Ultrasound [address] [place] [address] Hypothyroidism Discharge Disposition: Home or Self Care from Last 3 Months Surgical History Surgery Date Site/Laterality Comments CHOLECYSTECTOMY PROCEDURE: IA LAPAROSCOPY SURG CHOLECYSTECTOMY OTHER SURGICAL HISTORY PROCEDURE: IA UNLISTED PX MECKEL'S DIVERTICULUM & MESENTERY TOTAL KNEE ARTHROPLASTY PROCEDURE: IA ARTHRP KNE CONDYLE&PLATU MEDIAL&LAT COMPARTMENTS Medical History Medical History Date Comments Essential hypertension DX:Essent ial hypertension A-fib (CMS/HCC V24, CMS/HCC V28) DX:A-fib (HCC) Psoriatic arthritis (CMS/HCC V24, CMS/HCC V28) DX:Psoriatic arthritis (HCC) Social History Tobacco Use Types Packs/Day Years Used Date Smoking Tobacco: Former Smokeless Tobacco: Never Alcohol Use Standard Drinks/Week Comments Never 0 (1 standard drink = 0.6 oz pur e alcohol) Comments Unknown Sex and Gender Information Value Date Recorded Sex Assigned at Female 12/22/2024 2:06 PM EDT Legal Sex Female 2:19 PM EST Gender Identity Female 12/22/2024 2:06 PM EDT Sexual Orientation Straight 12/22/2024 2: 06 PM EDT Obstetrics History Last Filed Vital Signs Vital Sign Reading Time Taken Comments Blood Pressure 132/72 01/01/2025 2:08 PM EDT Pulse 82 01/01/2025 2:08 PM EDT Temperature 36.4 C (97.6 F) 01/01/2025 2:08 PM EDT Respiratory Rate 18 01/01/2025 2:08 PM EDT Oxygen Saturation 99% 01/01/2025 2:08 PM EDT Inhaled Oxygen Concentration - - Weight 85.7 kg (189 lb) 12/18/2024 7:59 AM EDT Height 162.6 cm (5' 4 ) 12/18/2024 7:59 AM EDT Body Mass Index 32.44 12/18/2024 7:59 AM EDT Plan of Treatment Health Maintenance Due Date Last Done Comments Cervical Cancer Screening: Pap Smear 1981 Pneumococcal Vaccine: 50+ Years (2 of 2 - PCV) 02/10/2014 02/10/2013, 10/03/2007 RSV Immunization Adult Patients (1 - Risk 60-74 years 1-dose series) 2020 Cholesterol Screening (Lipid Panel) 07/18/2022 HIV Screening 07/18/2022 Social Influencers of Health Screening 07/18/2022 Breast Cancer Screening 02/08/2023 02/08/2021 Zoster Vaccines (2 of 2) 01/11/2024 11/16/2023 Depression Screening 08/19/2024 COVID-19 Vaccine ( - 2024- season) 2025 05/26/2021, 09/05/2020, 08/15/2020 Influenza Vaccine (#1) 2025 , 04/19/2019, 05/09/2018, Additional history exists Hypertension/CHF/CAD Annual BMP Blood Test 12/11/2025 12/11/2024 DTaP,Tdap,and Td Vaccines (4 - Td or Tdap) 03/21/2033 03/21/2023, 09/07/2012, 04/25/2007 Osteoporosis Screening (Bone Density Screening) 08/10/2034 08/10/2024, 07/19/2015 Colorectal Cancer Screening: Colonoscopy 03/18/2035 03/18/2025 Hepatitis B Vaccines Completed 11/02/2008, 05/20/2008, 04/21/2008 Hepatitis C Screening Completed 12/11/2024 HIB Vaccines [...] Procedure Name Priority Date/Time Associated Diagnosis Comments COLONOSCOPY Routine 03/18/2025 3:40 PM EDT US HEAD NECK SOFT TISSUE Routine 03/01/2025 2:06 PM EDT Hypothyroidism HEPATITIS PANEL, ACUTE WITH REFLEX TO CONFIRMATION Routine 12/11/2024 8:14 AM EDT Psoriatic arthropathy (CMS/HCC V24, CMS/[facility] V28) COMPREHENSIVE METABOLIC PANEL Routine 12/11/2024 8:14 AM EDT Psoriatic arthropathy (CMS/HCC V24, CMS/HCC V28) BD BONE DENSITY DXA AXIAL SKELETON Routine 08/10/2024 7:49 AM EST Other specified disorders of bone density and structure, multiple sites from Last 3 Months or Most Recently Relevant to Health Maintenance Results * COLONOSCOPY (03/18/2025 3:40 PM EDT) Anatomical Region Laterality Modality Endoscopy us Historical Provider GI~PROCEDURE ORDERABLES F inal Result * US Head Neck Soft Tissue (03/01/2025 2:06 PM EDT) Anatomical Region Laterality Modality Head and Neck Ultrasound 03/04/2025 3:48 PM EDT Impressions 03/04/2025 3:56 PM EDT Subcentimeter bilateral thyroid nodules. -------- FINAL REPORT -------- Dictated By: Helen Mcdaniel Dictated Date: 03/04/2025 15:48 ET Assigned Physician: Helen Mcdaniel Reviewed and Electronically Signed By: Helen Mcdaniel Signed Date: 03/04/2025 15:56 ET Workstation ID: [id number] Transcribed By: Self Edit Transcribed Date: 03/04/2025 15:52 ET Narrative 03/04/2025 3:56 PM EDT INDICATION: hypothyrodism FINDINGS: Ultrasound of the thyroid gland performed. No prior studies available for comparison. Right lobe measures: 4.9 cm x 1.4 cm x 1.9 cm Left lobe measures: 4.4 cm x 1.2 cm x 1.3 cm Isthmus measures: 2 mm in width. 3 mm solid mid pole nodule on the right side mildly heterogeneous and mildly hypoechoic. Nodule is well-circumscribed without punctate echogenic foci. TR 4 Isoechoic to mildly hyperechoic solid 5 mm nodule in the right lower pole. Nodule is smooth without punctate echogenic foci. TR 3 Left lower pole mainly isoechoic mildly heterogeneous solid nodule is well-circumscribed and measures 9 mm x 7 mm x 5 mm. Nodule is fairly well defined without punctate echogenic foci. TR 3 Procedure Note Helen Mcdaniel MD - 03/04/2025 INDICATION: hypothyrodism FINDINGS: Ultrasound of the thyroid gland performed. No prior studiesavailable for comparison. Right lobe measures: 4.9 cm x 1.4 cm x 1.9 cm Left lobe measures: 4.4 cm x 1.2 cm x 1.3 cm Isthmus measures: 2 mm in width. 3 mm solid mid pole nodule on the right side mildly heterogeneous andmildly hypoechoic. Nodule is well-circumscribed without punctate echogenicfoci. TR 4 Isoechoic to mildly hyperechoic solid 5 mm nodule in the right lower pole.Nodule is smooth without punctate echogenic foci. TR 3 Left lower pole mainly isoechoic mildly heterogeneous solid nodule iswell-circumscribed and measures 9 mm x 7 mm x 5 mm. Nodule is fairly welldefined without punctate echogenic foci. TR 3 IMPRESSION: Subcentimeter bilateral thyroid nodules. -------- FINAL REPORT -------- Dictated By: Helen Mcdaniel Dictated Date: 03/04/2025 15:48 ET Assigned Physician: Helen Mcdaniel Reviewed and Electronically Signed By: Helen Mcdaniel Signed Date: 03/04/2025 15:56 ET Workstation ID: [id number] Transcribed By: Self Edit Transcribed Date: 03/04/2025 15:52 ET us Sonam Fernandez MD IMG US PROCEDURES Fi nal Result * Hepatitis panel, acute with reflex to confirmation (12/11/2024 8:14 AM EDT) [facility] Hepatitis B Surface Ag Negative Negative LAB CHEMISTRY METHOD 12/11/2024 2:31 PM EDT [facility] Hepatitis A Antibody IgM Negative Negative LAB CHEMISTRY METHOD 12/11/2024 2:31 PM EDT [facility] Hep B Core IgM Negative Negative LAB CHEMISTRY METHOD 12/11/2024 2:31 PM EDT [facility] Hepatitis C Antibody Negative Negative LAB CHEMISTRY METHOD 12/11/2024 2:31 PM EDT [facility] Blood Venous blood specimen / Unknown Venipuncture / Unknown 12/11/2024 8:14 AM EDT 12/11/2024 11:21 AM EDT us Ashli Bailey MD LAB BLOOD ORDERABLES Final R esult [facility] [address] [place] [address], * (ABNORMAL) Comprehensive metabolic panel (12/11/2024 8:14 AM EDT) [facility] Sodium 136 133 - 145 mmol/L LAB CHEMISTRY METHOD 12/11/2024 12:40 PM EDT [facility] Potassium 4.8 3.5 - 5.5 mmol/L LAB CHEMISTRY METHOD 12/11/2024 12:40 PM EDT [facility] Chloride 103 96 - 110 mmol/L LAB CHEMISTRY METHOD 12/11/2024 12:40 PM [facility] CO2 26 21 - 32 mmol/L LAB CHEMISTRY METHOD 12/11/2024 12:40 PM [facility] Anion Gap 7 3 - 11 LAB CHEMISTRY METHOD 12/11/2024 12:40 PM [facility] Glucose 131(H) 70 - 100 mg/dL LAB CHEMISTRY METHOD 12/11/2024 12:40 PM [facility] BUN 16 5 - 25 mg/dL LAB CHEMISTRY METHOD 12/11/2024 12:40 PM [facility] Creatinine 0.80 0.50 - 1.10 mg/dL LAB CHEMISTRY METHOD 12/11/2024 12:40 PM [facility] eGFR 82 >=60 mL/min/1. 73m2 LAB CHEMISTRY METHOD 12/11/2024 12:40 PM [facility] Comment:Calculation based on the Chronic Kidney Disease Epidemiology Collaboration (CKD-EPI) equation refit without adjustment for race. BUN/Creatinine Ratio 20.0 LAB CHEMISTRY METHOD 12/11/2024 12:40 PM [facility] Calcium 9.1 8.5 - 10.5 mg/dL LAB CHEMISTRY METHOD 12/11/2024 12:40 PM [facility] AST (SGOT) 25 10 - 42 unit/L LAB CHEMISTRY METHOD 12/11/2024 12:40 PM [facility] ALT (SGPT) 24 10 - 60 unit/L LAB CHEMISTRY METHOD 12/11/2024 12:40 PM [facility] Alkaline Phosphatase 114 42 - 121 unit/L LAB CHEMISTRY METHOD 12/11/2024 12:40 PM [facility] Total Protein 6.3 6.0 - 8.0 g/dL LAB CHEMISTRY METHOD 12/11/2024 12:40 PM [facility] Albumin 3.4 3.2 - 5.0 g/dL LAB CHEMISTRY METHOD 12/11/2024 12:40 PM EDT [facility] Total Bilirubin 0.5 0.0 - 1.4 mg/dL LAB CHEMISTRY METHOD 12/11/2024 12:40 PM EDT [facility] Blood Venous blood specimen / Unknown Venipuncture / Unknown 12/11/2024 8:14 AM EDT 12/11/2024 11:21 AM EDT us Ashli Bailey MD LAB BLOOD ORDERABLES Final R esult [facility] [address] [place] [address], * BD Bone Density DXA Axial Skeleton (08/10/2024 7:49 AM EST) Anatomical Region Laterality Modality Wrist, Hip, L-spine Bone Densito metry 08/10/2024 9:09 AM EST Impressions 08/10/2024 9:11 AM EST 1. Osteoporosis. There has been a decrease of 10.6% in bone mineral density in the lumbar spine since the prior examination of 07/19/2015. There has been a decrease of 33.7% in bone mineral density in the right femur and a decrease of 25.1% in bone mineral density in the left femur. 2. FRAX analysis yields a 10-year probability of major osteoporotic fracture of 21.2% and a 10-year probability of hip fracture of 4.7%. Code 11758 -------- FINAL REPORT -------- Dictated By: Morris Rouse Dictated Date: 08/10/2024 09:09 ET Assigned Physician: Morris Rouse Reviewed and Electronically Signed By: Morris Rouse Signed Date: 08/10/2024 09:11 ET Workstation ID: [id number] Transcribed By: Self Edit Transcribed Date: 08/10/2024 09:09 ET Narrative 08/10/2024 9:11 AM EST HISTORY: The patient is a 64-year-old postmenopausal female with clinical concern for metabolic bone disease. FINDINGS: Dual energy [...] 82% of that of age matched controls. This yields a T-score of -1.9 and [...] density of the femurs bilaterally is 0.769 gm/ou8koqsg is 76% of that of young normals [...] probability of hip fracture of 4.7%. 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
--- OUTSIDE RECORDS SUMMARY | 2025-05-17 09:35 | XMS_ITS | Clinical Summary ---
Author Organization [facility] Address [address] [place] [address] Care Team Providers Care Counseling Specialist Name Role Phone Daryl Rich Primary Care Provider [phone] Allergies Active Allergy Reactions Criticality Noted Date [...] 68 12/11/2023 8:38 AM EDT Temperature 36.1 C (97 F) 12/11/2023 7:25 AM EDT Respiratory Rate 15 [...] Vaccine (1 of 2) 2010 Influenza Vaccine 03/19/2025 04/19/2019, , 05/16/2016, Additional history exists COVID-19 Vaccine (2024- season) 2025 05/26/2021, 09/05/2020, 08/15/2020 RSV Vaccine 60 years and older and Patients (1 - 1-dose 75+ series) 2035 Hepatitis B Vaccines Aged Out No long er eligible based on patient's age to complete this topic Insurance [facility] Care Teams Counseling Specialist Relationship Specialty Start Date End Date Daryl Rich [address] [place] [address] [address] [place], [place] [phone] PCP - General 11/14/23
--- OUTSIDE RECORDS SUMMARY | 2025-05-17 09:35 | XMS_ITS ---
Author Name [facility] Organization Unknown Allergies Allergen Reaction Severity Comment Documented Date Source Statu s ERYTHROMYCIN GI INTOLERANCE/NAUSEA/VOMITI NG 12/11/2023 [facility] active Problems Problem Status Onset Date Problem Type Date of Resoluti on Source PAF (paroxysmal atrial fibrillation) (HCC) active EncounterDiagnosisAct CCT Shortness of breath active EncounterDiagnosisAc t CCT Chest pain, unspecified type active EncounterDiagnosisAct HH CCT Chronic diastolic congestive heart failure (HCC) active EncounterDiagnosisAct CCT Essential hypertension active EncounterDiagnosisAct CCT Encounters Encounter Type Encounter Reason Primary Diagnosis Location Date Ambulatory Chest pain, unspecified Chest pain, unspecified [place] 12/11/2023 Care Team Organization Name Specialty Phone Email Start Date End Da te [facility] Primary Care 12/12/2023 11/04/2024 [facility] Primary Care 11/15/2023
--- OUTSIDE RECORDS SUMMARY | 2025-05-17 09:35 | XMS_ITS | Encounter Summary ---
Author Organization [facility] Address [address] [place] [address] Care Team Providers Care Inside Sales Associate Name Role Phone Daryl Rich Primary Care Provider [phone] Encounter Details Date Type Department Care Team (Late st Contact Info) Description 12/10/2023 Scanned Document [address] [place] [phone] Radiology, Scan Social History Tobacco Use [...] on filedocumented in this encounter Care Teams Inside Sales Associate Relationship Specialty Start Date End Date Daryl Rich [address] [place] [address] PCP - General 11/14/23 documented as of this encounter
[2025-05-17 09:42] LABS: Hematocrit 41.7 % (37.0-47.0); Hemoglobin 13.1 g/dl (12.0-16.0); Imm Gran Abs Auto 0.01 X10*3/uL (0.00-0.03); Imm Gran Pct Auto 0.2 % (0.0-0.4); Lymphocytes Absolute Auto 0.8 X10*3/uL (1.2-4.9); Mean Corpuscular HGB Conc 31.4 g/dl (31.0-35.0); Mean Corpuscular Hemoglobin 28.2 pg (27.0-33.0); Mean Corpuscular Volume 89.9 fL (80.0-98.0); NRBC Abs Auto 0.000 X10*3/uL (0.0-0.012); NRBC Pct Auto 0.0 /100WBC (0.0-0.2); Platelet Count 320 X10*3/uL (160-400); Red Blood Count 4.64 X10*6/uL (4.20-5.50); White Blood Count 5.9 X10*3/uL (4.8-10.8)
[2025-05-17 10:39] LABS: Alanine Aminotransferase 23 U/L (0-31); Albumin Level 4.5 g/dL (3.5-5.0); Alkaline Phosphatase 101 U/L (39-117); Anion Gap 12 (12-20); Aspartate Amino Transferase 35 U/L (5-31); Blood Urea Nitrogen 18 mg/dL (9-16); Calcium 9.6 mg/dL (8.4-10.2); Carbon Dioxide 25 mmol/L (22-29); Chloride 106 mmol/L (96-108); Estimated Glomerular Filt Rate 51; Potassium 4.7 mmol/L (3.3-5.1); Sodium 138 mmol/L (135-145); Total Protein 6.5 g/dL (6.5-8.0)
== END 2025-05-17 09:02 | disposition home or self-care (01) ==
LOC: HO.LAB 09:01
PROVIDERS: PCP Internal Medicine; Visit Provider Student in an Organized Health Care Education/Training Program
DX: L40.50 Arthropathic psoriasis, unspecified (principal)
CPT/HCPCS: 36415; 80053; 85025; 85652; 86140

== ENCOUNTER 2025-05-27 09:10 | Outpatient (AMB) | payer OTHER, SELFPAY ==
--- NOTE | 2025-05-27 09:13 | MHC.OFFVIS ---
Vital Signs 05/27/25 09:18 Height 5 ft 4 in Weight 192 lb 3.889 oz BMI 33.0 BP 132/80 Blood Pressure Location Rt brachial Position Sitting Pulse 85 Pulse Source Pulse Oximeter Pulse Oximetry (%) 94 Oxygen Delivery Method Room Air Intake Visit Reasons: PsA Intake Note: Patient presents for PsA follow up. Allergies erythromycin base (ERYTHROMYCIN BASE) Allergy (Unknown, Verified 05/27/25 09:17) UNKNOWN Medication List - Last Reconciled 05/27/25 by Josephine Nava MD alpha lipoic acid 600 mg PO DAILY apixaban (Eliquis) 5 mg PO BID atorvastatin 20 mg PO DAILY diltiazem HCl CD (Cardizem CD) 300 mg PO DAILY empagliflozin (Jardiance) 10 mg PO DAILY furosemide 20 mg PO ONCE leflunomide 20 mg PO DAILY multivitamin 1 tab PO DAILY omeprazole 40 mg PO BID pregabalin (Lyrica) 25 mg PO BEDTIME spironolactone 50 mg PO DAILY [thumb spica apply as much as possible throughout the day] HPI Comments Details: Patient is a 64 y.o. female with AYAZ, HLD, Atrial flutter/Afib on AC, HTN c/b HFpEF, polyarticular OA, and PsA here today for follow up Interval History: Patient last seen 12/17/24 with me - On Leflunomide 20mg daily - States that her PsA pain has been in well controlled with leflunomide monotherapy - Her main complaints is her known significant lumbar degenerative disease with radiculopathy. She has seen several spinal surgeons and was recommended surgery but since there is a long recovery time (atleast 6 months) and no guarantee of improved pain she prefers to do conservative measures with acupuncture and medications - She also complains of right hip pain (known bilateral hip OA) - started Lyrica and alpha lipoic acid for neuropathy/restless legs syndrome Today - On leflunomide 20 mg daily, pregabalin 75 mg nightly, alpha lipoic acid 600 mg daily - Legs improved on pregabalin. Did not receive the alpha lipoic acid - Doing well overall - Had a puncture injury at the base of her middle finger in the palm. About a week later had pain and swelling on the middle finger Rheumatologic History: Diagnosed 2013, initially had sausage toes Leflunomide 10 mg ineffective, advanced to 20 mg daily since 2013 effective SSZ added 10/2023 DC 01/2024 ineffective & caused nausea with night dose Tremfya added 01/2024 not particularly effective per patient and had a high co-pay, DC 06/2024 Initial history: This is a 62-year-old female with past medical history of HFpEF, AFib, psoriasis, psoriatic arthritis, who presents for evaluation of psoriatic arthritis. Patient stated she has had psoriasis since her 20s. She was on methotrexate at some point which did not help much, she eventually got laser treatment which cleared her psoriasis. 2013 she started having pain and swelling of her toes. She developed a sausage digit she was evaluated by a bagger and stock handler helper and diagnosed with psoriatic arthritis. She believes she was on methotrexate briefly and was ineffective. She was then switched to leflunomide 10 mg daily which did not help then increase to 20 mg daily which controlled her symptoms. She has been on leflunomide 20 mg daily until now. She her ran out of leflunomide about 2 months ago. She states that for years she has had bilateral toe pain and morning stiffness lasting 2 hours. Over the last year she has had intermittent right shoulder pain. She has had multiple right shoulder steroid injections over the years without significant relief. She has history of right rotator cuff repair in 2014. Over the last couple of weeks she has developed significant right shoulder pain with any movement. She went to physical therapy without significant improvement. She has right thumb pain that is worse with grabbing objects. States that her psoriasis has not been a problem for many years. There is no history suggestive of uveitis or IBD Current Rheumatology Medication(s): Leflunomide 20mg daily Pregabalin 75 mg nightly Alpha lipoic acid 600 mg daily (not taking) [facility] Medical History Sciatica of right side Psoriasis (HFpEF) heart failure with preserved ejection fraction Paroxysmal atrial fibrillation HTN (hypertension) Obesity Obstructive sleep apnea Surgical History History of intestinal surgery History of radiofrequency ablation (RFA) procedure for cardiac arrhythmia Hx of shoulder surgery Family History Father Heart failure Diabetes Mother Dementia HTN (hypertension) Stroke Social History Household Members Other:: Sister Alcohol intake: current Alcohol intake frequency: holidays/special occasions only Patient Tobacco Use Status: Never used Tobacco Review of Systems Const Details: Review of Systems Constitutional: Denies fever, chills, weight loss ENT: Denies vision changes, eye pain or eye redness, dental caries, dry mouth GI: Denies nausea, vomiting, diarrhea, abdominal pain, change in BM Pulm: Denies SOB, FRANKLIN, hemoptysis, wheezing Cards: Denies chest pain, palpitations Skin: Denies Raynaud's, rash, nail changes, photosensitivity, RESUME WRITER: Denies headaches, weakness, paresthesias, recurrent falls MSK: as per HPI All other systems reviewed and are unremarkable except noted above Physical Exam Exam Exam: Vital signs reviewed Physical Examination CONSTITUITIONAL Patient alert and cooperative. Well appearing and in no apparent painful distress MSK Hands Right Hand: Able to make a fist. No swelling or tenderness to palpation of the MCPs, PIPs or DIPs. Left Hand: Able to make a fist. No swelling or tenderness to palpation of the MCPs, PIPs or DIPs. Bouchards node noted to the 3rd PIP. TTP of the tendon at the base of the 3rd digit with TTP of the 3rd PIP Wrists Right Wrist: Full ROM to flexion and extension. No swelling or TTP Left Wrist: Full ROM to flexion and extension. No swelling or TTP Elbows Right Elbow: Full ROM. No swelling or TTP. No TTP of the medial epicondyle. No TTP of the lateral epicondyle Left Elbow: Full ROM. No swelling or TTP. No TTP of the medial epicondyle. No TTP of the lateral epicondyle Shoulders Right shoulder: Full ROM. No swelling noted. No TTP of the AC joint. No TTP of the subacromial bursa. No TTP of the posterior shoulder Left shoulder: Full ROM. No swelling noted. No TTP of the AC joint. No TTP of the subacromial bursa. No TTP of the posterior shoulder Knees Right knee: Full ROM. No swelling noted. No TTP of the knee joint line. No TTP of pes anserine bursa. Crepitations felt Left knee: Full ROM. No swelling noted. No TTP of the knee joint line. No TTP of pes anserine bursa. Surgical scar noted Ankles Right ankle: Good ankle dorsiflexion and plantar flexion. No swelling. No TTP of the ankle joint Left ankle: Good ankle dorsiflexion and plantar flexion. No swelling. TTP of the ankle joint Feet Right foot: Positive squeeze test Left foot: Negative squeeze test Tender points? No tenderness to palpation of the bilateral trapezius, supraspinatus, anterior costochondral junctions, bilateral suboccipital muscle insertions SKIN No rashes Vital Signs: Last Vital Signs Pulse 85 05/27/25 09:18 BP 132/80 05/27/25 09:18 Pulse Ox 94 05/27/25 09:18 Oxygen Delivery Method Room Air 05/27/25 09:18 BMI result Body Mass Index 33.0 Results Reviewed Results Reviewed: Laboratory Tests 05/17/25 09:10 WBC 5.9 RBC 4.64 Hgb 13.1 Hct 41.7 Plt Count 320 ESR 23 H Sodium 138 Potassium 4.7 Chloride 106 Carbon Dioxide 25 BUN 18 H Creatinine 1.08 AST 35 H ALT 23 C-Reactive Protein 0.39 Immunology Labs 09/14/22 12:35 Rheumatoid Factor < 13.0 Cycl Citrul Peptide IgG <16 Infectious serologies 09/14/22 12/16/23 12/11/24 12:35 10:49 [facility] Hepatitis A IgM Ab Nonreactive NR Hep Bs Antigen Negative Neg Hep Bs Antibody NONREACTIVE NR Hep B Core Total Ab Nonreactive NR Hepatitis C Ab (EIA) Nonreactive NR XR Bilateral Hip and L spine 04/2024 FINDINGS: Lumbar spine: Mild levocurvature of the lumbar spine, unchanged. The lumbar lordosis is maintained. No acute fracture or subluxation. No loss of vertebral body height. Multilevel loss of intervertebral disc with endplate osteophytes and facet arthropathy, similar when compared to the prior examination. No concerning lytic or blastic osseous lesion. Right hip: No fracture or dislocation. No significant joint space narrowing. Small marginal osteophytes. No osseous erosion. No evidence of avascular necrosis. Phleboliths within the pelvis. Left hip: No fracture or dislocation. No significant joint space narrowing. Small marginal osteophytes. No osseous erosion. No evidence of avascular necrosis. Surgical suture is partially visualized within the pelvis. Assessment & Plan Assessment & Plan (1) Psoriatic arthritis: Comment: Diagnosed 2013, initially had sausage toes Leflunomide 10 mg ineffective, advanced to 20 mg daily since 2013 effective SSZ added 10/2023 DC 01/2024 ineffective & caused nausea with night dose Tremfya added 01/2024 not particularly effective per patient and had a high co-pay, DC 06/2024 Code(s): L40.50 - Arthropathic psoriasis, unspecified Category: Medical Plan: #PsA Patient is a 64 y.o. female with PsA here today for follow up. Currently in remission. Plan - Leflunomide 20mg daily - RTC 4 months - Labs before visit: CBC, CMP, ESR, CRP (2) Neuropathy: Code(s): G62.9 - Polyneuropathy, unspecified Plan: #Neuropathy and RLS Patient with significant lumbar degenerative disc disease with radiculopathy and associated neuropathy. Doing well on pregabalin. Did not get the alpha lipoic acid. Doing okay on the lyrica Plan - Pregabalin 75mg nightly - Stop alpha lipoic acid (3) Left ankle pain: Code(s): M25.572 - Pain in left ankle and joints of left foot Qualifiers: Chronicity: chronic Qualified Code(s): M25.572 - Pain in left ankle and joints of left foot; G89.29 - Other chronic pain Plan: #Left ankle pain OA vs PsA activity Normal inflammatory markers. Patient we will follow up with the vascular due to her chronic lower leg swelling and varicose veins. We will consider steroid injection at next visit (4) Left hand pain: Code(s): M79.642 - Pain in left hand Plan: #Left Hand Pain Hand pain post puncture wound. Concern for tendon injury Plan - Check XRs, if normal check MRI (5) Encounter for monitoring leflunomide therapy: Code(s): Z51.81 - Encounter for therapeutic drug level monitoring; Z79.899 - Other termite treater helper (current) drug therapy Category: Medical Plan: #Long-term leflunomide Discussed with patient the benefits and risks of leflunomide for managing the rheumatic condition Benefits include: - Reduced pain, maintenance of remission and reduction of flares Risks include: - GI upset especially diarrhea, skin rash, cytopenias, hepatotoxicity, weight loss, neuropathy Leflunomide is highly teratogenic. ?Has a very long half-life. ?Needs cholestyramine washout if there is desire for Initiation: ?CBC, BMP, LFTs, hepatitis-B and C serologies every 2-4 weeks for 3 months Monitoring: ?CBC, BMP, LFTs, hepatitis B and C serologies Plan I spent 30 minutes reviewing the record and labs, taking a history, examining the patient, discussing the treatment plan, ordering diagnostic work up and documenting in the medical record Orders: Orders XR hand LT min 3V Today M79.642 - Pain in left hand Complete Blood Count Auto Diff 4 Months Z. - Other termite treater helper (current) drug therapy Comprehensive Met. Panel 4 Months Z. - Other termite treater helper (current) drug therapy Erythrocyte Sedimentation Rate 4 Months Z. - Other termite treater helper (current) drug therapy C Reactive Protein 4 Months Z. - Other skilled nursing (current) drug therapy Medications: Refilled pregabalin (Lyrica) 25 mg PO BEDTIME 90 caps 1RF G25.81 - Restless legs syndrome leflunomide 20 mg PO DAILY 90 tabs 1RF L40.50 - Arthropathic psoriasis, unspecified Discontinued alpha lipoic acid Discontinued Reason: Doctor's Order 600 mg PO DAILY 90 caps 1RF G62.9 - Polyneuropathy, unspecified Coding Level of Care Code Est Pt Level 4 (54680) Complex EM visit Add On G2211 Diagnoses Psoriatic arthritis L40.50 Neuropathy G62.9 Chronic pain of left ankle M25.572; G89.29 Chronicity: chronic Left hand pain M79.642 Encounter for monitoring leflunomide therapy Z51.81; Z79.89
[2025-05-27 09:18] VITALS: BP 132/80; PULSE 85; O2SAT 94; BMI 33.0
== END 2025-05-27 10:09 | disposition home or self-care (01) ==
LOC: HO.RHES 09:10
PROVIDERS: PCP Internal Medicine; Visit Provider Student in an Organized Health Care Education/Training Program
DX: L40.50 Arthropathic psoriasis, unspecified (principal); G62.9 Polyneuropathy, unspecified; M25.572 Pain in left ankle and joints of left foot; G89.29 Other chronic pain; M79.642 Pain in left hand; Z51.81 Encounter for therapeutic drug level monitoring; Z79.899 Other long term (current) drug therapy
CPT/HCPCS: 99214; G2211

== ENCOUNTER 2025-06-10 09:15 | Outpatient (AMB) | payer OTHER, SELFPAY ==
[2025-06-10 09:26] VITALS: BP 138/82; PULSE 82; BMI 32.7
--- NOTE | 2025-06-10 09:26 | A.OFFVIS_ITS ---
Vital Signs 06/10/25 09:26 Height 5 ft 4 in Weight 190 lb 7.67 oz BMI 32.7 BP 138/82 Blood Pressure Location Lt brachial Position Sitting Pulse 82 Pulse Source Pulse Oximeter Intake Visit Reasons: high bp and palpitation with ekg Nurse Care Manager Required: No Allergies erythromycin base (ERYTHROMYCIN BASE) Allergy (Unknown, Verified 06/10/25 09:31) UNKNOWN Medication List - Last Reconciled 06/10/25 by Amna Villafana, [facility] apixaban (Eliquis) 5 mg PO BID atorvastatin 20 mg PO DAILY diltiazem HCl CD (Cardizem CD) 300 mg PO DAILY empagliflozin (Jardiance) 10 mg PO DAILY famotidine 40 mg PO BID furosemide 20 mg PO ONCE leflunomide 20 mg PO DAILY multivitamin 1 tab PO DAILY omeprazole 20 mg PO DAILY peg 3350-electrolytes 236-22.74-6.74 -5.86 gram (GaviLyte-G) mL PO pregabalin (Lyrica) 25 mg PO BEDTIME spironolactone 50 mg PO DAILY [thumb spica apply as much as possible throughout the day] HPI HPI high bp and palpitation with ekg: Details: Maria Dolores is a 64-year-old female with past medical history of obesity, hypertension, sleep apnea with CPAP use, heart failure with preserved EF, AFib status post ablation who presents for follow-up. Today she reports that she had to doctor's office visits recently and her blood pressure was elevated. On 1 occasion her blood pressure was 180/100. She states she was very stressed that day and had to give a presentation which could have accounted for the elevated reading. On another occasion her blood pressure was 140/90. She does not have a blood pressure cuff at home but plans to get 1. She has been taking her meds as directed and follows a low-salt diet. She is feeling well overall but has noticed a few episodes of very brief heart palpitations lasting 1-2 seconds. She says currently it happens about twice a month. She will start to take more notice of this going forward. No chest discomfort at rest or with activity. No shortness of breath, PND, orthopnea. She recently had some swelling in her left lower extremity but it has since resolved. Continues to work and reports high stress levels at times. [facility]LY [facility] Medical History Sciatica of right side Psoriasis (HFpEF) heart failure with preserved ejection fraction Paroxysmal atrial fibrillation HTN (hypertension) Obesity Obstructive sleep apnea Surgical History History of intestinal surgery History of radiofrequency ablation (RFA) procedure for cardiac arrhythmia Hx of shoulder surgery Family History Father Heart failure Diabetes Mother Dementia HTN (hypertension) Stroke Social History Household Members Other:: Sister Alcohol intake: current Alcohol intake frequency: holidays/special occasions only Patient Tobacco Use Status: Never used Tobacco Review of Systems Const All systems reviewed & are unremarkable except as noted in HPI and below ENT Denies dizziness Card Denies chest pain, Denies chest pain at rest, Denies chest pain with activity, Reports rapid heart rate (brief), Denies pedal edema, Denies edema, Denies leg edema, Denies lightheadedness, Denies palpitations, Denies dyspnea, Denies dyspnea on exertion and Denies orthopnea Resp Denies cough, Denies dyspnea and Denies dyspnea on exertion GI Denies hematochezia and Denies change in stool character Musc Denies abnormal gait, Denies limited range of motion, Denies muscle cramps, Denies muscle weakness, Denies numbness, Denies radiating pain into limb, Denies stiffness and Denies tingling Neuro Denies abnormal gait, Denies dizziness, Denies numbness and Denies tingling Endo Denies palpitations Physical Exam Vital Signs: Last Vital Signs Pulse 82 06/10/25 09:26 BP 138/82 06/10/25 09:26 BMI result Body Mass Index 32.7 Const General: cooperative, healthy appearing, comfortable and no acute distress Orientation/consciousness: patient oriented x3 Neck Neck: Yes normal visual inspection Resp Effort & Inspection: normal respiratory effort Auscultation: clear to auscultation bilaterally, no crackles, no rales, no rhonchi and no wheezes Cardio Rate: regular rate Rhythm: regular rhythm Heart sounds: S1 normal heart sound present, S2 normal heart sound present, no gallops, no murmurs and no rubs Neuro General: patient oriented x3 Extrem General: Yes normal to inspection, No no pedal edema and No calf tenderness Psych Appearance: grossly normal Mental Status: mental status grossly normal Speech and movement: Normal speech and movement present Office Procedures EKG Details: Today, read by me, normal sinus rhythm, no acute ST or T-wave abnormalities, rate 82, QTC 434 milliseconds [id number], Complete Assessment & Plan Assessment & Plan (1) Paroxysmal atrial fibrillation: Code(s): I48.0 - Paroxysmal atrial fibrillation Category: Medical Plan: History of paroxysmal atrial fibrillation with prior ablation. No recurrent documented episodes noted. EKG today showing sinus rhythm. She does get rare, very brief palpitations which could be extrasystoles. She will notify this office if this increases and Holter monitoring will be ordered. Continue diltiazem for heart rate control. Continue Eliquis for anticoagulation. She is cardiology follow-up in August and will keep that appointment. (2) HTN (hypertension): Code(s): I10 - Essential (primary) hypertension Category: Medical Plan: Blood pressure goal less than 130/80. Concerns about recent blood pressure elevations. Initial blood pressure today 138/82, recheck done by me later in the visit 09/07 272 on the left and 126/78 on the right. No indication for med changes at this time. She will get a home blood pressure cuff and monitor her readings. Reviewed low-salt diet. Continue diltiazem, Aldactone and Lasix. (3) (HFpEF) heart failure with preserved ejection fraction: Code(s): I50.30 - Unspecified diastolic (congestive) heart failure Category: Medical Plan: History of heart failure with preserved EF. Last echocardiogram 02/18/2024 showed EF 50-55%, diastolic function normal, inferior and basal inferior hypokinetic. Prior to that she had a CTA of the coronary arteries 12/11/2023 showing only minimal to mild plaque buildup, coronary calcium score 95. She has not had recent heart failure admissions. She is not fluid overloaded on exam. Signs and symptoms of heart failure reviewed with her. No med changes made. (4) Coronary artery disease: Comment: CTA of coronary arteries 12/11/2023, calcium score 95, lad proximal to mid mild plaque, left circumflex minimal plaque, RCA mild plaque. Code(s): I25.10 - Atherosclerotic heart disease of [place] coronary artery without angina pectoris Category: Medical Plan: Mild nonobstructive coronary artery disease, asymptomatic. Continue risk factor modification. She is not on aspirin as she is on Eliquis. She is on atorvastatin with ideal LDL goal less than 70. Plan Time spent on chart review, documentation, interview and assessment Coding Level of Care Code Est Pt Level 4 (28393) Complex EM visit Add On G2211 Diagnoses Paroxysmal atrial fibrillation I48.0 HTN (hypertension) I10 (HFpEF) heart failure with preserved ejection fraction I50.30 Coronary artery disease I25.10 CPT Codes EKG - CPT: [id number], Complete ([id number]) Time Spent (min) 28
--- OUTSIDE RECORDS SUMMARY | 2025-06-10 10:11 | XMS_ITS | Clinical Summary ---
Author Organization [facility] Address [address] [place] [address] Phone Care Team Providers Care Tufter Name Role Phone Thomas Espinoza MD Primary [...] Encounters Date Type Department Care Team Description 05/27/2025 12:35 PM EDT - 05/27/2025 11:59 PM EDT Hospital Encounter [facility] Xray [address] [place] [address] Pain in left hand Discharge Disposition: Home or Self Care from Last 3 Months Surgical History Surgery Date Site/Laterality Comments CHOLECYSTECTOMY PROCEDURE: [place] LAPAROSCOPY SURG CHOLECYSTECTOMY OTHER SURGICAL HISTORY PROCEDURE: TN UNLISTED PX MECKEL'S DIVERTICULUM & MESENTERY TOTAL KNEE ARTHROPLASTY PROCEDURE: TN ARTHRP KNE CONDYLE&PLATU MEDIAL&LAT COMPARTMENTS Medical History Medical History Date Comments Essential hypertension DX:Essent ial hypertension A-fib (CMS/HCC V24, CMS/HCC V28) DX:A-fib (HCC) Psoriatic arthritis (CMS/HCC V24, CMS/HCC V28) DX:Psoriatic arthritis ([facility]) Social History Tobacco Use Types Packs/Day [...] Comments Cervical Cancer Screening: Pap Smear 1981 RSV Immunization Adult Patients (1 - Risk 50-74 years 1-dose series) 2010 Pneumococcal Vaccine: 50+ Years (2 of 2 - PCV) 02/10/2014 02/10/2013, 10/03/2007 Cholesterol Screening (Lipid Panel) 07/18/2022 HIV Screening 07/18/2022 Social Influencers of Health Screening 07/18/2022 Breast Cancer Screening 02/08/2023 02/08/2021 Zoster Vaccines (2 of 2) 01/11/2024 11/16/2023 Depression Screening 08/19/2024 COVID-19 Vaccine (4 - 2024- season) 2025 05/26/2021, 09/05/2020, 08/15/2020 [...] Procedure Name Priority Date/Time Associated Diagnosis Comments XR HAND 3+ VIEWS LEFT Routine 05/27/2025 12:43 PM EDT Pain in left hand COLONOSCOPY Routine 03/18/2025 3:40 PM EDT HEPATITIS PANEL, ACUTE WITH REFLEX TO CONFIRMATION Routine 12/11/2024 8:14 AM EDT Psoriatic arthropathy (CMS/HCC V24, CMS/HCC V28) COMPREHENSIVE METABOLIC PANEL Routine 12/11/2024 8:14 AM EDT Psoriatic arthropathy (CMS/HCC V24, CMS/HCC V28) BD BONE DENSITY DXA AXIAL SKELETON Routine 08/10/2024 7:49 AM EST Other specified disorders of bone density and structure, multiple sites from Last 3 Months or Most Recently Relevant to Health Maintenance Results * XR Hand 3+ Views Left (05/27/2025 12:43 PM EDT) Anatomical Region Laterality Modality Upper Extremities, Hand Left [facility]iogra [facility] Imaging 05/28/2025 8:07 AM EDT Impressions 05/28/2025 8:09 AM EDT No acute findings. There is an old healed fracture of the distal radial metaphysis. 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 Code 29526 -------- FINAL REPORT -------- Dictated By: Morris Rouse Dictated Date: 05/28/2025 08:07 ET Assigned Physician: Morris Rouse Reviewed and Electronically Signed By: Morris Rouse Signed Date: 05/28/2025 08:09 ET Workstation ID: [id number] Transcribed By: Self Edit Transcribed Date: 05/28/2025 08:07 ET Narrative 05/28/2025 8:09 AM EDT HISTORY: The patient is a 64-year-old female with pain in the region of the left third metacarpal, 2 months following a laceration. FINDINGS: AP, lateral, and oblique views of the left hand are obtained. The study demonstrates deformity of the distal radial metaphysis consistent with an old healed fracture. There is no evidence of recent fracture and there is no dislocation. There is narrowing of the first carpal-metacarpal articulation with marginal osteophytes and mild lateral subluxation of the first metacarpal relative to the greater multangular, consistent with severe osteoarthritis. There is no evidence of osteoarthritis elsewhere in the hand or wrist. No soft tissue abnormalities seen. Procedure Note Morris Rouse MD - 05/28/2025 HISTORY: The patient is a 64-year-old female with pain in the region ofthe left third metacarpal, 2 months following a laceration. FINDINGS: AP, lateral, and oblique views of the left hand are obtained.The study demonstrates deformity of the distal radial metaphysisconsistent with an old healed fracture. There is no evidence of recentfracture and there is no dislocation. There is narrowing of the firstcarpal-metacarpal articulation with marginal osteophytes and mild lateralsubluxation of the first metacarpal relative to the greater multangular,consistent with severe osteoarthritis. There is no evidence ofosteoarthritis elsewhere in the hand or wrist. No soft tissueabnormalities seen. IMPRESSION: No acute findings. There is an old healed fracture of the distal radialmetaphysis. Severe osteoarthritis of the first carpal-metacarpalarticulation. Code 93284 -------- FINAL REPORT -------- Dictated By: Morris Rouse Dictated Date: 05/28/2025 08:07 ET Assigned Physician: Morris Rouse Reviewed and Electronically Signed By: Morris Rouse Signed Date: 05/28/2025 08:09 ET Workstation ID: [id number] Transcribed By: Self Edit Transcribed Date: 05/28/2025 08:07 ET Josephine Nava MD IMG XR PROCEDURES Final Result * COLONOSCOPY (03/18/2025 3:40 PM EDT) Anatomical Region Laterality Modality Endoscopy Historical Provider GI~PROCEDURE ORDERABLES F inal Result * Hepatitis panel, acute with reflex to confirmation (12/11/2024 8:14 AM EDT) Hepatitis B Surface Ag Negative Negative LAB CHEMISTRY METHOD 12/11/2024 2:[address] [facility] Hepatitis A Antibody IgM Negative Negative LAB CHEMISTRY METHOD 12/11/2024 2:[address] [facility] Hep B Core IgM Negative Negative LAB CHEMISTRY METHOD 12/11/2024 2:[address] [facility] Hepatitis C Antibody Negative Negative LAB CHEMISTRY METHOD 12/11/2024 2:[address] [facility] Blood Venous blood specimen / Unknown Venipuncture / Unknown 12/11/2024 8:14 AM EDT 12/11/2024 11:21 AM EDT Ashli Bailey MD LAB BLOOD ORDERABLES Final R esult [facility] [address] [place] [address], * (ABNORMAL) Comprehensive metabolic panel (12/11/2024 8:14 AM EDT) Sodium 136 133 - 145 mmol/L LAB CHEMISTRY METHOD 12/11/2024 12:[address] [facility] Potassium 4.8 3.5 - 5.5 mmol/L LAB CHEMISTRY METHOD 12/11/2024 12:40 PM [facility] Chloride 103 96 - 110 mmol/L LAB CHEMISTRY METHOD 12/11/2024 12:40 PM [facility] CO2 26 21 - 32 mmol/L LAB CHEMISTRY METHOD 12/11/2024 12:40 PM [facility] Anion Gap 7 3 - 11 LAB CHEMISTRY METHOD 12/11/2024 12:40 PM [facility] Glucose 131(H) 70 - 100 mg/dL LAB CHEMISTRY METHOD 12/11/2024 12:40 PM [facility] BUN 16 5 - 25 mg/dL LAB CHEMISTRY METHOD 12/11/2024 12:40 PM [facility] Creatinine 0.80 0.50 - 1.10 mg/dL LAB CHEMISTRY METHOD 12/11/2024 12:40 PM [facility] eGFR 82 >=60 mL/min/1. 73m2 LAB CHEMISTRY METHOD 12/11/2024 12:40 PM [facility] Comment:Calculation based on the Chronic Kidney Disease Epidemiology Collaboration (CKD-EPI) equation refit without adjustment for race. BUN/Creatinine Ratio 20.0 LAB CHEMISTRY METHOD 12/11/2024 12:40 PM [facility] Calcium 9.1 8.5 - 10.5 mg/dL LAB CHEMISTRY METHOD 12/11/2024 12:40 PM [facility] AST (SGOT) 25 10 - 42 unit/L LAB CHEMISTRY METHOD 12/11/2024 12:40 PM [facility] ALT (SGPT) 24 10 - 60 unit/L LAB CHEMISTRY METHOD 12/11/2024 12:40 PM [facility] Alkaline Phosphatase 114 42 - 121 unit/L LAB CHEMISTRY METHOD 12/11/2024 12:40 PM [facility] Total Protein 6.3 6.0 - 8.0 g/dL LAB CHEMISTRY METHOD 12/11/2024 12:[address] [facility] Albumin 3.4 3.2 - 5.0 g/dL LAB CHEMISTRY METHOD 12/11/2024 12:[address] [facility] Total Bilirubin 0.5 0.0 - 1.4 mg/dL LAB CHEMISTRY METHOD 12/11/2024 12:[address] [facility] Blood Venous blood specimen / Unknown Venipuncture / Unknown 12/11/2024 8:14 AM EDT 12/11/2024 11:21 AM EDT us Ashli Bailey MD LAB BLOOD ORDERABLES Final R esult [facility] [address] [place] [address], [place] [phone] * BD Bone Density DXA Axial Skeleton [...] probability of hip fracture of 4.7%. Code 14025 -------- FINAL REPORT -------- Dictated By: Morris Rouse Dictated Date: 08/10/2024 09:09 ET Assigned Physician: Morris Rouse Reviewed and Electronically Signed By: Morris Rouse Signed Date: 08/10/2024 09:11 ET Workstation ID: [id number] Transcribed By: Self Edit Transcribed Date: 08/10/2024 [...] density of the femurs bilaterally is 0.769 gm/xu9sjfom is 76% of that of young normals [...] probability of hip fracture of 4.7%. Code 75058 -------- FINAL REPORT -------- Dictated By: Morris Rouse Dictated Date: 08/10/2024 09:09 ET Assigned Physician: Morris Rouse Reviewed and Electronically Signed By: Morris Rouse Signed Date: 08/10/2024 09:11 ET Workstation ID: [id number] Transcribed By: Self Edit Transcribed Date: 08/10/2024 09:09 ET us Thomas Espinoza MD IMG DXA PROCEDURES Final Re sult from Last 3 Months or Most Recently Relevant to Health Maintenance Insurance [facility] Advance Directives Documents on File Type Date Recorded Patient Nuclear Radiologist Expl anation Health Care Decision (hx) 06/10/2021 [...] DIRECTIVE Health Care Decision (hx) 06/10/2021 AD ASBHY DIRECTIVE Health Care Decision (hx) 06/10/2021 AD [...] (hx) 07/05/2015 AD ASHBY DIRECTIVE Care Teams Tufter Relationship Specialty Start Date End Date Thomas Espinoza MD [facility] [address] PCP - General Internal Medicine 03/01/25
--- OUTSIDE RECORDS SUMMARY | 2025-06-10 10:11 | XMS_ITS | Clinical Summary ---
Author Organization [facility] Address [address] [place] [address] Care Team Providers Care Senior Bioinformatics Scientist Name Role Phone Daryl Rich Primary Care Provider [phone] Allergies Active Allergy Reactions Criticality Noted Date [...] season) 2025 05/26/2021, 09/05/2020, 08/15/2020 RSV Vaccine 50 years and older and Patients (1 - 1-dose 75+ series) 2035 Hepatitis B Vaccines Aged Out No long er eligible based on patient's age to complete this topic Insurance [facility] Care Teams Senior Bioinformatics Scientist Relationship Specialty Start Date End Date Daryl Rich [address] [place] [address] [address] [place], [place] [id number] PCP - General 11/14/23
--- OUTSIDE RECORDS SUMMARY | 2025-06-10 10:11 | XMS_ITS | Encounter Summary ---
Author Organization [facility] Address [address] [place] [address] Care Team Providers Care Oil Field Equipment Mechanic Supervisor Name Role Phone Daryl Rich Primary Care Provider [phone] Encounter Details Date Type Department Care Team (Late st Contact Info) Description 12/10/2023 Scanned Document [address] [place] [phone] Radiology, Scan Social History Tobacco Use [...] on filedocumented in this encounter Care Teams Oil Field Equipment Mechanic Supervisor Relationship Specialty Start Date End Date Daryl Rich [address] [place] [address] PCP - General 11/14/23 documented as of this encounter
--- OUTSIDE RECORDS SUMMARY | 2025-06-10 10:11 | XMS_ITS | Clinical Summary ---
Author Organization [facility] Address [address] [place] [address] Care Team Providers Care Property Adjuster Name Role Phone Thomas Espinoza MD Primary Care Provider [phone] Allergies Active Allergy Reactions Criticality Noted Date [...] age to complete this topic Care Teams Property Adjuster Relationship Specialty Start Date End Date Thomas Espinoza MD [address] [place] [address] PCP - General Internal Medicine 08/20/23
== END 2025-06-10 09:59 | disposition home or self-care (01) ==
LOC: HO.HCS 09:16
PROVIDERS: PCP Internal Medicine; Visit Provider Nurse Practitioner Family
DX: I48.0 Paroxysmal atrial fibrillation (principal); I10 Essential (primary) hypertension; I50.30 Unspecified diastolic (congestive) heart failure; I25.10 Atherosclerotic heart disease of native coronary artery without angina pectoris
CPT/HCPCS: 93010; 99214; G2211

== ENCOUNTER → 2025-06-10 09:15 | Outpatient (BNVA) | payer OTHER, SELFPAY | PROVIDERS: PCP Internal Medicine; Visit Provider Nurse Practitioner Family | DX: I48.0 Paroxysmal atrial fibrillation (principal) | CPT/HCPCS: 93005 ==

== ENCOUNTER → 2025-08-01 12:47 | Outpatient (BNV) | payer OTHER, SELFPAY | PROVIDERS: PCP Internal Medicine; Visit Provider Radiology Diagnostic Radiology | DX: S66.102A Unspecified injury of flexor muscle, fascia and tendon of right middle finger at wrist and hand level, initial encounter (principal); S66.116A Strain of flexor muscle, fascia and tendon of right little finger at wrist and hand level, initial encounter | CPT/HCPCS: 73218 ==

== ENCOUNTER 2025-08-01 12:54 | Outpatient (REF) | payer OTHER, SELFPAY ==
--- OUTSIDE RECORDS SUMMARY | 2023-11-05 03:15 | XMS_ITS | Continuity of Care Document ---
Author Organization [facility] Address [address] [place] [address] Dr [address] [place] [address] Phone Care Team Providers Care Floater Operator Name Role Phone Kit ZAVALETA, CHAO, Joaquin SHAIKH Unavailable U navailable Allergies, Adverse Reactions, Alerts Substance Reaction Status Criticality No Known Allergies Active No Inform ation Medications Medication Instructions Dosage Dose Quantity Effective Dates (start - stop) Status Indication Fill Status Comments ELIQUIS (unknown strength) Not Availab le - Active MULTAQ (unknown strength) Not Availab le - Active LASIX (unknown strength) Not Availab le - Active SPIRONOLACTO NE (unknown strength) Not Availab le - Active CELEBREX (unknown strength) Not Availab le - Active FOLIC ACID (unknown strength) Not Availab le - Active OMEPRAZOLE (unknown strength) Not Availab le - Active MAGNESIUM (unknown strength) Not Availab le - Active MULTIVITAMIN S (unknown strength) Not Availab le - Active Procedures Procedure Date Office/Outpt E&M Established 15 Mins Oct Advance Directives Directive Yes / No Effective Date File Name No Information Encounters Encounter Description Practice Location Reason(s) For Visit Diagnoses Date Provider Encounter Disposition Office/Outpt E&M Established 15 Mins [facility], [address] [place] [address] [address], [place], [id number], [place] tel:[phone] [facility] - [place] - Dike Localized edemaEssenti al (primary) hypertension Varicose veins of left lower extremity with other complication s Kit ZAVALETA, CHAO, NEEL Nuñez. [address] [facility] [address], Zaida rodriguez [place], [id number], [place]. tel:[phone] [facility], [address] [place] [address] Dr Anders [address]Miguel [place], [id number], [place] tel:[phone] [facility] - [place] - Dike Pain in left leg 4 Kit ZAVALETA, CHAO, NEEL Nuñez. [address] [place] [address], Zaida rodriguez [place], [id number], [place]. tel:[phone] [facility], [address] [place] [address] Dr Anders [address] 1000Miguel [place], [id number], [place] tel:[phone] [facility] [place] Varicose veins of left lower extremity with pain 4 Kit ZAVALETA, CHAO, NEEL Nuñez. [address] [place] [address], [place] [address], Za[place] rodriguez [place], [id number], [place]. tel:[phone] [facility], [address] [place] [address] [facility] [address] 999Miguel [place], [id number], [place] tel:[phone] [facility] [place] - Dike Varicose veins of left lower extremity with other complication s 4 Arias Cueto. [address] [place] [address] [address], [place]driguez [place], [id number], [place]. tel:[phone] [facility], [address] [place] [address] Dr Anders [address] 999Miguel [place], [id number], [place] tel:[phone] [facility] [place] Encounter for follow-up examination after completed treatment for conditions other than malignant neoplasmVari cose veins of left lower extremity with pain 3 Faustino ZAVALETA FACS EMILEET NEEL Ballesteros. [address] [place] [address], [place], [address], [place]. tel:[phone] [facility], [address] [place] [address] Dr Anders 1000Suite Miguel Fried MD, [id number], [place] tel:[phone] [facility] [place] Varicose veins of left lower extremity with other complication sEssential (primary) hypertension Localized edema 3 Faustino ZAVALETA FACS T NEEL Ballesteros. [address] [facility], Suite [facility] [place], [address], [place]. tel:[phone] [facility], [address] [place] [address] Dr Anders [address] 1000Miguel [place], [id number], [place] tel:[phone] [facility] [place] Varicose veins of left lower extremity with other complication s 3 Kit ZAVALETA, CHAO, NEEL Nuñez. [address] [place] [address], Suite [facility], [facility] [place] [place], [id number], [place]. tel:[phone] [facility], [address] [place] [address] Dr Anders [address]Suite Miguel Fried MD, [id number], [place] tel:[phone] [facility] [place] Encounter for follow-up examination after completed treatment for conditions other than malignant nePain in left leg 3 Faustino ZAVALETA FACS T NEEL Ballesteros. [address] [place] [address], [place] [address], [facility] [place], [address], [place]. tel:[phone] [facility], [address] [place] [address] [address] Miguel Fried MD, [id number], [place] tel:[phone] [facility] [place] Varicose veins of left lower extremity with other complication s 3 Faustino ZAVALETA FACS T NEEL Ballesteros. [address] [place] [address], Suite [facility], [place], [address], [place]. tel:[phone] [facility] [address]Miguel [place], [id number], [place] tel:[phone] [facility] [place] Chronic venous hypertension w oth comp of l low extrem 3 Kit ZAVALETA RVT, NEEL Nuñez. [address] [place] [address], Suite [facility], [facility] [place] [place], [id number], [place]. tel:[phone] [facility], [address] [place] [address] [address], [place], [id number], [place] tel:[phone] [facility] venous [facility]tn w oth comp of bilateral low extrm 3 Faustino ZAVALETA FACS T NEEL Ballesteros. [address] [place] [address], [place], [address], . tel:[phone] [facility], [address] [place] [address] [address], [place], [id number], [place] tel:[phone] [facility] Varicose veins of bi low extrem w oth complication Luis Alberto in right lower legPain in left lower legPain in left legRestless legs syndromeEsse ntial (primary) hypertension Pruritus, unspecifiedC ramp and spasmLocaliz ed edema 3 Faustino ZAVALETA FACS T NEEL [employer]. [address] [place] [address], [place], [address], [place]. tel:[phone] Family History Family Member Type Diagnosis Age At Onset No Information Payers Payer name Insurance type Identifiers Authorization(s) [employer] Lynn CI riber ID: [id number] Name: Coverage Status Eligibility Check on: UnknownRelationship to Subscriber: selfPayer Address: [facility], [place] [address], [place], [address], [facility] Phone: [phone] Social History Type Description Quantity Date Captured Comments Alcohol Use Details Unknown Caffeine Use Details Unknown Tobacco Use Status Smoking Status Smoker, current stat us unknown Non-Smoking Tobacco Use Details : No Details Available : No Details Available Sex Female Current Gender Female (finding) Unknown Vital Signs Date / Time: Height Weight BMI Pulse Rate Blood Pressure Temperature Respiratory Rate Body Surface Area Head Circumference Head Circ. Percentile Wt./Charlie. Percentile BMI percentile Pulse Ox Inhaled Ox 82.550 kg (182.00 lbs) 31.3 0 kg/m eter (2) 130/82 mm[Hg] Chief Complaint And Reason For Visit No Information Plan Of Treatment Date Type Action Status Goal Tobacco cessation counseling completed Goal Diet education completed Goal Tobacco cessation counseling completed Goal Diet education completed Goal Tobacco cessation counseling completed Goal Diet education completed Goal Tobacco cessation counseling completed Referral Ordered: Weight management: Referral to physician timeframe: 3 Months (related to Body mass index (BMI) 31.0-31.9, adult) ordered Referral Ordered: Weight management: Referral to physician timeframe: 3 Months (related to Body mass index (BMI) 31.0-31.9, adult) ordered Referral Ordered: Weight management: Referral to physician timeframe: 3 Months (related to Body mass index (BMI) 31.0-31.9, adult) ordered History Of Present Illness Encounter Date Complaint History Of Prese nt Illness No Information Functional Status Date Description Comments No Information Instructions Date Instruction Additional Infor rancho Patient education booklet given Related to Localized edema Compression stocking usage as conservative measure Related to Localized edema Lifestyle education Related to B janeen mass index (BMI) 31.0-31.9, adult Giving Encouragement to exercise Related to Body mass index (BMI) 31.0-31.9, adult Diet education Related to Body mass index (BMI) 31.0-31.9, adult Patient education booklet given Related to Localized edema Lifestyle education Related to B janeen mass index (BMI) 31.0-31.9, adult Giving Encouragement to exercise Related to Body mass index (BMI) 31.0-31.9, adult Diet education Related to Body mass index (BMI) 31.0-31.9, adult Patient education booklet given Related to Chrn Vns Hyprtnsn w/Compl (Pain Edema Swelling); LEFT Diet education Related to Body mass index (BMI) 31.0-31.9, adult Giving Encouragement to exercise Related to Body mass index (BMI) 31.0-31.9, adult Lifestyle education Related to B janeen mass index (BMI) 31.0-31.9, adult Patient education booklet given Related to Varicose veins of bi low extrem w oth complications Pre and post instruc tions reviewed and provided Related to Varicose veins of bi low extrem w oth complications Assessments Type Assessment Date No Information
--- NOTE | ~2025-08-01 | MR_ITS ---
CLINICAL HISTORY: M79.89 - Other specified soft tissue disorders Exam: Nonenhanced MRI of the left hand, including gadolinium enhanced imaging. Comparison: None. Findings: Osseous structures: Visualized bone marrow signal intensities appear well-maintained, with no bone marrow edema, focal osseous lesions or fracture lines. Soft tissues: There is widening of the interspace between the 3rd middle phalanx and 3rd digit flexor tendons structures with edema within widened interspace (4; 30), findings compatible with finger iona injury in this location (A4 iona injury). There is a tear of the 3rd digit superficial flexor digitorum tendon, with retraction of the tendon to the level of the mid aspect of the 3rd proximal phalanx (distal retracted torn tendon segment seen on 4; 16-18 and also 7; 18). The deep flexor tendon appears intact. Remaining visualized tendons structures and signal intensities appear maintained. Remaining finger iona apparatus appears maintained. No other edema, soft tissue swelling or circumscribed collections appreciated. Impression: 1. Third digit finger iona injury at the level of the middle phalanx (A4 iona injury), associated with tear of the 3rd digit superficial flexor digitorum tendon and retraction of the tendon to the level of the mid aspect of the 3rd proximal phalanx. This document has been electronically signed by: Maximiliano Patino MD on 08/02/2025 15:57:12
--- OUTSIDE RECORDS SUMMARY | 2025-08-01 12:57 | XMS_ITS | Clinical Summary ---
Author Organization [facility] Address [address] [place] [address] Care Team Providers Care Scraper Burrer Name Role Phone Daryl Rich Primary Care Provider [phone] Allergies Active Allergy Reactions Criticality Noted Date [...] Health Maintenance Due Date Last Done Comments Advance Care Planning 1960 Hepatitis C Virus Screening 1960 HIV Screening 1973 DTaP/Tdap/Td Vaccines (1 - Tdap) 1979 Pap Smear (Ages 21-65) 1981 Mammogram 2000 Colonoscopy 2005 Pneumococcal Vaccines 50+ (1 of 1 - PCV) 2010 Zoster (Shingles) Vaccine (1 of 2) 2010 Influenza Vaccine 03/19/2025 04/19/2019, , 05/16/2016, Additional history exists COVID-19 Vaccine ( season) 2025 05/26/2021, 09/05/2020, 08/15/2020 DXA Bone Density (Females,Ages 65 and older) 2025 07/19/2015 RSV Vaccine 50 years and older and Patients (1 - 1-dose 75+ series) 2035 Hepatitis B Vaccines Aged Out No long er eligible based on patient's age to complete this topic Insurance [facility] Care Teams Scraper Burrer Relationship Specialty Start Date End Date Daryl Rich [address] [place] [address] [address] [place] [address] PCP - General 11/14/23
--- OUTSIDE RECORDS SUMMARY | 2025-08-01 12:57 | XMS_ITS | Clinical Summary ---
Author Organization [facility] Prior to 01/16/25 Address [address] [place] [address] Care Team Providers Care Lead Person Name Role Phone Thomas Espinoza MD Primary Care Provider [phone] Allergies Active Allergy Reactions Criticality Noted Date [...] f 2) 2010 Influenza Vaccine (#1) 2025 Fall Risk Assessment 2025 Osteoporosis Screening (DEXA Scan) 2025 Pneumococcal Vaccine (2 of 2 - [...] age to complete this topic Care Teams Lead Person Relationship Specialty Start Date End Date Thomas Espinoza MD [address] [address] PCP - General Internal Medicine 08/20/23
--- OUTSIDE RECORDS SUMMARY | 2025-08-01 12:57 | XMS_ITS | Encounter Summary ---
Author Organization [facility] Address [address] [place] [address] Care Team Providers Care Software Project Engineer Name Role Phone Daryl Rich Primary Care Provider [phone] Encounter Details Date Type Department Care Team (Late st Contact Info) Description 12/10/2023 Scanned Document [address] [place] [phone] Radiology, Scan Social History Tobacco Use [...] on filedocumented in this encounter Care Teams Software Project Engineer Relationship Specialty Start Date End Date Daryl Rich [address] [place] [address] PCP - General 11/14/23 documented as of this encounter
--- OUTSIDE RECORDS SUMMARY | 2025-08-01 12:57 | XMS_ITS | Data Portability ---
Author Organization [facility] Address [address] [place] [address] Care Team Providers Care Online Merchandising Specialist Name Role Phone CHRISSY VACA Primary Care Provider Assessment No assessment recorded. Plan of Treatment Reminders Order Date Submit Date Provider Last Modified By Organization Details Last Modified Time Details Appointments None recorded. Lab SARS CoV 2 (COVID-19) Ag, QL, [place], upper respiratory specimen 2022 [address], [address] [place], [address], 17:47:07 Referral None recorded. Procedures None recorded. Surgeries None recorded. Imaging None recorded. Medication Orders None recorded. Patient TargetsNo targets recorded. Patient Instructions Encounter Date Encounter Id Patient Instructions Last Modified By Organization Details Last Modified Time 04/23/2023 [id number] coronavirus (covid-19): care instructions Not available 04/23/2023 17:47:05 Coronavirus (COVID-19) in Children: Care Instructions Not available 04/23/2023 17:47:05 Reason for Referral None Reported. Results Created Date Observation Date Name Description Value Unit Range Abnormal Flag Note LastModifiedBy Organization Detail LastModifiedTime 04/23/20 23 04/23/2023 SARS CoV 2 (COVI D-19) Ag, QL, [place], upper respi rator y speci men Unknown Analyte positi ve Not Available [address] [place], [address], 04/23/2023 17:35:49 04/23/2004/23/2023 SARS CoV 2 (COVI D-19) Ag, QL, IA, upper respi rator y speci men Unknown Analyte negati ve Not Available [facility] [address] [place], [address], 04/23/2023 17:35:49 04/23/20 23 04/23/2023 SARS CoV 2 (COVI D-19) Ag, QL, IA, upper respi rator y speci men Unknown Analyte yes Not Available [facility] [address] [place], [address], 04/23/2023 17:35:49 Result Notes None recorded. Problems Name Problem SNOMED Code Status Onset Date Resolution Date Notes Provider Name and Address Organization Details Recorded Time Psoriatic arthritis 029613769 Active HAM NEWSOME-RIVE RA null, [place] - [facility] 17:21:20 Atrial fibrillation 14815427 Active HAM NEWSOME-RIVE RA null, [place] - [facility] 17:21:27 Hypertensive disorder 67956411 Active HAM NEWSOME-RIVE RA null, [place] - [...] Name and Address Organization Details Recorded Time 205429 erythromy alessandro medicatio n chest pain Not available Not available 04/23/2023 4053 RxNorm HAM NEWSOME-RIVE RA null, [place] - [facility] 3 17:19:52 Medications Name Sig Start Date Stop [...] numeric rating [Score] - Reported Oxygen saturation Heart rate Body temperature Systolic And Diastolic Provider Name and Address Organization Details Last Updated DateTime 3 162.56 cm 31.4 kg/m2 02617.4 g 18 /min 7 96 % 90 /min 100.5 [degF] 117/70 mm[Hg] HAM NESS RA [place] - [facility] 3 17:26:07 Social History Question Answer Notes LastModified by [employer] Details LastModified Time Tobacco Smoking Status Former Smoker HAM kimbrough [place] - [facility] 04/23/2023 17:23:20 When Did You Quit Smoking? 16+yearssinc elastcigaret te Information not available 04/23/2023 Have You Recently Traveled Abroad? No Information not available 04/23/2023 Sex: Unknown Functional Status Question Answer Note LastModified by [employer] Details LastModified Time Do you use any illicit or recreational drugs? No Information not available 04/23/2023 Do you or have you ever used any other forms of tobacco or nicotine? No Information not available 04/23/2023 What is your level of alcohol consumption? None Information not available 04/23/2023 Mental Status None recorded. Family History Relationship [...] Diagnosis SNOMED-CT Code Diagnosis ICD10 Code Diagnosis IMO Codes Diagnosis Note [id number] [facility] [address] [place] [address] 11/15/2017 11:10:08 11/15/2017 12:30:54 [id number] Trinidad PauloCONNOR [address] [address] 04/23/2023 16:04:01 04/23/2023 17:48:13 COVID-19 [id number] U07.1 Based on your Presentati on, Exam, [...] Recorded Advance Directives Directive None Recorded Payers Insurance Date Sequence Insurance Name Policy Number Policy Maynard Covered Member ID Maynard Member ID Guarantor Name 04/23/2023 1 [employer] [place] [place] [id number] [employer] Counter [id number] [employer] Notes Date Note Type Note Provider Name and Address Organization Details Recorded Time 04/23/2023 text/html COVID-19 SymptomsReported by PatientUpper Respiratory SymptomsFor covid-19 signs and symptoms, patient reportsmuscle pain worseningbut reportscough improving/resolved. For associated symptoms, patient reportsrunny nosebut reportsno sputum productionandno wheezing. For contacts and exposure, patient reportsclose proximity with person with covid-19. For severity, patient reportsmoderate. For prior labs and imaging, patient reportscovid-19 nasopharyngeal swab. For suitability of residential setting, patient reportspatient does have separate bedroom and bathroom for patient. CongestionReported by Patient Patient presents with nasal congestion, body aches, chest congestion x 2-3 days.. was exposed to covid. did a rapid covid test at home and was negative. Trinidad Bates NP [address] [place], [address], [place] - [facility] 04/25/2023 17:49:59 OBGyn Episode No OBEpisode recorded.
--- OUTSIDE RECORDS SUMMARY | 2025-08-01 12:58 | XMS_ITS | Clinical Summary ---
Author Organization [facility] Address [address] [place] [address] Phone Care Team Providers Care Assistant Front Office Manager Name Role Phone Thomas Espinoza MD Primary Care Provider [phone] Allergies Active Allergy Reactions Criticality Noted Date [...] - 05/27/2025 11:59 PM EDT Hospital Encounter [facility] X[facility] [address] [place] [address] Pain in left hand Discharge Disposition: Home or Self Care from Last 3 Months Surgical History Surgery Date Site/Laterality Comments CHOLECYSTECTOMY PROCEDURE: [place] LAPAROSCOPY SURG CHOLECYSTECTOMY OTHER SURGICAL HISTORY PROCEDURE: [place] UNLISTED PX MECKEL'S DIVERTICULUM & MESENTERY TOTAL KNEE ARTHROPLASTY PROCEDURE: [place] ARTHRP KNE CONDYLE&PLATU MEDIAL&LAT COMPARTMENTS Medical History Medical History Date Comments Essential hypertension DX:Essent ial hypertension A-fib (CMS/HCC V24, CMS/HCC V28) DX:A-fib (HCC) Psoriatic arthritis (CMS/HCC V24, CMS/HCC V28) DX:Psoriatic arthritis ([facility]) Social History Tobacco Use Types Packs/Day Years [...] Orientation Straight 12/22/2024 2: 06 PM EDT Last Filed Vital Signs Vital Sign [...] 02/10/2013, 10/03/2007 Cholesterol Screening (Lipid Panel) 07/18/2022 Social Influencers of Health Screening 07/18/2022 Breast Cancer Screening 02/08/2023 02/08/2021 Zoster Vaccines (2 of 2) 01/11/2024 11/16/2023 Depression Screening 08/19/2024 COVID-19 Vaccine (4 - 2024- season) 2025 05/26/2021, 09/05/2020, 08/15/2020 Influenza Vaccine (#1) 2025 , 04/19/2019, 05/09/2018, Additional history exists Hypertension/CHF/CAD Annual BMP Blood Test 12/11/2025 12/11/2024 Falls Risk Assessment 01/01/2026 01/01/2025 DTaP,Tdap,and Td Vaccines (4 - Td or [...] Region Laterality Modality Upper Extremities, Hand Left [facility] Imaging 05/28/2025 8:07 AM EDT Impressions 05/28/2025 8:09 AM EDT No acute findings. There is an old healed fracture of the distal radial metaphysis. 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 Code 03016 -------- FINAL REPORT -------- Dictated By: Morris Rouse Dictated Date: 05/28/2025 08:07 ET Assigned Physician: Morris Rouse Reviewed and Electronically Signed By: Morris Rouse Signed Date: 05/28/2025 08:09 ET Workstation ID: [id number] Transcribed By: Self Edit Transcribed Date: 05/28/2025 [...] Severe osteoarthritis of the first carpal-metacarpalarticulation. Code 80759 -------- FINAL REPORT -------- Dictated By: Morris Rouse Dictated Date: 05/28/2025 08:07 ET Assigned Physician: Morris Rouse Reviewed and Electronically Signed By: Morris Rouse Signed Date: 05/28/2025 08:09 ET Workstation ID: [id number] Transcribed By: Self Edit Transcribed Date: 05/28/2025 08:07 ET Josephine Nava MD IMG XR PROCEDURES Final Result * COLONOSCOPY (03/18/2025 3:40 PM EDT) Anatomical Region Laterality Modality Endoscopy Historical Provider GI~PROCEDURE ORDERABLES F inal Result * Hepatitis panel, acute with reflex to confirmation (12/11/2024 8:14 AM EDT) Pathologist [facility] Hepatitis B Surface Ag Negative Negative LAB CHEMISTRY METHOD 12/11/2024 2:31 PM EDT [facility] Hepatitis A Antibody IgM Negative Negative LAB CHEMISTRY METHOD 12/11/2024 2:31 PM EDT [facility] Hep B Core IgM Negative Negative LAB CHEMISTRY METHOD 12/11/2024 2:31 PM EDT [facility] Hepatitis C Antibody Negative Negative LAB CHEMISTRY METHOD 12/11/2024 2:31 PM EDT [facility] Blood Venous blood specimen / Unknown Venipuncture / Unknown 12/11/2024 8:14 AM EDT 12/11/2024 11:21 AM EDT Ashli Bailey MD LAB BLOOD ORDERABLES Final R esult [facility] [address] [place] [address], * (ABNORMAL) Comprehensive metabolic panel (12/11/2024 8:14 AM EDT) Pathologist [facility] Sodium 136 133 - 145 mmol/L LAB CHEMISTRY METHOD 12/11/2024 12:40 PM EDT [facility] Potassium 4.8 3.5 - 5.5 mmol/L LAB CHEMISTRY METHOD 12/11/2024 12:40 PM [facility] Chloride 103 96 - 110 mmol/L LAB CHEMISTRY METHOD 12/11/2024 12:40 PM [facility] CO2 26 21 - 32 mmol/L LAB CHEMISTRY METHOD 12/11/2024 12:40 PM [facility] Anion Gap 7 3 - 11 LAB CHEMISTRY METHOD 12/11/2024 12:40 PM [facility] Glucose 131(H) 70 - 100 mg/dL LAB CHEMISTRY METHOD 12/11/2024 12:40 PM [facility] BUN 16 5 - 25 mg/dL LAB CHEMISTRY METHOD 12/11/2024 12:40 PM [facility] Creatinine 0.80 0.50 - 1.10 mg/dL LAB CHEMISTRY METHOD 12/11/2024 12:40 PM [facility] eGFR 82 >=60 mL/min/1. 73m2 LAB CHEMISTRY METHOD 12/11/2024 12:40 PM [facility] Comment:Calculation based on the Chronic Kidney Disease Epidemiology Collaboration (CKD-EPI) equation refit without adjustment for race. BUN/Creatinine Ratio 20.0 LAB CHEMISTRY METHOD 12/11/2024 12:40 PM [facility] Calcium 9.1 8.5 - 10.5 mg/dL LAB CHEMISTRY METHOD 12/11/2024 12:40 PM [facility] AST (SGOT) 25 10 - 42 unit/L LAB CHEMISTRY METHOD 12/11/2024 12:40 PM [facility] ALT (SGPT) 24 10 - 60 unit/L LAB CHEMISTRY METHOD 12/11/2024 12:40 PM [facility] Alkaline Phosphatase 114 42 - 121 unit/L LAB CHEMISTRY METHOD 12/11/2024 12:40 PM [facility] Total Protein 6.3 6.0 - 8.0 g/dL LAB CHEMISTRY METHOD 12/11/2024 12:40 PM EDT [facility] Albumin 3.4 3.2 - 5.0 g/dL LAB CHEMISTRY METHOD 12/11/2024 12:40 PM EDT [facility] Total Bilirubin 0.5 0.0 - 1.4 mg/dL LAB CHEMISTRY METHOD 12/11/2024 12:40 PM EDT [facility] Blood Venous blood specimen / Unknown Venipuncture / Unknown 12/11/2024 8:14 AM EDT 12/11/2024 11:21 AM EDT us Ashli Bailey MD LAB BLOOD ORDERABLES Final R esult [facility] [address] [place] [address], [place] [phone] * BD Bone Density DXA Axial Skeleton [...] probability of hip fracture of 4.7%. Code 48868 -------- FINAL REPORT -------- Dictated By: Morris Rouse Dictated Date: 08/10/2024 09:09 ET Assigned Physician: Morris Rouse Reviewed and Electronically Signed By: Morris Rouse Signed Date: 08/10/2024 09:11 ET Workstation ID: [id number] Transcribed By: Self Edit Transcribed Date: 08/10/2024 [...] density of the femurs bilaterally is 0.769 gm/ro3wwjdx is 76% of that of young normals [...] probability of hip fracture of 4.7%. Code 82764 -------- FINAL REPORT -------- Dictated By: Morris Rouse Dictated Date: 08/10/2024 09:09 ET Assigned Physician: Morris Rouse Reviewed and Electronically Signed By: Morris Rouse Signed Date: 08/10/2024 09:11 ET Workstation ID: [id number] Transcribed By: Self Edit Transcribed Date: 08/10/2024 09:09 ET us Thomas Espinoza MD IMG DXA PROCEDURES Final Re sult from Last 3 Months or Most Recently Relevant to Health Maintenance Insurance [facility] Advance Directives Documents on File Type Date Recorded Patient Marketing Director Assisted Living Expl anation Health Care Decision (hx) 06/10/2021 [...] (hx) 07/05/2015 AD ASHBY DIRECTIVE Care Teams Assistant Front Office Manager Relationship Specialty Start Date End Date Thomas Espinoza MD [address] PCP - General Internal Medicine 03/01/25
--- OUTSIDE RECORDS SUMMARY | 2025-08-01 12:58 | XMS_ITS | Data Portability ---
Author Organization [facility], Main Office Address [address] [facility] [place] [address] Care Team Providers Care Printed Circuit Board Assembly Repairer Name Role Phone CHRISSY ESPINOZA Primary Care Provider LUIZA GASTON Turbine Operator [facility] Learning And Development Manager [facility] On Call [phone] ROLAND JEONG Referring Provider CJ LIU Referring Provider HASEEB CALABRESE Referring Provider NAKIA ALMONTE Electrostatic Powder Coating Technician ANISH PERES Tax Accountant Assessment Encounter Date Assessment Date Assessment LastModified by Organization Details LastModified Time 01/29/2024 01/29/2024 Discussed with patient the signs/symptom s warranted for a return to office visit and/or an ER visit. Patient understood and agreed with the plan. [email or web address] Not available 01/28/2024 21:12:38 Plan of Treatment Reminders Order Date Submit Date Provider Last Modified By Organization Details Last Modified Time Details Appointments None recorde d. Lab lipid panel, serum 2024 025 ES [facility] (Centralized Electronic Ordering - All Locations), Patient Can Go To The Location Of Their Choice, [id number] 13:46:35 CBC w/ auto diff 2024 025 ES [facility] (Centralized Electronic Ordering - All Locations), Patient Can Go To The Location Of Their Choice, 5 06:08:22 ferriti n, serum or plasma 2024 025 ES [facility] (Centralized Electronic Ordering - All Locations), Patient Can Go To The Location Of Their Choice, 5 06:08:24 iron + total iron-bi nding capacit y (TIBC), serum 2024 025 ES [facility] (Centralized Electronic Ordering - All Locations), Patient Can Go To The Location Of Their Choice, 5 06:08:23 lipid panel, serum 2023 024 ES [facility] (Centralized Electronic Ordering - All Locations), Patient Can Go To The Location Of Their Choice, 4 08:06:36 CMP, serum or plasma 2023 024 ES [facility] (Centralized Electronic Ordering - All Locations), Patient Can Go To The Location Of Their Choice, 4 08:06:36 CBC w/ auto diff 2023 024 [facility], [address] [facility], [facility] [address], [facility] [place] [address], 5 09:21:16 Referral rheumat ologist referra l - Psoriat ic arthrit is and osteopo rosis 2024 025 [facility], [address] [place] [address] , [address], [place], [address], 5 10:00:47 Procedures None recorde d. Surgeries None recorde d. Imaging bone density 2023 024 [email or web address] In-Office Order, Internal Use Only DO Not Attach Compendium DO Not Attach Compendium, Do Not Delete/merge, [id number] 4 08:16:07 Medication Orders amoxici llin 500 mg capsule 2023 024 ES Not available 08:49:08 Patient TargetsNo targets recorded. Patient Instructions Encounter Date Encounter Id Patient Instructions Last Modified By Organization Details Last Modified Time 01/29/2024 [id number] At [facility] follow up visit, all current and discharge medications (OTC, herbal therapies, supplements) reviewed and reconciled with patient and or caregiver, including potential side effects, drug interactions, instructions, and the consequences of not taking medication. Reviewed potential barriers to medication adherence, such as side effects from medication or cost of medication. Not available 01/29/2024 08:36:23 03/25/2024 [id number] high blood pressure: care instructions [email or web address] Not available 03/25/2024 10:02:06 learning about high blood pressure [email or web address] Not available 03/25/2024 10:02:07 high cholesterol: care instructions [email or web address] Not available 03/25/2024 10:02:06 09/22/2024 [id number] osteoporosis: care instructions [email or web address] Not available 09/22/2024 09:22:54 atrial fibrillation: care instructions [email or web address] Not available 09/22/2024 09:13:41 high cholesterol: care instructions [email or web address] Not available 09/22/2024 09:13:41 iron deficiency anemia: care instructions [email or web address] Not available 09/22/2024 09:13:41 03/31/2025 [id number] osteoporosis: care instructions [email or web address] Not available 03/31/2025 13:23:00 high blood pressure: care instructions [email or web address] Not available 03/31/2025 13:23:00 learning about high blood pressure [email or web address] Not available 03/31/2025 13:23:00 high cholesterol: care instructions [email or web address] Not available 03/31/2025 13:23:00 Rheumatoid Arthritis (RA): Care Instructions [email or web address] Not available 03/31/2025 13:23:00 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 METAB OLIC PANEL (14) glucose 81 mg/dL 70-99 normal Not Available [facility] ([facility]) [address] [facility] [place], [address], 08/09/2024 08:06:36 08/08/20 24 08/09/2024 COMP. METAB OLIC PANEL (14) BUN 17 mg/dL 8-27 normal Not Available [facility] ([facility]) [address] [facility] [place], [address], 08/09/2024 08:06:36 08/08/20 24 08/09/2024 COMP. METAB OLIC PANEL (14) creatinine 0.83 mg/dL 0.57-1 .00 normal Not Available [facility] ([facility]) [address] [facility] [place], [address], 08/09/2024 08:06:36 08/08/20 24 08/09/2024 COMP. METAB OLIC PANEL (14) eGFR 79 mL/mi n/1.7 3 >59 normal Not Available [facility] ([facility]) [address] [facility] [place], [address], 08/09/2024 08:06:36 08/08/20 24 08/09/2024 COMP. METAB OLIC PANEL (14) BUN/creatini ne ratio 20 12-28 normal Not Available [facility] ([facility]) [address] [place], [address], 08/09/2024 08:06:36 08/08/20 24 08/09/2024 COMP. METAB OLIC PANEL (14) sodium 139 mmol/ L 134-14 4 normal Not Available [facility] ([facility]) [address] [facility] [place], [address], 08/09/2024 08:06:36 08/08/20 24 08/09/2024 COMP. METAB OLIC PANEL (14) potassium 4.7 mmol/ L 3.5-5. 2 normal Not Available [facility] ([facility]) [address] [place], [address], 08/09/2024 08:06:36 08/08/20 24 08/09/2024 COMP. METAB OLIC PANEL (14) chloride 100 mmol/ L 96-106 normal Not Available [facility] ([facility]) [address] [place], [address], 08/09/2024 08:06:36 08/08/20 24 08/09/2024 COMP. METAB OLIC PANEL (14) carbon dioxide, total 25 mmol/ L 20-29 normal Not Available [facility] ([facility]) [address] [place], [address], 08/09/2024 08:06:36 08/08/20 24 08/09/2024 COMP. METAB OLIC PANEL (14) calcium 9.1 mg/dL 8.7-10 .3 normal Not Available [facility] ([facility]) [address] [place], [address], 08/09/2024 08:06:36 08/08/20 24 08/09/2024 COMP. METAB OLIC PANEL (14) protein, total 6.0 g/dL 6.0-8. 5 normal Not Available [facility] ([facility]) [address] [place], [address], 08/09/2024 08:06:36 08/08/20 24 08/09/2024 COMP. METAB OLIC PANEL (14) albumin 4.2 g/dL 3.9-4. 9 normal Not Available [facility] ([facility]) [address] [place], [address], 08/09/2024 08:06:36 08/08/20 24 08/09/2024 COMP. METAB OLIC PANEL (14) globulin, total 1.8 g/dL 1.5-4. 5 Not Available [facility] ([facility]) [address] [facility], [place], [address], 08/09/2024 08:06:36 08/08/20 24 08/09/2024 COMP. METAB OLIC PANEL (14) bilirubin, total 0.5 mg/dL 0.0-1. 2 normal Not Available [facility] ([facility]) [address] [facility] [place], [address], 08/09/2024 08:06:36 08/08/20 24 08/09/2024 COMP. METAB OLIC PANEL (14) alkaline phosphatase 123 IU/L 44-121 above high normal Not Available [facility] ([facility]) [address] [facility] [place], [address], 08/09/2024 08:06:36 08/08/20 24 08/09/2024 COMP. METAB OLIC PANEL (14) AST (SGOT) 33 IU/L 0-40 normal Not Available [facility] ([facility]) [address] [facility], [place], [address], 08/09/2024 08:06:36 08/08/20 24 08/09/2024 COMP. METAB OLIC PANEL (14) ALT (SGPT) 22 IU/L 0-32 normal Not Available [facility] ([facility]) [address] [facility] [place], [address], 08/09/2024 08:06:36 08/08/20 24 08/09/2024 LIPID PANEL cholesterol, total 115 mg/dL 100-19 9 normal Not Available [facility] ([facility]) [address] [place], [address], 08/09/2024 08:06:36 08/08/20 24 08/09/2024 LIPID PANEL triglyceride s 84 mg/dL 0-149 normal Not Available [facility] ([facility]) [address] [place], [address], 08/09/2024 08:06:36 08/08/20 24 08/09/2024 LIPID PANEL HDL cholesterol 57 mg/dL >39 normal Not Available [facility]) [address] [facility], [place], [address], 08/09/2024 08:06:36 08/08/20 24 08/09/2024 LIPID PANEL VLDL cholesterol meño 16 mg/dL 5-40 Not Available [facility] ([facility]) [address] [facility], [place], [address], 08/09/2024 08:06:36 08/08/20 24 08/09/2024 LIPID PANEL LDL chol calc ([facility]) 42 mg/dL 0-99 Not Available [facility]) [address] [facility], [place], [address], 08/09/2024 08:06:36 08/08/20 24 08/09/2024 LIPID PANEL LDL calc comment: BRUSH WASHER Not Available [facility] ([facility]) [address] [place], [address], 08/09/2024 08:06:36 09/22/19 25 09/22/2024 CBC WITH DIFFE RENTI AL/PL ATELE T WBC 6.5 x10e3 /uL 3.4-10 .8 normal Not Available [facility] ([facility]) [address] [place], [address], 09/23/2024 06:08:22 09/22/19 25 09/22/2024 CBC WITH DIFFE RENTI AL/PL ATELE T RBC 4.69 x10e6 /uL 3.77-5 .28 normal Not Available [facility] ([facility]) [address] [place], [address], 09/23/2024 06:08:22 09/22/19 25 09/22/2024 CBC WITH DIFFE RENTI AL/PL ATELE T hemoglobin 11.2 g/dL 11.1-1 5.9 normal Not Available [facility] ([facility]) [address] [facility], [place], [address], 09/23/2024 06:08:22 09/22/1909/22/2024 CBC WITH DIFFE RENTI AL/PL ATELE T hematocrit 37.7 % 34.0-4 6.6 normal Not Available [facility] ([facility]) [address] [facility], [place], [address], 09/23/2024 06:08:22 09/22/19 25 09/22/2024 CBC WITH DIFFE RENTI AL/PL ATELE T MCV 80 fL 79-97 normal Not Available [facility] ([facility]) [address] [facility], [place], [address], 09/23/2024 06:08:22 09/22/19 25 09/22/2024 CBC WITH DIFFE RENTI AL/PL ATELE T MCH 23.9 pg 26.6-3 3.0 below low normal Not Available [facility] ([facility]) [address] [facility], [place], [address], 09/23/2024 06:08:22 09/22/19 25 09/22/2024 CBC WITH DIFFE RENTI AL/PL ATELE T MCHC 29.7 g/dL 31.5-3 5.7 below low normal Not Available [facility] ([facility]) [address] [place], [address], 09/23/2024 06:08:22 09/22/1909/22/2024 CBC WITH DIFFE RENTI AL/PL ATELE T RDW 14.4 % 11.7-1 5.4 Not Available [facility] ([facility]) [address] [place], [address], 09/23/2024 06:08:22 09/22/19 25 09/22/2024 CBC WITH DIFFE RENTI AL/PL ATELE T platelets 398 x10e3 /uL 150-45 0 normal Not Available [facility] ([facility]) [address] [facility], [place], [address], 09/23/2024 06:08:22 09/22/19 25 09/22/2024 CBC WITH DIFFE RENTI AL/PL ATELE T neutrophils 70 % not estab. normal Not Available [facility] ([facility]) [address] [facility], [place], [address], 09/23/2024 06:08:22 09/22/19 25 09/22/2024 CBC WITH DIFFE RENTI AL/PL ATELE T lymphs 13 % not estab. normal Not Available [facility] ([facility]) [address] [facility], [place], [address], 09/23/2024 06:08:22 09/22/19 25 09/22/2024 CBC WITH DIFFE RENTI AL/PL ATELE T monocytes 12 % not estab. normal Not Available [facility] ([facility]) [address] [facility], [place], [address], 09/23/2024 06:08:22 09/22/19 25 09/22/2024 CBC WITH DIFFE RENTI AL/PL ATELE T eos 3 % not estab. normal Not Available [facility] ([facility]) [address] [facility], [place], [address], 09/23/2024 06:08:22 09/22/19 25 09/22/2024 CBC WITH DIFFE RENTI AL/PL ATELE T basos 1 % not estab. normal Not Available [facility] ([facility]) [address] [facility], [place], [address], 09/23/2024 06:08:22 09/22/19 25 09/22/2024 CBC WITH DIFFE RENTI AL/PL ATELE T immature cells BRUSH WASHER Not Available [facility] ([facility]) [address] [facility], [place], [address], 09/23/2024 06:08:22 09/22/19 25 09/22/2024 CBC WITH DIFFE RENTI AL/PL ATELE T neutrophils (absolute) 4.6 x10e3 /uL 1.4-7. 0 normal Not Available [facility] ([facility]) [address] [place], [address], 09/23/2024 06:08:22 09/22/19 25 09/22/2024 CBC WITH DIFFE RENTI AL/PL ATELE T lymphs (absolute) 0.8 x10e3 /uL 0.7-3. 1 normal Not Available [facility] ([facility]) [address] [place], [address], 09/23/2024 06:08:22 09/22/19 25 09/22/2024 CBC WITH DIFFE RENTI AL/PL ATELE T monocytes(ab solute) 0.8 x10e3 /uL 0.1-0. 9 normal Not Available [facility] ([facility]) [address] [facility], [place], [address], 09/23/2024 06:08:22 09/22/19 25 09/22/2024 CBC WITH DIFFE RENTI AL/PL ATELE T eos (absolute) 0.2 x10e3 /uL 0.0-0. 4 normal Not Available [facility] ([facility]) [address] [place], [address], 09/23/2024 06:08:22 09/22/19 25 09/22/2024 CBC WITH DIFFE RENTI AL/PL ATELE T baso (absolute) 0.1 x10e3 /uL 0.0-0. 2 normal Not Available [facility] ([facility]) [address] [place], [address], 09/23/2024 06:08:22 09/22/19 25 09/22/2024 CBC WITH DIFFE RENTI AL/PL ATELE T immature granulocytes 1 % not estab. Not Available [facility] ([facility]) [address] [facility] [place], [address], 09/23/2024 06:08:22 09/22/19 25 09/22/2024 CBC WITH DIFFE RENTI AL/PL ATELE T immature grans (abs) 0.0 x10e3 /uL 0.0-0. 1 Not Available [facility] ([facility]) [address] [facility], [place], [address], 09/23/2024 06:08:22 09/22/19 25 09/22/2024 CBC WITH DIFFE RENTI AL/PL ATELE T NRBC BRUSH WASHER Not Available [facility] ([facility]) [address] [facility], [place], [address], 09/23/2024 06:08:22 09/22/19 25 09/22/2024 CBC WITH DIFFE RENTI AL/PL ATELE T hematology comments: BRUSH WASHER Not Available [facility] ([facility]) [address] [facility], [place], [address], 09/23/2024 06:08:22 09/22/19 25 09/23/2024 IRON AND TIBC iron bind.cap.(TI BC) 383 ug/dL 250-45 0 normal Not Available [facility] ([facility]) [address] [facility], [place], [address], 09/23/2024 06:08:23 09/22/19 25 09/23/2024 IRON AND TIBC UIBC 351 ug/dL 118-36 9 normal Not Available [facility] ([facility]) [address] [facility], [place], [address], 09/23/2024 06:08:23 09/22/19 25 09/23/2024 IRON AND TIBC iron 32 ug/dL 27-139 normal Not Available [facility] ([facility]) [address] [facility], [place], [address], 09/23/2024 06:08:23 09/22/1909/23/2024 IRON AND TIBC iron saturation 8 % 15-55 alert low Not Available [facility] ([facility]) [address] [facility], [place], [address], 09/23/2024 06:08:23 09/22/1909/23/2024 EDNA TIN ferritin 12 NG/mL 15-150 below low normal Not Available [facility] ([facility]) [address] [facility], [place], [address], 09/23/2024 06:08:23 12/12/1912/11/2024 COMPL ETE BLOOD COUNT WBC 6.3 K/mcL 4.8-10 .8 Not Available [address], [address], 12/11/2024 11:32:14 12/12/1912/11/2024 COMPL ETE BLOOD COUNT RBC 4.20 M/mcL 3.80-4 .80 Not Available [address], [address], 12/11/2024 11:32:14 12/12/1912/11/2024 COMPL ETE BLOOD COUNT hemoglobin 10.0 g/dL 11.5-1 6.0 low Not Available [address], [address], 12/11/2024 11:32:14 12/12/1912/11/2024 COMPL ETE BLOOD COUNT hematocrit 34.5 % 35.0-4 7.0 low Not Available [address], [address], 12/11/2024 11:32:14 12/12/19 25 12/11/2024 COMPL ETE BLOOD COUNT MCV 81.4 fL 79.0-9 8.0 Not Available [address], [address], 12/11/2024 11:32:14 12/12/1912/11/2024 COMPL ETE BLOOD COUNT MCH 23.6 pcg 27.0-3 2.0 low Not Available [address], [address], 12/11/2024 11:32:14 12/12/19 25 12/11/2024 COMPL ETE BLOOD COUNT MCHC 29.0 g/dL 32.0-3 7.0 low Not Available [address], [address], 12/11/2024 11:32:14 12/12/1912/11/2024 COMPL ETE BLOOD COUNT RDW 17.4 % 11.0-1 5.0 high Not Available [address], [address], 12/11/2024 11:32:14 12/12/1912/11/2024 COMPL ETE BLOOD COUNT platelets 389 K/mcL 130-40 0 Not Available [address], [address], 12/11/2024 11:32:14 12/12/1912/11/2024 COMPL ETE BLOOD COUNT MPV 10.8 fL 7.0-11 .0 Not Available [address], [address], 12/11/2024 11:32:14 12/12/1912/11/2024 COMPL ETE BLOOD COUNT NRBC 0.0 % <1.0 Not Available [address], [address], 12/11/2024 11:32:14 12/12/1912/11/2024 COMPL ETE BLOOD COUNT NRBC absolute 0.00 K/mcL <0.10 Not Available [address], [address], 12/11/2024 11:32:14 12/12/1911 1212/11/2024 COMPL ETE BLOOD COUNT note See Report [facility], [address] [facility], [place], [place] [facility] [place] [address] Not Available [address], [address], 12/11/2024 11:32:14 12/12/19 25 12/11/2024 SEDIM ENTAT ION RATE sed rate 39 mm/HR 0-30 high Not Available [address], [address], 12/11/2024 11:40:00 12/12/1912/11/2024 SEDIM ENTAT ION RATE note See Report high [facility], [address] [facility], [place], [facility] [place] [address] Not Available [address], [address], 12/11/2024 11:40:00 12/12/19 25 12/11/2024 C REACT KANDIS PROTE IN, HIGH SENSI TIVIT Y CRP, high sensitivity 7.78 mg/L Cardi o CRP Relat kandis Risk Categ ories Low <1.0 mg/L [place] ge 1.0 - 3.0 mg/L High >3.0 [...] be calib rated downw carolyn. Not Available [address], [address], 12/11/2024 12:42:55 12/12/19 25 12/11/2024 C REACT KANDIS PROTE IN, HIGH SENSI TIVIT Y note See Report [facility], [address] [facility], [place], [facility] [place] [address] Not Available [address], [address], 12/11/2024 12:42:55 12/12/1912/11/2024 COMPR EHENS KANDIS METAB OLIC PANEL sodium 136 mmol/ L 133-14 5 Not Available [address], [address], 12/11/2024 12:43:05 12/12/1912/11/2024 COMPR EHENS KANDIS METAB OLIC PANEL potassium 4.8 mmol/ L 3.5-5. 5 Not Available [address], [address], 12/11/2024 12:43:05 12/12/1912/11/2024 COMPR EHENS KANDIS METAB OLIC PANEL chloride 103 mmol/ L 96-110 Not Available [address], [address], 12/11/2024 12:43:05 12/12/1912/11/2024 COMPR EHENS KANDIS METAB OLIC PANEL CO2 26 mmol/ L 21-32 Not Available [address], [address], 12/11/2024 12:43:05 12/12/1912/11/2024 COMPR EHENS KANDIS METAB OLIC PANEL anion gap 7 3-11 Not Available [address], [address], 12/11/2024 12:43:05 12/12/1912/11/2024 COMPR EHENS KANDIS METAB OLIC PANEL glucose 131 mg/dL 70-100 high Not Available [address], [address], 12/11/2024 12:43:05 12/12/19 25 12/11/2024 COMPR EHENS KANDIS METAB OLIC PANEL BUN 16 mg/dL 5-25 Not Available [address], [address], 12/11/2024 12:43:05 12/12/1912/11/2024 COMPR EHENS KANDIS METAB OLIC PANEL creatinine 0.80 mg/dL 0.50-1 .10 Not Available [address], [address], 12/11/2024 12:43:05 12/12/19 25 12/11/2024 COMPR EHENS KANDIS METAB OLIC PANEL eGFR 82 mL/mi n/1.7 3m2 >=60 Calcu latio n based on the C hroni c Kidne y Disea se Epide miolo gy Colla borat ion (CKD- EPI) equat ion [facility] tment for race. Not Available [address], [address], 12/11/2024 12:43:05 12/12/19 25 12/11/2024 COMPR EHENS KANDIS METAB OLIC PANEL BUN/creatini ne ratio 20.0 Not Available [address], [address], 12/11/2024 12:43:05 12/12/19 25 12/11/2024 COMPR EHENS KANDIS METAB OLIC PANEL calcium 9.1 mg/dL 8.5-10 .5 Not Available [address], [address], 12/11/2024 12:43:05 12/12/19 25 12/11/2024 COMPR EHENS KANDIS METAB OLIC PANEL AST (SGOT) 25 unit/ L 10-42 Not Available [address], [address], 12/11/2024 12:43:05 12/12/19 25 12/11/2024 COMPR EHENS KANDIS METAB OLIC PANEL ALT (SGPT) 24 unit/ L 10-60 Not Available [address] [place], [address], 12/11/2024 12:43:05 12/12/1912/11/2024 COMPR EHENS KANDIS METAB OLIC PANEL alkaline phosphatase 114 unit/ L 42-121 Not Available [address], [address], 12/11/2024 12:43:05 12/12/1912/11/2024 COMPR EHENS KANDIS METAB OLIC PANEL total protein 6.3 g/dL 6.0-8. 0 Not Available [address], [address], 12/11/2024 12:43:05 12/12/1912/11/2024 COMPR EHENS KANDIS METAB OLIC PANEL albumin 3.4 g/dL 3.2-5. 0 Not Available [address], [address], 12/11/2024 12:43:05 12/12/19 25 12/11/2024 COMPR EHENS KANDIS METAB OLIC PANEL total bilirubin 0.5 mg/dL 0.0-1. 4 Not Available [address], [address], 12/11/2024 12:43:05 12/12/1912/11/2024 COMPR EHENS KANDIS METAB OLIC PANEL note See Report [facility], [address] [facility] [address], [place], [place] [address] Not Available [address], [address], 12/11/2024 12:43:05 12/12/1912/11/2024 HEPAT ITIS PANEL , ACUTE WITH REFLE X TO CONFI RMATI ON hepatitis B surface Ag Negati ve negati ve Not Available [address], [address], 12/11/2024 14:36:21 12/12/19 25 12/11/2024 HEPAT ITIS PANEL , ACUTE WITH REFLE X TO CONFI RMATI ON hepatitis A antibody IgM Negati ve negati ve Not Available [address], [address], 12/11/2024 14:36:21 12/12/19 25 12/11/2024 HEPAT ITIS PANEL , ACUTE WITH REFLE X TO CONFI RMATI ON hep B core IgM Negati ve negati ve Not Available [address], [address], 12/11/2024 14:36:21 12/12/19 25 12/11/2024 HEPAT ITIS PANEL , ACUTE WITH REFLE X TO CONFI RMATI ON hepatitis C antibody Negati ve negati ve Not Available [address], [address], 12/11/2024 14:36:21 12/12/19 25 12/11/2024 HEPAT ITIS PANEL , ACUTE WITH REFLE X TO CONFI RMATI ON note See Report [facility], [address] [facility], [facility] [place] [address] Not Available [address], [address], 12/11/2024 14:36:21 12/12/19 25 12/11/2024 INTER FERON GAMMA INTER PRETA TION quantiferon plus interpretati on Negati ve negati ve Not Available [address], [address], 12/12/2024 13:03:51 12/12/19 25 12/11/2024 INTER FERON GAMMA INTER PRETA TION note See Report [facility], [address] [facility], [place], [facility] [place] [address] Not Available [address], [address], 12/12/2024 13:03:51 01/21/20 24 01/21/2024 XR, chest No observ ation record ed. [address] [facility] [address] [place] [address], [address], 01/22/2024 08:18:21 01/21/20 24 01/21/2024 CT, abdom en + pelvi s, w/ contr ast No observ ation record ed. [address] [facility] [address] [place] [address], [id number], 01/22/2024 08:18:28 01/21/20 24 01/21/2024 XR, abdom en + pelvi s No observ ation record ed. [address] [facility] [address] [place] [address], [address], 01/22/2024 08:18:54 01/22/20 24 01/22/2024 XR, abdom en No observ ation record ed. [facility] [address] [place] [address], [id number], 01/22/2024 17:19:11 01/23/20 24 01/23/2024 XR, abdom en + pelvi s No observ ation record ed. [address] [facility] [address] [place] [address], [address], 01/23/2024 09:06:52 01/23/20 24 01/22/2024 imagi ng inter preta tion No observ ation record ed. [address] [facility] [address] [place] [address], [address], 01/23/2024 09:07:08 01/23/20 24 01/23/2024 XR, abdom en No observ ation record ed. [facility] [address] [place] [address], [id number], 01/23/2024 09:03:21 04/29/20 24 04/23/2024 XR, hip, unila teral , 2 or 3 view No observ ation record ed. [address] (Medical Records) [address] [place], [address], 04/29/2024 13:07:35 04/29/20 24 04/23/2024 XR, lumba r spine No observ ation record ed. [address] (Medical Records) [address] [place], [address], 04/29/2024 13:07:47 04/29/20 24 04/23/2024 XR, hip, unila teral No observ ation record ed. [address] (Medical Records) [address] [place], [address], 04/29/2024 13:07:59 08/10/20 24 08/10/2024 bd bone densi ty dxa axial skele ton See Note [facility] , a member of [employer] Vibha epstein Name: SARABJIT Schofield Date of : 1959 Reason for Exam: SPECIF IED DISORD ERS OF BONE OF BONE DENSIT Y&STUC TURE Exam Date: 2023 [id number] EST Report Status : Final Orderi ng Provid er: CHRISSY FLORES PCP: CHRISSY FLORES HISTOR Y: The vibha epstein is a 64-yea r-old postme nopaus [...] of hip fractu re of 4.7%. Code 67688 ------ -- FINAL REPORT ------ -- Dictat ed By: Morris Springer Dictat ed Date: 2023 09:09 ET Assign ed Physic ignacio: Morris Springer Review ed and Electr onical ly Signed By: Morris Springer Signed Date: 2023 09:11 ET Workst ation ID: [id number] Transc ribed By: Self Edit Transc ribed Date: 2023 09:09 ET reynaldo [address], [address], 08/10/2024 17:05:21 03/04/20 25 03/01/2025 head neck soft tissu e See Note [facility] , a member of [employer] [facility] tete Name: SARABJIT Schofield Date of : 1959 Reason for Exam: hypoth yrodis m Exam Date: 2024 [id number] EST Report Status : Final Orderi ng Provid er: WADE Grewal PCP: CHRISSY FLORES INDICA TION: hypoth yrodis m FINDIN GS: Ultras ound of the thyroi d gland perfor med. No prior studie s availa ble for compar jeffrey. Right lobe measur es: 4.9 cm x 1.4 cm x 1.9 cm Left lobe measur es: 4.4 cm x 1.2 cm x 1.3 cm Isthmu s measur es: 2 mm in width. 3 mm solid mid pole nodule on the right side mildly hetero geneou s and mildly hypoec hoic. Nodule is well-c ircums cribed withou t puncta te echoge tanner foci. TR 4 Isoech oic to mildly hypere choic solid 5 mm nodule in the right lower pole. Nodule is smooth withou t puncta te echoge tanner foci. TR 3 Left lower pole mainly isoech oic mildly hetero geneou s solid nodule is well-c ircums cribed and measur es 9 mm x 7 mm x 5 mm. Nodule is fairly well define d withou t puncta te echoge tanner foci. TR 3 IMPRES ALLISON: Subcen timete r bilate ral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 15:50:23 Adult health examinat ion Completed 201303/26/2014 RECORDED 12/05/19 14 10:03AM BY ROCIO BATES MA, LIZANDRO ON/ADDEN DUM Alma Marcos, [facility] [address] [facility] [address], [place], [address] , [facility] 6 15:50:23 Morbid obesity 877551677 Completed 201303/26/2014 RECORDED 12/05/19 14 10:03AM BY ROCIO BATES MA, ANNOTATI ON/ADDEN DUM Alma Marcos, [facility] [address] [facility] [address], [place], [address] , [facility] 6 15:50:23 Vitamin B deficien cy 76415722 Completed 201303/26/2014 RECORDED 12/05/19 14 10:03AM BY ROICO BATES MA, ANNOTATI ON/ADDEN DUM Alma Marcos, [facility] [address] [facility] [address], [place], [address] , [facility] 6 15:50:23 Tobacco user [id number] Completed 201304/16/2014 RECORDED 02/17/20 14 3:27PM BY AZAEL NEWSOME, OFFICE VISIT Alma Marcos, [facility] [address] [address], [place], [address] , [facility] 6 15:50:23 Laborato ry procedur e performe d 388929663 Completed 201304/16/2014 RECORDED 02/17/20 14 3:27PM BY AZAEL NEWSOME, OFFICE VISIT Alma Marcos, [facility] [address] [place] [address], [place], [address] , [facility] 6 15:50:23 Psoriasi s with arthropa thy Active 2013 Stable on tremfya. Followed by Joe Rdz, Dr Isbell. Chrissy Espinoza MD [address] [facility] [address], [place], [address] , [facility] 4 08:29:49 Closed fracture of left wrist [id number] 788514 Active 2016 distal radius Hermelinda kimbrough, [facility] 0 16:20:05 Low back pain 410366617 Active 2016 Spinal stenosis on MRI; followed by gio lagunas and being treated conserva tively for now. Surgery may be an option in the future if not respondi ng to conserva tive trearmen t. Doing well with acupunct ure in mid 2016. Hermelinda kimbrough [facility] 0 16:20:05 Multinod ular goiter 745291339 Active 2016 Followed by nikki payne [facility] Hermelinda kimbrough [facility] 0 16:20:05 Injury of upper extremit y 108654674 Active 2016 Hermelinda kimbrough [facility] 0 16:20:05 Cough 21727420 Completed 201711/12/2018 AZAEL Garza [facility] 9 14:10:01 Acute sinusiti s 53358798 Completed 201711/12/2018 AZAEL Garza [facility] 9 14:10:26 Periodic limb movement disorder 399656812 Active 2018 Followed by neuro Hermelinda kimbrough [facility] 0 16:20:05 Spinal stenosis of lumbar region 07532952 Active 2019 Schedule d for surgery Hermelinda kimbrough [facility] 0 16:20:05 Sciatica 22624530 Active 2019 Hermelinda kimbrough [facility] 0 16:20:05 Pain in left knee Active 2020 Seen by ortho. OA. May need TKR. Chrissy Espinoza MD [address], [place], [address] , [facility] 1 12:18:17 Small bowel obstruct ion 841495648 Active [address] scan Repeat SBO January 2024 Chrissy Espinoza MD [address], [place], [address] , [facility] 4 15:38:45 Rheumato id arthriti s 79236858 Active 2021 Followed by rheum. Chrissy Espinoza MD [address], [place], [address] , [facility] 2 16:35:57 Spinal stenosis in cervical region 36720566 Active [address] Jean and pastor d for surgery for C3-4 Chrissy Espinoza MD [address], [place], [address] , [facility] 3 09:53:53 Osteoart hritis of joint of right shoulder region 78902228207 9100 Active 2022 Alma Marcos, [facility] [address] [facility] [address], [place], [address] , [facility] 3 09:00:54 Hyperlip idemia 77908652 Active 2022 Alma Marcos, [facility] [address], [place], [address] , [facility] 3 09:08:44 Heart failure with normal ejection fraction 865288135 Active 2022 Followed by cardiolo gy Chrissy Espinoza MD [address] [facility] [address], [place], [address] , [facility] 3 19:13:02 Varicose veins of lower extremit y 18411230 Active 2022 Followed by vascular . Venous insuffic iency. Treated with lifestyl e changes. Chrissy Espinoza MD [address], [place], [address] , [facility] 3 08:42:03 Psoriati c arthriti s 305305879 Active 2023 Chrissy Espinoza MD [address], [place], [address] , [facility] 4 12:24:06 Osteopor osis 60039874 Active 2023 Major risk fracture is >20% so will discuss starting meds. Chrissy Espinoza MD [address], [place], [address] , [facility] 4 17:04:42 Chronic anemia 308373902 Active [address] Staples; possibly ACD Chrissy Espinoza MD [address], [place], [address] , [facility] 5 11:56:41 Notes:Some problems listed i n Document: #[id number] could not be added to this patient's chart. Please review this document and add these problems to the patient's chart manually as needed. Problem Notes None recorded. Procedures Surgical History Date Name Laterality Status Provider Name and Address Organization Details Recorded Time 10/21 esophagogastroduodenoscopy completed Roni Devine [facility] 4 08:45:45 02/05 Other completed Sigrid Fall MA [facility] 3 10:04:35 01/21 Most Recent Mammogram completed Sigrid Fall MA [facility] 3 10:05:12 11/05 Date of Last Colonoscopy completed Zulema Reyes [facility] 3 12:39:03 11/05 Colonoscopy completed Briana Devine [facility] 3 12:36:19 06/09 Laparoscopy completed Hermelinda Manriquez [facility] 1 15:21:18 02/08 Mammogram screening completed Krista Soria [facility] 1 13:08:14 10/11 total replacement of left knee joint completed Hermelinda Manriquez [facility] 1 10:17:29 05/20 Triamcinolone acet inj nos completed Gibran donnelly MA [facility] 8 11:29:01 07/08 Unlisted px hands/fingers completed Jade Driscoll [facility] 7 10:21:56 03/13 Reconstructive Surgery completed Pooja Mari [facility] 6 08:25:08 07/19 Most Recent Bone Density completed MARY Patton [address], [address], [facility] 6 18:51:09 07/19 Dxa bone density tomy vrt fx completed Jewels Gregg [facility] 7 15:39:26 06/21 Echo transthoracic completed Lesa Nicholas [facility] 5 12:02:19 02/07 Unlisted procedure shoulder completed Virgilio donnelly MA [facility] 9 14:33:21 02/03 Date of Last Pap Smear completed MARY Love [address] [address], [place], [address], [facility] 6 18:53:06 06/29 Gastrointestinal Surgery completed Virgilio donnelly MA [facility] 9 14:16:50 08/19 Orthopedic Surgery completed Chrissy Espinoza MD [address] [facility] [address] [facility], [place], [address], [facility] 4 13:39:06 01/05 Gastrointestinal Surgery completed Virgilio donnelly MA [facility] 9 14:16:30 05/30 Gastrointestinal Surgery completed Virgilio donnelly MA [facility] 9 14:17:14 05/06 Gastrointestinal Surgery completed Lesa Nicholas [facility] 8 15:22:39 05/01 Hysterectomy completed Lisseth Magallon RN [facility] 9 14:57:03 08/19 Gastrointestinal Surgery completed Chrissy Espinoza MD [address] [address], [place], [address], [facility] 4 13:39:06 07/09 Cholecystectomy completed Lesa Nicholas [facility] 8 15:22:38 08/19 Gastric Bypass completed Chrissy Espinoza MD [address], [address], [facility] 4 13:39:06 07/23 repair of umbilical hernia completed Gibran donnelly MA [facility] 9 14:17:39 Imaging Results None recorded. Procedure Notes None recorded. Medical Equipment None Reported. Allergies Allergen ID Allergen Name Allergen Category Reaction Reaction Severity Criticality Documentation Date Start Date Code Code System Note Provider Name and Address Organization Details Recorded Time 23615 erythromy alessandro medicatio n Not available Not available Not available 07/09/20172016 4053 RxNorm Chrissy beltran MD [address] [address], [place], [address], [facility] 8 15:56:33 3232 erythromy alessandro medicatio n Not available Not available Not available 03/02/20142013 4053 [facility] 6 15:50:57 Medications Name Sig Start Date [...] active Not Available Not Available Not Available janusz covid-19 ag card home test kit 01/29 [...] Not Available Not Available spironola ctone/hyd rochlorot ayvaqyg62 -25 mg tabs active Not Available Not [...] TAKE 1 CAPSULE BY MOUTH TWICE DAILY 03/31 completed Not Available Not Available Not Available aspirin 81 mg tablet,de layed release Take 1 tablet every day by oral route as directed for 30 days. 05/14 completed Not Available Not Available Not Available leflunomi de 20 mg tablet TAKE 1 TABLET BY MOUTH DAILY active Not Available Not Available No t Available tramadol 50 mg tablet TAKE 1 TABLET BY MOUTH THREE TIMES A DAY NEEDED 2024 active Not Available Not Available Not [...] 14 3:56PM BY CHRISSY HOOPER MD, ANNOTATI ON/JACKIE DUM; Not Available Not Available Not Available [...] completed Not Available Not Available Not Available famotidin e 20 mg (Dis) tablet Take 1 tablet every day by oral route in the morning. active Not Available Not Available No t Available polymyxin B sulfate 10,000 unit-trim ethoprim [...] 1 CAPSULE BY MOUTH THREE TIMES DAILY 02/08 completed Not Available Not Available Not Available omeprazol e 20 mg capsule,d elayed [...] active Not Available Not Available Not Available Lyrica 100 mg capsule Take 1 capsule every day by oral route at bedtime. active Not Available Not Available No t Available Calcium + D DAILY active RECORDED [...] 12 4:09PM BY PEMA KIRK MA, ANNOTATI ON/JACKIE DUM; Not Available Not Available Not Available [...] No t Available omeprazol e 20 mg delayed release,d isintegra ting tablet Take 1 tablet every day by oral route at bedtime. active Not Available Not Available No t [...] (BMI) Body weight Heart rate Oxygen saturation Body temperature Systolic And Diastolic Provider Name and Address Organization Details Last Updated DateTime 5 165.1 cm 31.8 kg/m2 69529.1 4 g 91 /min 98 % 98.3 [degF] 125/77 mm[Hg] Leyla Stauffer MA [facility] 5 08:59:21 Date Recorded Body height Body mass index (BMI) Body weight Heart rate Oxygen saturation Body temperature Systolic And Diastolic Provider Name and Address Organization Details Last Updated DateTime 4 165.1 cm 29.8 kg/m2 01752.0 3 g 79 /min 97 % 98.6 [degF] 124/82 mm[Hg] Leyla Stauffer MA [facility] 4 08:40:49 Date Recorded Body height Body mass index (BMI) Body weight Heart rate Oxygen saturation Body temperature Systolic And Diastolic Provider Name and Address Organization Details Last Updated DateTime 4 165.1 cm 29.3 kg/m2 63695.2 6 g 88 /min 95 % 98.3 [degF] 108/64 mm[Hg] Leyla Stauffer MA [facility] 4 09:22:19 Date Recorded Body height Body mass index (BMI) Body weight Heart rate Oxygen saturation Body temperature Systolic And Diastolic Provider Name and Address Organization Details Last Updated DateTime 5 165.1 cm 31.8 kg/m2 67729.1 4 g 80 /min 94 % 98.7 [degF] 102/67 mm[Hg] Leyla Stauffer MA [facility] 5 13:09:01 Social History Question Answer Notes LastModified by Organizat ion Details LastModified Time Tobacco Smoking Status Former Smoker quit in 2004 Not Available [employer] 06/21/2020 03:36:36 Do You Have An Advance Directive? No [id number] Information not available 06/21/2020 Is Blood Transfusion Acceptable In An Emergency? Yes [id number] Information not available 06/21/2020 What Is Your Level Of Caffeine Consumption? Moderate 4 Cups Of Coffee Daily [id number] Information not available 06/21/2020 How Much Tobacco Do You Chew? None [id number] Information not available 06/21/2020 What Type Of Diet Are You Following? REGULAR [id number] Information not available 06/21/2020 Which Illicit Or Recreational Drugs Have You Used? None [id number] Information not available 06/21/2020 Education 4 Year College Information not available 04/16/2014 When Did You Quit Smoking? 16+yearssinc elastcigaret te Information not available 03/21/2023 Are There Any Guns Present In Your Home? No [id number] Information not available 06/21/2020 Live Alone Or With Others? With Others Sister (Rosina) Information not available 03/21/2023 Do You Take Precautions To Prevent Distracted Driving? Yes Information not available 09/12/2015 How Often Do You Need To Have Someone Help You When You Read Instructions, Pamphlets, Or Other Written Material From Your Doctor Or Pharmacy? Never [email or web address] Information not available 09/12/2015 Have You Served In The ? No [email or web address] Information not available 11/08/2016 Have You Or Anyone In Your Household Had Any Of The Following Symptoms In The Last 14 Days: Sore Throat, Cough, Chills, Body Aches For Unknown Reasons, Shortness Of Breath For Unknown Reasons, Loss Of Smell, Loss Of Taste, Fever At Or Greater Than 100 Degrees Fahrenheit? No [email or web address] Information not available 07/28/2020 Are You Or Anyone In Your Household A Health Care Provider Or Emergency Responder? No [email or web address] Information not available 07/28/2020 To The Best Of Your Knowledge Have You Been In Close Proximity To Any Individual Who Tested Positive For COVID-19? No [email or web address] Information not available 07/28/2020 Have You Recently Traveled To A COVID-19 High Risk Area Or Gathering In The Last 10 Days? No [email or web address] Information not available 02/07/2021 What Was The Date Of Your Most Recent Tobacco Screening? 03/31/2025 Information not available 03/31/2025 How Many Children Do You Have? 0 [id number] Information not available 06/21/2020 Seat Belts Used Routinely Yes Information not available 09/12/2015 Are You Sexually Active? No [id number] Information not available 06/21/2020 Smoke Alarm In Home Yes [email or web address] Information not available 09/12/2015 Are You Passively Exposed To Smoke? No [email or web address] Information not available 11/08/2016 Do You Use Sunscreen Routinely? Yes [id number] Information not available 06/21/2020 Sex: Unknown Functional Status Question Answer Note LastModified by Organizat ion Details LastModified Time Do you use any illicit or recreational drugs? No Information not available 02/08/2022 Do you or have you ever used any other forms of tobacco or nicotine? No Information not available 02/08/2022 What is your level of alcohol consumption? Occasional [id number] Information not available 06/21/2020 Do you or have you ever used smokeless tobacco? Never used smokeless tobacco [id number] Information not available 06/21/2020 Are you currently employed? Yes [id number] Information not available 06/21/2020 Are you able to walk independently without assistance or assistive devices? YESWOREST Information not available 02/08/2022 Are you able to care for yourself independently? 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 Never used electronic cigarettes [id number] Information not available 06/21/2020 What is your exercise level? Moderate stair climber and treadmill at home [id number] Information not available 06/21/2020 Mental Status None recorded. Family History Relationship Description Onset Age of this Age Resolved Age Notes LastModified by Organization Details LastModified Time Mother Rheumatoid arthritis [email or web address] Not available 11/11 15:22:34 Mother Depressive disorder [email or web address] Not available 2015 15:08:45 Mother Arthritis 45 abolcun Not available 03/02/2016 15:08:45 Mother Transient cerebral ischemia [email or web address] Not available 01/17 16:17:43 Mother Hypothyroidi sm [email or web address] Not available 01/17 16:18:07 Mother Alzheimer's disease [email or web address] Not available 01/18 16:25:43 Father Coronary arterioscler osis [email or web address] Not available 11/11 15:22:34 Father Diabetes mellitus abolcun Not available 2015 15:08:45 Brother Malignant neoplasm of prostate 62 [email or web address] Not available 02/2024 09:52:52 Notes:3 brother and [...] trivalent, PF 4 completed Chrissy Espinoza MD [address] [facility] [address], [place], [address], [facility] 07/31/2021 16:03:54 Influenza, split virus, trivalent, PF 5 completed Chrissy Espinoza MD [address] [facility] [address], [place], [address], [facility] 07/31/2021 16:03:54 Influenza, split virus, quadrivalent, preservative 6 completed Chrissy Espinoza MD [address] [address], [place], [address], [facility] 07/31/2021 16:03:54 Tdap 3 completed Chrissy Espinoza MD [address] [address], [place], [address], [facility] 07/31/2021 16:03:54 Influenza, split virus, quadrivalent, preservative 8 completed Chrissy Espinoza MD [address] [address], [place], [address], [facility] 07/31/2021 16:03:54 Influenza, split virus, quadrivalent, preservative 9 completed Chrissy Espinoza MD [address] [address], [place], [address], [facility] 07/31/2021 16:03:54 influenza, whole 9 completed Hermelinda Manriquez null, [facility] 11/18/2019 14:50:27 Hep B, unspecified formulation 8 completed Hermelinda Manriquez null, [facility] 11/18/2019 14:50:27 influenza, whole 9 completed Hermelinda Manriquez null, [facility] 11/18/2019 14:50:27 Hep B, unspecified formulation 8 completed Hermelinda Manriquez null, [facility] 11/18/2019 14:50:27 tetanus toxoid, unspecified formulation 7 completed Hermelinda Manriquez null, [facility] 11/18/2019 14:50:27 Hep B, unspecified formulation 9 completed Hermelinda Manriquez null, [facility] 11/18/2019 14:50:27 COVID-19, mRNA, LNP-S, PF, 30 mcg/0.3 mL dose 0 completed AZAEL De La Torre, [facility] 10/18/2021 12:48:03 COVID-19, mRNA, LNP-S, PF, 30 mcg/0.3 mL dose 1 completed [place] De La Torre, [facility] 10/18/2021 12:48:03 COVID-19, mRNA, LNP-S, PF, 30 mcg/0.3 mL dose 1 completed [place] De La Torre, [facility] 10/18/2021 12:48:03 Influenza, MDCK, quadrivalent, preservative 1 completed AZAEL Cline, [facility] 09/27/2022 12:52:49 zoster recombinant 4 completed AZAEL Coronado, [facility] 09/22/2024 08:59:41 pneumococcal polysaccharide PPV23 8 completed [place] Cline, [facility] 09/27/2022 12:52:49 Hep B, adult 8 completed Not Available [facility] 09/24/2023 15:41:03 Hep B, adult 8 completed Not Available [facility] 09/24/2023 15:41:03 Hep B, adult 9 completed Not Available [facility] 09/24/2023 15:41:03 Tdap 7 completed Chrissy Espinoza MD [address] [address], [place], [address], [facility] 07/31/2021 16:03:54 pneumococcal polysaccharide PPV23 3 completed Chrissy Espinoza MD [address] [address], [place], [address], [facility] 07/31/2021 16:03:54 Td (adult), 2 Lf tetanus toxoid, preservative free, adsorbed 3 completed Chrissy Espinoza MD [address] [address], [place], [address], [facility] 03/21/2023 19:20:02 Past Encounters Encounter ID Performer Location Encounter Start Date Encounter Closed Date Diagnosis/Indication Diagnosis SNOMED-CT Code Diagnosis ICD10 Code Diagnosis IMO Codes Diagnosis Note [id number] autoEComm erce [address] [facility] [place] [address] 07/17/2010 00:00:00 [id number] autoEComm erce [address] [facility],[address] [place] [address] 10/16/2010 00:00:00 [id number] autoEComm erce [address] [facility] [place] [address] 01/18/2011 00:00:00 [id number] autoEComm erce [address] [facility],[address] [place] [address] 04/04/2011 00:00:00 [id number] autoEComm erce [address] [facility] [place] [address] 06/27/2011 00:00:00 [id number] autoEComm erce [address] [facility],[address] [place] [address] 07/24/2011 00:00:00 [id number] autoEComm erce [address] [facility] [place] [address] 08/21/2011 00:00:00 [id number] autoEComm erce [address] [facility] [place] [address] 03/19/2012 00:00:00 [id number] autoEComm erce [address] [facility] [place] [address] 08/27/2012 00:00:00 [id number] autoEComm erce [address] [facility],[address] [place] [address] 10/03/2012 00:00:00 [id number] autoEComm erce [address] [place] [address] 10/13/2012 00:00:00 [id number] autoEComm erce [address] [place] [address] 02/10/2013 00:00:00 [id number] autoEComm erce [address] [place] [address] 05/18/2013 00:00:00 [id number] autoEComm erce [address] [place] [address] 06/16/2013 00:00:00 [id number] autoEComm erce [address] [place] [address] 08/27/2013 00:00:00 [id number] autoEComm erce [address] [place] [address] 12/04/2013 00:00:00 [id number] autoEComm erce [address] [place] [address] 02/16/2014 00:00:00 [id number] Chrissy Espinoza MD Main Office [address] [place], [place] [address] 04/16/2014 13:09:50 04/16/2014 14:05:44 Abdominal pain 42033371 concern for obstructio n given her history; also must consider diverticul itis. Will check labs and get imaging and given a script for pain meds. [id number] Chrissy Espinoza MD Main Office [address] [place], [place] [address] 08/30/2014 10:01:53 08/30/2014 11:12:36 Adult health examination [id number] Atrial fibrillation 02976572 followed by Dr Maria. Has low CHADS score therefore only on aspirin instead of coumadin Menopausal syndrome [id number] followed by Dr. Jamil Psoriasis with arthropathy [id number] followed by Lakhwinder Muñiz and Dr Jiménez. Conjunctivitis 6877465 [id number] Kari davila MD Main Office [address] [address] [place] [address] 11/12/2014 11:00:00 11/12/2014 11:33:19 Spasm of back muscles 669655025 new problem, will add soma to meds for spasm, pt to use heat, massage, no concern for disc and not related to colonoscop y Atrial fibrillation 41002482 new dx no complaints today Arthritis 3243365 already on celebvrex with helps and ultram, can use ultram more often, only taking once at nightmore often for this pain [id number] Chrissy Espinoza MD Main Office [address] [address] [place] [address] 12/20/2014 16:14:15 12/20/2014 16:54:22 Cobalamin deficiency 724271209 Pain of sh ld region 39810792 she will call [facility] to make her own appointmen t. She understand s that they may refer her to a general surgeon to have this removed since it is an issue which may not be involving her joint. [id number] Chrissy Espinoza MD Main Office [address] [address] [place] [address] 02/17/2015 12:41:35 02/17/2015 13:17:21 Pain in thumb 196408056 possible injury to tendon. [id number] Chrissy Espinoza MD Main Office [address] [address] [place] [address] 03/01/2015 16:13:25 03/01/2015 16:40:43 Essential hypertension 58443887 she will follow her BP at home and will call if her diastolic remains >90 Atrial fibrillation 50252279 followed by Dr Maria. Has low CHADS score therefore only on aspirin instead of coumadin Anemia 387709824 She is taking vitamin B12 injections because of absorption problems with B12 after gastric surgery. She may also have some iron deficiency again because of absorption problems. [id number] Chrissy Espinoza MD Main Office [address] [address] [place] [address] 09/12/2015 15:41:49 09/12/2015 16:45:21 Adult health examination 200731505 Z00.00 Atrial fibrillation [address] Maria. Has low CHADS score therefore only on aspirin instead of coumadin Cobalamin deficiency 190 708820 E53.8 Pain of hip region 96708 002 M25.552 This is probably bursitis/t endinitis. She will call Dr Jiménez's office to get her Rachelle appointmen t moved up. [id number] Alma Marcos, [facility] Main Office [address] [facility] [address] [place] [address] 11/01/2015 09:50:44 11/01/2015 10:38:27 Intervertebral disc prolapse 27061284 M51.9 Needs MRI in order to see Dr. Jean again, MRI ordered, patient does need something to help her through the MRI and prefers open MRI. Thoracic back pain 09743 8004 M54.6 Heat 4 times daily, continue celebrex, take skelaxin as needed, gentle stretching as tolerated, massage may be helpful. Neck pain 17381400 M54.2 Heat 4 times daily, continue celebrex, take skelaxin as needed, gentle stretching as tolerated, massage may be helpful. Pain of sh oulder region 38507899 M25.512 Heat 4 times daily, continue celebrex, take skelaxin as needed, gentle stretching as tolerated, massage may be helpful. [id number] Alma Marcos, [facility] Main Office [address] [address] 03/02/2016 14:54:00 03/02/2016 15:40:03 Pre-surgery evaluation 401964390 Z01.818 According to [facility] Karen-opera tive Risk Assessment , based on patient's age, creatinine , ASA class and surgical procedure, patient has a 0.39% risk of karen-opera tive myocardial infarction or cardiac arrest, EKG was done by Dr. Maria- cardiology 02/16/2016, labs pending, no further work-up necessary, should proceed with scheduled surgery. Anemia 239675569 D64.9 Taking iron daily, will recheck labs Atrial fibrillation 4943 6004 I48.91 Paroxysmal , followed by Dr. Maria, no episodes in a long time. Cobalamin deficiency 190 629589 E53.8 Vitamin D deficiency 347 12156 E55.9 Essential hypertension 07895214 I10 Fair control on current meds, Dr. Maria recently increased her diltiazem to 180mg, continue as prescribed . [id number] Chrissy Espinoza MD Main Office [address] [place] [address] 04/12/2016 13:24:24 04/12/2016 14:12:08 Intervertebral disc prolapse 00797491 M51.9 Essential hypertension 04177697 I10 Good control with increased dose of diltiazem. Anxiety 73159030 F41.9 Psoriasis with arthropathy 20399691 M06.9 followed by [facility] and Dr Jiménez. [id number] Fidel bergman MD Main Office [address] [place] [address] 04/21/2016 10:47:32 04/21/2016 11:53:33 Low back pain 272555367 M54.5 [id number] Chrissy Espinoza MD Main Office [address] [address] [place] [address] 05/03/2016 11:21:09 05/09/2016 15:59:30 [id number] Chrissy Espinoza MD Main Office [address] [facility] [address] [place] [address] 05/30/2016 10:08:28 05/30/2016 10:47:25 Atrial fibrillation 72993533 I48.[address] Maria. Has low CHADS score of 1 therefore only on aspirin instead of coumadin [id number] Chrissy Espinoza MD Main Office [address] [facility] [address] [place] [address] 08/28/2016 15:14:56 08/28/2016 15:45:07 [id number] Chrissy Espinoza MD Main Office [address] [facility] [address] [place] [address] 08/29/2016 11:00:45 08/29/2016 13:10:53 Sciatica 86851339 M54.32 [id number] Sulaiman Lee PA-C Main Office [address] [facility] [address] [place] [address] 11/08/2016 15:32:34 11/08/2016 16:53:22 Adult health examination 998980406 Z00.00 ? pap/hpv utd - ?missing hpv 2016 - advised pt to f/u c [facility] Cobalamin deficiency 190 254405 E53.8 cont b12 shots q month Atrial fibrillation 4943 6004 I48.0 cont f/u c Dr. Maria - next 12/03 Psoriasis with arthropathy 50915166 L40.50 cont f/u c ATC Backache w ith radiating pain 721385342 M54.9 cont f/u c neurosurge on, has pending eval c [facility] pain on 3.28 Essential hypertension 43142258 I10 fairly stable, cont meds as dir Vitamin D deficiency 347 72961 E55.9 Iron defic iency anemia 57006788 D50.9 h/o gastric bypass / iron def Varicose v eins of lower extremity 47035849 I83.893 Aphthous u lcer of mouth 025346520 K12.0 Congestion of nasal sinus 90437127 R09.81 [id number] Chrissy Espinoza MD Main Office [address] [place] [address] 02/28/2017 14:23:15 02/28/2017 15:59:10 Sprain of knee 82117151 S83.92XA She was given exercises to do at home. She will call in a few weeks if the pain persists and we will get imaging studies at that time. [id number] Chrissy Espinoza MD Main Office [address] [place] [address] 05/10/2017 15:45:56 05/10/2017 16:44:59 Atrial fibrillation 97421402 I48.[address] Maria. Has low CHADS score of 1 therefore only on aspirin instead of coumadin Low back pain 954253328 M54.5 chronic and stable; no changes in mgmt. Essential hypertension 36415840 I10 good control; continue current mgmt. [id number] Ayana Lee PA-C Main Office [address] [place] [address] 06/07/2017 16:00:56 06/07/2017 16:27:09 Dizziness 639637164 R42 ? electrolyt e abnormalit y ( pt. is on diuretics , anemia, low magnesium . ? weather symptoms related to chemical imbalance/ anxiety. Pt. is seeing cardiologi st and rheumatolo [facility] [place] for f/u in June. Fatigue 97530385 R53.83 [id number] Chrissy Espinoza MD Main Office [address] [facility] [address] [place] [address] 11/11/2017 15:06:29 11/11/2017 16:20:23 Adult health examination 051143859 Z00.00 UTD with colonoscop y and due again in 2021. UTD with immunizati ons. Also UTD with [facility] care and mammogram. Atrial fibrillation 4943 6004 I48.91 Followed by cardiology . Psoriasis with arthropathy 59452595 L40.50 followed by Lakhwinder Muñiz and Dr Jiménez. Fear of flying 000673316 F40.243 Essential hypertension 63743172 I10 good control; continue current mgmt. [id number] Chrissy Espinoza MD Main Office [address] [facility] [address] [place] [address] 12/11/2017 10:28:42 12/11/2017 11:36:55 [id number] Chrissy Espinoza MD Main Office [address] [facility] [address] [place] [address] 12/17/2017 09:23:09 12/17/2017 10:08:48 Atrial fibrillation 37339796 I48.91 Continue with CCB and aspirin. She has not yet started the eliquis and will wait until she sees cardiology (Dr Calabrese) next week. [id number] Chrissy Espinoza MD Main Office [address] [facility] [address] [place] [address] 05/14/2018 17:07:16 05/14/2018 17:28:21 Essential hypertension 83646641 I10 good control; continue current mgmt. Atrial fibrillation 4943 6004 I48.91 Continue with CCB and eliquis and flecainide Acute sinusitis 64058189 J01.90 [id number] Kari davila MD Main Office [address] [facility] [address] [place] [address] 09/03/2018 10:41:53 09/03/2018 11:37:49 Spinal stenosis of lumbar region 12761499 M48.061 marked stenosis and risk for nerve comporessi on on MRI from 2017 today no weakness or sugical emergency, paresthesi as from underlying stenosis, pt to hold on chiropract ic manipulati on, treat with gabapentin on slow taper, if any weakness or worsening or incontinen ce pt knows to see DR Urban in eval Paresthesia 13414748 R20 .2 see above alos lateral left hand, nl UE strenth, has hx of cervical surgery treat as above [id number] Chrissy Espinoza MD Main Office [address] [facility] [address] [place] [address] 11/12/2018 14:08:36 11/12/2018 15:12:04 Adult health examination 755652296 Z00.00 UTD with colonoscop y and due again in 2019. UTD with immunizati ons. Also UTD with [facility] [facility] care and mammogram. Essential hypertension 54768197 I10 good control; continue current mgmt. Psoriasis with arthropathy 39057234 L40.50 followed by Lakhwinder Muñiz and Dr Jiménez. Atrial fibrillation 4943 6004 I48.91 Continue with CCB and eliquis and flecainide [id number] Chrissy Espinoza MD Main Office [address] [facility] [address] [facility] [place] [address] 04/28/2019 16:09:20 04/28/2019 16:45:54 Essential hypertension 46225830 I10 good control; continue current mgmt. Obstructiv e sleep apnea syndrome 89830910 G47.33 Does not notice any difference in her fatigue/en ergy level so doesn't use it all the time. Atrial fibrillation 4943 6004 I48.91 Scheduled for an ablation next month with Dr Razo. [id number] Chrissy Espinoza MD Main Office [address] [facility] [address] [place] [address] 09/29/2019 13:30:36 09/29/2019 14:15:27 Low back pain 010864586 M54.5 chronic and stable; no changes in mgmt. Spinal [place] nosis of lumbar region 95273137 M48.061 MRI shows worsening stenosis with nerve compressio n. [id number] Chrissy Espinoza MD Main Office [address] [facility] [address] [place] [address] 11/18/2019 11:50:05 11/18/2019 16:51:56 Spinal stenosis of lumbar region 80469874 M48.061 MRI shows worsening stenosis with nerve compressio n. Sciatica 70842440 M54.32 Pain of ri ght shoulder joint 9070353015 4396242 M25.511 She will call [facility] or [facility] for an appointmen t and possible injection. [id number] Chrissy Espinoza MD Main Office [address] [facility] [address] [place] [address] 02/02/2020 15:45:21 02/03/2020 08:42:32 Adult health examination 188984419 Z00.00 UTD with colonoscop y done Sep 2019 (return in 3 years). UTD with immunizati ons. Also UTD with [facility] [facility] care and mammogram. She will get a shingles vaccine at the pharmacy. Atrial fibrillation 4943 6004 I48.[address] Razo May 2019. Still on eliquis. Psoriasis with arthropathy 08314984 L40.50 followed by [facility] Muñiz and Dr Jiménez. Essential hypertension 67036358 I10 good control; continue current mgmt. [id number] Chrissy Espinoza MD Main Office [address] [facility] [address] [place] [address] 07/28/2020 15:15:40 07/28/2020 16:09:52 Essential hypertension 78199358 I10 good control; continue current mgmt. Atrial fibrillation 4943 6004 I48.[address] Razo May 2019. Still on eliquis. Multinodular goiter 2375 24602 E04.2 Her last U/S was 2 years ago. We will repeat it next year. [id number] Chrissy Espinoza MD Main Office [address] [facility] [address] [place] [address] 02/07/2021 15:43:15 02/07/2021 16:34:10 Screening for malignant neoplasm of breast 413518940 Z12.39 She will make her own appointmen t. Adult heal th examination 294731167 Z00.00 UTD with colonoscop y done Sep 2019 (return in 3 years). UTD with immunizati ons (including COVID) except shingles. She will get a shingles vaccine at the pharmacy. Fatigue 03746606 R53.83 She has had problems with anemia in the past because of poor absorption since her gastric bypass surgery in 2004. Hyperlipidemia 07002192 E78.5 Anemia 060811807 D64.9 She was taking vitamin B12 injections because of absorption problems with B12 after gastric surgery. These were stopped a while ago because of unclear reasons. She has also had problems with iron absorption in the past and has needed infusions but hasn't had one in a number of years. Essential hypertension 26337100 I10 good control; continue current mgmt. Atrial fibrillation 4943 6004 I48.[address] Razo May 2019. Still on eliquis. Psoriasis with arthropathy 46356136 L40.50 followed by Lakhwinder Muñiz and Dr Jiménez. Multinodular goiter 2375 58033 E04.2 Her last U/S was 3 years ago. We will repeat. [id number] Chrissy Espinoza MD Main Office [address] [place] [address] 06/13/2021 08:48:26 06/13/2021 10:34:23 [id number] Chrissy Espinoza MD Main Office [address] [place] [address] 07/31/2021 15:36:25 07/31/2021 16:17:10 Essential hypertension 04260459 I10 good control; continue current mgmt. Atrial fibrillation 4943 6004 I48.[address] Razo May 2019. Still on eliquis. Scheduled for an ECHO tomorrow and seeing Dr Calabrese. Anemia 563464724 D64.9 She was taking vitamin B12 injections [...] in 6 months. Small yue l obstruction 524762477 K56.609 Admitted for lysis of adhesions. in May at [facility]. [id number] Chrissy Espinoza MD Main Office [address] [place] [address] 10/18/2021 12:41:07 10/18/2021 13:34:42 Pain of right thigh 1145726255 86575 M79.651 Possible nerve entrapment . Will treat conservati vely for now and will consider an imaging study if this persists. Pain of ri ght shoulder joint 9267763220 8456539 M25.511 She will call [facility] or [facility] for an appointmen t and possible injection. [id number] Chrissy Espinoza MD Main Office [address] [facility] 207 [facility] [place] [address] 02/08/2022 10:58:10 02/08/2022 11:46:45 Adult health examination 619579442 Z00.00 UTD with colonoscop y done Sep 2019 (return in 3 years). UTD with immunizati ons (including COVID) except shingles. She will get a shingles vaccine at the pharmacy. Atrial fibrillation 4943 6004 I48.[address] Razo May 2019. Still on eliquis. Has flecainide to take if she has symptoms but hasn't needed it. Psoriasis with arthropathy 21042855 L40.50 followed by Lakhwinder Muñiz and Dr Jiménez. This has been stable on leflunomid e. Essential hypertension 12135317 I10 good control; continue current mgmt. [id number] Chrissy Espinoza MD Main Office [address] [facility] [address] [place] [address] 08/08/2022 15:41:35 08/08/2022 16:41:18 Essential hypertension 49035534 I10 good control; continue current mgmt. Atrial fibrillation 4943 6004 I48.[address] Razo May 2019. Still on eliquis. Had an episode 2 weeks ago and was very symptomati c so her cardiologi Dr Calabrese put her on a regular dose of flecainide whereas before she was taking it prn. Pain of hip region 27625 002 M25.552 This is probably bursitis/t endinitis. She has an appointmen t next month with a new rheumatolo gist. [id number] Chrissy Espinoza MD Tele[facility] [address] [facility] [address] [place] [address] 09/27/2022 12:51:00 09/27/2022 12:52:00 Pain of shoulder region 30748568 M25.511 she will call [facility] to make her own appointmen t. She understand s that they may refer her to a general surgeon to have this removed since it is an issue which may not be involving her joint. Neck pain 39562410 M54.2 Pain of ri ght shoulder joint 0752245636 2320698 M25.511 She will call [facility] or [facility] for an appointmen t and possible injection. [id number] Chrissy Espinoza MD Main Office [address] [facility] [address] [place] [address] 01/29/2023 08:20:05 01/29/2023 09:11:44 Pre-surgery evaluation 504707026 Z01.818 According to [facility] Karen-opera tive Risk Assessment , based on patient's age, creatinine , ASA class and surgical procedure, patient has a 0.6 % risk of karen-opera tive myocardial infarction or cardiac arrest. EKG NSR, labs pending. Given known informatio n patient is low cardiac risk for surgery, may proceed as scheduled. Osteoarthr itis of joint of right shoulder region 5175554099 02384 M19.011 Havign right reverse total shoulder replacemen t on 02/05/[address] Plata. Atrial fibrillation 4943 6004 I48.91 Paroxysmal , followed by Dr. Case. Having work-up and f/u appt Essential hypertension 34746738 I10 BP well controlled . Iron defic iency anemia 70652995 D50.9 Psoriatic arthritis 1563 65072 L40.50 Anticoagulant therapy 18 3297793 Z79.01 Urinary tr act infectious disease 12404871 N39.0 Hyperlipidemia 51011739 E78.5 [id number] Chrissy Espinoza MD Main Office [address] [facility] [address] [place] [address] 03/21/2023 09:41:12 03/21/2023 10:55:29 Adult health examination 770561537 Z00.00 UTD with colonoscop y done October 2022 and due again in 2027. UTD with immunizati ons (including COVID) except shingles. She will get a shingles vaccine at the pharmacy. Requires a tetanus booster 309307638 Z23 Essential hypertension 47423991 I10 good control; continue current mgmt. Hyperlipidemia 85471251 E78.5 On meds and LDL at goal. Iron defic iency anemia 77445915 D50.9 She has had problems in the past because of malabsorpt ion secondary to her prior gastric bypass surgery. Atrial fibrillation 4943 6004 I48.[address] Razo May 2019. Still on eliquis. Dr Calabrese changed her flecanide to multaq which she is tolerating better. She rarely feels that she goes into afib. [id number] Chrissy Espinoza MD Main Office [address] [facility] [address] [place] [address] 09/24/2023 15:39:10 09/24/2023 16:26:24 Atrial fibrillation 19915378 I48.[address] Razo May 2019. Still on eliquis. She is followed by cardiology . Her anti-arrhy thmics were just stopped and she continues on anticoagul ation which will be lifelong. She rarely feels that she goes into afib. Essential hypertension 57334390 I10 good control; continue current mgmt. Iron defic iency anemia [id number] D50.9 She has had problems in the past because of malabsorpt ion secondary to her prior gastric bypass surgery. She recently received IV iron infusion because of symptomati c anemia. [id number] Chrissy Espinoza MD Main Office [address] [facility] [address] [place] [address] 01/27/2024 10:29:07 01/29/2024 10:03:38 [id number] Chrissy Espinoza MD Main Office [address] [place] [address] [address] [place] [address] 01/29/2024 08:30:52 01/29/2024 08:52:03 Transition of care [id number] 105 Z75.8 reviewed hospital documentat ion Small yue l obstruction [id number] K56.609 was evaluated at [facility] for SBO-sympto ms improved conservati vely with g-tube, IV fluids-sig nificant improvemen ts since discharge- has been able to pass stools and gas-has a f/u appt with gen surgery Atrial fibrillation 4943 6004 I48.91 -currently on eliquis-fo llows with cardiology Essential hypertension [id number] I10 in office bp of 124/82-sta ble on current regimen Preventive dental procedure 42186624 Z01.20 Leukopenia 18521643 D72. 819 mild leukopenia was admitted at [facility]-will repeat CBC w/diff Edema of l ower extremity [id number] R60.0 onset x2 days ago; currently taking 40mg QD-was advised by cardiology to double her current dosage of furosemide -discussed to wear compressio n stockings and elevate legs-pt notes she typically gets lower extremity edema after a SBO flare up-pt will cotact cardiology if no improvemen ts [id number] Chrissy Espinoza MD Main Office [address] [facility] [address] [place] [address] 03/25/2024 09:10:00 03/25/2024 10:05:02 Adult health examination 746022374 Z00.00 UTD with colonoscop y done October 2022 and due again in 2027. UTD with immunizati ons (including COVID). She had her first shingles vaccine and will be returning to the pharmacy to get her second vaccine. Bone density finding 385 283275 M85.89 She will make her own appointmen t. Atrial fibrillation 4943 [address]48[address] Razo May 2019 then back in afib in 2022. Had a repeat ablation last year and back in sinus rhythm. Still on eliquis. She is followed by cardiology . Her anti-arrhy thmics were stopped and she continues on anticoagul ation which will be lifelong. Essential hypertension 63868576 I10 good control; continue current mgmt. Hyperlipidemia 28907773 E78.5 On meds and LDL at goal. Psoriatic arthritis 1563 82983 L40.50 On meds and followed by rheumatolo Dr Nic jolly. Heart fail ure with normal ejection fraction 449709241 I50.32 Followed by cardiology . She was prescribed a statin but has not yet started it because she is nervous about muscle pains which are already present with her psoriatic arthritis. She will try it and monitor any changes. [id number] Chrissy Espinoza MD Main Office [address] [facility] [address] [place] [address] 09/22/2024 08:53:23 09/22/2024 09:28:17 Atrial fibrillation 92301485 I48.[address] Razo May 2019 then back in afib in 2022. Had a repeat ablation last year and back in sinus rhythm. Still on eliquis. She is followed by cardiology . Her anti-arrhy thmics were stopped and she continues on anticoagul ation which will be lifelong. Hyperlipidemia 37948149 E78.5 On meds and LDL at goal. Iron defic iency anemia 63997715 D50.9 She has had problems in the past because of malabsorpt ion secondary to her prior gastric bypass surgery. She recently received IV iron infusion because of symptomati c anemia. Osteoporosis 08520165 M8 1.0 She will discuss treatment with her rheumatolo gist. [id number] Chrissy Espinoza MD Main Office [address] [facility] [address] [place] [address] 03/31/2025 12:55:16 03/31/2025 13:51:43 Adult health examination 623922171 Z00.00 UTD with colonoscop y done October 2022 and due again in 2027.Had initial COVID vaccine series and one booster in 2020. No plans for further vaccines.S he had her first shingles vaccine and will be returning to the pharmacy to get her second vaccine.Du e for a prevnar vaccine which she will get at her pharmacy.H ad a tetanus update in 2022.Due for a mammogram. Essential hypertension 05936930 I10 good control; continue current mgmt. Hyperlipidemia 62880510 E78.5 On meds and LDL at goal. Multinodular goiter 2[address] Charlette araujo in. Had an US done February 2025. Osteoporosis 15081601 M8 1.[address] Ovalles in. Taking calcium/vi tamin D supplement s and will be starting another med prescribed by Dr Ovalles in. Chronic anemia 124978543 D64.9 [id number] She was taking vitamin B12 injections because of absorption problems with B12 after gastric surgery. These were stopped a while ago because of unclear reasons. She has also had problems with iron absorption in the past and has needed infusions but hasn't had one in a number of years. Last H/H done in November 2024 (4 months ago) showed some mild anemia with a normal MCV. Possibly ACD. Rheumatoid arthritis 698 94084 M06.9 Followed by rheumDr Liu. Psoriatic arthritis 1563 92331 L40.50 On meds and followed by rheumatDr Elijah bull Administra tion of pneumococcal vaccine 19465532 Z23 She will get this at her pharmacy. Atrial fibrillation 4943 [address]48[address] Razo May 2019 then back in afib in 2022. Had a repeat ablation in 2023 and back in sinus rhythm. Still on eliquis. She is followed by cardiology . Her anti-arrhy thmics were stopped and she continues on anticoagul ation which will be lifelong. She understand s that she is at increased risk for bleeding and will stop her eliquis and call if she develops any bleeding. Heart fail ure with normal ejection fraction 187624190 I50.32 Followed by cardiology . . Health Concerns Section Related Observation LastModified by Organization Detai ls LastModified Time None Recorded Concern Status LastModified by Organization Details LastModified Time None Recorded Advance Directives Directive N: Payers Insurance Date Sequence Insurance Name Policy Number Policy Maynard Covered Member ID Maynard Member ID Guarantor Name 04/12/2025 1 [employer] (O) [id number] Mariellen Counter [id number] Mariellen Counter 07/31/2021 [facility] [employer] [id number] Mariellen Counter Mariellen Counter Notes Date Note Type Note Provider Name and Address Organization Details Recorded Time 4 text/html Hospitalization Contact RecordReported by PatientHospitalization Contact RecordFor follow up, [facility],admit date: (please enter in format 'mm/dd/yyyy') (01/21/2024),date of discharge: (please enter in format 'mm/dd/yyyy') (01/24/2024), anddate of contact: (please enter in format 'mm/dd/yyyy') (01/27/2024).Medicare covered inpatient stay? no JAKE with in [...] discharge on 01/24/2024 on low fiber diet. Live In Caregiver JAKE call to patient states doing well, [...] UP ; Recheck CBC SHAQUILLE RASHEED [address] [facility] [address], [place], [address], [facility] 01/29/2024 10:03:37 4 text/html Hospitalization Contact RecordFor follow up, patient reports hospital: [facility], admit date: (01/21/2024), date of discharge: [...] discharge on 01/24/2024 on low fiber diet. Live In Caregiver JAKE call to patient states doing well, [...] PCP Heads UP ; Recheck CBC Laurence kimbrough, [facility] 02/07/2024 12:44:05 4 text/html Generic HPI TemplateReported by VirgenUTOnelia with colonoscopy done by Dr Gaston in 2022 and due again in 2027.Had one shingles vaccine and will return to her pharmacy for the second vaccine.Had the initial COVID vaccines and 1 booster.UTD with mammogram and due for a bone density.UTD with tetanus and encouraged to get a flu vaccine in the next few months. ROS as noted in the HPI Chrissy Espinoza MD [address] [address], [place], [address], [facility] [place] 03/25/2024 12:33:51 5 text/html HyperlipidemiaReported by PatientOn meds and LDL at goal. Hypertension F/UReported by PatientHPIFor lifestyle, patient reportsnot exercising regularlybut reportslimiting/avoiding salt. For associated symptoms, patient reportsno dizziness,no lightheadedness,no chest pain,no shortness of breath,no palpitations,no edema, andno calf pain with exertion. For medications, patient reportstaking medications as directedandno side effects from medication. Atrial FibrillationReported by PatientHad a second ablation in 2023 and has been in sinus rhythm since that time. Her rhythm meds were stopped but she continues on eliquis which will be for life. Followed by cardiology.ROS as noted in the HPI She continues to have pain in her right hip and has an appointment with a new metal shaping machine operator. Takes celebrex which helps. She has been having more fatigue lately. She has a h/o fe-def anemia because of her gastric bypass requiring IV iron infusions. Chrissy Espinoza MD [address] [address], [place], [address], [facility] 09/22/2024 09:32:31 5 text/html Generic HPI TemplateReported by PatientChronic medical problems have been stable. She is followed by multiple specialist including rheumatology, endocrinology, cardiology, hematology and gastroenterology. Chrissy Espinoza MD [address] [address], [place], [address], [facility] 03/31/2025 14:56:28 OBGyn Episode No OBEpisode recorded.
== END 2025-08-01 12:55 | disposition home or self-care (01) ==
LOC: HO.MRI 12:54
PROVIDERS: PCP Internal Medicine; Visit Provider Student in an Organized Health Care Education/Training Program
DX: M79.89 Other specified soft tissue disorders (principal)
CPT/HCPCS: 73218